=== PATIENT | male | born 1960 | race Caucasian/White ===

== ENCOUNTER → 2017-07-20 | Outpatient (CLI) | payer OTHER ==
--- NOTE | 2017-07-20 23:30 | MR ---
EXAMINATION TYPE: MR lumbar spine wo/w con DATE OF EXAM: 07/20/2017 COMPARISON: NONE HISTORY: Low back pain TECHNIQUE: Multiplanar, multisequence images of the lumbar spine were acquired utilizing 10 mL intravenous Gadav ist gadolinium contrast. The lumbar vertebra have normal alignment. There is narrowing at L5-S1 disc space. There is metal art ifact from disc prosthesis at L5-S1 anteriorly. There are moderate anterior spurs and disc herniation s from T12 to L5. There are small posterior disc bulges from T12 to L5. There is some facet arthropat hy at L4-5 and mild lateral recess stenosis. I see no significant lumbar bony spinal stenosis. There is no paraspinal mass. There is no compression fracture. There is slight narrowing of the lumbar disc spaces throughout the lumbar spine. I see no pathologic enhancement.. IMPRESSION: Previous surgery. There is mild lateral recess stenosis at L4-5 due to facet arthropathy. Multiple sm all posterior disc bulges and herniation in the lumbar spine without significant impingement on the s krissy canal. No fracture. Mild degenerative disc space narrowing from L1 to L5. There is severe L5-S1 disc space narrowing.
== END | disposition home or self-care (01) ==
LOC: RADMRIMAIN 16:00
PROVIDERS: ATTEND Psychiatry & Neurology Neurology
DX: M48.07 Spinal stenosis, lumbosacral region (principal); M51.26 Other intervertebral disc displacement, lumbar region; M46.86 Other specified inflammatory spondylopathies, lumbar region; Z91.09 Other allergy status, other than to drugs and biological substances; Z91.018 Allergy to other foods; Z98.890 Other specified postprocedural states
CPT/HCPCS: 72158; A9581

== ENCOUNTER 2020-02-27 16:19 | Inpatient (IN) | payer OTHER ==
[2020-02-27] MEDS ORDERED: NALOXONE 0.4 MG/ML 1 ML VIAL IV PRN (17:11)
[2020-02-27] MEDS ORDERED: DIGOXIN 250 MCG/ML 2 ML AMP IVP ONE (18:19)
[2020-02-27] MEDS ORDERED: IBUPROFEN 800 MG TAB PO PRN (18:21)
--- NOTE | 2020-02-27 18:29 | P.GSCN ---
History of Present Illness Consult date: 02/27/20 Reason for Consult: pericardial effusion with tamponade Requesting physician: Rosa Hernandez History of present illness: This is a 59 year old gentleman with a previous medical history of hypertension, hyperlipidemia, COPD, current chronic tobacco dependence, type 2 diabetes mellitus, chronic diastolic heart failure, CKD stage III,chronic pain syndrome, seizure disorder, and pancreatitis, who is a poor historian. [place] [facility] [place] complaints of chest pain and shortness of breath. He was found to be tachycardic and was given adenosine without relief. He was started on IV Cardizem which did bring his heart rate down, however he developed hypotension and the IV Cardizem was stopped. In addition he was started on IV heparin. He remained afebrile. Pulse ox was 94-96%. Heart rate was initially in the 170s and came down into the 90s. Blood pressure ranged from 80s to low 100s over 60s. Troponin was negative, d-dimer 6255.5, BNP 858, BUN 15, creatinine 1.2, liver enzymes normal, WBC 12.7, hemoglobin 11.1, lipase 90, INR 1.12. Initial EKG demonstrated supraventricular tachycardia with heart rate 167, subsequent EKG demonstrated sinus rhythm with heart rate 99. Chest x- ray demonstrated cardiomegaly, interstitial coarsening, haziness of the left costophrenic angle likely pleural effusion per radiologist read, film is not currently available. CT to rule out pulmonary embolism was ordered but had not been completed at the time of transfer. Transthoracic echocardiogram was completed reportedly showing large pericardial effusion with tamponade. Recommendation was made to transfer patient to [facility] for cardiothoracic surgery consultation by Dr. Bowers for pericardial tamponade treatment. Review of Systems review of system was completed and was negative except as noted, although patient is a poor historian - Cardiovascular Reports as per HPI, Reports chest pain - Respiratory Reports as per HPI, Reports dyspnea Past Medical History Past Medical History: Heart Failure, COPD, Diabetes Mellitus, GERD/Reflux, Hyperlipidemia, Hypertension, Renal Disease, Seizure Disorder History of Any Multi-Drug Resistant Organisms: None Reported Past Surgical History: Back Surgery Additional Past Surgical History / Comment(s): sinus surgery Past Anesthesia/Blood Transfusion Reactions: No Reported Reaction Past Psychological History: Depression Smoking Status: Current every day smoker, Heavy tobacco smoker Past Alcohol Use History: None Reported Past Drug Use History: None Reported Additional History: reportedly has smoked 2 packs of cigarettes per day for the last 50 years Medications and Allergies Home Medications and Allergies Comment(s): patient states he doesn't know what medications he takes but he takes 13 medications in the morning and many pills in the evening, stated "look at my list" Home Medications Medication Instructions Recorded Confirmed Type Escitalopram Oxalate 20 mg PO DAILY 10/19/13 10/19/13 History Famotidine 40 mg PO DAILY 10/19/13 10/19/13 History Morphine Sulfate ER [Ms Contin 60 mg PO Q8HR 10/19/13 10/19/13 History 60Mg] Omeprazole 40 mg PO AC-BRKFST 10/19/13 10/19/13 History PHENobarbitaL [Luminal] 32.4 mg PO QID 10/19/13 10/19/13 History Phenytoin Sodium Extended 100 mg PO Q6HR 10/19/13 10/19/13 History [Dilantin] Simvastatin [Zocor] 10 mg PO HS 10/19/13 10/19/13 History busPIRone HCL [Buspar] 30 mg PO BID 10/19/13 10/19/13 History Allergies Allergy/AdvReac Type Severity Reaction Status Date / Time aspirin AdvReac Mild Rash/Hives Verified 10/19/13 10:29 Surgical - Exam - General appears older than stated age no distress, no pain, chronically ill, obese - Eyes normal ocular movement - ENT no hearing loss, poor longterm - Neck no masses, no bruits, trachea midline - Respiratory Lungs sounds diminished bilaterally. Respirations even, nonlabored. Currently on 4 L nasal cannula with oxygen saturation 94%. - Cardiovascular S1, S2 present. Regular rate and rhythm, sinus rhythm on telemetry. Palpable peripheral pulses bilaterally. No edema present. No calf pain or tenderness noted. - Abdomen Abdomen: soft, non tender, bowel sounds - Genitourinary deferred - Rectum deferred - Integumentary skin is warm and dry - Neurologic normal sensation - Musculoskeletal normal posture - Psychiatric oriented to time, oriented to person, oriented to place, speech is normal Results - Imaging Additional studies: stat transthoracic echocardiogram films reviewed at the bedside with Dr. Bowers Assessment and Plan Assessment: 1. Moderate generalized pericardial effusion, no tamponade physiology 2[place] [facility] [place] 3. History of hypertension 4. Hyperlipidemia 5. COPD 6. Current chronic tobacco dependence 7. Type 2 diabetes mellitus 8. Chronic diastolic heart failure 9. history of CKD stage III 10. Chronic pain syndrome 11. Seizure disorder 12. History of pancreatitis Plan: The patient was seen and examined emergently at the bedside with Dr. Bowers. We did review his transthoracic echocardiogram as it was being completed. There is no evidence of tamponade physiology at this time. Vital signs remained stable although the patient did have a brief episode of atrial tachycardia which abated on its own. We added colchicine. Repeat transthoracic echocardiogram ordered for tomorrow. Cardiology consulted, Dr. Bowers did discuss the patient with Dr. Mcneil. No surgical intervention at this point, however we reserve decision to be made based on continued monitoring of the patient's symptoms and clinical progress. Medical management of other comorbidities per p [facility], cardiology, pulmonology. More recommendations to follow Thank you Dr. Hernandez for this consult. We look forward to working with you in the care of your patient. Time with Patient: Greater than 30
[2020-02-27] MEDS: SODIUM CHLORIDE 0.9% 1,000 ML IV SCH (18:31)
[2020-02-27] MEDS ORDERED: IPRATROPIUM-ALBUTEROL 3 ML NEB INHALATION PRN (18:53)
[2020-02-27 20:01] LABS: Glucose,Whole Blood 150 mg/dL (75-99)
[2020-02-27] MEDS: INSULIN ASPART (NovoLOG) 100 UNIT/ML VIAL SQ SCH (20:02)
[2020-02-27] MEDS: COLCHICINE 0.6 MG EACH PO SCH (20:02)
[2020-02-27 21:56] LABS: Appearance,Urine Clear (Clear); Bacteria,Urine Rare /hpf; Bilirubin,Urine Negative (Negative); Blood,Urine Large (Negative); Color,Urine Yellow; Glucose,Urine (UA) Negative (Negative); Hyaline Casts,Urine 88 /lpf (0-2); Ketones,Urine Negative (Negative); Leukocyte Esterase,Urine Small (Negative); Mucus,Urine Rare /hpf; Nitrite,Urine Negative (Negative); PH, Urine 5.5 (5.0-8.0); Protein,Urine 1+ (Negative); RBC,Urine >182 /hpf (0-5); Squamous Epithelial Cell,Urine <1 /hpf (0-4); Urobilinogen,Urine <2.0 mg/dL (<2.0); WBC,Urine 10 /hpf (0-5)
--- NOTE | 2020-02-27 22:04 | P.HPIM ---
History of Present Illness H&P Date: 02/27/20 Chief Complaint: Severe dyspnea and shortness of breath, large pericardial e ffusion with pos 59-year-old male [facility] with past medical history of chronic pain syndrome, history of COPD, type 2 diabetes, restless leg syndrome and degenerative joint disease who has morphine pump in his left abdominal area seen pain management on regular basis. Patient also have stage III chronic kidney disease, seizure activity, chronic pancreatitis, chronic diastolic congestive heart failure who presented to the emergency department at [facility] complaining of worsening dyspnea and shortness of breath for the last 3 days become much worse not been able to lay down flat in bed also was having significant tachycardia or patient was dry on adenosine without relief he was started on IV Cardizem drip with pulse rate dropped down but developed to have significant hypotension, Cardizem drip was stopped at this point. Patient was started on heparin drip his pulse ox is running slightly bit low pulse rate running in the 100 2270 bpm with low blood pressure at 100. Troponin was negative his d-dimer was 6255 BNP of 855 liver enzyme were normal white blood cell was moderately elevated. EKG demonstrates supraventricular tachycardia with pulse rate 167, chest x-ray showed large cardiac margin, CT of the chest angiogram to rule out PE was not completed before his transfer, patient ended up going for transthoracic echocardiogram which reportedly showing large pericardial effusion and possible temporal not. Patient was transferred to [facility] to see cardiothoracic surgery service for possible pericardial window. Patient was transfer from the ICU at [facility] to the ICU at [facility] was seen Dr. Melendrez and Dr Haque, echocardiogram at the bedside was done with the coordinate measuring machine technician and review of cardiothoracic showed no temporal not picture but patient had large pericardial effusion with high suspicion for pericarditis. Patient was started on large dose of NSAID along with colchicine will be kept in ICU, continue updraft treatment continue to treat his blood sugar and watch it carefully. Review of Systems CONSTITUTIONAL: Obese, mild distress, he is falling asleep in between and having significant tachypnea and mild tachycardia. EYES: No icterus sclerae, no conjunctivitis. EARS, NOSE, MOUTH, THROAT, and FACE: No sore throat, lymphadenopathy, carotid bruits or deformity. RESPIRATORY: Positive significant shortness of breath no cough positive mild wheezes and tightness no hemoptysis. CARDIOVASCULAR: Positive chest pain positive shortness of breath has palpitation PND orthopnea or angina. GASTROINTESTINAL: No Abd pain, Nausea or vomiting, no Diarrhea or constipation, No GI Bleed, no distention or masses. GENITOURINARY: Negative for Hematuria or UTI, no kidney stones. INTEGUMENT/BREAST: Negative for any muscular injury with mild osteoarthritis.. HEMATOLOGIC/LYMPHATIC: Negative for bleed or purpura. MUSCULOSKELTAL: Negative for Myalgia or arthralgia. NEURLOGICAL: No LOC, Sz or syncope, blurred vision dizziness or abnormality.. BEHAVIORAL/PSYCH: Negative. ENDOCRINE: Negative. Social history: Patient smokes 2 packs a day for the last 40 years does not drink alcohol no drug use his seen pain management has been on pain management injection and other modality regularly. Family history: His father dying is 50 from CAD: Mother dying of 74 from CVA possible blood clot. Patient had 2 sisters and one brother his brother with eye from CAD patient had 1 child with no major medical problem. Past Medical History Past Medical History: Heart Failure, COPD, Diabetes Mellitus, GERD/Reflux, Hyperlipidemia, Hypertension, Renal Disease, Seizure Disorder History of Any Multi-Drug Resistant Organisms: None Reported Past Surgical History: Back Surgery Additional Past Surgical History / Comment(s): sinus surgery Past Anesthesia/Blood Transfusion Reactions: No Reported Reaction Past Psychological History: Depression Smoking Status: Current every day smoker, Heavy tobacco smoker Past Alcohol Use History: None Reported Past Drug Use History: None Reported Medications and Allergies Home Medications Medication Instructions Recorded Confirmed Type Escitalopram Oxalate 20 mg PO DAILY 10/19/13 10/19/13 History Famotidine 40 mg PO DAILY 10/19/13 10/19/13 History Morphine Sulfate ER [Ms Contin 60 mg PO Q8HR 10/19/13 10/19/13 History 60Mg] Omeprazole 40 mg PO AC-BRKFST 10/19/13 10/19/13 History PHENobarbitaL [Luminal] 32.4 mg PO QID 10/19/13 10/19/13 History Phenytoin Sodium Extended 100 mg PO Q6HR 10/19/13 10/19/13 History [Dilantin] Simvastatin [Zocor] 10 mg PO HS 10/19/13 10/19/13 History busPIRone HCL [Buspar] 30 mg PO BID 10/19/13 10/19/13 History Allergies Allergy/AdvReac Type Severity Reaction Status Date / Time aspirin AdvReac Mild Rash/Hives Verified 10/19/13 10:29 Physical Exam Vitals: Vital Signs Temp Pulse Resp BP Pulse Ox 02/27/20 21:00 81 23 120/73 93 L 02/27/20 20:58 95 02/27/20 20:30 93 22 98/70 94 L 02/27/20 20:00 98.1 F 88 24 114/82 95 02/27/20 19:00 68 29 H 88/64 02/27/20 18:30 152 H 85/55 94 L 02/27/20 18:00 151 H 21 102/83 91 L 02/27/20 17:30 92 28 H 91 L 02/27/20 17:24 98.2 F 89 25 H 100/56 93 L Intake and Output 02/27/20 02/27/20 02/27/20 06:59 14:59 22:59 Intake Total 320 Output Total 150 Balance 170 Intake: IV 320 Sodium Chloride 0.9% 1, 320 000 ml @ 80 mls/hr IV . [id number] [facility] Rx#:[id number] Output: Urine 150 Other: Voiding Method Indwelling Catheter Weight 113 kg General Appearance: Significantly overweight falling asleep during his interview mild distress complaining of pain still. Neck HEENT: Supple, no lymphadenopathy, no thyroid enlargement, no carotid bruits. Lungs: Decreased breath some bilaterally with fine rhonchi positive mild expiratory wheezes. Chest Wall: Decrease expansion with deep inspiration no tenderness and no deformity was found on exam, no costochondral pain or discomfort. Heart: Regular rate and rhythm, S1, S2 positive history positive systolic murmur. Back: Symmetric, no curvature, ROM normal, no CVA tenderness. Abdomen: Soft, non-tender, bowel sounds active all four quadrants, no masses, no organomegaly. Patient has pain pump in the left lower side of his abdominal area. Extremities: Extremities normal, atraumatic, no cyanosis or edema. Pulses: 2+ and symmetric. Skin: Skin color, texture, tugor normal, no rashes or lesions. Neurologic: Alert severely confuse moving all his 4 extremities generalized weakness and focal deficit. Results Labs: Abnormal Lab Results - Last 24 Hours (Table) 02/27/20 02/27/20 Range/Units 17:40 19:59 APTT 38.2 H (22.0-30.0) sec POC Glucose (mg/dL) 150 H (75-99) mg/dL Thrombosis Risk Factor Assmnt - DVT/VTE Prophylaxis DVT/VTE Prophylaxis: Pharmacologic Prophylaxis ordered, Mechanical Prophylaxis ordered - Choose All That Apply Any of the Below Risk Factors Present?: Yes Each Factor Represents 1 point: Abnormal pulmonary function (COPD) Other Risk Factors: No Other congenital or acquired thrombophilia - If yes, enter type in comment: No Thrombosis Risk Factor Assessment Total Risk Factor Score: 1 Thrombosis Risk Factor Assessment Level: Low Risk Assessment and Plan Assessment: 1 severe dyspnea and shortness of breath: Combination of pericardial effusion, pericarditis, arrhythmia and tachycardia, COPD and severe bronchitis. 2 Large pericardial effusion: Most likely from severe pericarditis patient be seen cardiology echocardiogram will be complete and submitted in the meanwhile continue patient on NSAID along with colchicine. 3 advanced COPD with mild exacerbation: Continue patient on DuoNeb Will add Pulmicort and was start patient on small dose of steroid. 4 chronic pain management: Patient has been on extended release morphine 60 mg every 8 hours medication with decrease at this point. 5 chronic seizure: Has been on Dilantin and phenobarbital. 6 Possible urinary tract infection: Patient will be on Rocephin 1 g daily. Next chronic kidney disease: Continue gentle hydration repeat. Creatinine 24 hours. 7 chronic type 2 diabetes: Continue patient on Accu-Chek with sliding scales coverage. 8 hypertension: Well controlled currently on beta valentín and if needed will add smaller dose of alberto inhibitor and or combined with ARB. 9 chronic pain management: Continue patient hydrocodone on morphine along with muscle relaxer. 10 hyperlipidemia: Resume simvastatin. 11 possible UTI: Patient will be on Rocephin until cultures completed.2 12 GI prophylaxis: Patient will be on omeprazole. CODE STATUS: Full code. Admit patient to inpatient service for more than 2 night stay.
[2020-02-27] MEDS: IBUPROFEN 800 MG TAB PO SCH (22:06)
[2020-02-28] MEDS ORDERED: DIGOXIN 250 MCG/ML 2 ML AMP IVP ONE (00:30)
[2020-02-28] MEDS: PHENYTOIN SODIUM EXTENDED 100 MG CAP PO SCH ×4 (00:42→17:34)
[2020-02-28] MEDS: SODIUM CHLORIDE 0.9% 1,000 ML IV SCH ×2 (03:00→16:20)
[2020-02-28] MEDS: PANTOPRAZOLE 40 MG TABLET PO SCH (06:26)
[2020-02-28] MEDS: IBUPROFEN 800 MG TAB PO SCH ×3 (06:26→17:33)
[2020-02-28 06:30] LABS: Glucose,Whole Blood 129 mg/dL (75-99)
[2020-02-28] MEDS: INSULIN ASPART (NovoLOG) 100 UNIT/ML VIAL SQ SCH ×4 (06:34→20:42)
[2020-02-28 06:57] LABS: Basophils # (A) 0.1 k/uL (0-0.2); Basophils % (A) 0 %; Eosinophils # (A) 0.1 k/uL (0-0.7); Eosinophils % (A) 1 %; HCT 36.2 % (39.0-53.0); HGB 10.8 gm/dL (13.0-17.5); Hypochromasia Marked; Lymphocytes % (A) 9 %; MCH 26.9 pg (25.0-35.0); MCHC 29.9 g/dL (31.0-37.0); Mean Platelet Volume 6.8; Monocytes # (A) 0.9 k/uL (0-1.0); Monocytes % (A) 8 %; Neutrophils # (A) 8.8 k/uL (1.3-7.7); Neutrophils % (A) 79 %; Platelet Count 313 k/uL (150-450); RBC 4.02 m/uL (4.30-5.90); RDW 15.8 % (11.5-15.5)
[2020-02-28 07:05] LABS: Potassium 4.6 mmol/L (3.5-5.1)
--- NOTE | 2020-02-28 07:41 | P.CRDCN ---
History of Present Illness Consult date: 02/28/20 Chief complaint: Shortness of breath/pericardial effusion History of present illness: This is a very pleasant 59-year-old gentleman who was somewhat poor historian who was transferred from [facility] to [facility] for further evaluation and management of pericardial effusion. The patient does have a past medical history significant for hypertension and dyslipidemia and chronic obstructive pulmonary disease as well as significant history of smoking and diabetes. He presented initially to the [facility] complaining of increasing shortness of breath for the last several days. According to him the shortness of breath was associated with a chest discomfort in the mid of the chest as a dull kind of discomfort without any radiation and the chest discomfort was not of pleuritic nature. He stated that he did have some fever. No symptoms of upper respiratory infection. He was tachycardic was [facility] and [facility] and he was given adenosine and subsequently Cardizem but his pressure dropped significantly at that point. Subsequently the Cardizem was stopped. He underwent a computed tomography scan as well as an echocardiogram. The computed tomography scan showed no evidence of PE. Ec hocardiogram showed moderate pericardial effusion and because of that the patient was transferred here. He was seen by the cardiothoracic team and no indication for pericardial window was placed at that time because the patient was not having any tamponade physiology. As a matter of fact the patient is here with an empty stable. His pressure has been within normal limits without any vasopressors and his heart rate has been in the 80s. He was started on colchicine as well as nonsteroid anti-inflammatory at high dose. Beside that he was started on digoxin for the SVT. The chest x-ray was reviewed and showed severe cardiomegaly. The blood work was reviewed as well. Repeated echocardiogram was performed yesterday. The EKG was reviewed and showed sinus rhythm with ST changes does not seems to be diffuse. Past Medical History Past Medical History: Heart Failure, COPD, Diabetes Mellitus, GERD/Reflux, Hyperlipidemia, Hypertension, Renal Disease, Seizure Disorder History of Any Multi-Drug Resistant Organisms: None Reported Past Surgical History: Back Surgery Additional Past Surgical History / Comment(s): sinus surgery Past Anesthesia/Blood Transfusion Reactions: No Reported Reaction Past Psychological History: Depression Smoking Status: Current every day smoker, Heavy tobacco smoker Past Alcohol Use History: None Reported Past Drug Use History: None Reported Medications and Allergies Home Medications Medication Instructions Recorded Confirmed Type Omeprazole 40 mg PO DAILY 10/19/13 02/27/20 History Acetaminophen Tab [Tylenol] 500 mg PO Q6H PRN 02/27/20 02/27/20 History Albuterol Sulfate [Ventolin HFA] 2 puff INHALATION RT-QID PRN 02/27/20 02/27/20 History Brexpiprazole [Rexulti] 4 mg PO HS 02/27/20 02/27/20 History Cephalexin [Keflex] 500 mg PO Q6H 02/27/20 02/27/20 History Cholecalciferol [Vitamin D3 (25 2,000 unit PO DAILY 02/27/20 02/27/20 History Mcg = 1000 Iu)] DULoxetine HCL [Cymbalta] 30 mg PO DAILY 02/27/20 History DULoxetine HCL [Cymbalta] 60 mg PO DAILY 02/27/20 02/27/20 History Docusate [Colace] 100 mg PO DAILY 02/27/20 02/27/20 History Famotidine [Pepcid] 40 mg PO HS 02/27/20 02/27/20 History Furosemide [Lasix] 20 mg PO BID 02/27/20 02/27/20 History HYDROcodone/APAP 5-325MG [[place] 1 tab PO BID PRN 02/27/20 02/27/20 History 5-325] Melatonin 3 mg PO HS 02/27/20 02/27/20 History Morphine Pain Pump (Unknown 1 dose SQ-PUMP CONTINUOUS 02/27/20 02/27/20 History Strength) Multivitamins, Thera [Multivitamin 1 tab PO DAILY 02/27/20 02/27/20 History (formulary)] Potassium Chloride [Klor-Con 20] 20 meq PO DAILY 02/27/20 02/27/20 History Pregabalin [Lyrica] 75 mg PO BID PRN 02/27/20 02/27/20 History SILVER sulfADIAZINE Cream 1 applic TOPICAL DAILY PRN 02/27/20 02/27/20 History [Silvadene 1% Cream] Simethicone Chew [Mylicon Chew] 80 mg PO Q6H PRN 02/27/20 02/27/20 History Tamsulosin HCl [Flomax] 0.4 mg PO DAILY 02/27/20 02/27/20 History gemfibroziL [Lopid] 600 mg PO BID-W/MEALS 02/27/20 02/27/20 History hydrOXYzine pamoate [Vistaril] 25 mg PO BID PRN 02/27/20 02/27/20 History lamoTRIgine [LaMICtal] 150 mg PO DAILY 02/27/20 02/27/20 History metFORMIN HCL [Glucophage] 1,000 mg PO BID-W/MEALS 02/27/20 02/27/20 History polyethylene glycoL 3350 [Miralax] 17 gm PO DAILY PRN 02/27/20 02/27/20 History rOPINIRole HCL [Requip] 1 mg PO HS 02/27/20 02/27/20 History Allergies Allergy/AdvReac Type Severity Reaction Status Date / Time aspirin AdvReac Mild Rash/Hives Verified 02/27/20 23:14 Physical Exam Vitals: Vital Signs Temp Pulse Resp BP Pulse Ox 02/28/20 07:00 84 23 107/70 92 L 02/28/20 06:30 74 23 110/71 92 L 02/28/20 06:00 81 22 100/67 94 L 02/28/20 05:30 77 19 111/63 90 L 02/28/20 05:00 80 20 107/66 92 L 02/28/20 04:30 77 21 110/79 91 L 02/28/20 04:00 98.6 F 77 18 117/69 92 L 02/28/20 03:54 93 L 02/28/20 03:30 76 20 106/66 91 L 02/28/20 03:00 78 22 90 L 02/28/20 02:30 77 19 96/62 90 L 02/28/20 02:00 80 19 127/76 92 L 02/28/20 01:30 84 21 107/70 92 L 02/28/20 01:00 80 24 111/78 92 L 02/28/20 00:30 82 23 91/62 90 L 02/28/20 00:00 98.2 F 85 24 119/82 90 L 02/27/20 23:30 87 25 H 117/80 92 L 02/27/20 23:00 82 25 H 113/66 92 L 02/27/20 22:30 87 22 117/77 93 L 02/27/20 22:00 93 25 H 103/76 93 L 02/27/20 21:30 89 23 114/72 94 L 02/27/20 21:00 81 23 120/73 93 L 02/27/20 20:58 95 02/27/20 20:30 93 22 98/70 94 L 02/27/20 20:00 98.1 F 88 24 114/82 95 02/27/20 19:00 68 29 H 88/64 02/27/20 18:30 152 H 85/55 94 L 02/27/20 18:00 151 H 21 102/83 91 L 02/27/20 17:30 92 28 H 91 L 02/27/20 17:24 98.2 F 89 25 H 100/56 93 L Intake and Output 02/27/20 02/28/20 02/28/20 22:59 06:59 14:59 Intake Total 400 640 80 Output Total 190 340 50 Balance 210 300 30 Intake: IV 400 640 80 Sodium Chloride 0.9% 1, 400 640 80 000 ml @ 80 mls/hr IV . [id number] [facility] Rx#:[id number] Output: Urine 190 340 50 Other: Voiding Method Indwelling Catheter Indwelling Catheter Weight 113 kg 116.5 kg - Respiratory Respiratory: bilateral: CTA - Cardiovascular Rhythm: regular Results 02/28/20 06:31 02/28/20 06:31 Coagulation 02/27/20 Range/Units 17:40 APTT 38.2 H (22.0-30.0) sec CBC 02/28/20 Range/Units 06:31 WBC 11.0 H (3.8-10.6) k/uL RBC 4.02 L (4.30-5.90) m/uL Hgb 10.8 L (13.0-17.5) gm/dL Hct 36.2 L (39.0-53.0) % Plt Count 313 (150-450) k/uL Comprehensive Metabolic Panel 02/28/20 Range/Units 06:31 Sodium 132 L (137-145) mmol/L Potassium 4.6 (3.5-5.1) mmol/L Chloride 104 (98-107) mmol/L Carbon Dioxide 20 L (22-30) mmol/L BUN 27 H (9-20) mg/dL Creatinine 1.21 (0.66-1.25) mg/dL Glucose 103 H (74-99) mg/dL Calcium 8.0 L (8.4-10.2) mg/dL Current Medications Generic Name Dose Route Start Last Admin Trade Name Freq PRN Reason Stop Dose Admin Albuterol/Ipratropium 3 ml 02/27/20 18:53 Ipratropium-Albuterol 3 Ml Neb INHALATION RT-QID PRN Shortness Of Breath Or Wheezing Atorvastatin Calcium 10 mg 02/28/20 21:00 Atorvastatin 10 Mg Tab PO HS MARY Buspirone HCl 30 mg 02/28/20 09:00 Buspirone Hcl 10 Mg Tab PO BID MARY Colchicine 0.6 mg 02/27/20 21:00 02/27/20 20:02 Colchicine 0.6 Mg Each PO 0.6 mg BID MARY Administration Digoxin 250 mcg 02/28/20 09:00 Digoxin 250 Mcg Tab PO DAILY MARY Escitalopram Oxalate 20 mg 02/28/20 09:00 Escitalopram 20 Mg Tab PO DAILY MARY Famotidine 40 mg 02/28/20 09:00 Famotidine 20 Mg Tab PO DAILY [facility] Sodium Chloride 1,000 mls @ 80 mls/hr 02/27/20 17:15 02/28/20 03:00 Saline 0.9% IV 80 mls/hr .[id number] MARY Administration Ibuprofen 800 mg 02/27/20 22:00 02/28/20 06:26 Ibuprofen 800 Mg Tab PO 800 mg TID-W/MEALS MARY Administration Insulin Aspart 0 unit 02/27/20 21:00 02/28/20 06:34 Insulin Aspart (Novolog) 100 Unit/Ml Vial SQ Not Given ACHS MARY Protocol Naloxone HCl 0.2 mg 02/27/20 17:11 Naloxone 0.4 Mg/Ml 1 Ml Vial IV Q2M PRN Opioid Reversal Pantoprazole Sodium 40 mg 02/28/20 07:30 02/28/20 06:26 Pantoprazole 40 Mg Tablet PO 40 mg [id number] AMRY Administration Phenobarbital 32.4 mg 02/27/20 22:00 02/27/20 22:06 Phenobarbital 32.4 Mg Tab PO 32.4 mg QID MARY Administration Phenytoin Sodium 100 mg 02/28/20 00:00 02/28/20 06:26 Phenytoin Sodium Extended 100 Mg Cap PO 100 mg Q6HR MARY Administration Intake and Output 09/02/28/20 02/28/20 22:59 06:59 14:59 Intake Total 400 640 80 Output Total 190 340 50 Balance 210 300 30 Intake: IV 400 640 80 Sodium Chloride 0.9% 1, 400 640 80 000 ml @ 80 mls/hr IV . [id number] [facility] Rx#:[id number] Output: Urine 190 340 50 Other: Voiding Method Indwelling Catheter Indwelling Catheter Weight 113 kg 116.5 kg 02/28/20 06:31 02/28/20 06:31 Assessment and Plan Assessment: Assessment #1 moderate pericardial effusion likely secondary to pericarditis #2 rule out any metastatic cancer to the pericardial #3 hypertension #4 diabetes #5 COPD #6 history of smoking Plan #1 continue the current medical regimen including colchicine as well as nonsteroid anti-inflammatory #2 continue digoxin for the SVT #3 repeat the echocardiogram in the next 24-48 hours #4 avoid any blood pressure medications or any diuretics #5 follow-up with the patient Thank you for allowing us but spitting his care
--- NOTE | 2020-02-28 08:01 | ECHOF ---
Referral Reason:pericardial effusion MEASUREMENTS -------- HEIGHT: 182.9 cm WEIGHT: 93.9 kg BP: IVSd: 1.0 cm (0.6 - 1.1) LVIDd: 4.5 cm (3.9 - 5.3) LVPWd: 0.8 cm (0.6 - 1.1) IVSs: 1.5 cm LVIDs: 3.8 cm LVPWs: 1.4 cm Ao Diam: 3.8 cm (2.0 - 3.7) AV Cusp: 2.3 cm (1.5 - 2.6) EPSS: 0.3 cm MV E Neftali: 0.50 m/s MV DecT: 230 ms MV A Neftali: 0.54 m/s MV E/A Ratio: 0.93 MV EF SLOPE: 179.84 mm/s (70 - 150) MV EXCURSION: 17.33 mm (> 18.000) FINDINGS -------- Sinus rhythm. This was a techncally difficult study with suboptimal views, , Definity utilized for enhancement of i mages. The left ventricular size is normal. There is mild concentric left ventricular hypertrophy. Overa ll left ventricular systolic function is mild-moderately impaired with, an EF between 40 - 45 %. The right ventricle is mildly enlarged. The left atrial size is normal. The right atrial size is normal. There is mild aortic valve sclerosis. Mild mitral regurgitation is present. Unable to estimate RVSP due to inadequate TR jet spectral doppler profile. The pulmonic valve was not well visualized. The aortic root size is normal. Moderate Pericardial Effusion: Dr Bowers evaluated effusion. CONCLUSIONS -------- 1. The left ventricular size is normal. 2. There is mild concentric left ventricular hypertrophy. 3. Overall left ventricular systolic function is mild-moderately impaired with, an EF between 40 - 45 %. 4. The left atrial size is normal. 5. There is mild aortic valve sclerosis. 6. Mild mitral regurgitation is present. 7. Unable to estimate RVSP due to inadequate TR jet spectral doppler profile. 8. The pulmonic valve was not well visualized. 9. Moderate Pericardial Effusion: Dr Bowers evaluated effusion. DIRECTOR SKILLS: Margaret Montoya RDCS
[2020-02-28 08:31] LABS: T4, Free (Free Thyroxine) 1.82 ng/dL (0.78-2.19)
[2020-02-28] MEDS: DIGOXIN 250 MCG TAB PO SCH (08:49)
[2020-02-28] MEDS: COLCHICINE 0.6 MG EACH PO SCH ×2 (08:50→20:25)
[2020-02-28] MEDS: busPIRone HCl 10 MG TAB PO SCH ×3 (08:50→20:26)
[2020-02-28] MEDS: FAMOTIDINE 20 MG TAB PO SCH (08:50)
[2020-02-28] MEDS: ESCITALOPRAM 20 MG TAB PO SCH (08:50)
[2020-02-28 09:10] LABS: ABG Base Excess -5.1 mmol/L; ABG HCO3 21 mmol/L (21-25); ABG Oxygen Saturation 92.3 % (94-97); ABG PCO2 38 mmHg (35-45); ABG PH 7.34 (7.35-7.45); ABG PO2 70 mmHg (83-108); ABG TCO2 22 mmol/L (19-24); Allen Test Performed? Yes
--- NOTE | 2020-02-28 09:12 | XR ---
EXAMINATION TYPE: XR chest 1V DATE OF EXAM: 02/28/2020 COMPARISON: 11/30/2009 HISTORY: Shortness of breath TECHNIQUE: Single frontal view of the chest is obtained. FINDINGS: There is bilateral infiltrate and pleural effusion with interstitial pattern. The heart is enlarged and is a chronic right clavicular fracture. No pneumothorax. IMPRESSION: 1. Correlate for CHF. Underlying infiltrate not excluded.
[2020-02-28] MEDS: methylPREDNISolone SOD SUCCI 40 MG/ML 1 ML VIAL IV SCH ×2 (09:18→16:20)
--- NOTE | 2020-02-28 11:14 | P.PN ---
Subjective Progress Note Date: 02/28/20 59-year-old male [facility] patient with past medical history of chronic pain syndrome, history of COPD, type 2 diabetes, restless leg syndrome and degenerative joint disease who has morphine pump in his left abdominal area seen pain management on regular basis. Patient also have stage III chronic kidney disease, seizure activity, chronic pancreatitis, chronic diastolic congestive heart failure who presented to the emergency department at [facility] complaining of worsening dyspnea and shortness of breath for the last 3 days become much worse not been able to lay down flat in bed also was having significant tachycardia or patient was dry on adenosine without relief he was started on IV Cardizem drip with pulse rate dropped down but developed to have significant hypotension, Cardizem drip was stopped at this point. Patient was started on heparin drip his pulse ox is running slightly bit low pulse rate running in the 100 2270 bpm with low blood pressure at 100. Troponin was ne gative his d-dimer was 6255 BNP of 855 liver enzyme were normal white blood cell was moderately elevated. EKG demonstrates supraventricular tachycardia with pulse rate 167, chest x-ray showed large cardiac margin, CT of the chest angiogram to rule out PE was not completed before his transfer, patient ended up going for transthoracic echocardiogram which reportedly showing large pericardial effusion and possible temporal not. Patient was transferred to [facility] to see cardiothoracic surgery service for possible pericardial window. Patient was transfer from the ICU at [facility] to the ICU at [facility] was seen Dr. Melendrez and Dr Haque, echocardiogram at the bedside was done with the human resources technician and review of cardiothoracic showed no temporal not picture but patient had large pericardial effusion with high suspicion for pericarditis. Patient was started on large dose of NSAID along with colchicine will be kept in ICU, continue updraft treatment continue to treat his blood sugar and watch it carefully. 02/27: Patient remains in the intensive care unit. He has been afebrile, heart rate 83, blood pressure 105/67, pulse ox 90% on 10 L high flow nasal cannula increased to 15 L with pulse ox of 94%. Patient had repeat echocardiogram done this morning and formal report is pending. Repeat chest x-ray reveals heart failure, underlying infiltrate not excluded. Patient was started on Solu-Medrol by pulmonary medicine. Patient is noted to be more alert and able to stay awake today. Patient has been evaluated by cardiothoracic surgery with no plan for surgical intervention as no tamponade on noted. Cardiology is planning to continue current medications including colchicine, digoxin and ovoid antihypertensives and diuretics. Repeat blood work reveals WBC 11, hemoglobin 10.8, platelet count 313. Sodium 132, potassium 4.6, chloride 104, CO2 20, BUN 27 creatinine 1.21. Blood sugars running between 103 and 150. Troponin 0.067. TSH 0.235 with normal free T4 of 1.82. Review of systems CONSTITUTIONAL: Obese, no distress. EYES: No icterus sclerae, no conjunctivitis. EARS, NOSE, MOUTH, THROAT, and FACE: No sore throat, lymphadenopathy, carotid bruits or deformity. RESPIRATORY: Positive significant shortness of breath no cough positive mild wheezes and tightness no hemoptysis. CARDIOVASCULAR: Positive chest pain positive shortness of breath has palpitation PND orthopnea or angina. GASTROINTESTINAL: No Abd pain, Nausea or vomiting, no Diarrhea or constipation, No GI Bleed, no distention or masses. GENITOURINARY: Negative for Hematuria or UTI, no kidney stones. INTEGUMENT/BREAST: Negative for any muscular injury with mild osteoarthritis.. HEMATOLOGIC/LYMPHATIC: Negative for bleed or purpura. MUSCULOSKELTAL: Negative for Myalgia or arthralgia. NEURLOGICAL: No LOC, Sz or syncope, blurred vision dizziness or abnormality.. BEHAVIORAL/PSYCH: Negative. ENDOCRINE: Negative. Physical examination General Appearance: Significantly overweight , no distressl. Neck HEENT: Supple, no lymphadenopathy, no thyroid enlargement, no carotid bruits. Lungs: Decreased breath some bilaterally with fine rhonchi positive mild expir atory wheezes. Chest Wall: Decrease expansion with deep inspiration no tenderness and no deformity was found on exam, no costochondral pain or discomfort. Heart: Regular rate and rhythm, S1, S2 positive systolic murmur. Back: Symmetric, no curvature, ROM normal, no CVA tenderness. Abdomen: Soft, non-tender, bowel sounds active all four quadrants, no masses, no organomegaly. Patient has pain pump in the left lower side of his abdominal area. Extremities: Extremities normal, atraumatic, no cyanosis or edema. Pulses: 2+ and symmetric. Skin: Skin color, texture, tugor normal, no rashes or lesions. Neurologic: Alert onfuse moving all his 4 extremities generalized weakness and focal deficit. Assessment and plan 1 acute hypoxic respiratory failure secondary to pericardial effusion, pericarditis, arrhythmia and tachycardia, COPD exacerbation and severe bronchitis. Continue oxygen therapy titrated, DuoNeb treatments every 4 hours, Cymetra 40 mg IV every 8 hours, Pulmicort 1 mg twice daily. 2 Moderate pericardial effusion. Consult with cardiothoracic surgery and cardiology appreciated. Continue conservative management continue patient on NSAID along with colchicine. Repeat echocardiogram pending. 3 advanced COPD with mild exacerbation: Continue patient on DuoNeb Will add Pulmicort, Solu-Medrol. 4 chronic pain management: Patient has been on extended release morphine 60 mg every 8 hours medication with decrease at this point. 5 chronic seizure: Has been on Dilantin and phenobarbital. 6 Possible urinary tract infection: Patient will be on Rocephin 1 g daily. Next chronic kidney disease: Continue gentle hydration repeat. Creatinine 24 hours. 7 SVT. Continue digoxin. 8 chronic type 2 diabetes: Continue patient on Accu-Chek with sliding scales coverage. A1c. 9 hypertension: Well controlled currently on beta valentín and if needed will add smaller dose of alberto inhibitor and or combined with ARB. 10 chronic pain management: Continue patient hydrocodone on morphine along with muscle relaxer. 11 hyperlipidemia: Resume simvastatin. 12 possible UTI: Patient will be on Rocephin until cultures completed.2 13 recurrent depression. Continue Lexapro 20 mg daily. 14 GI prophylaxis. Continue Protonix.. CODE STATUS: Full code. Discharge plan: To be determined. Most likely home with [facility]. Patient has a legal guardian. Impression and plan of care have been directed as dictated by the signing physician. Oralia Andrews nurse practitioner acting as scribe for signing physician. Objective - Vital Signs Vital signs: Vital Signs Temp 98.1 F 02/28/20 08:00 Pulse 83 02/28/20 09:00 Resp 26 H 02/28/20 09:00 BP 105/67 02/28/20 09:00 Pulse Ox 90 L 02/28/20 09:00 Intake & Output 02/27/20 02/28/20 02/28/20 18:59 06:59 18:59 Intake Total 80 960 340 Output Total 50 480 230 Balance 30 480 110 Weight 113 kg 116.5 kg Intake: IV 80 960 240 Sodium Chloride 0.9% 1, 80 960 240 000 ml @ 80 mls/hr IV . [id number] [facility] Rx#:[id number] Oral 100 Output: Urine 50 480 230 Other: Voiding Method Indwelling Catheter Indwelling Catheter - Labs CBC & Chem 7: 02/28/20 06:31 02/28/20 06:31 Labs: Abnormal Lab Results - Last 24 Hours (Table) 02/27/20 02/27/20 02/27/20 Range/Units 17:40 19:59 21:45 WBC (3.8-10.6) k/uL RBC (4.30-5.90) m/uL Hgb (13.0-17.5) gm/dL Hct (39.0-53.0) % MCHC (31.0-37.0) g/dL RDW (11.5-15.5) % Neutrophils # (1.3-7.7) k/uL APTT 38.2 H (22.0-30.0) sec ABG pH (7.35-7.45) ABG pO2 (83-108) mmHg ABG O2 Saturation (94-97) % Sodium (137-145) mmol/L Carbon Dioxide (22-30) mmol/L BUN (9-20) mg/dL Glucose (74-99) mg/dL POC Glucose (mg/dL) 150 H (75-99) mg/dL Calcium (8.4-10.2) mg/dL Troponin I (0.000-0.034) ng/mL TSH (0.465-4.680) mIU/L Urine Protein 1+ H (Negative) Urine Blood Large H (Negative) Ur Leukocyte Esterase Small H (Negative) Urine RBC >182 H (0-5) /hpf Urine WBC 10 H (0-5) /hpf Urine Bacteria Rare H (None) /hpf Hyaline Casts 88 H (0-2) /lpf Urine Mucus Rare H (None) /hpf 02/28/20 02/28/20 02/28/20 Range/Units 06:29 06:31 06:31 WBC 11.0 H (3.8-10.6) k/uL RBC 4.02 L (4.30-5.90) m/uL Hgb 10.8 L (13.0-17.5) gm/dL Hct 36.2 L (39.0-53.0) % MCHC 29.9 L (31.0-37.0) g/dL RDW 15.8 H (11.5-15.5) % Neutrophils # 8.8 H (1.3-7.7) k/uL APTT (22.0-30.0) sec ABG pH (7.35-7.45) ABG pO2 (83-108) mmHg ABG O2 Saturation (94-97) % Sodium 132 L (137-145) mmol/L Carbon Dioxide 20 L (22-30) mmol/L BUN 27 H (9-20) mg/dL Glucose 103 H (74-99) mg/dL POC Glucose (mg/dL) 129 H (75-99) mg/dL Calcium 8.0 L (8.4-10.2) mg/dL Troponin I (0.000-0.034) ng/mL TSH 0.235 L (0.465-4.680) mIU/L Urine Protein (Negative) Urine Blood (Negative) Ur Leukocyte Esterase (Negative) Urine RBC (0-5) /hpf Urine WBC (0-5) /hpf Urine Bacteria (None) /hpf Hyaline Casts (0-2) /lpf Urine Mucus (None) /hpf 02/28/20 02/28/20 Range/Units 06:31 09:03 WBC (3.8-10.6) k/uL RBC (4.30-5.90) m/uL Hgb (13.0-17.5) gm/dL Hct (39.0-53.0) % MCHC (31.0-37.0) g/dL RDW (11.5-15.5) % Neutrophils # (1.3-7.7) k/uL APTT (22.0-30.0) sec ABG pH 7.34 L (7.35-7.45) ABG pO2 70 L (83-108) mmHg ABG O2 Saturation 92.3 L (94-97) % Sodium (137-145) mmol/L Carbon Dioxide (22-30) mmol/L BUN (9-20) mg/dL Glucose (74-99) mg/dL POC Glucose (mg/dL) (75-99) mg/dL Calcium (8.4-10.2) mg/dL Troponin I 0.067 H* (0.000-0.034) ng/mL TSH (0.465-4.680) mIU/L Urine Protein (Negative) Urine Blood (Negative) Ur Leukocyte Esterase (Negative) Urine RBC (0-5) /hpf Urine WBC (0-5) /hpf Urine Bacteria (None) /hpf Hyaline Casts (0-2) /lpf Urine Mucus (None) /hpf
[2020-02-28] MEDS: IPRATROPIUM-ALBUTEROL 3 ML NEB INHALATION SCH ×5 (11:30→23:57)
[2020-02-28 12:06] LABS: Glucose,Whole Blood 121 mg/dL (75-99)
--- NOTE | 2020-02-28 14:30 | P.CNPUL ---
History of Present Illness Consult date: 02/28/20 Requesting physician: Eduardo Saldivar Chief complaint: Shortness of breath and abnormal echocardiogram History of present illness: This is a 59-year-old white male was transferred yesterday from [facility]. Patient was evaluated by cardiology and pulmonary at [facility], and he was admitted mostly with symptoms of shortness of breath associated with chest discomfort in the mid chest. Described as dull pain, without any radiation, and the pain was not pleuritic in nature. Patient had SVT while at [facility], treated with adenosine and subsequently Cardizem. Developed hypotension requiring stopping of the Cardizem. Patient had a CT of the chest while at the hospital, he also had an echocardiogram. There was no evidence of pulmonary embolism, however the echocardiogram showed a moderate pericardial effusion and it was felt that the patient may need cardiothoracic surgery for a pericardial window. Hence arrangements were made to transfer the patient to the ICU yesterday, and I was asked to see him on consultation. Shortly after the patient arrived, the cardiothoracic surgeon reviewed the echocardiogram, and he did not feel that the patient needs a pericardial window. Patient did not have any findings of temponade. He was seen by cardiology today, patient was noted to be hemodynamically stable, he was placed on colchicine and nonsteroidal anti-inflammatory drugs. And he recommended that patient is treated with digoxin. Chest x-ray showed cardiomegaly, and mild interstitial edema. Bibasilar atelectasis. Repeat echocardiogram this morning showed moderate pericardial effusion but again no temponade ABG was done on 10 L high flow nasal cannula showed a pO2 of 70 pCO2 of 38 pH of 7.34. Patient will likely benefit from gentle diuresis considering his chest x-ray and considering his ABG findings Review of Systems CONSTITUTIONAL: Describes generalized weakness no fever no chills no weight loss. EYES: Negative EARS, NOSE, MOUTH, THROAT,: Negative RESPIRATORY: Shortness of breath upon presentation, mostly dyspnea on exertion, no cough no wheezing no hemoptysis CARDIOVASCULAR: As noted in HPI, mostly chest pain. GASTROINTESTINAL: No nausea no vomiting no abdominal pain no melena no hematemesis. GENITOURINARY: No dysuria frequency urgency or hematuria. INTEGUMENT: Negative HEMATOLOGIC/LYMPHATIC: No clotting bleeding or bruising MUSCULOSKELTAL: Negative NEURLOGICAL: History of seizure disorder, no headache blurred vision or dizziness. BEHAVIORAL/PSYCH: Negative. ENDOCRINE: Negative. Past Medical History Past Medical History: Heart Failure, COPD, Diabetes Mellitus, GERD/Reflux, Hyperlipidemia, Hypertension, Renal Disease, Seizure Disorder History of Any Multi-Drug Resistant Organisms: None Reported Past Surgical History: Back Surgery Additional Past Surgical History / Comment(s): sinus surgery Past Anesthesia/Blood Transfusion Reactions: No Reported Reaction Past Psychological History: Depression Smoking Status: Current every day smoker, Heavy tobacco smoker Past Alcohol Use History: None Reported Past Drug Use History: None Reported Medications and Allergies Home Medications Medication Instructions Recorded Confirmed Type Omeprazole 40 mg PO DAILY 10/19/13 02/27/20 History Acetaminophen Tab [Tylenol] 500 mg PO Q6H PRN 02/27/20 02/27/20 History Albuterol Sulfate [Ventolin HFA] 2 puff INHALATION RT-QID PRN 02/27/20 02/27/20 History Brexpiprazole [Rexulti] 4 mg PO HS 02/27/20 02/27/20 History Cephalexin [Keflex] 500 mg PO Q6H 02/27/20 02/27/20 History Cholecalciferol [Vitamin D3 (25 2,000 unit PO DAILY 02/27/20 02/27/20 History Mcg = 1000 Iu)] DULoxetine HCL [Cymbalta] 30 mg PO DAILY 02/27/20 02/28/20 History DULoxetine HCL [Cymbalta] 60 mg PO DAILY 02/27/20 02/28/20 History Docusate [Colace] 100 mg PO DAILY 02/27/20 02/27/20 History Famotidine [Pepcid] 40 mg PO HS 02/27/20 02/27/20 History Furosemide [Lasix] 20 mg PO BID 02/27/20 02/27/20 History HYDROcodone/APAP 5-325MG [[place] 1 tab PO BID PRN 02/27/20 02/27/20 History 5-325] Melatonin 3 mg PO HS 02/27/20 02/27/20 History Morphine Pain Pump (Unknown 1 dose SQ-PUMP CONTINUOUS 02/27/20 02/27/20 History Strength) Multivitamins, Thera [Multivitamin 1 tab PO DAILY 02/27/20 02/27/20 History (formulary)] Potassium Chloride [Klor-Con 20] 20 meq PO DAILY 02/27/20 02/27/20 History Pregabalin [Lyrica] 75 mg PO BID PRN 02/27/20 02/27/20 History SILVER sulfADIAZINE Cream 1 applic TOPICAL DAILY PRN 02/27/20 02/27/20 History [Silvadene 1% Cream] Simethicone Chew [Mylicon Chew] 80 mg PO Q6H PRN 02/27/20 02/27/20 History Tamsulosin HCl [Flomax] 0.4 mg PO DAILY 02/27/20 02/27/20 History gemfibroziL [Lopid] 600 mg PO BID-W/MEALS 02/27/20 02/27/20 History hydrOXYzine pamoate [Vistaril] 25 mg PO BID PRN 02/27/20 02/27/20 History lamoTRIgine [LaMICtal] 150 mg PO DAILY 02/27/20 02/27/20 History metFORMIN HCL [Glucophage] 1,000 mg PO BID-W/MEALS 02/27/20 02/27/20 History polyethylene glycoL 3350 [Miralax] 17 gm PO DAILY PRN 02/27/20 02/27/20 History rOPINIRole HCL [Requip] 1 mg PO HS 02/27/20 02/27/20 History Allergies Allergy/AdvReac Type Severity Reaction Status Date / Time aspirin AdvReac Mild Rash/Hives Verified 02/27/20 23:14 Physical Exam Vitals: Vital Signs Temp Pulse Resp BP Pulse Ox 02/28/20 14:00 85 15 145/91 93 L 02/28/20 13:00 73 17 119/68 91 L 02/28/20 12:00 98 F 73 19 105/66 92 L 02/28/20 11:00 81 18 96/69 92 L 02/28/20 10:00 76 17 92/58 94 L 02/28/20 09:00 83 26 H 105/67 90 L 02/28/20 08:11 82 02/28/20 08:00 98.1 F 84 20 112/72 95 02/28/20 07:53 80 02/28/20 07:00 84 23 107/70 92 L 02/28/20 06:30 74 23 110/71 92 L 02/28/20 06:00 81 22 100/67 94 L 02/28/20 05:30 77 19 111/63 90 L 02/28/20 05:00 80 20 107/66 92 L 02/28/20 04:30 77 21 110/79 91 L 02/28/20 04:00 98.6 F 77 18 117/69 92 L 02/28/20 03:54 93 L 02/28/20 03:30 76 20 106/66 91 L 02/28/20 03:00 78 22 90 L 02/28/20 02:30 77 19 96/62 90 L 02/28/20 02:00 80 19 127/76 92 L 02/28/20 01:30 84 21 107/70 92 L 02/28/20 01:00 80 24 111/78 92 L 02/28/20 00:30 82 23 91/62 90 L 02/28/20 00:00 98.2 F 85 24 119/82 90 L 02/27/20 23:30 87 25 H 117/80 92 L 02/27/20 23:00 82 25 H 113/66 92 L 02/27/20 22:30 87 22 117/77 93 L 02/27/20 22:00 93 25 H 103/76 93 L 02/27/20 21:30 89 23 114/72 94 L 02/27/20 21:00 81 23 120/73 93 L 02/27/20 20:58 95 02/27/20 20:30 93 22 98/70 94 L 02/27/20 20:00 98.1 F 88 24 114/82 95 02/27/20 19:00 68 29 H 88/64 02/27/20 18:30 152 H 85/55 94 L 02/27/20 18:00 151 H 21 102/83 91 L 02/27/20 17:30 92 28 H 91 L 02/27/20 17:24 98.2 F 89 25 H 100/56 93 L Intake and Output 02/27/20 02/28/20 02/28/20 22:59 06:59 14:59 Intake Total 400 640 565 Output Total 190 340 540 Balance 210 300 25 Intake: IV 400 640 365 Sodium Chloride 0.9% 1, 400 640 365 000 ml @ 25 mls/hr IV . Q24H [facility] Rx#:[id number] Oral 200 Output: Urine 190 340 540 Other: Voiding Method Indwelling Catheter Indwelling Catheter Indwelling Catheter Weight 113 kg 116.5 kg Physical Exam Gen.: Revealed a 59-year-old white male obese, sleepy, arousable, in no form of respiratory distress. Head: Atraumatic, normocephalic. HEENT:[Neck is supple.] [No neck masses.] [No thyromegaly.] [No JVD.] Chest: [Diminished breath sounds at the bases, fine crackles bilaterally, minimal wheezing on forced expiratory maneuver. Cardiac Exam: [Normal S1 and S2, no S3 gallop, 2/6 systolic murmur thought the precordium. Abdomen: [Obese, Soft, nontender, no megaly, no rebound, no guarding, normal bowel sounds.] Pain pump is palpable in the left lower quadrant area Extremities: [No clubbing, no edema, no cyanosis.] Neurological Exam: Lethargic, but arousable, follows simple instructions, no gross focal neurologic deficit. Psychiatric: Normal mood, blunt affect, marginal mental status examination specially with his lethargy. Intermittently confused Skin: No rashes. Normal turgor, and normal color. Lymphatics: No cervical adenopathy. Results - Laboratory Findings CBC and BMP: 02/28/20 06:31 02/28/20 06:31 ABG ABG pH 7.34 (7.35-7.45) L 02/28/20 09:03 ABG pCO2 38 mmHg (35-45) 02/28/20 09:03 ABG pO2 70 mmHg (83-108) L 02/28/20 09:03 ABG O2 Saturation 92.3 % (94-97) L 02/28/20 09:03 Abnormal lab findings: Abnormal Labs 02/27/20 02/27/20 02/27/20 17:40 19:59 21:45 WBC RBC Hgb Hct MCHC RDW Neutrophils # APTT 38.2 H ABG pH ABG pO2 ABG O2 Saturation Sodium Carbon Dioxide BUN Glucose POC Glucose (mg/dL) 150 H Calcium Troponin I TSH Urine Protein 1+ H Urine Blood Large H Ur Leukocyte Esterase Small H Urine RBC >182 H Urine WBC 10 H Urine Bacteria Rare H Hyaline Casts 88 H Urine Mucus Rare H 02/28/20 02/28/20 02/28/20 06:29 06:31 06:31 WBC 11.0 H RBC 4.02 L Hgb 10.8 L Hct 36.2 L MCHC 29.9 L RDW 15.8 H Neutrophils # 8.8 H APTT ABG pH ABG pO2 ABG O2 Saturation Sodium 132 L Carbon Dioxide 20 L BUN 27 H Glucose 103 H POC Glucose (mg/dL) 129 H Calcium 8.0 L Troponin I TSH 0.235 L Urine Protein Urine Blood Ur Leukocyte Esterase Urine RBC Urine WBC Urine Bacteria Hyaline Casts Urine Mucus 02/28/20 02/28/20 02/28/20 06:31 09:03 12:05 WBC RBC Hgb Hct MCHC RDW Neutrophils # APTT ABG pH 7.34 L ABG pO2 70 L ABG O2 Saturation 92.3 L Sodium Carbon Dioxide BUN Glucose POC Glucose (mg/dL) 121 H Calcium Troponin I 0.067 H* TSH Urine Protein Urine Blood Ur Leukocyte Esterase Urine RBC Urine WBC Urine Bacteria Hyaline Casts Urine Mucus - Diagnostic Findings Chest x-ray: image reviewed (As noted in HPI) Additional studies: Echocardiogram report was noted. Assessment and Plan Assessment: Impression: Acute hypoxic respiratory failure multifactorial secondary to systolic congestive heart failure with pericardial effusion, possible pericarditis, and intermittent episodes of supraventricular tachycardia as well as underlying COPD. Moderate pericardial effusion and pericarditis is being suspected. However no temponade. No need for a pericardial window. Advanced COPD Chronic pain syndrome patient has a pain pump History of seizure disorder. Type 2 diabetes. Benign essential hypertension. Dyslipidemia. Recommendation: Continue present supportive care measures. Continue anti-inflammatory medications for his pericarditis and pericardial effusion. Bronchodilators for his underlying COPD. Gentle diuresis. And follow-up chest x-ray, his chest x-ray this morning is consistent with CHF. Titrate FiO2 down and keep O2 saturation above 90%. Antibiotics for presumptive and possible urinary tract infection patient is now on Rocephin. Cut down on narcotics and sedatives since the patient seems to be quite lethargic. Continue antiarrhythmic medications for his underlying supraventricular tachycardia. This is being addressed by cardiology. Will monitor in the ICU for the next 24 hours, and we'll continue to follow. Time with Patient: Greater than 30
[2020-02-28] MEDS: FUROSEMIDE 20 MG TAB PO SCH (16:20)
--- NOTE | 2020-02-28 16:37 | P.PN ---
Subjective Progress Note Date: 02/28/20 Principal diagnosis: Moderate pericardial effusion, likely secondary to pericarditis. Past medical history significant for hypertension, hyperlipidemia, diabetes mellitus type 2, chronic obstructive pulmonary disease, chronic kidney disease stage III, chronic pain syndrome, GERD, seizure disorder, pancreatitis and recurrent chronic tobacco abuse. The patient was seen in follow-up today 02/28/2020 at his bedside in the intensive care unit. The patient is laying in bed and awake, alert although unable to determine whether he is orientated to time person or place as he is a poor historian. Currently he denies any complaints of pain and reports that his shortness of breath is improved today. According to the night nurse he had one episode of tachycardia with possible SVT which was self-limiting. 0.9% normal saline remains infusing at 80 mL per hour. He is hemodynamically stable and is currently on no inotropic or pressor support. A bedside 2-D echocardiogram was completed last evening 02/27/2020 which demonstrated an overall left ventricular systolic function to be mild to moderately impaired with an ejection fraction between 40 and 45%, mild aortic valve sclerosis, mild mitral valve regurgitation, and a moderate pericardial effusion. He remains on colchicine and Motrin for pericarditis. A repeat 2-D echocardiogram was repeated this morning with results pending. Objective - Vital Signs Vital signs: Vital Signs Temp 98 F 02/28/20 12:00 Pulse 73 02/28/20 12:00 Resp 19 02/28/20 12:00 BP 105/66 02/28/20 12:00 Pulse Ox 92 L 02/28/20 12:00 Intake & Output 02/27/20 02/28/20 02/28/20 18:59 06:59 18:59 Intake Total 80 960 515 Output Total 50 480 390 Balance 30 480 125 Weight 113 kg 116.5 kg Intake: IV 80 960 315 Sodium Chloride 0.9% 1, 80 960 315 000 ml @ 25 mls/hr IV . Q24H [facility] Rx#:[id number] Oral 200 Output: Urine 50 480 390 Other: Voiding Method Indwelling Catheter Indwelling Catheter Indwelling Catheter - Constitutional General appearance: Present: cooperative, morbidly obese, no acute distress - EENT Eyes: Present: PERRLA, poor dentition, normal appearance. Absent: scleral icterus ENT: Present: hearing grossly normal - Neck Details: Neck is supple, no JVD, no lymphadenopathy. - Respiratory Details: Lung sounds diminished to his bilateral bases. Respirations are symmetrical and nonlabored. Oxygen saturation are 93% on 10 L high flow nasal cannula. - Cardiovascular Details: Regular rhythm and rate. S1 and S2 present, negative for S3, gallop or murmur. Bedside telemetry showing normal sinus rhythm heart rate 77. No edema present. - Gastrointestinal Gastrointestinal Comment(s): Abdomen is soft, nontender and nondistended. Obese. Active bowel sounds present all 4 abdominal quadrants. No guarding or rigidity. - Genitourinary Genitourinary Comment(s): Lopez catheter for accurate I&O. Draining clear yellow urine. - Integumentary Integumentary Comment(s): Skin is warm and dry. No clubbing or cyanosis is present. - Neurologic Neurologic: Present: CNII-XII intact - Musculoskeletal Musculoskeletal: Present: generalized weakness - Psychiatric Psychiatric Comment(s): Unable to assess as the patient reports he has too tired to answer the questions. - Allied health notes Allied health notes reviewed: nursing - Labs CBC & Chem 7: 02/28/20 06:31 02/28/20 06:31 Labs: Abnormal Lab Results - Last 24 Hours (Table) 02/27/20 02/27/20 02/27/20 Range/Units 17:40 19:59 21:45 WBC (3.8-10.6) k/uL RBC (4.30-5.90) m/uL Hgb (13.0-17.5) gm/dL Hct (39.0-53.0) % MCHC (31.0-37.0) g/dL RDW (11.5-15.5) % Neutrophils # (1.3-7.7) k/uL APTT 38.2 H (22.0-30.0) sec ABG pH (7.35-7.45) ABG pO2 (83-108) mmHg ABG O2 Saturation (94-97) % Sodium (137-145) mmol/L Carbon Dioxide (22-30) mmol/L BUN (9-20) mg/dL Glucose (74-99) mg/dL POC Glucose (mg/dL) 150 H (75-99) mg/dL Calcium (8.4-10.2) mg/dL Troponin I (0.000-0.034) ng/mL TSH (0.465-4.680) mIU/L Urine Protein 1+ H (Negative) Urine Blood Large H (Negative) Ur Leukocyte Esterase Small H (Negative) Urine RBC >182 H (0-5) /hpf Urine WBC 10 H (0-5) /hpf Urine Bacteria Rare H (None) /hpf Hyaline Casts 88 H (0-2) /lpf Urine Mucus Rare H (None) /hpf 02/28/20 02/28/20 02/28/20 Range/Units 06:29 06:31 06:31 WBC 11.0 H (3.8-10.6) k/uL RBC 4.02 L (4.30-5.90) m/uL Hgb 10.8 L (13.0-17.5) gm/dL Hct 36.2 L (39.0-53.0) % MCHC 29.9 L (31.0-37.0) g/dL RDW 15.8 H (11.5-15.5) % Neutrophils # 8.8 H (1.3-7.7) k/uL APTT (22.0-30.0) sec ABG pH (7.35-7.45) ABG pO2 (83-108) mmHg ABG O2 Saturation (94-97) % Sodium 132 L (137-145) mmol/L Carbon Dioxide 20 L (22-30) mmol/L BUN 27 H (9-20) mg/dL Glucose 103 H (74-99) mg/dL POC Glucose (mg/dL) 129 H (75-99) mg/dL Calcium 8.0 L (8.4-10.2) mg/dL Troponin I (0.000-0.034) ng/mL TSH 0.235 L (0.465-4.680) mIU/L Urine Protein (Negative) Urine Blood (Negative) Ur Leukocyte Esterase (Negative) Urine RBC (0-5) /hpf Urine WBC (0-5) /hpf Urine Bacteria (None) /hpf Hyaline Casts (0-2) /lpf Urine Mucus (None) /hpf 02/28/20 02/28/20 02/28/20 Range/Units 06:31 09:03 12:05 WBC (3.8-10.6) k/uL RBC (4.30-5.90) m/uL Hgb (13.0-17.5) gm/dL Hct (39.0-53.0) % MCHC (31.0-37.0) g/dL RDW (11.5-15.5) % Neutrophils # (1.3-7.7) k/uL APTT (22.0-30.0) sec ABG pH 7.34 L (7.35-7.45) ABG pO2 70 L (83-108) mmHg ABG O2 Saturation 92.3 L (94-97) % Sodium (137-145) mmol/L Carbon Dioxide (22-30) mmol/L BUN (9-20) mg/dL Glucose (74-99) mg/dL POC Glucose (mg/dL) 121 H (75-99) mg/dL Calcium (8.4-10.2) mg/dL Troponin I 0.067 H* (0.000-0.034) ng/mL TSH (0.465-4.680) mIU/L Urine Protein (Negative) Urine Blood (Negative) Ur Leukocyte Esterase (Negative) Urine RBC (0-5) /hpf Urine WBC (0-5) /hpf Urine Bacteria (None) /hpf Hyaline Casts (0-2) /lpf Urine Mucus (None) /hpf - Imaging and Cardiology Chest x-ray: report reviewed, image reviewed Assessment and Plan Assessment: 1. Moderate generalized pericardial effusion, no tamponade physiology 2. History of SVT at [facility] 3. History of hypertension 4. Hyperlipidemia 5. COPD 6. Current chronic tobacco dependence 7. Type 2 diabetes mellitus 8. Chronic diastolic heart failure 9. history of CKD stage III 10. Chronic pain syndrome 11. Seizure disorder 12. History of pancreatitis Plan: 1. Continue to optimize medical management with colchicine and Motrin for pericarditis 2. Medical management and other comorbidities per primary care service. 3. Cardiology recommendations per Dr. Smith. 4. 2-D echocardiogram results pending from this morning. We will continue to follow. 5. No surgical intervention recommended at this time as there is no evidence of tamponade physiology. 6. GI and DVT prophylaxis. 7. More recommendations to follow based on patient's clinical course. Time with Patient: Greater than 30
[2020-02-28 16:57] LABS: Hemoglobin A1C 6.8 % (4.0-6.0)
[2020-02-28 16:59] LABS: Glucose,Whole Blood 158 mg/dL (75-99)
[2020-02-28] MEDS: ATORVASTATIN 10 MG TAB PO SCH (20:25)
[2020-02-28] MEDS: BUDESONIDE 1 MG/2 ML NEBU INHALATION SCH (20:31)
[2020-02-28 20:35] LABS: Glucose,Whole Blood 159 mg/dL (75-99)
[2020-02-29] MEDS: methylPREDNISolone SOD SUCCI 40 MG/ML 1 ML VIAL IV SCH ×3 (00:04→15:53)
[2020-02-29] MEDS: PHENYTOIN SODIUM EXTENDED 100 MG CAP PO SCH ×4 (00:04→17:27)
[2020-02-29] MEDS: IPRATROPIUM-ALBUTEROL 3 ML NEB INHALATION SCH ×5 (04:02→19:23)
[2020-02-29 06:40] LABS: Glucose,Whole Blood 156 mg/dL (75-99)
[2020-02-29] MEDS: PANTOPRAZOLE 40 MG TABLET PO SCH (06:42)
[2020-02-29] MEDS: IBUPROFEN 800 MG TAB PO SCH ×3 (06:42→17:27)
[2020-02-29] MEDS: INSULIN ASPART (NovoLOG) 100 UNIT/ML VIAL SQ SCH ×4 (06:53→21:21)
[2020-02-29 07:05] LABS: Basophils % (A) 0 %; Eosinophils % (A) 0 %; HCT 34.4 % (39.0-53.0); HGB 10.7 gm/dL (13.0-17.5); Hypochromasia Moderate; Lymphocytes # (A) 0.4 k/uL (1.0-4.8); Lymphocytes % (A) 3 %; MCH 27.3 pg (25.0-35.0); MCHC 31.2 g/dL (31.0-37.0); MCV 87.5 fL (80.0-100.0); Mean Platelet Volume 7.1; Monocytes # (A) 0.7 k/uL (0-1.0); Monocytes % (A) 4 %; Neutrophils # (A) 14.2 k/uL (1.3-7.7); Neutrophils % (A) 92 %; Platelet Count 393 k/uL (150-450); RBC 3.93 m/uL (4.30-5.90); RDW 15.5 % (11.5-15.5); WBC 15.5 k/uL (3.8-10.6)
[2020-02-29 07:11] LABS: African American GFR (CKD) >90 (>60 ml/min/1.73 sqM); Anion Gap 9 mmol/L; Blood Urea Nitrogen 24 mg/dL (9-20); Calcium 8.4 mg/dL (8.4-10.2); Carbon Dioxide 21 mmol/L (22-30); Chloride 106 mmol/L (98-107); Glucose 150 mg/dL (74-99); Non-African American GFR(CKD) >90 (>60 ml/min/1.73 sqM); Potassium 4.1 mmol/L (3.5-5.1); Sodium 136 mmol/L (137-145)
--- NOTE | 2020-02-29 07:52 | P.PN ---
Subjective Progress Note Date: 02/29/20 Principal diagnosis: Pericarditis/pericardial effusion This is a 59-year-old gentleman who was transferred from [facility] to [facility] for further evaluation and management of pericardial effusion. The patient was seen by the cardiothoracic surgeon and he was deemed to be not need to undergo pericardiocentesis because he did not have any tamponade physiology. The patient was seen this morning. Today is 02/29/2020. He is feeling better. He denies any symptoms of chest pain or chest discomfort. The shortness of breath is better. Hemodynamically he continues to be stable and not requiring any vasopressors. The chest x-ray was reviewed and seems to be slightly better. He is on colchicine as well as ibuprofen as well as digoxin. The echoc ardiogram was repeated yesterday and showed slight improvement in the pericardial effusion. Objective - Vital Signs Vital signs: Vital Signs Temp 97.7 F 02/29/20 04:00 Pulse 69 02/29/20 06:00 Resp 17 02/29/20 06:00 BP 120/67 02/29/20 06:00 Pulse Ox 95 02/29/20 06:00 Intake & Output 02/28/20 02/29/20 02/29/20 18:59 06:59 18:59 Intake Total 1005 700 Output Total 1115 2050 Balance -110 -1350 Intake: IV 465 300 Sodium Chloride 0.9% 1, 465 300 000 ml @ 25 mls/hr IV . Q24H [facility] Rx#:[id number] Oral 540 400 Output: Urine 1115 2050 Other: Voiding Method Indwelling Catheter Indwelling Catheter - Constitutional General appearance: Present: no acute distress - Respiratory Respiratory: bilateral: CTA - Cardiovascular Rhythm: regular Heart sounds: normal: S1, S2 - Labs CBC & Chem 7: 02/29/20 06:42 02/29/20 06:42 Labs: Abnormal Lab Results - Last 24 Hours (Table) 02/28/20 02/28/20 02/28/20 Range/Units 06:31 09:03 12:05 WBC (3.8-10.6) k/uL RBC (4.30-5.90) m/uL Hgb (13.0-17.5) gm/dL Hct (39.0-53.0) % Neutrophils # (1.3-7.7) k/uL Lymphocytes # (1.0-4.8) k/uL ABG pH 7.34 L (7.35-7.45) ABG pO2 70 L (83-108) mmHg ABG O2 Saturation 92.3 L (94-97) % Sodium (137-145) mmol/L Carbon Dioxide (22-30) mmol/L BUN (9-20) mg/dL Glucose (74-99) mg/dL POC Glucose (mg/dL) 121 H (75-99) mg/dL Hemoglobin A1c 6.8 H (4.0-6.0) % 02/28/20 02/28/20 02/29/20 Range/Units 16:57 20:33 06:38 WBC (3.8-10.6) k/uL RBC (4.30-5.90) m/uL Hgb (13.0-17.5) gm/dL Hct (39.0-53.0) % Neutrophils # (1.3-7.7) k/uL Lymphocytes # (1.0-4.8) k/uL ABG pH (7.35-7.45) ABG pO2 (83-108) mmHg ABG O2 Saturation (94-97) % Sodium (137-145) mmol/L Carbon Dioxide (22-30) mmol/L BUN (9-20) mg/dL Glucose (74-99) mg/dL POC Glucose (mg/dL) 158 H 159 H 156 H (75-99) mg/dL Hemoglobin A1c (4.0-6.0) % 02/29/20 02/29/20 Range/Units 06:42 06:42 WBC 15.5 H (3.8-10.6) k/uL RBC 3.93 L (4.30-5.90) m/uL Hgb 10.7 L (13.0-17.5) gm/dL Hct 34.4 L (39.0-53.0) % Neutrophils # 14.2 H (1.3-7.7) k/uL Lymphocytes # 0.4 L (1.0-4.8) k/uL ABG pH (7.35-7.45) ABG pO2 (83-108) mmHg ABG O2 Saturation (94-97) % Sodium 136 L (137-145) mmol/L Carbon Dioxide 21 L (22-30) mmol/L BUN 24 H (9-20) mg/dL Glucose 150 H (74-99) mg/dL POC Glucose (mg/dL) (75-99) mg/dL Hemoglobin A1c (4.0-6.0) % Assessment and Plan Assessment: Assessment #1 moderate pericardial effusion likely secondary to pericarditis #2 rule out any metastatic cancer to the pericardial #3 hypertension #4 diabetes #5 COPD #6 history of smoking Plan #1 continue the current medical regimen including colchicine as well as nonsteroid anti-inflammatory #2 continue digoxin for the SVT #3 follow-up with the patient
[2020-02-29] MEDS: BUDESONIDE 1 MG/2 ML NEBU INHALATION SCH ×2 (08:10→19:23)
[2020-02-29] MEDS: DIGOXIN 250 MCG TAB PO SCH (08:35)
[2020-02-29] MEDS: FAMOTIDINE 20 MG TAB PO SCH (08:35)
[2020-02-29] MEDS: COLCHICINE 0.6 MG EACH PO SCH ×2 (08:35→21:21)
[2020-02-29] MEDS: busPIRone HCl 10 MG TAB PO SCH ×2 (08:35→20:38)
[2020-02-29] MEDS: FUROSEMIDE 20 MG TAB PO SCH ×2 (08:35→15:53)
[2020-02-29] MEDS: ESCITALOPRAM 20 MG TAB PO SCH (08:35)
--- NOTE | 2020-02-29 09:40 | P.PN ---
Subjective Progress Note Date: 02/29/20 Principal diagnosis: Moderate generalized pericardial effusion, no tamponade physiology, likely secondary to pericarditis, SVT at [facility]. Previous medical history of hypertension, hyperlipidemia, COPD, current chronic tobacco dependence, type 2 diabetes mellitus with hemoglobin A1c 6.8%, chronic heart failure, history of CKD stage III, chronic pain syndrome, seizure disorder, pancreatitis The patient's currently sitting up in a recliner in no acute distress in the intensive care unit eating breakfast. Denies any chest pain or shortness of breath. Much more alert and awake today. Remains in normal sinus rhythm on no pressors, hemodynamically stable. No new concerns. Objective - Vital Signs Vital signs: Vital Signs Temp 97.9 F 02/29/20 08:00 Pulse 80 02/29/20 08:32 Resp 20 02/29/20 08:00 BP 111/59 02/29/20 08:00 Pulse Ox 94 L 02/29/20 08:00 Intake & Output 02/28/20 02/29/20 02/29/20 18:59 06:59 18:59 Intake Total 1005 700 530 Output Total 1115 0 125 Balance -110 -1350 405 Intake: IV 465 300 50 Sodium Chloride 0.9% 1, 465 300 50 000 ml @ 25 mls/hr IV . Q24H [facility] Rx#:[id number] Oral 540 400 480 Output: Urine 1115 2049 125 Other: Voiding Method Indwelling Catheter Indwelling Catheter - Constitutional General appearance: Present: cooperative, no acute distress - Respiratory Details: Lungs sounds diminished bilaterally. Respirations even, nonlabored. Currently on 8 L high flow nasal cannula with oxygen saturation 94%. - Cardiovascular Details: S1, S2 present. Regular rate and rhythm, sinus rhythm on telemetry. Palpable peripheral pulses bilaterally. No edema present. No calf pain or tenderness noted. - Gastrointestinal Gastrointestinal Comment(s): Abdomen soft, nontender, nondistended. Active bowel sounds present 4 quadrants. Tolerating diet. - Genitourinary Genitourinary Comment(s): Lopez present draining clear, yellow urine. Output 100-200 mL/h overnight - Integumentary Integumentary Comment(s): Skin is warm and dry with evidence of good perfusion. - Neurologic Neurologic: Present: CNII-XII intact - Musculoskeletal Musculoskeletal: Present: gait normal, strength equal bilaterally - Psychiatric Psychiatric: Present: A&O x's 3, appropriate affect - Allied health notes Allied health notes reviewed: nursing - Labs CBC & Chem 7: 02/29/20 06:42 02/29/20 06:42 Labs: Abnormal Lab Results - Last 24 Hours (Table) 02/28/20 02/28/20 02/28/20 Range/Units 06:31 12:05 16:57 WBC (3.8-10.6) k/uL RBC (4.30-5.90) m/uL Hgb (13.0-17.5) gm/dL Hct (39.0-53.0) % Neutrophils # (1.3-7.7) k/uL Lymphocytes # (1.0-4.8) k/uL Sodium (137-145) mmol/L Carbon Dioxide (22-30) mmol/L BUN (9-20) mg/dL Glucose (74-99) mg/dL POC Glucose (mg/dL) 121 H 158 H (75-99) mg/dL Hemoglobin A1c 6.8 H (4.0-6.0) % 02/28/20 02/29/20 02/29/20 Range/Units 20:33 06:38 06:42 WBC 15.5 H (3.8-10.6) k/uL RBC 3.93 L (4.30-5.90) m/uL Hgb 10.7 L (13.0-17.5) gm/dL Hct 34.4 L (39.0-53.0) % Neutrophils # 14.2 H (1.3-7.7) k/uL Lymphocytes # 0.4 L (1.0-4.8) k/uL Sodium (137-145) mmol/L Carbon Dioxide (22-30) mmol/L BUN (9-20) mg/dL Glucose (74-99) mg/dL POC Glucose (mg/dL) 159 H 156 H (75-99) mg/dL Hemoglobin A1c (4.0-6.0) % 02/29/20 Range/Units 06:42 WBC (3.8-10.6) k/uL RBC (4.30-5.90) m/uL Hgb (13.0-17.5) gm/dL Hct (39.0-53.0) % Neutrophils # (1.3-7.7) k/uL Lymphocytes # (1.0-4.8) k/uL Sodium 136 L (137-145) mmol/L Carbon Dioxide 21 L (22-30) mmol/L BUN 24 H (9-20) mg/dL Glucose 150 H (74-99) mg/dL POC Glucose (mg/dL) (75-99) mg/dL Hemoglobin A1c (4.0-6.0) % - Imaging and Cardiology Chest x-ray: image reviewed Assessment and Plan Assessment: 1. Moderate generalized pericardial effusion, no tamponade physiology, likely secondary to pericarditis 2. SVT at [facility] 3. History of hypertension 4. Hyperlipidemia 5. COPD 6. Current chronic tobacco dependence 7. Type 2 diabetes mellitus with hemoglobin A1c 6.8% 8. Chronic heart failure 9. History of CKD stage III 10. Chronic pain syndrome 11. Seizure disorder 12. History of pancreatitis Plan: 1. No surgical intervention at recommended at this time. Continue to optimize medical management with colchicine and Motrin for pericarditis 2. Medical management and other comorbidities per primary care service. 3. Cardiology recommendations per Dr. Smith. 4. 2-D echocardiogram completed yesterday demonstrates slight improvement in effusion 5. Wean O2 as tolerated. Bronchodilators, steroids per pulmonology 6. GI and DVT prophylaxis. 7. We will continue to follow on an as-needed basis Time with Patient: Greater than 30
--- NOTE | 2020-02-29 10:47 | XR ---
EXAMINATION TYPE: XR chest 1V DATE OF EXAM: 02/29/2020 COMPARISON: Prior chest x-ray 02/28/2020 HISTORY: Pericardial effusion TECHNIQUE: Single frontal view of the chest is obtained. FINDINGS: Patient is rotated. Heart size is accentuated prior. There is improved aeration at the rig ht lung base. Retrocardiac density persists. There is no evident pneumothorax. Aorta is dense. There are overlying cardiac leads. IMPRESSION: Rotated exam. Left lower lobe atelectasis versus pneumonia and associated effusion. Susp ect improvement in aeration at the right lung base.
[2020-02-29 12:09] LABS: Glucose,Whole Blood 193 mg/dL (75-99)
--- NOTE | 2020-02-29 12:19 | ECHOF ---
Referral Reason:pericardial effusion MEASUREMENTS -------- HEIGHT: 0.0 cm WEIGHT: 0.0 kg BP: 110/71 FINDINGS -------- Limited Study for pericardial effusion. There is a small -moderate, generalized pericardial effusion present. CONCLUSIONS -------- 1. Limited Study for pericardial effusion. 2. There is a small-moderate, generalized pericardial effusion present. SITE INSPECTOR: Ivette Hill RDCS
--- NOTE | 2020-02-29 13:09 | P.PN ---
Subjective Progress Note Date: 02/29/20 Principal diagnosis: Pericardial effusion, possible pericarditis. This is a 59-year-old white male was transferred yesterday from [facility]. Patient was evaluated by cardiology and pulmonary at [facility], and he was admitted mostly with symptoms of shortness of breath associated with chest discomfort in the mid chest. Described as dull pain, wi thout any radiation, and the pain was not pleuritic in nature. Patient had SVT while at [facility], treated with adenosine and subsequently Cardizem. Developed hypotension requiring stopping of the Cardizem. Patient had a CT of the chest while at the hospital, he also had an echocardiogram. There was no evidence of pulmonary embolism, however the echocardiogram showed a moderate pericardial effusion and it was felt that the patient may need cardiothoracic surgery for a pericardial window. Hence arrangements were made to transfer the patient to the ICU yesterday, and I was asked to see him on consultation. Shortly after the patient arrived, the cardiothoracic surgeon reviewed the echocardiogram, and he did not feel that the patient needs a pericardial window. Patient did not have any findings of temponade. He was seen by cardiology today, patient was noted to be hemodynamically stable, he was placed on colchicine and nonsteroidal anti-inflammatory drugs. And he r ecommended that patient is treated with digoxin. Chest x-ray showed cardiomegaly, and mild interstitial edema. Bibasilar atelectasis. Repeat echocardiogram this morning showed moderate pericardial effusion but again no temponade ABG was done on 10 L high flow nasal cannula showed a pO2 of 70 pCO2 of 38 pH of 7.34. Patient will likely benefit from gentle diuresis considering his chest x-ray and considering his ABG findings Patient was reevaluated today on 02/25/20, patient is more awake, definitely less somnolent compared to yesterday. Patient is doing much better, breathing a lot easier, denies any shortness of breath cough or wheezing, remains hemodynamically stable, not requiring any pressors, placed on a small dose of Lasix for his abnormal chest x-ray showing congestive heart failure. Echocardiogram repeated yesterday showed slight improvement in his pericardial effusion. Patient remains on colchicine and ibuprofen is also on digoxin. CBC, and basic metabolic profile are normal Objective - Vital Signs Vital signs: Vital Signs Temp 97.9 F 02/29/20 08:00 Pulse 70 02/29/20 11:29 Resp 17 02/29/20 09:00 BP 114/59 02/29/20 09:00 Pulse Ox 94 L 02/29/20 09:00 Intake & Output 02/28/20 02/29/20 02/29/20 18:59 06:59 18:59 Intake Total 1005 700 870 Output Total 1115 2050 395 Balance -110 -1350 475 Intake: IV 465 300 150 Sodium Chloride 0.9% 1, 465 300 150 000 ml @ 25 mls/hr IV . Q24H [facility] Rx#:[id number] Oral 540 400 720 Output: Urine 1115 0 395 Other: Voiding Method Indwelling Catheter Indwelling Catheter Indwelling Catheter - Exam Gen.: Revealed a 59-year-old white male obese, sleepy, awake, in no form of distress, sitting at a bedside chair. Head: Atraumatic, normocephalic. HEENT:[Neck is supple.] [No neck masses.] [No thyromegaly.] [No JVD.] Chest: [Symmetrical chest expansion, clear throughout, no crackles or rhonchi or wheezes. Cardiac Exam: [Normal S1 and S2, no S3 gallop, 2/6 systolic murmur thought the precordium. Abdomen: [Obese, Soft, nontender, no megaly, no rebound, no guarding, normal bowel sounds.] Pain pump is palpable in the left lower quadrant area Extremities: [No clubbing, no edema, no cyanosis.] Neurological Exam: Alert and oriented 3, no gross focal neurologic deficits. Psychiatric: Normal mood, blunt affect, normal mental status Skin: No rashes. Normal turgor, and normal color. Lymphatics: No cervical adenopathy. - Labs CBC & Chem 7: 02/29/20 06:42 02/29/20 06:42 Labs: Abnormal Lab Results - Last 24 Hours (Table) 02/28/20 02/28/20 02/28/20 Range/Units 06:31 16:57 20:33 WBC (3.8-10.6) k/uL RBC (4.30-5.90) m/uL Hgb (13.0-17.5) gm/dL Hct (39.0-53.0) % Neutrophils # (1.3-7.7) k/uL Lymphocytes # (1.0-4.8) k/uL Sodium (137-145) mmol/L Carbon Dioxide (22-30) mmol/L BUN (9-20) mg/dL Glucose (74-99) mg/dL POC Glucose (mg/dL) 158 H 159 H (75-99) mg/dL Hemoglobin A1c 6.8 H (4.0-6.0) % 02/29/20 02/29/20 02/29/20 Range/Units 06:38 06:42 06:42 WBC 15.5 H (3.8-10.6) k/uL RBC 3.93 L (4.30-5.90) m/uL Hgb 10.7 L (13.0-17.5) gm/dL Hct 34.4 L (39.0-53.0) % Neutrophils # 14.2 H (1.3-7.7) k/uL Lymphocytes # 0.4 L (1.0-4.8) k/uL Sodium 136 L (137-145) mmol/L Carbon Dioxide 21 L (22-30) mmol/L BUN 24 H (9-20) mg/dL Glucose 150 H (74-99) mg/dL POC Glucose (mg/dL) 156 H (75-99) mg/dL Hemoglobin A1c (4.0-6.0) % 02/29/20 Range/Units 11:57 WBC (3.8-10.6) k/uL RBC (4.30-5.90) m/uL Hgb (13.0-17.5) gm/dL Hct (39.0-53.0) % Neutrophils # (1.3-7.7) k/uL Lymphocytes # (1.0-4.8) k/uL Sodium (137-145) mmol/L Carbon Dioxide (22-30) mmol/L BUN (9-20) mg/dL Glucose (74-99) mg/dL POC Glucose (mg/dL) 193 H (75-99) mg/dL Hemoglobin A1c (4.0-6.0) % Assessment and Plan Assessment: Impression: Acute hypoxic respiratory failure multifactorial secondary to systolic congestive heart failure with pericardial effusion, possible pericarditis, and intermittent episodes of supraventricular tachycardia as well as underlying COPD. Moderate pericardial effusion and pericarditis is being suspected. However no temponade. No need for a pericardial window. Advanced COPD Chronic pain syndrome patient has a pain pump History of seizure disorder. Type 2 diabetes. Benign essential hypertension. Dyslipidemia. Recommendation: Continue anti-inflammatory medications for his pericarditis and pericardial effusion. Bronchodilators for his underlying COPD. Continue gentle diuresis. Could transfer the patient to a monitor bed on [facility] today, does not really need ICU bed at this point. Titrate FiO2 down and keep O2 saturation above 90%. Continue antiarrhythmic medications for his underlying supraventricular tachycardia. Patient is on digoxin. We'll continue to follow Time with Patient: Less than 30
--- NOTE | 2020-02-29 14:38 | P.PN ---
Subjective Progress Note Date: 02/29/20 59-year-old [facility] with past medical history of chronic pain syndrome, history of COPD, type 2 diabetes, restless leg syndrome and degenerative joint disease who has morphine pump in his left abdominal area seen pain management on regular basis. Patient also have stage III chronic kidney disease, seizure activity, chronic pancreatitis, chronic diastolic congestive heart failure who presented to the emergency department at [facility] complaining of worsening dyspnea and shortness of breath for the last 3 days become much worse not been able to lay down flat in bed also was having significant tachycardia or patient was dry on adenosine without relief he was started on IV Cardizem drip with pulse rate dropped down but developed to have significant hypotension, Cardizem drip was stopped at this point. Patient was started on heparin drip his pulse ox is running slightly bit low pulse rate running in the 100 2270 bpm with low blood pressure at 100. Troponin was ne gative his d-dimer was 6255 BNP of 855 liver enzyme were normal white blood cell was moderately elevated. EKG demonstrates supraventricular tachycardia with pulse rate 167, chest x-ray showed large cardiac margin, CT of the chest angiogram to rule out PE was not completed before his transfer, patient ended up going for transthoracic echocardiogram which reportedly showing large pericardial effusion and possible temporal not. Patient was transferred to [facility] to see cardiothoracic surgery service for possible pericardial window. Patient was transfer from the ICU at [facility] to the ICU at [facility] was seen Dr. Melendrez and Dr Haque, echocardiogram at the bedside was done with the career resource technician and review of cardiothoracic showed no temporal not picture but patient had large pericardial effusion with high suspicion for pericarditis. Patient was started on large dose of NSAID along with colchicine will be kept in ICU, continue updraft treatment continue to treat his blood sugar and watch it carefully. 02/27: Patient remains in the intensive care unit. He has been afebrile, heart rate 83, blood pressure 105/67, pulse ox 90% on 10 L high flow nasal cannula increased to 15 L with pulse ox of 94%. Patient had repeat echocardiogram done this morning and formal report is pending. Repeat chest x-ray reveals heart failure, underlying infiltrate not excluded. Patient was started on Solu-Medrol by pulmonary medicine. Patient is noted to be more alert and able to stay awake today. Patient has been evaluated by cardiothoracic surgery with no plan for surgical intervention as no tamponade on noted. Cardiology is planning to continue current medications including colchicine, digoxin and ovoid antihypertensives and diuretics. Repeat blood work reveals WBC 11, hemoglobin 10.8, platelet count 313. Sodium 132, potassium 4.6, chloride 104, CO2 20, BUN 27 creatinine 1.21. Blood sugars running between 103 and 150. Troponin 0.067. TSH 0.235 with normal free T4 of 1.82. 02/28: Patient is seen today in the intensive care unit. He is sitting up in a chair and appears to be in no acute distress. Patient is awake and alert. Lung discussion with the patient regarding pain management and use of too many narcotics and sedative medications at home. Patient advised to follow-up with pain management and wean off or decrease some of his medications. Limited echocardiogram done yesterday revealed small to moderate generalized pericardial effusion. Patient has been afebrile, heart rate 69, blood pressure 93/81, pulse ox 95% on 10 L high flow nasal cannula. Repeat blood work reveals blood sugars in the 150s. WBC 15.5, hemoglobin 10.7. Sodium 136, potassium 4.1, chloride 106, CO2 21, BUN 24 and creatinine 0.79. Lopez catheter to be discontinued and patient may be transferred out of the intensive care unit today. Review of systems CONSTITUTIONAL: Obese, no distress. Denies fever. EYES: No icterus sclerae, no conjunctivitis. EARS, NOSE, MOUTH, THROAT, and FACE: No sore throat, lymphadenopathy, carotid bruits or deformity. RESPIRATORY: Positive significant shortness of breath no cough positive mild wheezes and tightness no hemoptysis. CARDIOVASCULAR: Positive chest pain positive shortness of breath has palpitation PND orthopnea or angina. GASTROINTESTINAL: No Abd pain, Nausea or vomiting, no Diarrhea or constipation, No GI Bleed, no distention or masses. GENITOURINARY: Negative for Hematuria or UTI, no kidney stones. INTEGUMENT/BREAST: Negative for any muscular injury with mild osteoarthritis.. HEMATOLOGIC/LYMPHATIC: Negative for bleed or purpura. MUSCULOSKELTAL: Negative for Myalgia or arthralgia. NEURLOGICAL: No LOC, Sz or syncope, blurred vision dizziness or abnormality.. BEHAVIORAL/PSYCH: Negative. ENDOCRINE: Negative. Physical examination General Appearance: Significantly overweight , no distress. Neck HEENT: Supple, no lymphadenopathy, no thyroid enlargement, no carotid bruits. Lungs: Decreased breath some bilaterally with fine rhonchi positive mild expiratory wheezes. Chest Wall: Decrease expansion with deep inspiration no tenderness and no deformity was found on exam, no costochondral pain or discomfort. Heart: Regular rate and rhythm, S1, S2 positive systolic murmur. Back: Symmetric, no curvature, ROM normal, no CVA tenderness. Abdomen: Soft, non-tender, bowel sounds active all four quadrants, no masses, no organomegaly. Patient has pain pump in the left lower side of his abdominal area. Extremities: Extremities normal, atraumatic, no cyanosis or edema. Pulses: 2+ and symmetric. Skin: Skin color, texture, tugor normal, no rashes or lesions. Neurologic: Alert and oriented 3, moving all his 4 extremities generalized weakness and focal deficit. Assessment and plan 1 acute hypoxic respiratory failure secondary to pericardial effusion, pericar ditis, arrhythmia and tachycardia, COPD exacerbation and severe bronchitis. Continue oxygen therapy titrated, DuoNeb treatments every 4 hours, Solu-Medrol 40 mg IV every 8 hours, Pulmicort 1 mg twice daily. 2 Moderate pericardial effusion. Consult with cardiothoracic surgery and cardiology appreciated. Continue conservative management continue patient on NSAID along with colchicine. Repeat echocardiogram as above. 3 advanced COPD with mild exacerbation: Continue patient on DuoNeb, Pulmicort, Solu-Medrol. 4 chronic pain management: Patient has been on extended release morphine 60 mg every 8 hours medication with decrease at this point. 5 chronic seizure: Has been on Dilantin and phenobarbital. 6 Possible urinary tract infection. 7 SVT. Continue digoxin. 8 chronic type 2 diabetes: Continue patient on Accu-Chek with sliding scales coverage. A1c. 9 hypertension: Well controlled currently on beta valentín and if needed will add smaller dose of alberto inhibitor and or combined with ARB. 10 chronic pain management: Continue patient hydrocodone on morphine along with muscle relaxer. 11 hyperlipidemia: Resume simvastatin. 12 Chronic kidney disease: Continue gentle hydration repeat. Creatinine 24 hours. 13 recurrent depression. Continue Lexapro 20 mg daily. 14 GI prophylaxis. Continue Protonix.. CODE STATUS: Full code. Discharge plan: To be determined. Most likely home with [facility]. Patient has a legal guardian. Impression and plan of care have been directed as dictated by the signing physician. Oralia Andrews nurse practitioner acting as scribe for signing physician. Objective - Vital Signs Vital signs: Vital Signs Temp 97.7 F 02/29/20 04:00 Pulse 69 02/29/20 06:00 Resp 17 02/29/20 06:00 BP 120/67 02/29/20 06:00 Pulse Ox 95 02/29/20 06:00 Intake & Output 02/28/20 02/29/20 02/29/20 18:59 06:59 18:59 Intake Total 1005 700 Output Total 1112049 Balance -110 -1350 Intake: IV 465 300 Sodium Chloride 0.9% 1, 465 300 000 ml @ 25 mls/hr IV . Q24H [facility] Rx#:[id number] Oral 540 400 Output: Urine [id number] Other: Voiding Method Indwelling Catheter Indwelling Catheter - Labs CBC & Chem 7: 02/29/20 06:42 02/29/20 06:42 Labs: Abnormal Lab Results - Last 24 Hours (Table) 02/28/20 02/28/20 02/28/20 Range/Units 06:31 09:03 12:05 WBC (3.8-10.6) k/uL RBC (4.30-5.90) m/uL Hgb (13.0-17.5) gm/dL Hct (39.0-53.0) % Neutrophils # (1.3-7.7) k/uL Lymphocytes # (1.0-4.8) k/uL ABG pH 7.34 L (7.35-7.45) ABG pO2 70 L (83-108) mmHg ABG O2 Saturation 92.3 L (94-97) % Sodium (137-145) mmol/L Carbon Dioxide (22-30) mmol/L BUN (9-20) mg/dL Glucose (74-99) mg/dL POC Glucose (mg/dL) 121 H (75-99) mg/dL Hemoglobin A1c 6.8 H (4.0-6.0) % 02/28/20 02/28/20 02/29/20 Range/Units 16:57 20:33 06:38 WBC (3.8-10.6) k/uL RBC (4.30-5.90) m/uL Hgb (13.0-17.5) gm/dL Hct (39.0-53.0) % Neutrophils # (1.3-7.7) k/uL Lymphocytes # (1.0-4.8) k/uL ABG pH (7.35-7.45) ABG pO2 (83-108) mmHg ABG O2 Saturation (94-97) % Sodium (137-145) mmol/L Carbon Dioxide (22-30) mmol/L BUN (9-20) mg/dL Glucose (74-99) mg/dL POC Glucose (mg/dL) 158 H 159 H 156 H (75-99) mg/dL Hemoglobin A1c (4.0-6.0) % 02/29/20 02/29/20 Range/Units 06:42 06:42 WBC 15.5 H (3.8-10.6) k/uL RBC 3.93 L (4.30-5.90) m/uL Hgb 10.7 L (13.0-17.5) gm/dL Hct 34.4 L (39.0-53.0) % Neutrophils # 14.2 H (1.3-7.7) k/uL Lymphocytes # 0.4 L (1.0-4.8) k/uL ABG pH (7.35-7.45) ABG pO2 (83-108) mmHg ABG O2 Saturation (94-97) % Sodium 136 L (137-145) mmol/L Carbon Dioxide 21 L (22-30) mmol/L BUN 24 H (9-20) mg/dL Glucose 150 H (74-99) mg/dL POC Glucose (mg/dL) (75-99) mg/dL Hemoglobin A1c (4.0-6.0) %
[2020-02-29] MEDS: SODIUM CHLORIDE 0.9% 1,000 ML IV SCH (15:54)
[2020-02-29 17:11] LABS: Glucose,Whole Blood 179 mg/dL (75-99)
[2020-02-29] MEDS: ATORVASTATIN 10 MG TAB PO SCH (20:38)
[2020-02-29 20:39] LABS: Glucose,Whole Blood 169 mg/dL (75-99)
[2020-03-01] MEDS: methylPREDNISolone SOD SUCCI 40 MG/ML 1 ML VIAL IV SCH ×3 (00:32→17:08)
[2020-03-01] MEDS: PHENYTOIN SODIUM EXTENDED 100 MG CAP PO SCH ×2 (00:58→07:16)
[2020-03-01] MEDS: IPRATROPIUM-ALBUTEROL 3 ML NEB INHALATION SCH ×5 (01:13→15:25)
[2020-03-01 04:24] LABS: HGB 10.2 gm/dL (13.0-17.5); Hypochromasia Moderate; MCH 26.3 pg (25.0-35.0); MCHC 30.2 g/dL (31.0-37.0); MCV 87.2 fL (80.0-100.0); Platelet Count 410 k/uL (150-450); RDW 15.7 % (11.5-15.5); WBC 17.4 k/uL (3.8-10.6)
[2020-03-01 04:33] LABS: African American GFR (CKD) >90 (>60 ml/min/1.73 sqM); Anion Gap 8 mmol/L; Blood Urea Nitrogen 24 mg/dL (9-20); Calcium 8.8 mg/dL (8.4-10.2); Carbon Dioxide 23 mmol/L (22-30); Chloride 107 mmol/L (98-107); Glucose 132 mg/dL (74-99); Non-African American GFR(CKD) >90 (>60 ml/min/1.73 sqM); Potassium 4.5 mmol/L (3.5-5.1); Sodium 138 mmol/L (137-145)
[2020-03-01 07:12] LABS: Glucose,Whole Blood 151 mg/dL (75-99)
[2020-03-01] MEDS: PANTOPRAZOLE 40 MG TABLET PO SCH (07:16)
[2020-03-01] MEDS: BUDESONIDE 1 MG/2 ML NEBU INHALATION SCH (07:17)
[2020-03-01] MEDS: INSULIN ASPART (NovoLOG) 100 UNIT/ML VIAL SQ SCH ×2 (07:19→12:07)
--- NOTE | 2020-03-01 08:24 | P.PN ---
Subjective Progress Note Date: 03/01/20 Principal diagnosis: Pericarditis/pericardial effusion This is a 59-year-old gentleman who was [facility] and management of pericardial effusion. The patient was seen by the cardiothoracic surgeon and he was deemed to be not need to undergo pericardiocentesis because he did not have any tamponade physiology. The patient was seen today is March [id number]. Overall he is feeling better. No chest pain or chest discomfort or shortness of breath. I am going to obtain a limited echocardiogram to assess the pericardial effusion. Beside that he continues to be unconscious and as well as nonsteroid anti-inflammatory medications as well as PPI for the gastrointestinal tract. We'll continue f ollowing up with the patient. Objective - Vital Signs Vital signs: Vital Signs Temp 98.5 F 03/01/20 00:00 Pulse 77 03/01/20 07:32 Resp 15 03/01/20 04:00 BP 119/58 03/01/20 00:00 Pulse Ox 93 L 03/01/20 04:00 Intake & Output 02/29/20 03/01/20 03/01/20 18:59 06:59 18:59 Intake Total 1260 500 25 Output Total 920 2100 75 Balance 340 -1600 -50 Intake: IV 300 300 25 Sodium Chloride 0.9% 1, 300 300 25 000 ml @ 25 mls/hr IV . Q24H [facility] Rx#:[id number] Oral 960 200 Output: Urine 920 2100 75 Other: Voiding Method Indwelling Catheter Indwelling Catheter - Constitutional General appearance: Present: no acute distress - Respiratory Respiratory: bilateral: CTA - Cardiovascular Rhythm: regular Heart sounds: normal: S1, S2 - Labs CBC & Chem 7: 03/01/20 03:59 03/01/20 03:59 Labs: Abnormal Lab Results - Last 24 Hours (Table) 02/29/20 02/29/20 02/29/20 Range/Units 11:57 17:09 20:37 WBC (3.8-10.6) k/uL RBC (4.30-5.90) m/uL Hgb (13.0-17.5) gm/dL Hct (39.0-53.0) % MCHC (31.0-37.0) g/dL RDW (11.5-15.5) % BUN (9-20) mg/dL Glucose (74-99) mg/dL POC Glucose (mg/dL) 193 H 179 H 169 H (75-99) mg/dL 03/01/20 03/01/20 03/01/20 Range/Units 03:59 03:59 07:10 WBC 17.4 H (3.8-10.6) k/uL RBC 3.90 L (4.30-5.90) m/uL Hgb 10.2 L (13.0-17.5) gm/dL Hct 34.0 L (39.0-53.0) % MCHC 30.2 L (31.0-37.0) g/dL RDW 15.7 H (11.5-15.5) % BUN 24 H (9-20) mg/dL Glucose 132 H (74-99) mg/dL POC Glucose (mg/dL) 151 H (75-99) mg/dL Assessment and Plan Assessment: Assessment #1 moderate pericardial effusion likely secondary to pericarditis #2 rule out any metastatic cancer to the pericardial #3 hypertension #4 diabetes #5 COPD #6 history of smoking Plan #1 continue the current medical regimen including colchicine as well as nonsteroid anti-inflammatory #2 continue digoxin for the SVT #3 follow-up with the patient
[2020-03-01] MEDS: busPIRone HCl 10 MG TAB PO SCH (08:33)
[2020-03-01] MEDS: COLCHICINE 0.6 MG EACH PO SCH (08:34)
[2020-03-01] MEDS: FUROSEMIDE 20 MG TAB PO SCH ×2 (08:34→16:45)
[2020-03-01] MEDS: DIGOXIN 250 MCG TAB PO SCH (08:34)
[2020-03-01] MEDS: ESCITALOPRAM 20 MG TAB PO SCH (08:34)
--- NOTE | 2020-03-01 10:24 | XR ---
EXAMINATION TYPE: XR chest 1V DATE OF EXAM: 03/01/2020 CLINICAL HISTORY: Pericardial effusion TECHNIQUE: Portable upright view of the chest COMPARISON: 02/29/2020 FINDINGS: Cardiomegaly redemonstrated. Mildly increased pulmonary vascular congestion and pulmonary e anaid versus 02/29/2020. Redemonstrated small left pleural effusion. Likely tiny right pleural effusion . No pneumothorax. IMPRESSION: Mildly increased pulmonary vascular congestion and pulmonary edema versus 02/29/2020. Smal l left and tiny right pleural effusions.
--- NOTE | 2020-03-01 10:26 | P.DS ---
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 Do you want consulting provider notified?: Yes Placement Type Exists?: Yes 02/27/20 17:10 Consult Physician Stat Consulting Provider: Scarlet Bowers Consult Reason/Comments: pericardial effusion Do you want consulting provider notified?: Already Contacted Placement Type Exists?: Yes Primary care physician: Stated None Hospital Course: 59-year-old [facility] with past medical history of chronic pain syndrome, history of COPD, type 2 diabetes, restless leg syndrome and degenerative joint disease who has morphine pump in his left abdominal area seen pain management on regular basis. Patient also have stage III chronic kidney disease, seizure activity, chronic pancreatitis, chronic diastolic congestive heart failure who presented to the emergency department at [facility] complaining of worsening dyspnea and shortness of breath for the last 3 days become much worse not been able to lay down flat in bed also was having significant tachycardia or patient was dry on adenosine without relief he was started on IV Cardizem drip with pulse rate dropped down but developed to have s ignificant hypotension, Cardizem drip was stopped at this point. Patient was started on heparin drip his pulse ox is running slightly bit low pulse rate running in the 100 2270 bpm with low blood pressure at 100. Troponin was negative his d-dimer was 6255 BNP of 855 liver enzyme were normal white blood cell was moderately elevated. EKG demonstrates supraventricular tachycardia with pulse rate 167, chest x-ray showed large cardiac margin, CT of the chest angiogram to rule out PE was not completed before his transfer, patient ended up going for transthoracic echocardiogram which reportedly showing large pericardial effusion and possible temporal not. Patient was transferred to [facility] to see cardiothoracic surgery service for possible pericardial window. Patient was transfer from the ICU at [facility] to the ICU at [facility] was seen Dr. Melendrez and Dr Haque, echocardiogram at the bedside was done with the wire technician and review of cardiothoracic showed no temporal not picture but jerrell swift had large pericardial effusion with high suspicion for pericarditis. Patient was started on large dose of NSAID along with colchicine will be kept in ICU, continue updraft treatment continue to treat his blood sugar and watch it carefully. 02/27: Patient remains in the intensive care unit. He has been afebrile, heart rate 83, blood pressure 105/67, pulse ox 90% on 10 L high flow nasal cannula increased to 15 L with pulse ox of 94%. Patient had repeat echocardiogram done this morning and formal report is pending. Repeat chest x-ray reveals heart failure, underlying infiltrate not excluded. Patient was started on Solu-Medrol by pulmonary medicine. Patient is noted to be more alert and able to stay awake today. Patient has been evaluated by cardiothoracic surgery with no plan for surgical intervention as no tamponade on noted. Cardiology is planning to continue current medications including colchicine, digoxin and ovoid antihypertensives and diuretics. Repeat blood work reveals WBC 11, hemoglobin 10.8, platelet count 313. Sodium 132, potassium 4.6, chloride 104, CO2 20, BUN 27 creatinine 1.21. Blood sugars running between 103 and 150. Troponin 0.067. TSH 0.235 with normal free T4 of 1.82. 02/28: Patient is seen today in the intensive care unit. He is sitting up in a chair and appears to be in no acute distress. Patient is awake and alert. Lung discussion with the patient regarding pain management and use of too many narcotics and sedative medications at home. Patient advised to follow-up with pain management and wean off or decrease some of his medications. Limited echocardiogram done yesterday revealed small to moderate generalized pericardial effusion. Patient has been afebrile, heart rate 69, blood pressure 93/81, pulse ox 95% on 10 L high flow nasal cannula. Repeat blood work reveals blood sugars in the 150s. WBC 15.5, hemoglobin 10.7. Sodium 136, potassium 4.1, chloride 106, CO2 21, BUN 24 and creatinine 0.79. Lopez catheter to be discontinued and patient may be transferred out of the intensive care unit today. 03/01: She remains in the intensive care unit waiting for a bed outside. He is currently seen on 4 L high flow nasal cannula and has been weaned down to 2 L pulse oxing 95%. He is on IV steroids which will be changed to oral. Patient has been cleared for discharge by cardiology and pulmonary medicine. He has been afebrile, heart rate 85, blood pressure 90/42. WBC 17.4, hemoglobin 10.2, platelet count 410. Electrolytes normal. BUN 24 and creatinine 0.71. Blood sugars running between 132 and 169. Discharge plan is for subacute rehab at [facility] [place]. Patient will be discharged today in stable condition. Assessment and plan 1 acute hypoxic respiratory failure secondary to pericardial effusion, pericarditis, arrhythmia and tachycardia, COPD exacerbation and severe bronchitis. 2 Moderate pericardial effusion 3 advanced COPD with mild exacerbation 4 chronic pain management 5 chronic seizure 6 Possible urinary tract infection. 7 SVT. 8 chronic type 2 diabetes. 9 hypertension. 10 chronic pain management. 11 hyperlipidemia. 12 Chronic kidney disease . 13 recurrent depression. 14 hyperglycemia secondary to steroids. Discharge plan: [facility] . Patient has a legal guardian. Impression and plan of care have been directedas long as he as dictated by the signing physician. Oralia Andrews nurse practitioner acting as scribe for signing physician. Patient Condition at Discharge: Good Plan - Discharge Summary Discharge Rx Participant: No New Discharge Prescriptions: New Colchicine [Colcrys] 0.6 mg PO BID each Ipratropium-Albuterol Nebulize [Duoneb 0.5 mg-3 mg/3 ml Soln] 3 ml INHALATION RT-Q4H ml Digoxin [Lanoxin] 250 mcg PO DAILY tab Atorvastatin [Lipitor] 10 mg PO HS tab Ibuprofen [Motrin] 800 mg PO TID-W/MEALS tab Budesonide [Pulmicort] 1 mg INHALATION RT-BID ml predniSONE 0 mg PO DIRECTED #30 tab Continue Omeprazole 40 mg PO DAILY Multivitamins, Thera [Multivitamin (formulary)] 1 tab PO DAILY rOPINIRole HCL [Requip] 1 mg PO HS Tamsulosin HCl [Flomax] 0.4 mg PO DAILY Brexpiprazole [Rexulti] 4 mg PO HS metFORMIN HCL [Glucophage] 1,000 mg PO BID-W/MEALS lamoTRIgine [LaMICtal] 150 mg PO DAILY gemfibroziL [Lopid] 600 mg PO BID-W/MEALS DULoxetine HCL [Cymbalta] 60 mg PO DAILY Morphine Pain Pump (Unknown Strength) 1 dose SQ-PUMP CONTINUOUS Docusate [Colace] 100 mg PO DAILY Albuterol Sulfate [Ventolin HFA] 2 puff INHALATION RT-QID PRN PRN Reason: Shortness Of Breath Cholecalciferol [Vitamin D3 (25 Mcg = 1000 Iu)] 2,000 unit PO DAILY hydrOXYzine pamoate [Vistaril] 25 mg PO BID PRN PRN Reason: Anxiety Acetaminophen Tab [Tylenol] 500 mg PO Q6H PRN PRN Reason: Pain polyethylene glycoL 3350 [Miralax] 17 gm PO DAILY PRN PRN Reason: Constipation Melatonin 3 mg PO HS Furosemide [Lasix] 20 mg PO BID Potassium Chloride [Klor-Con 20] 20 meq PO DAILY DULoxetine HCL [Cymbalta] 30 mg PO DAILY Pregabalin [Lyrica] 75 mg PO BID PRN #6 cap PRN Reason: Pain Discontinued Simethicone Chew [Mylicon Chew] 80 mg PO Q6H PRN PRN Reason: flatulence HYDROcodone/APAP 5-325MG [[place] 5-325] 1 tab PO BID PRN PRN Reason: Pain SILVER sulfADIAZINE Cream [Silvadene 1% Cream] 1 applic TOPICAL DAILY PRN PRN Reason: infection to bilateral legs Famotidine [Pepcid] 40 mg PO HS No Action Cephalexin [Keflex] 500 mg PO Q6H Discharge Medication List Omeprazole 40 mg PO DAILY 10/19/13 [History] Acetaminophen Tab [Tylenol] 500 mg PO Q6H PRN 02/27/20 [History] Albuterol Sulfate [Ventolin HFA] 2 puff INHALATION RT-QID PRN 02/27/20 [History] Brexpiprazole [Rexulti] 4 mg PO HS 02/27/20 [History] Cephalexin [Keflex] 500 mg PO Q6H 02/27/20 [History] Cholecalciferol [Vitamin D3 (25 Mcg = 1000 Iu)] 2,000 unit PO DAILY 02/27/20 [History] DULoxetine HCL [Cymbalta] 30 mg PO DAILY 02/27/20 [History] DULoxetine HCL [Cymbalta] 60 mg PO DAILY 02/27/20 [History] Docusate [Colace] 100 mg PO DAILY 02/27/20 [History] Furosemide [Lasix] 20 mg PO BID 02/27/20 [History] Melatonin 3 mg PO HS 02/27/20 [History] Morphine Pain Pump (Unknown Strength) 1 dose SQ-PUMP CONTINUOUS 02/27/20 [History] Multivitamins, Thera [Multivitamin (formulary)] 1 tab PO DAILY 02/27/20 [History] Potassium Chloride [Klor-Con 20] 20 meq PO DAILY 02/27/20 [History] Tamsulosin HCl [Flomax] 0.4 mg PO DAILY 02/27/20 [History] gemfibroziL [Lopid] 600 mg PO BID-W/MEALS 02/27/20 [History] hydrOXYzine pamoate [Vistaril] 25 mg PO BID PRN 02/27/20 [History] lamoTRIgine [LaMICtal] 150 mg PO DAILY 02/27/20 [History] metFORMIN HCL [Glucophage] 1,000 mg PO BID-W/MEALS 02/27/20 [History] polyethylene glycoL 3350 [Miralax] 17 gm PO DAILY PRN 02/27/20 [History] rOPINIRole HCL [Requip] 1 mg PO HS 02/27/20 [History] Atorvastatin [Lipitor] 10 mg PO HS tab 03/01/20 [Rx] Budesonide [Pulmicort] 1 mg INHALATION RT-BID ml 03/01/20 [Rx] Colchicine [Colcrys] 0.6 mg PO BID each 03/01/20 [Rx] Digoxin [Lanoxin] 250 mcg PO DAILY tab 03/01/20 [Rx] Ibuprofen [Motrin] 800 mg PO TID-W/MEALS tab 03/01/20 [Rx] Ipratropium-Albuterol Nebulize [Duoneb 0.5 mg-3 mg/3 ml Soln] 3 ml INHALATION RT-Q4H ml 03/01/20 [Rx] Pregabalin [Lyrica] 75 mg PO BID PRN #6 cap 03/01/20 [Rx] predniSONE 0 mg PO DIRECTED #30 tab 03/01/20 [Rx] Follow up Appointment(s)/Referral(s): [facility] [NON-STAFF] - 1 Week (after discharge from [facility]) Discharge Disposition: TRANSFER TO SNF/ECF
[2020-03-01] MEDS: IBUPROFEN 800 MG TAB PO SCH ×3 (11:48→17:09)
[2020-03-01] MEDS: metFORMIN 500 MG TAB PO SCH ×2 (11:51→17:09)
[2020-03-01 11:56] LABS: Glucose,Whole Blood 162 mg/dL (75-99)
[2020-03-01] MEDS ORDERED: DULoxetine HCL 60 MG CAPSULE.DR PO SCH (12:00)
[2020-03-01] MEDS ORDERED: lamoTRIgine 100 MG TAB PO SCH (12:00)
[2020-03-01] MEDS ORDERED: TAMSULOSIN 0.4 MG CAP.ER.24H PO SCH (12:00)
[2020-03-01] MEDS ORDERED: DULoxetine HCL 30 MG CAPSULE.DR PO SCH (12:00)
--- NOTE | 2020-03-01 12:52 | P.PN ---
Subjective Progress Note Date: 03/01/20 Principal diagnosis: Pericardial effusion, possible pericarditis. This is a 59-year-old white male was transferred yesterday from [facility]. Patient was evaluated by cardiology and pulmonary at [facility], and he was admitted mostly with symptoms of shortness of breath associated with chest discomfort in the mid chest. Described as dull pain, wi thout any radiation, and the pain was not pleuritic in nature. Patient had SVT while at [facility], treated with adenosine and subsequently Cardizem. Developed hypotension requiring stopping of the Cardizem. Patient had a CT of the chest while at the hospital, he also had an echocardiogram. There was no evidence of pulmonary embolism, however the echocardiogram showed a moderate pericardial effusion and it was felt that the patient may need cardiothoracic surgery for a pericardial window. Hence arrangements were made to transfer the patient to the ICU yesterday, and I was asked to see him on consultation. Shortly after the patient arrived, the cardiothoracic surgeon reviewed the echocardiogram, and he did not feel that the patient needs a pericardial window. Patient did not have any findings of temponade. He was seen by cardiology today, patient was noted to be hemodynamically stable, he was placed on colchicine and nonsteroidal anti-inflammatory drugs. And he r ecommended that patient is treated with digoxin. Chest x-ray showed cardiomegaly, and mild interstitial edema. Bibasilar atelectasis. Repeat echocardiogram this morning showed moderate pericardial effusion but again no temponade ABG was done on 10 L high flow nasal cannula showed a pO2 of 70 pCO2 of 38 pH of 7.34. Patient will likely benefit from gentle diuresis considering his chest x-ray and considering his ABG findings Patient was reevaluated today on 02/25/20, patient is more awake, definitely less somnolent compared to yesterday. Patient is doing much better, breathing a lot easier, denies any shortness of breath cough or wheezing, remains hemodynamically stable, not requiring any pressors, placed on a small dose of Lasix for his abnormal chest x-ray showing congestive heart failure. Echocardiogram repeated yesterday showed slight improvement in his pericardial effusion. Patient remains on colchicine and ibuprofen is also on digoxin. CBC, and basic metabolic profile are normal Patient was reevaluated today on 03/01/20, sitting in a bedside chair, doing great, asymptomatic. His IV fluid to KVO, patient is on oral Lasix, chest x-ray showed slight congestive changes. His O2 saturation is 93% on 2 L. Patient is asymptomatic. Labs including CBC and basic metabolic profile are unremarkable. Objective - Vital Signs Vital signs: Vital Signs Temp 97.8 F 03/01/20 12:00 Pulse 87 03/01/20 12:00 Resp 21 03/01/20 12:00 BP 104/60 03/01/20 12:00 Pulse Ox 94 L 03/01/20 12:00 Intake & Output 02/29/20 03/01/20 03/01/20 18:59 06:59 18:59 Intake Total 1260 500 100 Output Total 920 2100 1475 Balance 340 -1600 -1375 Intake: IV 300 300 100 Sodium Chloride 0.9% 1, 300 300 100 000 ml @ 25 mls/hr IV . Q24H MARY Rx#:[id number] Oral 960 200 Output: Urine 920 2100 1475 Other: Voiding Method Indwelling Catheter Indwelling Catheter Indwelling Catheter - Exam Gen.: Revealed a 59-year-old white male obese, in no distress. Head: Atraumatic, normocephalic. HEENT:[Neck is supple.] [No neck masses.] [No thyromegaly.] [No JVD.] Chest: [Symmetrical chest expansion, clear throughout, no crackles or rhonchi or wheezes. Cardiac Exam: [Normal S1 and S2, no S3 gallop, 2/6 systolic murmur thought the precordium. Abdomen: [Obese, Soft, nontender, no megaly, no rebound, no guarding, normal bowel sounds.] Pain pump is palpable in the left lower quadrant area Extremities: [No clubbing, no edema, no cyanosis.] Neurological Exam: Alert and oriented 3, no gross focal neurologic deficits. Psychiatric: Normal mood, blunt affect, normal mental status Skin: No rashes. Normal turgor, and normal color. Lymphatics: No cervical adenopathy. - Labs CBC & Chem 7: 03/01/20 03:59 03/01/20 03:59 Labs: Abnormal Lab Results - Last 24 Hours (Table) 02/29/20 02/29/20 03/01/20 Range/Units 17:09 20:37 03:59 WBC 17.4 H (3.8-10.6) k/uL RBC 3.90 L (4.30-5.90) m/uL Hgb 10.2 L (13.0-17.5) gm/dL Hct 34.0 L (39.0-53.0) % MCHC 30.2 L (31.0-37.0) g/dL RDW 15.7 H (11.5-15.5) % BUN (9-20) mg/dL Glucose (74-99) mg/dL POC Glucose (mg/dL) 179 H 169 H (75-99) mg/dL 03/01/20 03/01/20 03/01/20 Range/Units 03:59 07:10 11:54 WBC (3.8-10.6) k/uL RBC (4.30-5.90) m/uL Hgb (13.0-17.5) gm/dL Hct (39.0-53.0) % MCHC (31.0-37.0) g/dL RDW (11.5-15.5) % BUN 24 H (9-20) mg/dL Glucose 132 H (74-99) mg/dL POC Glucose (mg/dL) 151 H 162 H (75-99) mg/dL Assessment and Plan Assessment: Impression: Acute hypoxic respiratory failure multifactorial secondary to systolic con gestive heart failure with pericardial effusion, possible pericarditis, and intermittent episodes of supraventricular tachycardia as well as underlying COPD. Moderate pericardial effusion and pericarditis is being suspected. However no temponade. No need for a pericardial window. Advanced COPD Chronic pain syndrome patient has a pain pump History of seizure disorder. Type 2 diabetes. Benign essential hypertension. Dyslipidemia. Recommendation: Continue anti-inflammatory medications for his pericarditis and pericardial effusion. Bronchodilators for his underlying COPD. Continue gentle diuresis. Agree with discharge planning today. Time with Patient: Less than 30
--- NOTE | 2020-03-01 13:58 | P.PN ---
Subjective Progress Note Date: 03/01/20 59-year-old male [facility] patient with past medical history of chronic pain syndrome, history of COPD, type 2 diabetes, restless leg syndrome and degenerative joint disease who has morphine pump in his left abdominal area seen pain management on regular basis. Patient also have stage III chronic kidney disease, seizure activity, chronic pancreatitis, chronic diastolic congestive heart failure who presented to the emergency department at [facility] complaining of worsening dyspnea and shortness of breath for the last 3 days become much worse not been able to lay down flat in bed also was having significant tachycardia or patient was dry on adenosine without relief he was started on IV Cardizem drip with pulse rate dropped down but developed to have significant hypotension, Cardizem drip was stopped at this point. Patient was started on heparin drip his pulse ox is running slightly bit low pulse rate running in the 100 2270 bpm with low blood pressure at 100. Troponin was ne gative his d-dimer was 6255 BNP of 855 liver enzyme were normal white blood cell was moderately elevated. EKG demonstrates supraventricular tachycardia with pulse rate 167, chest x-ray showed large cardiac margin, CT of the chest angiogram to rule out PE was not completed before his transfer, patient ended up going for transthoracic echocardiogram which reportedly showing large pericardial effusion and possible temporal not. Patient was transferred to [facility] to see cardiothoracic surgery service for possible pericardial window. Patient was transfer from the ICU at [facility] to the ICU at [facility] was seen Dr. Melendrez and Dr Haque, echocardiogram at the bedside was done with the customer account technician and review of cardiothoracic showed no temporal not picture but patient had large pericardial effusion with high suspicion for pericarditis. Patient was started on large dose of NSAID along with colchicine will be kept in ICU, continue updraft treatment continue to treat his blood sugar and watch it carefully. 02/27: Patient remains in the intensive care unit. He has been afebrile, heart rate 83, blood pressure 105/67, pulse ox 90% on 10 L high flow nasal cannula increased to 15 L with pulse ox of 94%. Patient had repeat echocardiogram done this morning and formal report is pending. Repeat chest x-ray reveals heart failure, underlying infiltrate not excluded. Patient was started on Solu-Medrol by pulmonary medicine. Patient is noted to be more alert and able to stay awake today. Patient has been evaluated by cardiothoracic surgery with no plan for surgical intervention as no tamponade on noted. Cardiology is planning to continue current medications including colchicine, digoxin and ovoid antihypertensives and diuretics. Repeat blood work reveals WBC 11, hemoglobin 10.8, platelet count 313. Sodium 132, potassium 4.6, chloride 104, CO2 20, BUN 27 creatinine 1.21. Blood sugars running between 103 and 150. Troponin 0.067. TSH 0.235 with normal free T4 of 1.82. 02/28: Patient is seen today in the intensive care unit. He is sitting up in a chair and appears to be in no acute distress. Patient is awake and alert. Lung discussion with the patient regarding pain management and use of too many narcotics and sedative medications at home. Patient advised to follow-up with pain management and wean off or decrease some of his medications. Limited echocardiogram done yesterday revealed small to moderate generalized pericardial effusion. Patient has been afebrile, heart rate 69, blood pressure 93/81, pulse ox 95% on 10 L high flow nasal cannula. Repeat blood work reveals blood sugars in the 150s. WBC 15.5, hemoglobin 10.7. Sodium 136, potassium 4.1, chloride 106, CO2 21, BUN 24 and creatinine 0.79. Lopez catheter to be discontinued and patient may be transferred out of the intensive care unit today. 03/01: She remains in the intensive care unit waiting for a bed outside. He is currently seen on 4 L high flow nasal cannula and has been weaned down to 2 L pulse oxing 95%. He is on IV steroids which will be changed to oral. Patient has been cleared for discharge by cardiology and pulmonary medicine. He has been afebrile, heart rate 85, blood pressure 90/42. WBC 17.4, hemoglobin 10.2, platelet count 410. Electrolytes normal. BUN 24 and creatinine 0.71. Blood sugars running between 132 and 169. Discharge plan is for subacute rehab at [facility] [place]. Patient will be discharged today in stable condition. Review of systems CONSTITUTIONAL: Obese, no distress. Denies fever. EYES: No icterus sclerae, no conjunctivitis. EARS, NOSE, MOUTH, THROAT, and FACE: No sore throat, lymphadenopathy, carotid br uits or deformity. RESPIRATORY: Positive significant shortness of breath no cough positive mild wheezes and tightness no hemoptysis. CARDIOVASCULAR: Positive chest pain positive shortness of breath has palpitation PND orthopnea or angina. GASTROINTESTINAL: No Abd pain, Nausea or vomiting, no Diarrhea or constipation, No GI Bleed, no distention or masses. GENITOURINARY: Negative for Hematuria or UTI, no kidney stones. INTEGUMENT/BREAST: Negative for any muscular injury with mild osteoarthritis.. HEMATOLOGIC/LYMPHATIC: Negative for bleed or purpura. MUSCULOSKELTAL: Negative for Myalgia or arthralgia. NEURLOGICAL: No LOC, Sz or syncope, blurred vision dizziness or abnormality.. BEHAVIORAL/PSYCH: Negative. ENDOCRINE: Negative. Physical examination General Appearance: Significantly overweight , no distress. Neck HEENT: Supple, no lymphadenopathy, no thyroid enlargement, no carotid bruits. Lungs: Decreased breath some bilaterally with fine rhonchi positive mild expi ratory wheezes. Chest Wall: Decrease expansion with deep inspiration no tenderness and no deformity was found on exam, no costochondral pain or discomfort. Heart: Regular rate and rhythm, S1, S2 positive systolic murmur. Back: Symmetric, no curvature, ROM normal, no CVA tenderness. Abdomen: Soft, non-tender, bowel sounds active all four quadrants, no masses, no organomegaly. Patient has pain pump in the left lower side of his abdominal area. Extremities: Extremities normal, atraumatic, no cyanosis or edema. Pulses: 2+ and symmetric. Skin: Skin color, texture, tugor normal, no rashes or lesions. Neurologic: Alert and oriented 3, moving all his 4 extremities generalized weakness and focal deficit. Assessment and plan 1 acute hypoxic respiratory failure secondary to pericardial effusion, pericarditis, arrhythmia and tachycardia, COPD exacerbation and severe bro nchitis. Continue oxygen therapy titrated, DuoNeb treatments every 4 hours, Solu-Medrol 40 mg IV every 8 hours, Pulmicort 1 mg twice daily. 2 Moderate pericardial effusion. Consult with cardiothoracic surgery and cardiology appreciated. Continue conservative management continue patient on NSAID along with colchicine. Repeat echocardiogram as above. 3 advanced COPD with mild exacerbation: Continue patient on DuoNeb, Pulmicort, Solu-Medrol. 4 chronic pain management: Patient has been on extended release morphine 60 mg every 8 hours medication with decrease at this point. 5 chronic seizure: Has been on Dilantin and phenobarbital. 6 Possible urinary tract infection. 7 SVT. Continue digoxin. 8 chronic type 2 diabetes: Continue patient on Accu-Chek with sliding scales coverage. A1c. 9 hypertension: Well controlled currently on beta valentín and if needed will add smaller dose of alberto inhibitor and or combined with ARB. 10 chronic pain management: Continue patient hydrocodone on morphine along with muscle relaxer. 11 hyperlipidemia: Resume simvastatin. 12 Chronic kidney disease: Continue gentle hydration repeat. Creatinine 24 hours. 13 recurrent depression. Continue Lexapro 20 mg daily. 14 GI prophylaxis. Continue Protonix.. CODE STATUS: Full code. Discharge plan: [facility]. Patient has a legal guardian. Impression and plan of care have been directed as dictated by the signing physician. Oralia Andrews nurse practitioner acting as scribe for signing physici an. Objective - Vital Signs Vital signs: Vital Signs Temp 97.9 F 03/01/20 08:00 Pulse 85 03/01/20 08:00 Resp 15 03/01/20 08:00 BP 90/42 03/01/20 08:00 Pulse Ox 93 L 03/01/20 08:00 Intake & Output 02/29/20 03/01/20 03/01/20 18:59 06:59 18:59 Intake Total 1260 500 25 Output Total 920 2100 75 Balance 340 -1600 -50 Intake: IV 300 300 25 Sodium Chloride 0.9% 1, 300 300 25 000 ml @ 25 mls/hr IV . Q24H [facility] Rx#:[id number] Oral 960 200 Output: Urine 920 2100 75 Other: Voiding Method Indwelling Catheter Indwelling Catheter - Labs CBC & Chem 7: 03/01/20 03:59 03/01/20 03:59 Labs: Abnormal Lab Results - Last 24 Hours (Table) 02/29/20 02/29/20 02/29/20 Range/Units 11:57 17:09 20:37 WBC (3.8-10.6) k/uL RBC (4.30-5.90) m/uL Hgb (13.0-17.5) gm/dL Hct (39.0-53.0) % MCHC (31.0-37.0) g/dL RDW (11.5-15.5) % BUN (9-20) mg/dL Glucose (74-99) mg/dL POC Glucose (mg/dL) 193 H 179 H 169 H (75-99) mg/dL 03/01/20 03/01/20 03/01/20 Range/Units 03:59 03:59 07:10 WBC 17.4 H (3.8-10.6) k/uL RBC 3.90 L (4.30-5.90) m/uL Hgb 10.2 L (13.0-17.5) gm/dL Hct 34.0 L (39.0-53.0) % MCHC 30.2 L (31.0-37.0) g/dL RDW 15.7 H (11.5-15.5) % BUN 24 H (9-20) mg/dL Glucose 132 H (74-99) mg/dL POC Glucose (mg/dL) 151 H (75-99) mg/dL
[2020-03-01] MEDS: SODIUM CHLORIDE 0.9% 1,000 ML IV SCH (16:44)
[2020-03-01 17:19] VITALS: BP 127/70; PULSE 96; RESP 16; TEMP 98.1
[2020-03-01] MEDS ORDERED: MELATONIN 3 MG TABLET PO SCH (21:00)
--- NOTE | 2020-03-04 10:07 | CDI ---
Documentation Clarification Form Date: 03/04/20 From: Liana Lux CCS Phone: If you have a question about this query, please contact Gladis Salvador, Environmental Protection Specialist at [phone] between 8am and 5pm. Admit Date: 02/27/20 Discharge Date: 03/01/20 Patient Name: Jonatan Chun Visit Number: [id number] ATTENTION: The Clinical Documentation Specialists (CDI) and [facility] Coding Staff appreciate your assistance in clarifying documentation. Please respond to the clarification below the line at the bottom and electronically sign. The CDI & [facility] Coding staff will review the response and follow-up if needed. Please note: Queries are made part of the Legal Health Record. If you have any questions, please contact the author of this message via ITS. Dear Dr. Saldivar, Conflicting documentation has been found in the medical record: H&P, Consult 02/26, PNs document: Chronic diastolic heart failure Consult 02/27, PNs document: Acute hypoxic respiratory failure multifactorial secondary to systolic congestive heart failure with pericardial effusion, possible pericarditis, and intermittent episodes of supraventricular tachycardia as well as underlying COPD. History/Risk Factors: HTN, DM, CKD, Tobacco, Obesity, SVT Clinical Indicators: Respiratory failure, Systolic murmur Echo: The left ventricular size is normal.There is mild concentric left ventricular hypertrophy.Overall left ventricular systolic function is mild- moderately impaired with, an EF between 40 - 45 %. Chest Xray: There is bilateral infiltrate and pleural effusion with interstitial pattern.The heart is enlarged and is a chronic right clavicular fracture.No pneumothorax. BNP: 765 Treatment: Lasix 2 mg PO BID In your opinion, what is the most clinically appropriate diagnosis for this patient? xx Chronic systolic CHF Chronic diastolic CHF Chronic combined diastolic/systolic CHF Other explanation of clinical findings Unable to determine (no explanation for clinical findings) MTDD
== END 2020-03-01 17:55 | DRG 314 ==
LOC: EEVIPCON 17:05 → 2SICU 17:05
PROVIDERS: ADMIT Family Medicine; ATTEND Family Medicine
DX: I31.3 Pericardial effusion (noninflammatory) (principal); J96.01 Acute respiratory failure with hypoxia; I13.0 Hypertensive heart and chronic kidney disease with heart failure and stage 1 through stage 4 chronic kidney disease, or unspecified chronic kidney disease; F33.9 Major depressive disorder, recurrent, unspecified; J44.1 Chronic obstructive pulmonary disease with (acute) exacerbation; I50.22 Chronic systolic (congestive) heart failure; K86.1 Other chronic pancreatitis; I47.1 Supraventricular tachycardia; N39.0 Urinary tract infection, site not specified; N18.3 Chronic kidney disease, stage 3 (moderate); E11.22 Type 2 diabetes mellitus with diabetic chronic kidney disease; I95.9 Hypotension, unspecified; E11.65 Type 2 diabetes mellitus with hyperglycemia; G40.909 Epilepsy, unspecified, not intractable, without status epilepticus; G89.4 Chronic pain syndrome; F17.210 Nicotine dependence, cigarettes, uncomplicated; G25.81 Restless legs syndrome; M19.90 Unspecified osteoarthritis, unspecified site; E78.5 Hyperlipidemia, unspecified; K21.9 Gastro-esophageal reflux disease without esophagitis; E66.9 Obesity, unspecified; K59.00 Constipation, unspecified; T38.0X5A Adverse effect of glucocorticoids and synthetic analogues, initial encounter; Z68.37 Body mass index [BMI] 37.0-37.9, adult; Z79.899 Other long term (current) drug therapy; Z79.84 Long term (current) use of oral hypoglycemic drugs; Z79.891 Long term (current) use of opiate analgesic; Z98.890 Other specified postprocedural states; Z88.6 Allergy status to analgesic agent; Z82.49 Family history of ischemic heart disease and other diseases of the circulatory system; Z82.3 Family history of stroke
CPT/HCPCS: 36600; 71045; 80048; 81001; 82805; 83036; 83735; 83880; 84100; 84439; 84443; 84484; 85025; 85027; 85730; 86850; 86900; 86901; 93306; 93308; 94640

== ENCOUNTER → 2020-04-26 | Outpatient (CLI) | payer OTHER ==
--- NOTE | 2020-04-26 15:01 | US ---
EXAMINATION TYPE: US venous doppler duplex GIOVANNI SPEARS EXTREMITY VENOUS INSUFFICIENCY DATE OF EXAM: 04/26/2020 2:30 PM COMPARISON: none CLINICAL HISTORY: R60.0 Bilateral lower extremity edema. SIDE PERFORMED: bilateral 1) Color flow is present and patency is documented in the following vessels. No DVT or SVT is noted . Common Femoral Vein Deep Femoral Vein Femoral Vein Popliteal Vein Proximal Calf Veins Greater Saph Vein (GSV) Upper Small Saph Vein 2) There is venous reflux noted at the following venous levels: Right CFV, and in one of 2 upper ri ght calf veins; Right GSV; in Left CFV, FV upper, Left Upper DFV, in one of two upper calf veins; Lef t GSV distally. 3) Incompetent perforators are noted at these levels: in Right ankle perforating vein is noted 4. Left groin lymph node is seen = 3.1 x 1.3 x 0.7cm. Left perforating Vein is noted but appears comp etent at this time. IMPRESSION: 1. Venous reflux within the right and left deep and superficial venous system. 2. Left groin lymph node
== END | disposition home or self-care (01) ==
LOC: RADUSWWP 13:34
PROVIDERS: ATTEND Internal Medicine Cardiovascular Disease
DX: I87.2 Venous insufficiency (chronic) (peripheral) (principal)
CPT/HCPCS: 93970

== ENCOUNTER 2020-05-05 20:15 | Observation (INO) | payer OTHER ==
[2020-05-05] MEDS ORDERED: SODIUM CHLORIDE 0.9% 500 ML 500 ML IV STA (20:27)
[2020-05-05] MEDS ORDERED: SODIUM CHLORIDE 0.9% 1,000 ML IV STA (20:27)
--- NOTE | 2020-05-05 20:28 | ED ---
Altered Mental Status HPI - General Source: EMS, RN notes reviewed, old records reviewed Mode of arrival: EMS Limitations: altered mental status - History of Present Illness MD Complaint: altered mental status, confusion, decreased responsiveness, weakness -: days(s) Severity: severe Consistency of Symptoms: getting worse, constant Context: history of similar presentation Associated Symptoms: weakness <Jaime Mary - Last Filed: 05/05/20 22:57> <Paris Gonzalez - Last Filed: 05/08/20 23:40> - General Chief Complaint: Altered Mental Status Stated Complaint: altered mental status Time Seen by Provider: 05/05/20 20:27 - History of Present Illness Initial Comments: This is a 60-year-old male presents today for evaluation of altered mental status, PD was called a neighbor same patient was not acting appropriate. Patient is a poor strain is refuses to answer questions here in the ER. He has have history of psychiatric illness (Jaime Mary) - Related Data Home Medications Medication Instructions Recorded Confirmed Omeprazole 40 mg PO DAILY 10/19/13 05/06/20 Acetaminophen Tab [Tylenol] 500 mg PO Q6H PRN 02/27/20 05/06/20 Albuterol Sulfate [Ventolin HFA] 2 puff INHALATION RT-QID PRN 02/27/20 05/06/20 Cholecalciferol [Vitamin D3 (25 2,000 unit PO DAILY 02/27/20 05/06/20 Mcg = 1000 Iu)] DULoxetine HCL [Cymbalta] 60 mg PO BID 02/27/20 05/06/20 Docusate [Colace] 100 mg PO DAILY 02/27/20 05/06/20 Furosemide [Lasix] 20 mg PO BID 02/27/20 05/06/20 Melatonin 3 mg PO HS 02/27/20 05/06/20 Morphine Pain Pump (Unknown 1 dose SQ-PUMP CONTINUOUS 02/27/20 05/06/20 Strength) Multivitamins, Thera [Multivitamin 1 tab PO DAILY 02/27/20 05/06/20 (formulary)] Potassium Chloride [Klor-Con 20] 20 meq PO DAILY 02/27/20 05/06/20 Tamsulosin HCl [Flomax] 0.4 mg PO DAILY 02/27/20 05/06/20 gemfibroziL [Lopid] 600 mg PO BID-W/MEALS 02/27/20 05/06/20 lamoTRIgine [LaMICtal] 150 mg PO HS 02/27/20 05/06/20 metFORMIN HCL [Glucophage] 1,000 mg PO BID-W/MEALS 02/27/20 05/06/20 polyethylene glycoL 3350 [Miralax] 17 gm PO DAILY PRN 02/27/20 05/06/20 rOPINIRole HCL [Requip] 1 mg PO HS 02/27/20 05/06/20 Ammonium Lactate Lotion 1 applic TOPICAL BID 05/06/20 05/06/20 [Lac-Hydrin 12% Lotion] Colchicine [Mitigare] 0.6 mg PO BID 05/06/20 05/06/20 Finasteride [Proscar] 5 mg PO DAILY 05/06/20 05/06/20 Ipratropium-Albuterol Nebulize 3 ml INHALATION RT-Q4H PRN 05/06/20 05/06/20 [Duoneb 0.5 mg-3 mg/3 ml Soln] Naloxegol Oxalate [Movantik] 25 mg PO DAILY 05/06/20 05/06/20 Pregabalin [Lyrica] 75 mg PO BID 05/06/20 05/06/20 Simethicone Chew [Mylicon Chew] 80 mg PO QID 05/06/20 05/06/20 metOLazone [Zaroxolyn] 5 mg PO DAILY 05/06/20 05/06/20 Previous Rx's Medication Instructions Recorded Atorvastatin [Lipitor] 10 mg PO HS tab 03/01/20 Budesonide [Pulmicort] 1 mg INHALATION RT-BID ml 03/01/20 Digoxin [Lanoxin] 250 mcg PO DAILY tab 03/01/20 Lactulose [Cephulac] 15 gm PO DAILY ml 05/08/20 Nicotine 21Mg/24Hr Patch [Habitrol] 1 patch TRANSDERM DAILY patch 05/08/20 fluPHENAZine [Prolixin] 2.5 mg PO BID tab 05/08/20 Allergies Allergy/AdvReac Type Severity Reaction Status Date / Time aspirin AdvReac Mild Rash/Hives Verified 05/06/20 07:12 Review of Systems ROS Other: All systems not noted in ROS Statement are negative. <Jaime Mary - Last Filed: 05/05/20 22:57> ROS Other: All systems not noted in ROS Statement are negative. <Paris Gonzalez Jeannie - Last Filed: 05/08/20 23:40> ROS Statement: Those systems with pertinent positive or pertinent negative responses have been documented in the HPI. Past Medical History Past Medical History: Heart Failure, COPD, Diabetes Mellitus, GERD/Reflux, Hyperlipidemia, Hypertension, Renal Disease, Seizure Disorder History of Any Multi-Drug Resistant Organisms: None Reported Past Surgical History: Back Surgery Additional Past Surgical History / Comment(s): sinus surgery Past Anesthesia/Blood Transfusion Reactions: No Reported Reaction Past Psychological History: Depression Smoking Status: Current every day smoker, Heavy tobacco smoker Past Alcohol Use History: None Reported Past Drug Use History: None Reported <Jaime Mary - Last Filed: 05/05/20 22:57> General Exam Limitations: altered mental status General appearance: alert, in no apparent distress Head exam: Present: atraumatic, normocephalic, normal inspection Eye exam: Present: normal appearance, PERRL, EOMI. Absent: scleral icterus, conjunctival injection, periorbital swelling ENT exam: Present: normal exam, mucous membranes moist Neck exam: Present: normal inspection. Absent: tenderness, meningismus, lymphadenopathy Respiratory exam: Present: normal lung sounds bilaterally. Absent: respiratory distress, wheezes, rales, rhonchi, stridor Cardiovascular Exam: Present: regular rate, normal rhythm, normal heart sounds. Absent: systolic murmur, diastolic murmur, rubs, gallop, clicks GI/Abdominal exam: Present: soft, normal bowel sounds. Absent: distended, tenderness, guarding, rebound, rigid Extremities exam: Present: normal inspection, full ROM, normal capillary refill. Absent: tenderness, pedal edema, joint swelling, calf tenderness Back exam: Present: normal inspection Neurological exam: Present: alert, oriented X3, CN II-XII intact Psychiatric exam: Present: normal affect, normal mood Skin exam: Present: warm, dry, intact, normal color. Absent: rash <Jaime Mary - Last Filed: 05/05/20 22:57> Course <Jaime Mary - Last Filed: 05/05/20 22:57> Vital Signs 05/05/20 05/05/20 05/05/20 20:21 21:27 22:27 Temperature 98.2 F Pulse Rate 77 89 83 Respiratory 18 18 18 Rate Blood Pressure 123/67 126/56 124/67 O2 Sat by Pulse 96 93 L 97 Oximetry 05/06/20 01:04 Temperature 98.2 F Pulse Rate 72 Respiratory 16 Rate Blood Pressure 107/63 O2 Sat by Pulse 88 L Oximetry - Reevaluation(s) Reevaluation #1: 05/05/20 22:04 Medical record is reviewed (Jaime Mary) Reevaluation #2: 05/05/20 22:57 Medical clear for psychiatric evaluation (Jaime Mary) Medical Decision Making - Lab Data Result diagrams: 05/05/20 22:03 05/05/20 22:03 - EKG Data -: EKG Interpreted by Me (EKG shows NSR 68 TN 192 QRS 110 QTc 557) <Jaime Mary - Last Filed: 05/05/20 22:57> - Lab Data Result diagrams: 05/07/20 06:16 05/08/20 08:22 <Paris Gonzalez - Last Filed: 05/08/20 23:40> - Lab Data Lab Results 05/05/20 05/05/20 05/05/20 Range/Units 22:03 22:03 22:03 WBC 12.4 H (3.8-10.6) k/uL RBC 5.23 (4.30-5.90) m/uL Hgb 14.9 D (13.0-17.5) gm/dL Hct 45.4 (39.0-53.0) % MCV 86.7 (80.0-100.0) fL MCH 28.5 (25.0-35.0) pg MCHC 32.8 (31.0-37.0) g/dL RDW 19.6 H (11.5-15.5) % Plt Count 341 (150-450) k/uL MPV 7.5 Neutrophils % 73 % Lymphocytes % 12 % Monocytes % 7 % Eosinophils % 5 % Basophils % 1 % Neutrophils # 9.0 H (1.3-7.7) k/uL Lymphocytes # 1.5 (1.0-4.8) k/uL Monocytes # 0.9 (0-1.0) k/uL Eosinophils # 0.6 (0-0.7) k/uL Basophils # 0.1 (0-0.2) k/uL Anisocytosis Slight PT 10.4 (9.0-12.0) sec INR 1.0 (<1.2) APTT 25.0 (22.0-30.0) sec Sodium 137 (137-145) mmol/L Potassium 3.5 (3.5-5.1) mmol/L Chloride 84 L (98-107) mmol/L Carbon Dioxide 38 H (22-30) mmol/L Anion Gap 15 mmol/L BUN 45 H (9-20) mg/dL Creatinine 0.99 (0.66-1.25) mg/dL Est GFR (CKD-EPI)AfAm >90 (>60 ml/min/1.73 sqM) Est GFR (CKD-EPI)NonAf 81 (>60 ml/min/1.73 sqM) Glucose 139 H (74-99) mg/dL Lactic Ac Sepsis Rflx Plasma Lactic Acid Deon (0.7-2.0) mmol/L Calcium 9.9 (8.4-10.2) mg/dL Phosphorus 4.0 (2.5-4.5) mg/dL Total Bilirubin 0.9 (0.2-1.3) mg/dL AST 54 (17-59) U/L ALT 46 (4-49) U/L Alkaline Phosphatase 95 (38-126) U/L Ammonia (<30) umol/L Troponin I (0.000-0.034) ng/mL NT-Pro-B Natriuret Pep pg/mL Total Protein 8.1 (6.3-8.2) g/dL Albumin 4.7 (3.5-5.0) g/dL TSH 0.833 (0.465-4.680) mIU/L Phenytoin <3.0 ug/mL Free Phenytoin (0.8-2.0) ug/mL 05/05/20 05/05/20 05/05/20 Range/Units 22:03 22:03 22:03 WBC (3.8-10.6) k/uL RBC (4.30-5.90) m/uL Hgb (13.0-17.5) gm/dL Hct (39.0-53.0) % MCV (80.0-100.0) fL MCH (25.0-35.0) pg MCHC (31.0-37.0) g/dL RDW (11.5-15.5) % Plt Count (150-450) k/uL MPV Neutrophils % % Lymphocytes % % Monocytes % % Eosinophils % % Basophils % % Neutrophils # (1.3-7.7) k/uL Lymphocytes # (1.0-4.8) k/uL Monocytes # (0-1.0) k/uL Eosinophils # (0-0.7) k/uL Basophils # (0-0.2) k/uL Anisocytosis PT (9.0-12.0) sec INR (<1.2) APTT (22.0-30.0) sec Sodium (137-145) mmol/L Potassium (3.5-5.1) mmol/L Chloride (98-107) mmol/L Carbon Dioxide (22-30) mmol/L Anion Gap mmol/L BUN (9-20) mg/dL Creatinine (0.66-1.25) mg/dL Est GFR (CKD-EPI)AfAm (>60 ml/min/1.73 sqM) Est GFR (CKD-EPI)NonAf (>60 ml/min/1.73 sqM) Glucose (74-99) mg/dL Lactic Ac Sepsis Rflx Plasma Lactic Acid Deon 4.0 H* (0.7-2.0) mmol/L Calcium (8.4-10.2) mg/dL Phosphorus (2.5-4.5) mg/dL Total Bilirubin (0.2-1.3) mg/dL AST (17-59) U/L ALT (4-49) U/L Alkaline Phosphatase (38-126) U/L Ammonia 45 H (<30) umol/L Troponin I 0.022 (0.000-0.034) ng/mL NT-Pro-B Natriuret Pep 213 pg/mL Total Protein (6.3-8.2) g/dL Albumin (3.5-5.0) g/dL TSH (0.465-4.680) mIU/L Phenytoin ug/mL Free Phenytoin (0.8-2.0) ug/mL 11/29/20 11/29/20 11/30/20 Range/Units 22:03 22:47 01:15 WBC (3.8-10.6) k/uL RBC (4.30-5.90) m/uL Hgb (13.0-17.5) gm/dL Hct (39.0-53.0) % MCV (80.0-100.0) fL MCH (25.0-35.0) pg MCHC (31.0-37.0) g/dL RDW (11.5-15.5) % Plt Count (150-450) k/uL MPV Neutrophils % % Lymphocytes % % Monocytes % % Eosinophils % % Basophils % % Neutrophils # (1.3-7.7) k/uL Lymphocytes # (1.0-4.8) k/uL Monocytes # (0-1.0) k/uL Eosinophils # (0-0.7) k/uL Basophils # (0-0.2) k/uL Anisocytosis PT (9.0-12.0) sec INR (<1.2) APTT (22.0-30.0) sec Sodium (137-145) mmol/L Potassium (3.5-5.1) mmol/L Chloride (98-107) mmol/L Carbon Dioxide (22-30) mmol/L Anion Gap mmol/L BUN (9-20) mg/dL Creatinine (0.66-1.25) mg/dL Est GFR (CKD-EPI)AfAm (>60 ml/min/1.73 sqM) Est GFR (CKD-EPI)NonAf (>60 ml/min/1.73 sqM) Glucose (74-99) mg/dL Lactic Ac Sepsis Rflx Y Plasma Lactic Acid Deon 0.8 (0.7-2.0) mmol/L Calcium (8.4-10.2) mg/dL Phosphorus (2.5-4.5) mg/dL Total Bilirubin (0.2-1.3) mg/dL AST (17-59) U/L ALT (4-49) U/L Alkaline Phosphatase (38-126) U/L Ammonia (<30) umol/L Troponin I (0.000-0.034) ng/mL NT-Pro-B Natriuret Pep pg/mL Total Protein (6.3-8.2) g/dL Albumin (3.5-5.0) g/dL TSH (0.465-4.680) mIU/L Phenytoin ug/mL Free Phenytoin <0.8 L (0.8-2.0) ug/mL Disposition <Jaime Mary - Last Filed: 05/05/20 22:57> Is patient prescribed a controlled substance at d/c from ED?: No Decision to Admit Reason: Admit from EC Decision Date: 05/06/20 Decision Time: 03:41 <Paris Gonzalez - Last Filed: 05/08/20 23:40> Clinical Impression: Altered mental status, Encephalopathy, Hypoxia Disposition: ADMITTED IP TO THIS [facility] Condition: Stable
[2020-05-05 22:20] LABS: Anisocytosis Slight; Basophils # (A) 0.1 k/uL (0-0.2); Basophils % (A) 1 %; Eosinophils # (A) 0.6 k/uL (0-0.7); Eosinophils % (A) 5 %; HCT 45.4 % (39.0-53.0); Lymphocytes # (A) 1.5 k/uL (1.0-4.8); Lymphocytes % (A) 12 %; MCH 28.5 pg (25.0-35.0); MCHC 32.8 g/dL (31.0-37.0); MCV 86.7 fL (80.0-100.0); Mean Platelet Volume 7.5; Monocytes # (A) 0.9 k/uL (0-1.0); Monocytes % (A) 7 %; Neutrophils % (A) 73 %; Platelet Count 341 k/uL (150-450); RBC 5.23 m/uL (4.30-5.90); RDW 19.6 % (11.5-15.5); WBC 12.4 k/uL (3.8-10.6)
[2020-05-05 22:36] LABS: ALT 46 U/L (4-49); AST 54 U/L (17-59); African American GFR (CKD) >90 (>60 ml/min/1.73 sqM); Albumin 4.7 g/dL (3.5-5.0); Alkaline Phosphatase 95 U/L (38-126); Blood Urea Nitrogen 45 mg/dL (9-20); Calcium 9.9 mg/dL (8.4-10.2); Chloride 84 mmol/L (98-107); Glucose 139 mg/dL (74-99); Non-African American GFR(CKD) 81 (>60 ml/min/1.73 sqM); Phenytoin (Dilantin) <3.0 ug/mL; Potassium 3.5 mmol/L (3.5-5.1); Sodium 137 mmol/L (137-145); Total Bilirubin 0.9 mg/dL (0.2-1.3); Total Protein 8.1 g/dL (6.3-8.2)
[2020-05-05 22:40] LABS: Anion Gap 15 mmol/L; Carbon Dioxide 38 mmol/L (22-30)
[2020-05-05 22:42] LABS: HGB 14.9 gm/dL (13.0-17.5)
--- NOTE | 2020-05-05 22:46 | CT ---
EXAMINATION TYPE: CT brain wo con DATE OF EXAM: 05/05/2020 COMPARISON: None HISTORY: Confusion CT DLP: 1217.4 mGycm Automated exposure control for dose reduction was used. Ventricles have normal size. There is no mass effect nor midline shift. There is no sign of intracran ial hemorrhage. The calvarium is intact. There is no evidence of cerebral edema. IMPRESSION: Mild cerebral atrophy appropriate for age. No acute intracranial abnormality.
[2020-05-05] MEDS ORDERED: SODIUM CHLORIDE 0.9% 2,000 ML IV STA (22:48)
[2020-05-05 23:09] LABS: Prothrombin Time 10.4 sec (9.0-12.0)
--- NOTE | 2020-05-05 23:13 | XR ---
EXAMINATION TYPE: XR chest 1V DATE OF EXAM: 05/05/2020 COMPARISON: 03/01/2020 HISTORY: Altered mental status TECHNIQUE: FINDINGS: There is minimal subsegmental atelectasis at the lung bases. There is no heart failure. Hea rt size is normal. There are chest leads. IMPRESSION: Minimal subsegmental atelectasis at the lung bases. There is clearing of the extensive pu lmonary infiltrates and atelectasis to a large extent compared to old exam.
[2020-05-06] MEDS ORDERED: NALOXONE 0.4 MG/ML 1 ML VIAL IV PRN (03:41)
[2020-05-06 08:00] LABS: Glucose,Whole Blood 134 mg/dL (75-99)
[2020-05-06] MEDS ORDERED: polyethylene glycoL 3350 17 GM POWD.PACK PO PRN (08:23)
[2020-05-06] MEDS ORDERED: hydrOXYzine pamoate 25 MG CAP PO PRN (08:23)
[2020-05-06] MEDS ORDERED: ALBUTEROL HFA INHALER INHALATION PRN (08:23)
[2020-05-06] MEDS ORDERED: ACETAMINOPHEN TAB 500 MG TAB PO PRN (08:23)
[2020-05-06] MEDS: AMMONIUM LACTATE 12% LOTION 225 GM BTL TOPICAL SCH ×2 (09:24→20:04)
[2020-05-06] MEDS: COLCHICINE 0.6 MG EACH PO SCH ×2 (09:25→20:05)
[2020-05-06] MEDS: FENOFIBRATE 160 MG TAB PO SCH (09:25)
[2020-05-06] MEDS: SIMETHICONE 80 MG CHEWABLE PO SCH ×4 (09:25→23:12)
[2020-05-06 09:26] LABS: Appearance,Urine Clear (Clear); Bilirubin,Urine Negative (Negative); Blood,Urine Small (Negative); Color,Urine Yellow; Glucose,Urine (UA) Negative (Negative); Ketones,Urine 1+ (Negative); Leukocyte Esterase,Urine Small (Negative); Nitrite,Urine Negative (Negative); PH, Urine 7.5 (5.0-8.0); Protein,Urine Negative (Negative); RBC,Urine 4 /hpf (0-5); Urobilinogen,Urine <2.0 mg/dL (<2.0); WBC,Urine 6 /hpf (0-5)
[2020-05-06] MEDS: FINASTERIDE 5 MG TAB PO SCH (09:26)
[2020-05-06] MEDS: DIGOXIN 250 MCG TAB PO SCH (09:26)
[2020-05-06] MEDS: metOLazone 5 MG TAB PO SCH (09:26)
[2020-05-06] MEDS: POTASSIUM CHLORIDE ER 20 MEQ TAB.ER PO SCH (09:31)
[2020-05-06] MEDS: FUROSEMIDE 20 MG TAB PO SCH ×2 (09:31→20:00)
[2020-05-06] MEDS: PREGABALIN 75 MG CAP PO SCH ×2 (09:31→20:00)
[2020-05-06] MEDS: DOCUSATE 100 MG CAP PO SCH (09:31)
[2020-05-06] MEDS: DULoxetine HCL 60 MG CAPSULE.DR PO SCH ×2 (09:31→20:00)
[2020-05-06] MEDS: TAMSULOSIN 0.4 MG CAP.ER.24H PO SCH (09:31)
[2020-05-06] MEDS: CHOLECALCIFEROL 1,000 UNIT TAB PO SCH (09:31)
[2020-05-06] MEDS: NON FORMULARY DRUG (Naloxegol Oxalate [Movantik] 25 MG Tablet) PO SCH (09:32)
[2020-05-06] MEDS: PANTOPRAZOLE 40 MG TABLET PO SCH (09:40)
[2020-05-06] MEDS: metFORMIN 500 MG TAB PO SCH ×2 (09:40→17:35)
--- NOTE | 2020-05-06 10:19 | P.CRDCN ---
History of Present Illness Consult date: 05/06/20 History of present illness: CHIEF COMPLAINT: Elevated troponin HISTORY OF PRESENT ILLNESS: This is a 60-year-old male with a past medical history significant for hypertension, diabetes mellitus, and COPD. 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 We have been asked to see the patient in consultation for elevated troponin. Patient was recently hospitalized in February 2020 secondary to a pericardial effusion thought to be secondary to pericarditis. He was evaluated by cardio thoracic surgery and no surgical intervention was recommended at that time. Echocardiogram completed at that time revealed ejection fraction 40-45%. Patient was apparently brought to the hospital after his neighbors found him crawling on the ground without any clothes on. The patient is currently petitioned and psychiatry has been consulted for evaluation. Patient examined this morning at the bedside. Patient denies chest pain or pressure. He denies shortness of breath. Denies dizziness or lightheadedness. Patient states he is a smoker and smokes about 3 packs per day. DIAGNOSTICS: EKG reveals sinus rhythm without signs of acute ischemia Chest xray minimal subsegmental atelectasis at the lung bases. No heart failure seen. CT of the brain: Negative for acute process Laboratory data: WBC 12.4. Hemoglobin 14.9. Platelet count 341. Sodium 137. Potassium 3.5. BUN 45. Creatinine 0.99. Lactic acid 4.0. Repeat 0.8. BNP 213. Troponin 0.022. 0.051. Current home cardiac medications include Zaroxolyn 5 mg daily, Lopid 600 mg twice a day, Lasix 20mg twice a day, Lipitor 10 mg daily, digoxin 250mcg daily REVIEW OF SYSTEMS: At the time of my exam: CONSTITUTIONAL: Denies fever or chills. HEENT: Denies blurred vision, vision changes, or eye pain. Denies hemoptysis CARDIOVASCULAR: Denies chest pain, orthopnea, PND or palpitations RESPIRATORY: No shortness of breath. GASTROINTESTINAL: Denies abdominal pain. Denies nausea or vomiting. HEMATOLOGIC: Denies bleeding disorders. GENITOURINARY: Denies any blood in urine. SKIN: Denies pruitis. Denies rash. PHYSICAL EXAM: VITAL SIGNS: Reviewed. GENERAL: Well-developed in no acute distress. HEENT: Head is normocephalic. Pupils are equal, round. Sclerae anicteric. Mucous membranes of the mouth are moist. Neck supple. No JVD or thyromegaly LUNGS: Respirations even and unlabored. Lungs diminished HEART: Regular rate and rhythm. S1 and S2 heard. ABDOMEN: Soft. Nondistended. Nontender. EXTREMITIES: Normal range of motion. No clubbing or cyanosis. Peripheral pulses intact. No lower extremity edema-patient with Trey bandages to bilateral lower extremities NEUROLOGIC: Awake and alert. Oriented x 2 but does have some inappropriate answers during examination. ASSESSMENT: Altered mental status, etiology unknown Leukocytosis with elevated lactic acid Elevated troponin Hypertension Hyperlipidemia COPD Diabetes mellitus, type II Nonischemic cardiomyopathy, EF 40-45% History of pericardial effusion secondary to pericarditis, February 2020 History of SVT, February 2020 Nicotine dependence, patient reports smoking 3 packs per day PLAN: Resume home cardiac medications Obtain 2-D echo to assess cardiac structure and function Trend troponin levels Further recommendations pending patient's course Nurse practitioner note has been reviewed by physician. Signing provider agrees with the documented findings, assessment, and plan of care. Past Medical History Past Medical History: Heart Failure, COPD, Diabetes Mellitus, GERD/Reflux, Hyperlipidemia, Hypertension, Renal Disease, Seizure Disorder History of Any Multi-Drug Resistant Organisms: None Reported Past Surgical History: Back Surgery Additional Past Surgical History / Comment(s): sinus surgery Past Anesthesia/Blood Transfusion Reactions: No Reported Reaction Past Psychological History: Depression Smoking Status: Current every day smoker Past Alcohol Use History: None Reported Past Drug Use History: None Reported Medications and Allergies Home Medications Medication Instructions Recorded Confirmed Type Omeprazole 40 mg PO DAILY 10/19/13 05/06/20 History Acetaminophen Tab [Tylenol] 500 mg PO Q6H PRN 02/27/20 05/06/20 History Albuterol Sulfate [Ventolin HFA] 2 puff INHALATION RT-QID PRN 02/27/20 05/06/20 History Brexpiprazole [Rexulti] 4 mg PO HS 02/27/20 05/06/20 History Cholecalciferol [Vitamin D3 (25 2,000 unit PO DAILY 02/27/20 05/06/20 History Mcg = 1000 Iu)] DULoxetine HCL [Cymbalta] 60 mg PO BID 02/27/20 05/06/20 History Docusate [Colace] 100 mg PO DAILY 02/27/20 05/06/20 History Furosemide [Lasix] 20 mg PO BID 02/27/20 05/06/20 History Melatonin 3 mg PO HS 02/27/20 05/06/20 History Morphine Pain Pump (Unknown 1 dose SQ-PUMP CONTINUOUS 02/27/20 05/06/20 History Strength) Multivitamins, Thera [Multivitamin 1 tab PO DAILY 02/27/20 05/06/20 History (formulary)] Potassium Chloride [Klor-Con 20] 20 meq PO DAILY 02/27/20 05/06/20 History Tamsulosin HCl [Flomax] 0.4 mg PO DAILY 02/27/20 05/06/20 History gemfibroziL [Lopid] 600 mg PO BID-W/MEALS 02/27/20 05/06/20 History hydrOXYzine pamoate [Vistaril] 25 mg PO BID PRN 02/27/20 05/06/20 History lamoTRIgine [LaMICtal] 150 mg PO HS 02/27/20 05/06/20 History metFORMIN HCL [Glucophage] 1,000 mg PO BID-W/MEALS 02/27/20 05/06/20 History polyethylene glycoL 3350 [Miralax] 17 gm PO DAILY PRN 02/27/20 05/06/20 History rOPINIRole HCL [Requip] 1 mg PO HS 02/27/20 05/06/20 History Atorvastatin [Lipitor] 10 mg PO HS tab 03/01/20 05/06/20 Rx Budesonide [Pulmicort] 1 mg INHALATION RT-BID ml 03/01/20 05/06/20 Rx Digoxin [Lanoxin] 250 mcg PO DAILY tab 03/01/20 05/06/20 Rx Ammonium Lactate Lotion 1 applic TOPICAL BID 05/06/20 05/06/20 History [Lac-Hydrin 12% Lotion] Colchicine [Mitigare] 0.6 mg PO BID 05/06/20 05/06/20 History Finasteride [Proscar] 5 mg PO DAILY 05/06/20 05/06/20 History HYDROcodone/APAP 5-325MG [[place] 1 tab PO BID PRN 05/06/20 05/06/20 History 5-325] Ipratropium-Albuterol Nebulize 3 ml INHALATION RT-Q4H PRN 05/06/20 05/06/20 History [Duoneb 0.5 mg-3 mg/3 ml Soln] Naloxegol Oxalate [Movantik] 25 mg PO DAILY 05/06/20 05/06/20 History Pregabalin [Lyrica] 75 mg PO BID 05/06/20 05/06/20 History Simethicone Chew [Mylicon Chew] 80 mg PO QID 05/06/20 05/06/20 History metOLazone [Zaroxolyn] 5 mg PO DAILY 05/06/20 05/06/20 History Allergies Allergy/AdvReac Type Severity Reaction Status Date / Time aspirin AdvReac Mild Rash/Hives Verified 05/06/20 07:12 Physical Exam Vitals: Vital Signs Temp Pulse Pulse Resp BP BP Pulse Ox 05/06/20 07:39 97.4 F L 90 18 121/68 95 05/06/20 01:04 98.2 F 72 16 107/63 88 L 05/05/20 22:27 83 18 124/67 97 05/05/20 21:27 89 18 126/56 93 L 05/05/20 20:21 98.2 F 77 18 123/67 96 Intake and Output 05/05/20 05/06/20 05/06/20 22:59 06:59 14:59 Other: Weight 100.698 kg 100.698 kg Results 05/05/20 22:03 05/05/20 22:03 Cardiac Enzymes 05/05/20 05/05/20 05/06/20 Range/Units 22:03 22:03 07:21 AST 54 (17-59) U/L Troponin I 0.022 0.051 H* (0.000-0.034) ng/mL Coagulation 05/05/20 Range/Units 22:03 PT 10.4 (9.0-12.0) sec APTT 25.0 (22.0-30.0) sec CBC 05/05/20 Range/Units 22:03 WBC 12.4 H (3.8-10.6) k/uL RBC 5.23 (4.30-5.90) m/uL Hgb 14.9 D (13.0-17.5) gm/dL Hct 45.4 (39.0-53.0) % Plt Count 341 (150-450) k/uL Comprehensive Metabolic Panel 05/05/20 Range/Units 22:03 Sodium 137 (137-145) mmol/L Potassium 3.5 (3.5-5.1) mmol/L Chloride 84 L (98-107) mmol/L Carbon Dioxide 38 H (22-30) mmol/L BUN 45 H (9-20) mg/dL Creatinine 0.99 (0.66-1.25) mg/dL Glucose 139 H (74-99) mg/dL Calcium 9.9 (8.4-10.2) mg/dL AST 54 (17-59) U/L ALT 46 (4-49) U/L Alkaline Phosphatase 95 (38-126) U/L Total Protein 8.1 (6.3-8.2) g/dL Albumin 4.7 (3.5-5.0) g/dL Current Medications Generic Name Dose Route Start Last Admin Trade Name Freq PRN Reason Stop Dose Admin Acetaminophen 500 mg 05/06/20 08:23 Acetaminophen Tab 500 Mg Tab PO Q6H PRN Pain Albuterol/Ipratropium 3 ml 05/06/20 08:23 Ipratropium-Albuterol 3 Ml Neb INHALATION RT-Q4H PRN Wheezing Atorvastatin Calcium 10 mg 05/06/20 21:00 Atorvastatin 10 Mg Tab PO HS MARY Budesonide 1 mg 05/06/20 20:00 Budesonide 1 Mg/2 Ml Nebu INHALATION RT-BID MARY Cholecalciferol 2,000 unit 05/06/20 09:00 05/06/20 09:31 Cholecalciferol 1,000 Unit Tab PO 2,000 unit DAILY MARY Administration Colchicine 0.6 mg 05/06/20 09:00 05/06/20 09:25 Colchicine 0.6 Mg Each PO 0.6 mg BID MARY Administration Digoxin 250 mcg 05/06/20 09:00 05/06/20 09:26 Digoxin 250 Mcg Tab PO 250 mcg DAILY MARY Administration Docusate Sodium 100 mg 05/06/20 09:00 05/06/20 09:31 Docusate 100 Mg Cap PO 100 mg DAILY MARY Administration Duloxetine HCl 60 mg 05/06/20 09:00 05/06/20 09:31 Duloxetine Hcl 60 Mg Capsule.Dr PO 60 mg BID MARY Administration Fenofibrate 160 mg 05/06/20 09:00 05/06/20 09:25 Fenofibrate 160 Mg Tab PO 160 mg DAILY MARY Administration Finasteride 5 mg 05/06/20 09:00 05/06/20 09:26 Finasteride 5 Mg Tab PO 5 mg DAILY MARY Administration Furosemide 20 mg 05/06/20 09:00 05/06/20 09:31 Furosemide 20 Mg Tab PO 20 mg BID MARY Administration Hydroxyzine Pamoate 25 mg 05/06/20 08:23 Hydroxyzine Pamoate 25 Mg Cap PO BID PRN Anxiety Lactic Acid 1 applic 05/06/20 09:00 05/06/20 09:24 Ammonium Lactate 12% Lotion 225 Gm Btl TOPICAL 1 applic BID MARY Administration Lamotrigine 150 mg 05/06/20 21:00 Lamotrigine 100 Mg Tab PO HS MARY Melatonin 3 mg 05/06/20 21:00 Melatonin 3 Mg Tablet PO HS MARY Metformin HCl 1,000 mg 05/06/20 08:30 05/06/20 09:40 Metformin 500 Mg Tab PO 1,000 mg BID-W/MEALS MARY Administration Metolazone 5 mg 05/06/20 09:00 05/06/20 09:26 Metolazone 5 Mg Tab PO 5 mg DAILY MARY Administration Naloxone HCl 0.2 mg 05/06/20 03:41 Naloxone 0.4 Mg/Ml 1 Ml Vial IV Q2M PRN Opioid Reversal Non-Formulary Medication 4 mg 05/06/20 21:00 Brexpiprazole [Rexulti] PO HS MARY Non-Formulary Medication 25 mg 05/06/20 09:00 05/06/20 09:32 Naloxegol Oxalate [Movantik] PO Not Given DAILY [facility] Pantoprazole Sodium 40 mg 05/06/20 09:00 05/06/20 09:40 Pantoprazole 40 Mg Tablet PO 40 mg AC-BRKFST MARY Administration Polyethylene Glycol 17 gm 05/06/20 08:23 Polyethylene Glycol 3350 17 Gm Powd.Pack PO DAILY PRN Constipation Potassium Chloride 20 meq 05/06/20 09:00 05/06/20 09:31 Potassium Chloride Er 20 Meq Tab.Er PO 20 meq DAILY MARY Administration Pregabalin 75 mg 05/06/20 09:00 05/06/20 09:31 Pregabalin 75 Mg Cap PO 75 mg BID MARY Administration Ropinirole HCl 1 mg 05/06/20 21:00 Ropinirole Hcl 1 Mg Tab PO HS MARY Simethicone 80 mg 05/06/20 09:00 05/06/20 09:25 Simethicone 80 Mg Chewable PO 80 mg QID MARY Administration Tamsulosin HCl 0.4 mg 05/06/20 09:00 05/06/20 09:31 Tamsulosin 0.4 Mg Cap.Er.24h PO 0.4 mg DAILY MARY Administration Intake and Output 05/05/20 05/06/20 05/06/20 22:59 06:59 14:59 Other: Weight 100.698 kg 100.698 kg Patient Weight 05/07/20 06:59 Weight 100.698 kg 05/05/20 22:03 05/05/20 22:03
[2020-05-06 11:33] LABS: Glucose,Whole Blood 171 mg/dL (75-99)
--- NOTE | 2020-05-06 11:53 | P.CNNES ---
History of Present Illness Consult date: 05/06/20 Requesting physician: Paris Gonzalez Reason for Consult: altered mental statu History of Present Illness: This is a 61-year-old gentleman with medical history hypertension, diabetes, COPD that presented to the emergency department on 05/05/2020 for confusion and decreased responsiveness. History was obtained from medical records since unable to obtain it from the patient. According to medical records and the patient nurse the patient was the not acting appropriately by the patient nurse and the patient was crawling on his hands and the feet. Patient stated that he has history of seizure unknown for how long and he cannot tell me what the seizures he has. Per the patient nurse patient notified them that he sees Dr. Cuevas regarding management of his seizures. He doesn't know what medication is on he said that he is on so many medication. The patient is on Lamictal 150 mg daily which is one of the medication that is anticonvulsant but not sure if it's use as an anticonvulsant or as a mood stabilizer or as a combination with side larger and the anticonvulsant. Patient is also on Lyrica 75mg bid and the dose is kind of low as an anticonvulsant but likely it's due to diabetic peripheral neuropathy. Per the patient nurse she stated that the patient follows up in the [facility]. It is documented that the patient does smokes 3 packs per day. Workup in the hospital consisted of: Initial vital signs: Blood pressure of 123/67, heart rate of 77, respiratory of 18, temperature of 98.2 Fahrenheit axillary and the pulse ox of 96% on 4 L of nasal cannula CT of the head is reported as mild cerebral atrophy appropriate for age. No acute intracranial abnormality. EKG is reported as sinus rhythm with marketed sinus arrhythmia. Marketed ST abnormality, possible inferior supple endocardial injury. Prolonged QT. White blood cell is 12.4 and slightly neutrophilic. Ammonia level is 45. Initial serum glucose is 139. The plasma lactic acid vein is 4.0. He also is 9.9. TSH is 0.833 which is normal. AST is 54 and ALTs 46 which are within the normal limits. Review of Systems Review of system: The 12 point system was reviewed and apparent positive and negative per HPI. Past Medical History Past Medical History: Heart Failure, COPD, Diabetes Mellitus, GERD/Reflux, Hyperlipidemia, Hypertension, Renal Disease, Seizure Disorder History of Any Multi-Drug Resistant Organisms: None Reported Past Surgical History: Back Surgery Additional Past Surgical History / Comment(s): sinus surgery Past Anesthesia/Blood Transfusion Reactions: No Reported Reaction Past Psychological History: Depression Smoking Status: Current every day smoker Past Alcohol Use History: None Reported Past Drug Use History: None Reported Medications and Allergies Home Medications Medication Instructions Recorded Confirmed Type Omeprazole 40 mg PO DAILY 10/19/13 05/06/20 History Acetaminophen Tab [Tylenol] 500 mg PO Q6H PRN 02/27/20 05/06/20 History Albuterol Sulfate [Ventolin HFA] 2 puff INHALATION RT-QID PRN 02/27/20 05/06/20 History Brexpiprazole [Rexulti] 4 mg PO HS 02/27/20 05/06/20 History Cholecalciferol [Vitamin D3 (25 2,000 unit PO DAILY 02/27/20 05/06/20 History Mcg = 1000 Iu)] DULoxetine HCL [Cymbalta] 60 mg PO BID 02/27/20 05/06/20 History Docusate [Colace] 100 mg PO DAILY 02/27/20 05/06/20 History Furosemide [Lasix] 20 mg PO BID 02/27/20 05/06/20 History Melatonin 3 mg PO HS 02/27/20 05/06/20 History Morphine Pain Pump (Unknown 1 dose SQ-PUMP CONTINUOUS 02/27/20 05/06/20 History Strength) Multivitamins, Thera [Multivitamin 1 tab PO DAILY 02/27/20 05/06/20 History (formulary)] Potassium Chloride [Klor-Con 20] 20 meq PO DAILY 02/27/20 05/06/20 History Tamsulosin HCl [Flomax] 0.4 mg PO DAILY 02/27/20 05/06/20 History gemfibroziL [Lopid] 600 mg PO BID-W/MEALS 02/27/20 05/06/20 History hydrOXYzine pamoate [Vistaril] 25 mg PO BID PRN 02/27/20 05/06/20 History lamoTRIgine [LaMICtal] 150 mg PO HS 02/27/20 05/06/20 History metFORMIN HCL [Glucophage] 1,000 mg PO BID-W/MEALS 02/27/20 05/06/20 History polyethylene glycoL 3350 [Miralax] 17 gm PO DAILY PRN 02/27/20 05/06/20 History rOPINIRole HCL [Requip] 1 mg PO HS 02/27/20 05/06/20 History Atorvastatin [Lipitor] 10 mg PO HS tab 03/01/20 05/06/20 Rx Budesonide [Pulmicort] 1 mg INHALATION RT-BID ml 03/01/20 05/06/20 Rx Digoxin [Lanoxin] 250 mcg PO DAILY tab 03/01/20 05/06/20 Rx Ammonium Lactate Lotion 1 applic TOPICAL BID 05/06/20 05/06/20 History [Lac-Hydrin 12% Lotion] Colchicine [Mitigare] 0.6 mg PO BID 05/06/20 05/06/20 History Finasteride [Proscar] 5 mg PO DAILY 05/06/20 05/06/20 History HYDROcodone/APAP 5-325MG [[place] 1 tab PO BID PRN 05/06/20 05/06/20 History 5-325] Ipratropium-Albuterol Nebulize 3 ml INHALATION RT-Q4H PRN 05/06/20 05/06/20 History [Duoneb 0.5 mg-3 mg/3 ml Soln] Naloxegol Oxalate [Movantik] 25 mg PO DAILY 05/06/20 05/06/20 History Pregabalin [Lyrica] 75 mg PO BID 05/06/20 05/06/20 History Simethicone Chew [Mylicon Chew] 80 mg PO QID 05/06/20 05/06/20 History metOLazone [Zaroxolyn] 5 mg PO DAILY 05/06/20 05/06/20 History Allergies Allergy/AdvReac Type Severity Reaction Status Date / Time aspirin AdvReac Mild Rash/Hives Verified 05/06/20 07:12 Physical Examination - Vital Signs Vital Signs: Vital Signs Temp Pulse Pulse Resp BP BP Pulse Ox 05/06/20 07:39 97.4 F L 90 18 121/68 95 05/06/20 01:04 98.2 F 72 16 107/63 88 L 05/05/20 22:27 83 18 124/67 97 05/05/20 21:27 89 18 126/56 93 L 05/05/20 20:21 98.2 F 77 18 123/67 96 Intake and Output 05/05/20 05/06/20 05/06/20 22:59 06:59 14:59 Other: Weight 100.698 kg 100.698 kg GENERAL: The patient is lying in bed and is not in acute distress. CHEST: The heart rate is regular rate rhythm. No murmurs to auscultation. LUNG: Clear to auscultation bilaterally no wheezing noted throughout. Not labored breathing. ABDOMEN/GI: Bowel sounds present in all 4 quadrants. No tenderness to palpation throughout. INTEGUMENTARY: Right lower extremity and mostly thin the ankle and the distal part midcalf look erythematous. NEUROLOGICAL: Higher mental function: The patient is awake, alert, oriented to self and place. But upon asking him what year he was born he said 2021 then with further quest ions he correctly stated it. Regarding time initially he said it was 2000 then with options he correctly stated it was 2019. Able to name objects correctly such as pen, watch and cup. Patient is following commands. No aphasia and no neglect. Cranial nerves: The pupils are round, equal 3mm and reactive to light. Visual perez are full to confrontation throughout. Extraocular movement is intact no nystagmus is noted. Facial sensation is normal to touch throughout. The facial strength is normal throughout. Hearing is normal bilaterally to hand rub. Tongue is midline and moved [id number] without any difficulty. No dysarthria is noted. Shoulder shrug is normal bilaterally. Motor: Gait is deferred because of his right lower extremity pain. The strength is 5 over 5 throughout except the right lower extremity was limited because of pain of right ankle (he said he has cellulitis).. Normal tone and bulk. Cerebellum: Normal finger to nose bilaterally. Sensation: Sensation is normal to touch throughout. Reflexes (right/left): 2+ throughout upper extremities and 1+ lower extremities. Plantars are mute bilaterally. Results Troponin is 0.051 and the repeat his 0.040 Urine analysis the leukocyte esterase was small and the urine white blood cell is 6. Dilantin is less than 3.0. Garcia virus PCR was not detected. Ablation study is within the normal limits: INR is 1.0, PTT of 10.4 and PTT is 25.0. - Laboratory Findings CBC and BMP: 05/05/20 22:03 05/05/20 22:03 Abnormal Lab Findings: Abnormal Labs 05/05/20 05/05/20 05/05/20 22:03 22:03 22:03 WBC 12.4 H RDW 19.6 H Neutrophils # 9.0 H Chloride 84 L Carbon Dioxide 38 H BUN 45 H Glucose 139 H POC Glucose (mg/dL) Plasma Lactic Acid Deon 4.0 H* Ammonia 45 H Troponin I Urine Ketones Urine Blood Ur Leukocyte Esterase Urine WBC 05/06/20 05/06/20 05/06/20 07:21 07:58 09:01 WBC RDW Neutrophils # Chloride Carbon Dioxide BUN Glucose POC Glucose (mg/dL) 134 H Plasma Lactic Acid Deon Ammonia Troponin I 0.051 H* Urine Ketones 1+ H Urine Blood Small H Ur Leukocyte Esterase Small H Urine WBC 6 H 05/06/20 09:42 WBC RDW Neutrophils # Chloride Carbon Dioxide BUN Glucose POC Glucose (mg/dL) Plasma Lactic Acid Deon Ammonia Troponin I 0.040 H* Urine Ketones Urine Blood Ur Leukocyte Esterase Urine WBC Assessment and Plan Assessment: This is a 61-year-old gentleman presented to the emergency department on 05/05/20 for altered mental status. Toxic metabolic encephalopathy (ammonia 45). ?cellulitis of right lower extremity. Rule out any underlying infection. History of seizure? (per patient but unable to provide with details) Polypharmacy Elevated troponin Hypertension Diabetes History of COPD Plan: Patient is on digoxin therefore I ordered digoxin level. I ordered Lamictal level. I ordered routine EEG. Currently he is on Lamictal 150 mg qhs. Notified the nurse to contact Dr. Cuevas and find out the patient actually follows up with him and what medications he is on now for seizure. I ordered vitamin B12 and folate level. I ordered a repeat ammonia level for 05/07/20 Current TSH level was within normal limits. Unsure which the patient baseline cognitively. We'll try to get information about that. Regarding the elevated troponin and cardiology is on board. 2-D echo was ordered by the primary team is pending. The patient questionable cellulitis of the right lower extremity will defer the management to the primary team. Regarding the slight elevated ammonia will defer the management to the primary team. We'll defer the rest of the medical management to the primary team. Plan was discussed with the patient nurse. Thank you for the consultation Juice Yung M.D. Neuro-hospitalist Time with Patient: Greater than 30
[2020-05-06 12:28] LABS: Digoxin 0.6 ng/mL
--- NOTE | 2020-05-06 13:29 | P.HPIM ---
History of Present Illness H&P Date: 05/06/20 HISTORY OF PRESENT ILLNESS This is a 60-year-old male patient seen at [facility] with past medical history of chronic pain syndrome with morphine pump under the care of Dr. Cuevas, COPD, diabetes mellitus type 2, restless leg syndrome, degenerative disc disease, chronic kidney disease stage III, seizure history, chronic pancreatitis, hypertension, chronic diastolic heart failure. Patient was brought in by police/EMS on petition. Patient was found to have altered mental status, he was confused and combative while in the emergency center, refused to cooperate with plan. Patient had admission approximate 3 months ago when he was confused. At the time of this evaluation, patient states that he feels great. He does not recall why he is in the hospital. He thinks he was brought to the hospital because of confusion that was similar to the episode that happened in February but cannot give any details. He is seen at the [facility] and follows with Olga Lidia Miller NP. He was last seen there according to the patient 3 months ago. He denies any recent medication changes. Patient was afebrile, vital signs were stable. CO2 38, creatinine 0.99, blood sugar 139. WBC 12.4. Dilantin level less than 3. TSH 0.833. Lactic acid 4.0 and repeat 0.8. Troponin 0.022. ProBNP 213. Chest x-ray reveals minimal subsegmental atelectasis at the lung bases. There is clearing of extensive infiltrates and atelectasis compared to old exam. CAT scan of the brain revealed mild cerebral atrophy appropriate for age. No acute intracranial abnormality. Patient admitted to the [facility] floor, drug screen and [place] testing ordered, consults in place with neurology and psychiatry. Consult for cardiology added for elevated troponin. REVIEW OF SYSTEMS Constitutional: No fever, no chills, no night sweats. No weight change. No w eakness, fatigue or lethargy. No daytime sleepiness. EENT: No headache. No blurred vision or double vision, no loss of vision. No loss of Hearing, no ringing in the ears, no dizziness. No nasal drainage or congestion. No epistaxis. No sore throat. Lungs: No shortness of breath, cough, no sputum production. No wheezing. Cardiovascular: No chest pain, no lower extremity edema. No palpitations. No paroxysmal nocturnal dyspnea. No orthopnea. No lightheadedness or dizziness. No syncopal episodes. Abdominal: No abdominal pain. No nausea, vomiting. No diarrhea. No constipation. No bloody or tarry stools.. No loss of appetite. Genitourinary: No dysuria, increased frequency, urgency. No urinary retention. Musculoskeletal: No myalgias. No muscle weakness, no gait dysfunction, no f requent falls. No back pain. No neck pain. Integumentary: No wounds, no lesions. No rash or pruritus. No unusual bruising. No change in hair or nails. Neurologic: No aphasia. No facial droop. Reported change in mentation. No head injury. No headache. No paralysis. No paresthesia. Reported combativeness and confusion. Psychiatric: No depression. No anxiety. No mood swings. Endocrine: No abnormal blood sugars. No weight change. No excessive sweating or thirst. No cold intolerance. SOCIAL HISTORY Patient smokes one and half to 2 packs per day for greater then 40 years. He denies any alcohol use, marijuana use or illicit drug use. Patient is single. Patient has a legal guardian and currently enrolled with [facility]. FAMILY HISTORY Patient states that both parents are both living in the 80s - 90s with no major medical problems that he is aware of. He does not have any brothers and sisters. He has one daughter with no major medical problems. PHYSICAL EXAMINATION Gen: This is a 60-year-old male. He is sending him into the bed and appears to be comfortable and in no acute distress. Patient is cooperative. HEENT: Head is atraumatic, normocephalic. Pupils equal, round. Sclerae is anicteric. NECK: Supple. No JVD. No lymphadenopathy. No thyromegaly. LUNGS: Clear to auscultation. No wheezes or rhonchi. No intercostal retractions. HEART: Regular rate and rhythm. No murmur. ABDOMEN: Soft. Bowel sounds are present. No masses. No tenderness. Pain pump in the left lower side of his abdomen. EXTREMITIES: No pedal edema. No calf tenderness. NEUROLOGICAL: Patient is awake, alert and oriented person and place. Patient is a poor historian. Cranial nerves 2 through 12 are grossly intact. ASSESSMENT AND PLAN 1. Toxic metabolic encephalopathy of unclear etiology, possibly secondary to hyperammonia. Neurology consult appreciated. EEG, urine drug screen, digoxin level, folate, Lamictal, vitamin B12 levels. Lactulose 15 g twice daily added. 2. Elevated troponin. Repeat troponin ordered, echocardiogram ordered, cardiology consult. Patient denies complaints of chest pain. 3. Chronic pain syndrome with morphine pump. Tylenol as needed for fever. Hold [place]. Continue Lyrica 75 mg twice daily. 4. Diabetes mellitus type 2. Continue metformin 1000 mg twice daily, NovoLog scale before meals and at bedtime, hemoglobin A1c. 5. COPD, stable without exacerbation. Continue DuoNeb treatments as needed, Pulmicort 1 mg twice daily. 6. Chronic kidney disease stage III. Avoid nephrotoxic agents. 7. History of seizure disorder. Continue Lyrica 75 mg. 8. Chronic diastolic heart failure. Continue Lasix 20 mg twice daily, Zaroxolyn 5 mg daily. 9. Possible cellulitis of the right lower extremity. 10. History of SVT. Continue digoxin. Digoxin level. 11. Nonischemic cardiomyopathy with EF of 40-45%. 12. Hypertension. 13. Hyperlipidemia. Continue atorvastatin 10 mg at bedtime, fenofibrate 160 mg daily. 14. Lactic acidosis of unclear etiology. Resolved. 15. Chronic gout. Continue colchicine 0.6 g twice daily. 16. Benign prostatic hypertrophy. Continue Flomax or 0.4 mg daily and Proscar 5 mg daily. 17. Chronic constipation. Continue MiraLAX 17 g daily. 18. Gastroesophageal reflux disease. Continue Protonix. 19. Recurrent depression and generalized anxiety disorder. Other underlying mental health diagnoses suspected, patient of [facility]. Continue Cymbalta 60 mg twice daily, Vistaril 25 mg twice daily as needed for anxiety, Lyrica 75 mg twice daily. Psychiatric consultation. 20. Tobacco use and dependence. Nicotine patch. 21. DVT prophylaxis. Heparin subcu. Patient will be admitted to the hospital for a minimum of 2 night stay. DISCHARGE PLAN Supervised living initially at one of the following: [facility], [facility] operational risk manager and social staff worker following. Impression and plan of care have been directed as dictated by the signing physician. Oralia Andrews nurse practitioner acting as scribe for signing physician. Past Medical History Past Medical History: Heart Failure, COPD, Diabetes Mellitus, GERD/Reflux, Hyperlipidemia, Hypertension, Renal Disease, Seizure Disorder History of Any Multi-Drug Resistant Organisms: None Reported Past Surgical History: Back Surgery Additional Past Surgical History / Comment(s): sinus surgery Past Anesthesia/Blood Transfusion Reactions: No Reported Reaction Past Psychological History: Depression Smoking Status: Current every day smoker, Heavy tobacco smoker Past Alcohol Use History: None Reported Past Drug Use History: None Reported Medications and Allergies Home Medications Medication Instructions Recorded Confirmed Type Omeprazole 40 mg PO DAILY 10/19/13 05/06/20 History Acetaminophen Tab [Tylenol] 500 mg PO Q6H PRN 02/27/20 05/06/20 History Albuterol Sulfate [Ventolin HFA] 2 puff INHALATION RT-QID PRN 02/27/20 05/06/20 History Brexpiprazole [Rexulti] 4 mg PO HS 02/27/20 05/06/20 History Cholecalciferol [Vitamin D3 (25 2,000 unit PO DAILY 02/27/20 05/06/20 History Mcg = 1000 Iu)] DULoxetine HCL [Cymbalta] 60 mg PO BID 02/27/20 05/06/20 History Docusate [Colace] 100 mg PO DAILY 02/27/20 05/06/20 History Furosemide [Lasix] 20 mg PO BID 02/27/20 05/06/20 History Melatonin 3 mg PO HS 02/27/20 05/06/20 History Morphine Pain Pump (Unknown 1 dose SQ-PUMP CONTINUOUS 02/27/20 05/06/20 History Strength) Multivitamins, Thera [Multivitamin 1 tab PO DAILY 02/27/20 05/06/20 History (formulary)] Potassium Chloride [Klor-Con 20] 20 meq PO DAILY 02/27/20 05/06/20 History Tamsulosin HCl [Flomax] 0.4 mg PO DAILY 02/27/20 05/06/20 History gemfibroziL [Lopid] 600 mg PO BID-W/MEALS 02/27/20 05/06/20 History hydrOXYzine pamoate [Vistaril] 25 mg PO BID PRN 02/27/20 05/06/20 History lamoTRIgine [LaMICtal] 150 mg PO HS 02/27/20 05/06/20 History metFORMIN HCL [Glucophage] 1,000 mg PO BID-W/MEALS 02/27/20 05/06/20 History polyethylene glycoL 3350 [Miralax] 17 gm PO DAILY PRN 02/27/20 05/06/20 History rOPINIRole HCL [Requip] 1 mg PO HS 02/27/20 05/06/20 History Atorvastatin [Lipitor] 10 mg PO HS tab 03/01/20 05/06/20 Rx Budesonide [Pulmicort] 1 mg INHALATION RT-BID ml 03/01/20 05/06/20 Rx Digoxin [Lanoxin] 250 mcg PO DAILY tab 03/01/20 05/06/20 Rx Ammonium Lactate Lotion 1 applic TOPICAL BID 05/06/20 05/06/20 History [Lac-Hydrin 12% Lotion] Colchicine [Mitigare] 0.6 mg PO BID 05/06/20 05/06/20 History Finasteride [Proscar] 5 mg PO DAILY 05/06/20 05/06/20 History HYDROcodone/APAP 5-325MG [[place] 1 tab PO BID PRN 05/06/20 05/06/20 History 5-325] Ipratropium-Albuterol Nebulize 3 ml INHALATION RT-Q4H PRN 05/06/20 05/06/20 History [Duoneb 0.5 mg-3 mg/3 ml Soln] Naloxegol Oxalate [Movantik] 25 mg PO DAILY 05/06/20 05/06/20 History Pregabalin [Lyrica] 75 mg PO BID 05/06/20 05/06/20 History Simethicone Chew [Mylicon Chew] 80 mg PO QID 05/06/20 05/06/20 History metOLazone [Zaroxolyn] 5 mg PO DAILY 05/06/20 05/06/20 History Allergies Allergy/AdvReac Type Severity Reaction Status Date / Time aspirin AdvReac Mild Rash/Hives Verified 05/06/20 07:12 Physical Exam Vitals: Vital Signs Temp Pulse Pulse Resp BP BP Pulse Ox 05/06/20 07:39 97.4 F L 90 18 121/68 95 05/06/20 01:04 98.2 F 72 16 107/63 88 L 05/05/20 22:27 83 18 124/67 97 05/05/20 21:27 89 18 126/56 93 L 05/05/20 20:21 98.2 F 77 18 123/67 96 Intake and Output 05/05/20 05/06/20 05/06/20 22:59 06:59 14:59 Other: Weight 100.698 kg Results CBC & Chem 7: 05/05/20 22:03 05/05/20 22:03 Labs: Abnormal Lab Results - Last 24 Hours (Table) 05/05/20 05/05/20 05/05/20 Range/Units 22:03 22:03 22:03 WBC 12.4 H (3.8-10.6) k/uL RDW 19.6 H (11.5-15.5) % Neutrophils # 9.0 H (1.3-7.7) k/uL Chloride 84 L (98-107) mmol/L Carbon Dioxide 38 H (22-30) mmol/L BUN 45 H (9-20) mg/dL Glucose 139 H (74-99) mg/dL POC Glucose (mg/dL) (75-99) mg/dL Plasma Lactic Acid Deon 4.0 H* (0.7-2.0) mmol/L Ammonia 45 H (<30) umol/L 05/06/20 Range/Units 07:58 WBC (3.8-10.6) k/uL RDW (11.5-15.5) % Neutrophils # (1.3-7.7) k/uL Chloride (98-107) mmol/L Carbon Dioxide (22-30) mmol/L BUN (9-20) mg/dL Glucose (74-99) mg/dL POC Glucose (mg/dL) 134 H (75-99) mg/dL Plasma Lactic Acid Deon (0.7-2.0) mmol/L Ammonia (<30) umol/L
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
[2020-05-06] MEDS: NICOTINE 21MG/24HR PATCH TRANSDERM SCH (14:50)
[2020-05-06] MEDS: LACTULOSE 20 GM/30 ML CUP PO SCH ×3 (14:50→20:14)
[2020-05-06 16:24] LABS: Glucose,Whole Blood 113 mg/dL (75-99)
[2020-05-06] MEDS: INSULIN ASPART (NovoLOG) 100 UNIT/ML VIAL SQ SCH ×2 (16:42→20:52)
[2020-05-06 17:55] LABS: Urine Alcohol Negative (Negative); Urine Barbiturate Negative (Negative); Urine Cocaine Negative (Negative); Urine Methadone Negative (Negative); Urine Opiates Positive (Negative); Urine Phencyclidine Negative (Negative)
[2020-05-06] MEDS: lamoTRIgine 100 MG TAB PO SCH (20:01)
[2020-05-06] MEDS: ATORVASTATIN 10 MG TAB PO SCH (20:01)
[2020-05-06] MEDS: HEPARIN SODIUM,PORCINE 5,000 UNIT/ML 1 ML VIAL SQ SCH (20:02)
[2020-05-06] MEDS: MELATONIN 3 MG TABLET PO SCH (20:03)
--- NOTE | 2020-05-06 20:06 | EEG ---
ELECTROENCEPHALOGRAM REPORT DATE OF SERVICE: 05/06/2020. CLINICAL HISTORY: This is a 60-year-old gentleman with medical history of seizure that presented to the emergency department on 05/05/2020 for altered mental status. This video EEG was obtained to evaluate for seizure and epileptiform activity. RELEVANT MEDICATIONS: Lamictal. EEG TYPE: A routine 21 channel EEG was performed with video using the 10/20 electrode system. DESCRIPTION: Wakefulness and drowsiness are obtained. During wakefulness, there is no clear posterior dominant rhythm over bilateral hemispheres. The background consists of low to moderate voltage of 5.5-6.5 hertz theta activity over the bilateral hemisphere. During stimulated state, there is a posterior to anterior lag with triphasic morphology seen and subsides during unstimulated state. During drowsiness, there is slowing and attenuation of the background. There was no physiological stage 2 sleep. INTERICTAL AND ICTAL: None. ACTIVATION PROCEDURE: Photic stimulation did not evoke a posterior driving response over the bilateral hemisphere. Hyperventilation was not performed. CLINICAL INTERPRETATION: This is an abnormal routine EEG. The background slowing is suggestive of moderate encephalopathy. Triphasic morphology is likely due to toxic metabolic effect. There are no focal slowing, epileptiform discharges or seizure seen during the study. Clinical correlation is recommended. MMODL / IJN: [id number] / MTDD
[2020-05-06 20:13] LABS: Glucose,Whole Blood 205 mg/dL (75-99)
[2020-05-06] MEDS ORDERED: NON FORMULARY DRUG (Brexpiprazole [Rexulti] 4 MG Tablet) PO SCH (21:00)
[2020-05-06] MEDS: BUDESONIDE 1 MG/2 ML NEBU INHALATION SCH (21:36)
[2020-05-06] MEDS: IPRATROPIUM-ALBUTEROL 3 ML NEB INHALATION PRN (21:36)
[2020-05-07 06:29] LABS: Anisocytosis Slight; Basophils # (A) 0.1 k/uL (0-0.2); Basophils % (A) 1 %; Eosinophils # (A) 0.9 k/uL (0-0.7); Eosinophils % (A) 10 %; HCT 37.8 % (39.0-53.0); HGB 12.5 gm/dL (13.0-17.5); Lymphocytes # (A) 1.5 k/uL (1.0-4.8); Lymphocytes % (A) 17 %; MCH 28.6 pg (25.0-35.0); MCHC 33.1 g/dL (31.0-37.0); MCV 86.4 fL (80.0-100.0); Mean Platelet Volume 6.8; Monocytes # (A) 0.6 k/uL (0-1.0); Monocytes % (A) 7 %; Neutrophils # (A) 5.5 k/uL (1.3-7.7); Neutrophils % (A) 62 %; Platelet Count 283 k/uL (150-450); RBC 4.38 m/uL (4.30-5.90); RDW 19.1 % (11.5-15.5); WBC 8.9 k/uL (3.8-10.6)
--- NOTE | 2020-05-07 07:02 | ECHOF ---
Referral Reason:LVF MEASUREMENTS -------- HEIGHT: 172.7 cm WEIGHT: 100.7 kg BP: IVSd: 1.2 cm (0.6 - 1.1) LVIDd: 4.1 cm (3.9 - 5.3) LVPWd: 1.4 cm (0.6 - 1.1) IVSs: 1.6 cm LVIDs: 2.7 cm LVPWs: 1.7 cm FINDINGS -------- Resting bradycardia (HR<60bpm). Limited Study There is mild concentric left ventricular hypertrophy. Overall left ventricular systolic function i s low-normal with, an EF between 50 - 55 %. 5.0mg of Lumason was utilized for enhancement of images Echo free space may represent effusion or a pericardial fat pad. There is no pericardial effusion. CONCLUSIONS -------- 1. There is mild concentric left ventricular hypertrophy. 2. Overall left ventricular systolic function is low-normal with, an EF between 50 - 55 %. 3. Echo free space may represent effusion or a pericardial fat pad. 4. There is no pericardial effusion. 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
[2020-05-07 07:30] LABS: Glucose,Whole Blood 148 mg/dL (75-99)
[2020-05-07] MEDS: INSULIN ASPART (NovoLOG) 100 UNIT/ML VIAL SQ SCH ×4 (07:35→20:48)
[2020-05-07] MEDS: CHOLECALCIFEROL 1,000 UNIT TAB PO SCH (07:36)
[2020-05-07] MEDS: metFORMIN 500 MG TAB PO SCH ×2 (07:36→17:34)
[2020-05-07] MEDS: PANTOPRAZOLE 40 MG TABLET PO SCH (07:36)
[2020-05-07] MEDS: FINASTERIDE 5 MG TAB PO SCH (07:37)
[2020-05-07] MEDS: COLCHICINE 0.6 MG EACH PO SCH ×2 (07:37→20:46)
[2020-05-07] MEDS: DULoxetine HCL 60 MG CAPSULE.DR PO SCH ×2 (07:37→20:46)
[2020-05-07] MEDS: FENOFIBRATE 160 MG TAB PO SCH (07:37)
[2020-05-07] MEDS: DOCUSATE 100 MG CAP PO SCH (07:37)
[2020-05-07] MEDS: DIGOXIN 250 MCG TAB PO SCH (07:37)
[2020-05-07] MEDS: HEPARIN SODIUM,PORCINE 5,000 UNIT/ML 1 ML VIAL SQ SCH ×2 (07:38→20:46)
[2020-05-07] MEDS: FUROSEMIDE 20 MG TAB PO SCH ×2 (07:38→20:46)
[2020-05-07] MEDS: LACTULOSE 20 GM/30 ML CUP PO SCH ×2 (07:40→20:46)
[2020-05-07] MEDS: NICOTINE 21MG/24HR PATCH TRANSDERM SCH (07:41)
[2020-05-07] MEDS: PREGABALIN 75 MG CAP PO SCH ×2 (07:41→20:47)
[2020-05-07] MEDS: metOLazone 5 MG TAB PO SCH (07:41)
[2020-05-07] MEDS: TAMSULOSIN 0.4 MG CAP.ER.24H PO SCH (07:42)
[2020-05-07] MEDS: SIMETHICONE 80 MG CHEWABLE PO SCH ×4 (07:42→20:46)
[2020-05-07] MEDS: AMMONIUM LACTATE 12% LOTION 225 GM BTL TOPICAL SCH ×2 (07:44→20:49)
[2020-05-07] MEDS: POTASSIUM CHLORIDE ER 20 MEQ TAB.ER PO SCH ×4 (07:54→15:39)
[2020-05-07] MEDS: IPRATROPIUM-ALBUTEROL 3 ML NEB INHALATION PRN (09:21)
[2020-05-07] MEDS: BUDESONIDE 1 MG/2 ML NEBU INHALATION SCH ×2 (09:21→19:21)
[2020-05-07] MEDS: NON FORMULARY DRUG (Naloxegol Oxalate [Movantik] 25 MG Tablet) PO SCH (09:29)
[2020-05-07 10:14] LABS: African American GFR (CKD) 82.9 (60.0-200.0); Anion Gap 7.4 mmol/L (4.00-12.00); BUN/Creat Ratio 26.36 Ratio (12.00-20.00); Calcium 9.3 mg/dL (8.7-10.3); Carbon Dioxide 35.6 mmol/L (21.6-31.8); Non-African American GFR(CKD) 71.6 (60.0-200.0); Potassium 2.9 mmol/L (3.5-5.5)
[2020-05-07 10:53] LABS: Hemoglobin A1C 6.5 % (4.0-6.0)
--- NOTE | 2020-05-07 11:19 | P.PN ---
Subjective Progress Note Date: 05/07/20 HISTORY OF PRESENT ILLNESS This is a 60-year-old male patient seen at [facility] with past medical history of chronic pain syndrome with morphine pump under the care of Dr. Amy rogers, COPD, diabetes mellitus type 2, restless leg syndrome, degenerative disc disease, chronic kidney disease stage III, seizure history, chronic pancreatitis, hypertension, chronic diastolic heart failure. Patient was brought in by police/EMS on petition. Patient was found to have altered mental status, he was confused and combative while in the emergency center, refused to cooperate with plan. Patient had admission approximate 3 months ago when he was confused. At the time of this evaluation, patient states that he feels great. He does not recall why he is in the hospital. He thinks he was brought to the hospital because of confusion that was similar to the episode that happened in February but cannot give any details. He is seen at the [facility] and follows with Olga Lidia Miller NP. He was last seen there according to the patient 3 months ago. He denies any recent medication changes. Patient was afebrile, vital signs were stable. CO2 38, creatinine 0.99, blood sugar 139. WBC 12.4. Dilantin level less than 3. TSH 0.833. Lactic acid 4.0 and repeat 0.8. Troponin 0.022. ProBNP 213. Chest x-ray reveals minimal subsegmental atelectasis at the lung bases. There is clearing of extensive infiltrates and atelectasis compared to old exam. CAT scan of the brain revealed mild cerebral atrophy appropriate for age. No acute intracranial abnormality. Patient admitted to the [facility] floor, drug screen and COVID testing ordered, consults in place with neurology and psychiatry. Consult for cardiology added for elevated troponin. 05/07: Patient is more awake and alert, less confusion today. He did refuse his medications last night but took them this morning. He has been afebrile, heart rate 60, blood pressure 110/60, pulse ox 95% on room air. Due to elevated ammonia level, lactulose was started yesterday patient took his first dose this morning. He refused 2 doses yesterday. Patient has been seen by cardiology and echocardiogram was ordered revealing mild concentric left ventricular hypertrophy, EF 50-55%. Patient was seen by psychiatry and discontinued Rexulti and replaced with Prolixin 2.5 mg twice daily, continue Lamictal 150 mg at [facility] and Cymbalta 60 mg twice daily for mood. Psychiatry also recommended the patient [facility]. Patient was also seen by neurology with recommendations for EEG, urine drug screen, digoxin level, folate, Lamictal, vitamin B12 levels. Seizure history is questionable and information was attempted to be obtained from Dr. Cuevas's office. EEG was abnormal with moderate encephalopathy. Triphasic morphology is likely due to toxic metabolic effect. No epileptiform discharges. Call to social work to make arrangements for discharge today. REVIEW OF SYSTEMS Constitutional: No fever, no chills, no night sweats. No weight change. No weakness, fatigue or lethargy. No daytime sleepiness. EENT: No headache. No blurred vision or double vision, no loss of vision. No loss of Hearing, no ringing in the ears, no dizziness. No nasal drainage or congestion. No epistaxis. No sore throat. Lungs: No shortness of breath, cough, no sputum production. No wheezing. Cardiovascular: No chest pain, no lower extremity edema. No palpitations. No paroxysmal nocturnal dyspnea. No orthopnea. No lightheadedness or dizziness. No syncopal episodes. Abdominal: No abdominal pain. No nausea, vomiting. No diarrhea. No constipation. No bloody or tarry stools.. No loss of appetite. Genitourinary: No dysuria, increased frequency, urgency. No urinary retention. Musculoskeletal: No myalgias. No muscle weakness, no gait dysfunction, no frequent falls. No back pain. No neck pain. Integumentary: No wounds, no lesions. No rash or pruritus. No unusual bruising. No change in hair or nails. Neurologic: No aphasia. No facial droop. Reported change in mentation. No head injury. No headache. No paralysis. No paresthesia. Reported combativeness and confusio-resolved. Psychiatric: No depression. No anxiety. No mood swings. Endocrine: No abnormal blood sugars. No weight change. No excessive sweating or thirst. No cold intolerance. PHYSICAL EXAMINATION Gen: This is a 60-year-old male. He is in bed and appears to be comfortable and in no acute distress. Patient is cooperative. HEENT: Head is atraumatic, normocephalic. Pupils equal, round. Sclerae is anicteric. NECK: Supple. No JVD. No lymphadenopathy. No thyromegaly. LUNGS: Clear to auscultation. No wheezes or rhonchi. No intercostal retractions. HEART: Regular rate and rhythm. No murmur. ABDOMEN: Soft. Bowel sounds are present. No masses. No tenderness. Pain pump in the left lower side of his abdomen. EXTREMITIES: No pedal edema. No calf tenderness. NEUROLOGICAL: Patient is awake, alert and oriented person and place. Patient is a poor historian. Cranial nerves 2 through 12 are grossly intact. ASSESSMENT AND PLAN 1. Toxic metabolic encephalopathy of unclear etiology, possibly secondary to hyperammonia status post 1 dose of lactulose only as patient refused. Neurology consult appreciated. EEG, urine drug screen, digoxin level, folate, Lamictal, vitamin B12 levels. Lactulose 15 g twice daily added. 2. Elevated troponin, acute coronary syndrome ruled out. 3. Chronic pain syndrome with morphine pump. Tylenol as needed for fever. Hold Lupton. Continue Lyrica 75 mg twice daily. 4. Diabetes mellitus type 2. Continue metformin 1000 mg twice daily, NovoLog scale before meals and at bedtime, hemoglobin A1c. 5. COPD, stable without exacerbation. Continue DuoNeb treatments as needed, Pulmicort 1 mg twice daily. 6. Chronic kidney disease stage III. Avoid nephrotoxic agents. 7. History of seizure disorder. Continue Lyrica 75 mg. 8. Chronic diastolic heart failure. Continue Lasix 20 mg twice daily, Zaroxolyn 5 mg daily. 9. Possible cellulitis of the right lower extremity. 10. History of SVT. Continue digoxin. Digoxin level. 11. Nonischemic cardiomyopathy with EF of 40-45%. 12. Hypertension. 13. Hyperlipidemia. Continue atorvastatin 10 mg at bedtime, fenofibrate 160 mg daily. 14. Lactic acidosis of unclear etiology. Resolved. 15. Chronic gout. Continue colchicine 0.6 g twice daily. 16. Benign prostatic hypertrophy. Continue Flomax or 0.4 mg daily and Proscar 5 mg daily. 17. Chronic constipation. Continue MiraLAX 17 g daily. 18. Gastroesophageal reflux disease. Continue Protonix. 19. Recurrent depression and generalized anxiety disorder. Other underlying mental health diagnoses suspected, patient of [facility]. Continue Cymbalta 60 mg twice daily, Vistaril 25 mg twice daily as needed for anxiety, Lyrica 150 mg twice daily. Psychiatric consultation appreciated. Psychiatry discontinued Rexulti and replaced with Prolixin 2.5 mg twice daily. 20. Tobacco use and dependence. Nicotine patch. 21. DVT prophylaxis. Heparin subcu. DISCHARGE PLAN Supervised living initially at one of the following: [facility], [facility] staffing manager and social services counselor following. Impression and plan of care have been directed as dictated by the signing physician. Oralia Andrews nurse practitioner acting as scribe for signing celestina shaw. Objective - Vital Signs Vital signs: Vital Signs Temp 97.6 F 05/07/20 08:00 Pulse 60 05/07/20 08:00 Resp 17 05/07/20 08:00 BP 110/60 05/07/20 08:00 Pulse Ox 95 05/07/20 08:00 Intake & Output 05/06/20 05/07/20 05/07/20 18:59 06:59 18:59 Weight 100.698 kg Other: # Voids 3 3 - Labs CBC & Chem 7: 05/07/20 06:16 05/07/20 06:16 Labs: Abnormal Lab Results - Last 24 Hours (Table) 05/06/20 05/06/20 05/06/20 Range/Units 07:21 09:01 09:01 Hgb (13.0-17.5) gm/dL Hct (39.0-53.0) % RDW (11.5-15.5) % Eosinophils # (0-0.7) k/uL POC Glucose (mg/dL) (75-99) mg/dL Troponin I 0.051 H* (0.000-0.034) ng/mL Urine Ketones 1+ H (Negative) Urine Blood Small H (Negative) Ur Leukocyte Esterase Small H (Negative) Urine WBC 6 H (0-5) /hpf Urine Opiates Screen Positive A (Negative) ng/mL 05/06/20 05/06/20 05/06/20 Range/Units 09:42 11:32 16:23 Hgb (13.0-17.5) gm/dL Hct (39.0-53.0) % RDW (11.5-15.5) % Eosinophils # (0-0.7) k/uL POC Glucose (mg/dL) 171 H 113 H (75-99) mg/dL Troponin I 0.040 H* (0.000-0.034) ng/mL Urine Ketones (Negative) Urine Blood (Negative) Ur Leukocyte Esterase (Negative) Urine WBC (0-5) /hpf Urine Opiates Screen (Negative) ng/mL 05/06/20 05/07/20 05/07/20 Range/Units 20:12 06:16 07:14 Hgb 12.5 L (13.0-17.5) gm/dL Hct 37.8 L (39.0-53.0) % RDW 19.1 H (11.5-15.5) % Eosinophils # 0.9 H (0-0.7) k/uL POC Glucose (mg/dL) 205 H 148 H (75-99) mg/dL Troponin I (0.000-0.034) ng/mL Urine Ketones (Negative) Urine Blood (Negative) Ur Leukocyte Esterase (Negative) Urine WBC (0-5) /hpf Urine Opiates Screen (Negative) ng/mL
--- NOTE | 2020-05-07 11:26 | P.PN ---
Subjective Progress Note Date: 05/07/20 CHIEF COMPLAINT: Elevated troponin HISTORY OF PRESENT ILLNESS: This is a 60-year-old male with a past medical history significant for hypertension, diabetes mellitus, and COPD. Patient states he does not follow with a test hole driller. We have been asked to see the patient in consultation for elevated troponin. Patient was recently hospitalized in February 2020 secondary to a pericardial effusion thought to be secondary to pericarditis. He was evaluated by cardio thoracic surgery and no surgical intervention was recommended at that time. Echocardiogram completed at that time revealed ejection fraction 40-45%. Patient was apparently brought to the hospital after his neighbors found him crawling on the ground without any clothes on. The patient is currently petitioned and psychiatry has been consulted for evaluation. Patient examined this morning at the bedside. Patient denies chest pain or pressure. He denies shortness of breath. Denies dizziness or lightheadedness. Patient states he is a smoker and smokes about 3 packs per day. Patient examined at the bedside. Patient denies chest pain or pressure. He den ies shortness of breath. Echocardiogram completed revealed ejection fraction 50-55% with no evidence of pericardial effusion. Troponin 0.05 and 0.04. PHYSICAL EXAM: VITAL SIGNS: Reviewed. GENERAL: Well-developed in no acute distress. HEENT: Head is normocephalic. Pupils are equal, round. Sclerae anicteric. Mucous membranes of the mouth are moist. Neck supple. No JVD or thyromegaly LUNGS: Respirations even and unlabored. Lungs diminished HEART: Regular rate and rhythm. S1 and S2 heard. ABDOMEN: Soft. Nondistended. Nontender. EXTREMITIES: Normal range of motion. No clubbing or cyanosis. Peripheral pulses intact. No lower extremity edema-patient with Trey bandages to bilateral lower extremities NEUROLOGIC: Awake and alert. Oriented x 2-3 ASSESSMENT: Altered mental status, etiology unknown Leukocytosis with elevated lactic acid Elevated troponin, not indicative of acute coronary syndrome Hypertension Hyperlipidemia COPD Diabetes mellitus, type II Nonischemic cardiomyopathy, EF 40-45%, repeat echo this admission reveals EF 55- 60% History of pericardial effusion secondary to pericarditis, February 2020 History of SVT, February 2020 Nicotine dependence, patient reports smoking 3 packs per day PLAN: Continue current cardiac medications Echocardiogram reviewed and shows improvement an EF. Troponins are not ind icative of acute coronary syndrome. Continue further management per internal medicine We will sign off. Please reconsult if needed. Nurse practitioner note has been reviewed by physician. Signing provider agrees with the documented findings, assessment, and plan of care. Objective - Vital Signs Vital signs: Vital Signs Temp 97.6 F 05/07/20 08:00 Pulse 60 05/07/20 10:04 Resp 17 05/07/20 10:04 BP 110/60 05/07/20 08:00 Pulse Ox 95 05/07/20 08:00 Intake & Output 05/06/20 05/07/20 05/07/20 18:59 06:59 18:59 Weight 100.698 kg Other: Voiding Method Toilet # Voids 3 3 - Labs CBC & Chem 7: 05/07/20 06:16 05/07/20 06:16 Labs: Abnormal Lab Results - Last 24 Hours (Table) 05/06/20 05/06/20 05/06/20 Range/Units 09:01 11:32 16:23 Hgb (13.0-17.5) gm/dL Hct (39.0-53.0) % RDW (11.5-15.5) % Eosinophils # (0-0.7) k/uL Potassium (3.5-5.5) mmol/L Carbon Dioxide (21.6-31.8) mmol/L BUN (9.0-27.0) mg/dL BUN/Creatinine Ratio (12.00-20.00) Ratio Glucose (70-110) mg/dL POC Glucose (mg/dL) 171 H 113 H (75-99) mg/dL Hemoglobin A1c (4.0-6.0) % Urine Opiates Screen Positive A (Negative) ng/mL 05/06/20 05/07/20 05/07/20 Range/Units 20:12 06:16 06:16 Hgb 12.5 L (13.0-17.5) gm/dL Hct 37.8 L (39.0-53.0) % RDW 19.1 H (11.5-15.5) % Eosinophils # 0.9 H (0-0.7) k/uL Potassium (3.5-5.5) mmol/L Carbon Dioxide (21.6-31.8) mmol/L BUN (9.0-27.0) mg/dL BUN/Creatinine Ratio (12.00-20.00) Ratio Glucose (70-110) mg/dL POC Glucose (mg/dL) 205 H (75-99) mg/dL Hemoglobin A1c 6.5 H (4.0-6.0) % Urine Opiates Screen (Negative) ng/mL 05/07/20 05/07/20 Range/Units 06:16 07:14 Hgb (13.0-17.5) gm/dL Hct (39.0-53.0) % RDW (11.5-15.5) % Eosinophils # (0-0.7) k/uL Potassium 2.9 L (3.5-5.5) mmol/L Carbon Dioxide 35.6 H (21.6-31.8) mmol/L BUN 29.0 H (9.0-27.0) mg/dL BUN/Creatinine Ratio 26.36 H (12.00-20.00) Ratio Glucose 145 H (70-110) mg/dL POC Glucose (mg/dL) 148 H (75-99) mg/dL Hemoglobin A1c (4.0-6.0) % Urine Opiates Screen (Negative) ng/mL
--- NOTE | 2020-05-07 11:34 | P.PN ---
Progress Note - Text Progress Note Date: 05/07/20 Interval History: Patient was seen today for psychiatric follow-up regarding patient's delirium. Patient was seen sitting at the side of the bed today and appeared to be more directable and cooperative with the com writer today. He offered no overnight complaints and states that he was able to sleep throughout the night. He states that his mood has been improving since being in the hospital and denies any depression today. He claims that he was able to shower yesterday however continues to have a foul body odor. He claims that he has been taking his medications and denied any side effects at this time. He was not focused on his neighbors today and when asked more about them he states that "they do drugs and I'm staying away from them". He appears to demonstrate improvement in his judgment and also his insight. At this time patient denies any suicidal or homical ideations, intent or plan. Patient denies any auditory, visual hallucinations. Patient denies any side effects from the medications and has been compliant with meds. Mental Status Exam: General Appearance: Patient appears to be stated age is alert, attempts to be cooperative. Patient appears to have improving hygiene and grooming wearing hospital gown with fair eye contact. Foul body odor. Behavior: Patient is calmly sitting without any agitated behavior. More cooperative and appropriate today. Speech: Patient's speech is fluent and nonpressured. [place] Mood/Affect: Patient reports their mood is "good", affect is congruent and constricted Suicidality/Homicidality: Patient denies having any suicidal or homicidal ideation intent or plan. Perceptions: Patient denies any visual hallucinations and denies any auditory hallucinations Though content/process: Patient is more logical, appropriate. Denies any paranoia today. Less fixated on his neighbors. Memory and concentration: AOX2, believes that it is "April 2020". Fair attention span. Judgment and insight: Limited, improving Assessment Delirium, likely toxic metabolic and possibly infection. Nicotine dependence Plan: -At this time patient DOES NOT meet criteria for inpatient psychiatric admission. -Patient had refused EEG, digoxin and Lamictal levels reviewed. Continue medical treatment for underlying medical comorbidities. Cardiology has signed off. -Delirium precautions recommended with patient including - avoiding use of narcotics and ARCHITECT sedatives, limit anticholinergic medications when possible, frequent re-orientation, minimize use of restraints, open window shades during the day and close them at night -Would recommend the following medication changes/additions: Continue with Prolixin 2.5mg bid for psychosis. Can continue with Lamictal 150 mg daily at bedtime, Cymbalta 60 mg twice a day for mood. -computer recycling worker to provide patient with outpatient mental health/psychiatry resources for appropriate follow up upon discharge. Prior to discharge patient should be reconnected to [facility] for outpatient follow up. -computer recycling worker also looking into long-term placement with patient's guardian. -Communicated plan to patient's nurse -At this time psychiatry will sign off. -Please contact with any questions.
[2020-05-07 11:53] LABS: Glucose,Whole Blood 127 mg/dL (75-99)
[2020-05-07 16:49] LABS: Glucose,Whole Blood 140 mg/dL (75-99)
--- NOTE | 2020-05-07 19:33 | P.PN ---
Subjective Progress Note Date: 05/07/20 She was seen at bedside and he doing dramatically better today compared to yesterday. He still cannot tell me what seizure medication is on if he did have any seizure. The nurse attempted to contact Dr. Cuevas's office yesterday and no response. Objective - Vital Signs Vital signs: Vital Signs Temp 97.6 F 05/07/20 14:00 Pulse 85 05/07/20 14:00 Resp 18 05/07/20 14:00 BP 96/55 05/07/20 14:00 Pulse Ox 95 05/07/20 14:00 Intake & Output 05/07/20 05/07/20 05/08/20 06:59 18:59 06:59 Other: Voiding Method Toilet # Voids 3 1 - Exam GENERAL: The patient is lying in bed and is not in acute distress. CHEST: The heart rate is regular rate rhythm. No murmurs to auscultation. No carotid bruit bilaterally----. LUNG: Clear to auscultation bilaterally no wheezing noted throughout. Not labored breathing. ABDOMEN/GI: Bowel sounds present in all 4 quadrants. No tenderness to palpation throughout. NEUROLOGICAL: Higher mental function: The patient is awake, alert, oriented to self, place and time. Patient is following commands. No aphasia and no neglect. Cranial nerves: The pupils are round, equal and reactive to light and accommodation. Visual perez are full to confrontation throughout. Extraocular movement is intact no nystagmus is noted. Facial sensation is normal to touch throughout. The facial strength is normal throughout. Tongue is midline and moved [id number] without any difficulty. No dysarthria is noted. Shoulder shrug is normal bilaterally. Motor: The strength is 5 over 5 throughout. Normal tone and bulk. Cerebellum: Normal finger to nose bilaterally. Sensation: Sensation is normal to touch throughout. Reflexes (right/left): 2+ throughout except ankles are 1+ bilaterally. Plantars are downgoing bilaterally. - Labs CBC & Chem 7: 05/07/20 06:16 05/07/20 06:16 Labs: Abnormal Lab Results - Last 24 Hours (Table) 05/05/20 05/06/20 05/06/20 Range/Units 22:03 11:33 20:12 Hgb (13.0-17.5) gm/dL Hct (39.0-53.0) % RDW (11.5-15.5) % Eosinophils # (0-0.7) k/uL Potassium (3.5-5.5) mmol/L Carbon Dioxide (21.6-31.8) mmol/L BUN (9.0-27.0) mg/dL BUN/Creatinine Ratio (12.00-20.00) Ratio Glucose (70-110) mg/dL POC Glucose (mg/dL) 205 H (75-99) mg/dL Hemoglobin A1c (4.0-6.0) % RBC Folate 1,050 H (280 - 791) ng/mL Free Phenytoin <0.8 L (0.8-2.0) ug/mL 05/07/20 05/07/20 05/07/20 Range/Units 06:16 06:16 06:16 Hgb 12.5 L (13.0-17.5) gm/dL Hct 37.8 L (39.0-53.0) % RDW 19.1 H (11.5-15.5) % Eosinophils # 0.9 H (0-0.7) k/uL Potassium 2.9 L (3.5-5.5) mmol/L Carbon Dioxide 35.6 H (21.6-31.8) mmol/L BUN 29.0 H (9.0-27.0) mg/dL BUN/Creatinine Ratio 26.36 H (12.00-20.00) Ratio Glucose 145 H (70-110) mg/dL POC Glucose (mg/dL) (75-99) mg/dL Hemoglobin A1c 6.5 H (4.0-6.0) % RBC Folate (280 - 791) ng/mL Free Phenytoin (0.8-2.0) ug/mL 05/07/20 05/07/20 05/07/20 Range/Units 07:14 11:49 16:47 Hgb (13.0-17.5) gm/dL Hct (39.0-53.0) % RDW (11.5-15.5) % Eosinophils # (0-0.7) k/uL Potassium (3.5-5.5) mmol/L Carbon Dioxide (21.6-31.8) mmol/L BUN (9.0-27.0) mg/dL BUN/Creatinine Ratio (12.00-20.00) Ratio Glucose (70-110) mg/dL POC Glucose (mg/dL) 148 H 127 H 140 H (75-99) mg/dL Hemoglobin A1c (4.0-6.0) % RBC Folate (280 - 791) ng/mL Free Phenytoin (0.8-2.0) ug/mL Assessment and Plan Assessment: This is a 61-year-old gentleman presented to the emergency department on 05/05/20 for altered mental status. Toxic metabolic encephalopathy (ammonia 45). ?cellulitis of right lower extremity---improved History of seizure? (per patient but unable to provide with details) Polypharmacy Elevated troponin Hypertension Diabetes History of COPD Plan: digoxin level: 0.6 (subtherapeutic). Lamictal level: <0.2 (normal is 2-15). I will not adjust the dose since I'll not sure if this is for seizure or as a mood stabilizer. I'll defer this to Dr. Cuevas as an outpatient. Routine EEG: The background slowing suggestive of moderate encephalopathy. Triphasic morphology is likely due to toxic metabolic effect. There are no focal slowing, epileptiform discharges or seizure seen during the study. vitamin B12: 776 (normal) and folate level: 1050 (high but that's normal). Repeat Ammonia level: 23 (normal). TSH: 0.833 (within normal limits). Regarding the elevated troponin and cardiology is on board. 2-D echo: Mild concentric left ventricular hypertrophy. Ejection fraction 50- 55%. The patient questionable cellulitis of the right lower extremity will defer the management to the primary team. We'll defer the rest of the medical management to the primary team. I spoke with the nurse and she said that she'll try again the contacting Dr. Cuevas's office regarding the patient's history of seizure if there is. Plan was discussed with primary team. The patient needs to follow up with Neurology (Dr. Cuevas) within 1-2 weeks upon discharge. We'll follow up with the patient sporadically. Juice Yung M.D. Neuro-hospitalist Time with Patient: Less than 30
[2020-05-07 20:33] LABS: Glucose,Whole Blood 143 mg/dL (75-99)
[2020-05-07] MEDS: lamoTRIgine 100 MG TAB PO SCH (20:46)
[2020-05-07] MEDS: MELATONIN 3 MG TABLET PO SCH (20:46)
[2020-05-07] MEDS: ATORVASTATIN 10 MG TAB PO SCH (20:47)
[2020-05-08 07:17] LABS: Glucose,Whole Blood 130 mg/dL (75-99)
[2020-05-08] MEDS: BUDESONIDE 1 MG/2 ML NEBU INHALATION SCH ×2 (08:01→19:09)
[2020-05-08] MEDS: IPRATROPIUM-ALBUTEROL 3 ML NEB INHALATION PRN (08:02)
[2020-05-08] MEDS: INSULIN ASPART (NovoLOG) 100 UNIT/ML VIAL SQ SCH ×3 (08:49→18:20)
[2020-05-08 08:53] LABS: African American GFR (CKD) >90 (>60 ml/min/1.73 sqM); Anion Gap 6 mmol/L; Blood Urea Nitrogen 26 mg/dL (9-20); Carbon Dioxide 34 mmol/L (22-30); Chloride 96 mmol/L (98-107); Glucose 136 mg/dL (74-99); Non-African American GFR(CKD) >90 (>60 ml/min/1.73 sqM); Potassium 3.5 mmol/L (3.5-5.1); Sodium 136 mmol/L (137-145)
[2020-05-08] MEDS: HEPARIN SODIUM,PORCINE 5,000 UNIT/ML 1 ML VIAL SQ SCH (09:02)
[2020-05-08] MEDS: NICOTINE 21MG/24HR PATCH TRANSDERM SCH (09:02)
[2020-05-08] MEDS: LACTULOSE 20 GM/30 ML CUP PO SCH (09:02)
[2020-05-08] MEDS: metOLazone 5 MG TAB PO SCH (09:02)
[2020-05-08] MEDS: metFORMIN 500 MG TAB PO SCH ×2 (09:02→18:19)
[2020-05-08] MEDS: POTASSIUM CHLORIDE ER 20 MEQ TAB.ER PO SCH (09:03)
[2020-05-08] MEDS: TAMSULOSIN 0.4 MG CAP.ER.24H PO SCH (09:03)
[2020-05-08] MEDS: CHOLECALCIFEROL 1,000 UNIT TAB PO SCH (09:03)
[2020-05-08] MEDS: DULoxetine HCL 60 MG CAPSULE.DR PO SCH (09:03)
[2020-05-08] MEDS: DOCUSATE 100 MG CAP PO SCH (09:03)
[2020-05-08] MEDS: PREGABALIN 75 MG CAP PO SCH (09:03)
[2020-05-08] MEDS: FUROSEMIDE 20 MG TAB PO SCH (09:03)
[2020-05-08] MEDS: DIGOXIN 250 MCG TAB PO SCH (09:04)
[2020-05-08] MEDS: FINASTERIDE 5 MG TAB PO SCH (09:04)
[2020-05-08] MEDS: FENOFIBRATE 160 MG TAB PO SCH (09:04)
[2020-05-08] MEDS: COLCHICINE 0.6 MG EACH PO SCH (09:04)
[2020-05-08] MEDS: NON FORMULARY DRUG (Naloxegol Oxalate [Movantik] 25 MG Tablet) PO SCH (09:05)
[2020-05-08] MEDS: PANTOPRAZOLE 40 MG TABLET PO SCH (09:05)
[2020-05-08] MEDS: SIMETHICONE 80 MG CHEWABLE PO SCH ×3 (09:05→18:20)
[2020-05-08] MEDS: AMMONIUM LACTATE 12% LOTION 225 GM BTL TOPICAL SCH (09:52)
[2020-05-08 12:12] LABS: Glucose,Whole Blood 162 mg/dL (75-99)
--- NOTE | 2020-05-08 13:59 | P.PN ---
Subjective Progress Note Date: 05/08/20 HISTORY OF PRESENT ILLNESS This is a 60-year-old male patient seen at [facility] with past medical history of chronic pain syndrome with morphine pump under the care of Dr. Amy rogers, COPD, diabetes mellitus type 2, restless leg syndrome, degenerative disc disease, chronic kidney disease stage III, seizure history, chronic pancreatitis, hypertension, chronic diastolic heart failure. Patient was brought in by police/EMS on petition. Patient was found to have altered mental status, he was confused and combative while in the emergency center, refused to cooperate with plan. Patient had admission approximate 3 months ago when he was confused. At the time of this evaluation, patient states that he feels great. He does not recall why he is in the hospital. He thinks he was brought to the hospital because of confusion that was similar to the episode that happened in February but cannot give any details. He is seen at the [facility] and follows with Olga Lidia Miller NP. He was last seen there according to the patient 3 months ago. He denies any recent medication changes. Patient was afebrile, vital signs were stable. CO2 38, creatinine 0.99, blood sugar 139. WBC 12.4. Dilantin level less than 3. TSH 0.833. Lactic acid 4.0 and repeat 0.8. Troponin 0.022. ProBNP 213. Chest x-ray reveals minimal subsegmental atelectasis at the lung bases. There is clearing of extensive infiltrates and atelectasis compared to old exam. CAT scan of the brain revealed mild cerebral atrophy appropriate for age. No acute intracranial abnormality. Patient admitted to the [facility] floor, drug screen and COVID testing ordered, consults in place with neurology and psychiatry. Consult for cardiology added for elevated troponin. 05/07: Patient is more awake and alert, less confusion today. He did refuse his medications last night but took them this morning. He has been afebrile, heart rate 60, blood pressure 110/60, pulse ox 95% on room air. Due to elevated ammonia level, lactulose was started yesterday patient took his first dose this morning. He refused 2 doses yesterday. Patient has been seen by cardiology and echocardiogram was ordered revealing mild concentric left ventricular hypertrophy, EF 50-55%. Patient was seen by psychiatry and discontinued Rexulti and replaced with Prolixin 2.5 mg twice daily, continue Lamictal 150 mg at [facility] and Cymbalta 60 mg twice daily for mood. Psychiatry also recommended the patient follow-up with [facility] as an outpatient. Patient was also seen by neurology with recommendations for EEG, urine drug screen, digoxin level, folate, Lamictal, vitamin B12 levels. Seizure history is questionable and information was attempted to be obtained from Dr. Cuevas's office. EEG was abnormal with moderate encephalopathy. Triphasic morphology is likely due to toxic metabolic effect. No epileptiform discharges. Call to social work to make arrangements for discharge today. 05/08: Lamictal level came back 7. Neurology is not advising any medication changes is unclear whether this is for seizure or mood stabilizer. Vitamin B12 normal at 776. Folate level high normal at 1050. Repeat ammonia level is 23. TSH 0.833. Patient has been reevaluated by psychiatry with no further changes in medications. Patient has been accepted at [facility] and [facility] insurance authorization. Patient denies any complaints today. Potassium from yesterday was replaced at 2.9. Repeat today is 3.5. Patient has been afebrile, heart rate 59, blood pressure 111/68, pulse ox 97% on room air. Blood sugars run between 130 and 143. The patient will be discharged to extended care [facility] today if arrangements can be completed. Social work is following closely. REVIEW OF SYSTEMS Constitutional: No fever, no chills, no night sweats. No weight change. No weakness, fatigue or lethargy. No daytime sleepiness. EENT: No headache. No blurred vision or double vision, no loss of vision. No loss of Hearing, no ringing in the ears, no dizziness. No nasal drainage or congestion. No epistaxis. No sore throat. Lungs: No shortness of breath, cough, no sputum production. No wheezing. Cardiovascular: No chest pain, no lower extremity edema. No palpitations. No paroxysmal nocturnal dyspnea. No orthopnea. No lightheadedness or dizziness. No syncopal episodes. Abdominal: No abdominal pain. No nausea, vomiting. No diarrhea. No constipation. No bloody or tarry stools.. No loss of appetite. Genitourinary: No dysuria, increased frequency, urgency. No urinary retention. Musculoskeletal: No myalgias. No muscle weakness, no gait dysfunction, no frequent falls. No back pain. No neck pain. Integumentary: No wounds, no lesions. No rash or pruritus. No unusual bruising. No change in hair or nails. Neurologic: No aphasia. No facial droop. Reported change in mentation-appears to be back to baseline. No head injury. No headache. No paralysis. No paresthesia. Reported combativeness and confusio-resolved. Psychiatric: No depression. No anxiety. No mood swings. Endocrine: No abnormal blood sugars. No weight change. No excessive sweating or thirst. No cold intolerance. PHYSICAL EXAMINATION Gen: This is a 60-year-old male. He is sitting on the edge of the bed eating breakfast. He appears to be comfortable and in no acute distress. Patient is cooperative. HEENT: Head is atraumatic, normocephalic. Pupils equal, round. Sclerae is anicteric. NECK: Supple. No JVD. No lymphadenopathy. No thyromegaly. LUNGS: Clear to auscultation. No wheezes or rhonchi. No intercostal retractions. HEART: Regular rate and rhythm. No murmur. ABDOMEN: Soft. Bowel sounds are present. No masses. No tenderness. Pain pump in the left lower side of his abdomen. EXTREMITIES: No pedal edema. No calf tenderness. NEUROLOGICAL: Patient is awake, alert and oriented person and place. Patient is a poor historian. Cranial nerves 2 through 12 are grossly intact. ASSESSMENT AND PLAN 1. Toxic metabolic encephalopathy of unclear etiology, possibly secondary to hyperammonia level. Neurology consult appreciated. EEG, urine drug screen, digoxin level, folate, Lamictal, vitamin B12 levels. Lactulose 15 g twice daily added. 2. Elevated troponin, acute coronary syndrome ruled out. 3. Chronic pain syndrome with morphine pump. Tylenol as needed for fever. Hold Sacul. Continue Lyrica 75 mg twice daily. 4. Diabetes mellitus type 2. Continue metformin 1000 mg twice daily, NovoLog scale before meals and at bedtime, hemoglobin A1c. 5. COPD, stable without exacerbation. Continue DuoNeb treatments as needed, Pulmicort 1 mg twice daily. 6. Chronic kidney disease stage III. Avoid nephrotoxic agents. 7. History of seizure disorder. Continue Lyrica 75 mg. 8. Chronic diastolic heart failure. Continue Lasix 20 mg twice daily, Zaroxolyn 5 mg daily. 9. Possible cellulitis of the right lower extremity. 10. History of SVT. Continue digoxin. Digoxin level. 11. Nonischemic cardiomyopathy with EF of 40-45%. 12. Hypertension. 13. Hyperlipidemia. Continue atorvastatin 10 mg at bedtime, fenofibrate 160 mg daily. 14. Lactic acidosis of unclear etiology. Resolved. 15. Chronic gout. Continue colchicine 0.6 g twice daily. 16. Benign prostatic hypertrophy. Continue Flomax or 0.4 mg daily and Proscar 5 mg daily. 17. Chronic constipation. Continue MiraLAX 17 g daily. 18. Gastroesophageal reflux disease. Continue Protonix. 19. Recurrent depression and generalized anxiety disorder. Other underlying mental health diagnoses suspected, patient of [facility]. Continue Cymbalta 60 mg twice daily, Vistaril 25 mg twice daily as needed for anxiety, Lyrica 150 mg twice daily. Psychiatric consultation appreciated. Psychiatry d iscontinued Rexulti and replaced with Prolixin 2.5 mg twice daily. 20. Tobacco use and dependence. Nicotine patch. 21. DVT prophylaxis. Heparin subcu. DISCHARGE PLAN [facility]. university manager and social services designee following. Impression and plan of care have been directed as dictated by the signing physician. Oralia Andrews nurse practitioner acting as scribe for signing physician. Objective - Vital Signs Vital signs: Vital Signs Temp 97.6 F 05/08/20 07:39 Pulse 80 05/08/20 08:03 Resp 18 05/08/20 07:39 BP 111/68 05/08/20 07:39 Pulse Ox 97 05/08/20 07:39 Intake & Output 05/07/20 05/08/20 05/08/20 18:59 06:59 18:59 Intake Total 840 Balance 840 Intake: Oral 840 Other: Voiding Method Toilet # Voids 1 3 - Labs CBC & Chem 7: 05/07/20 06:16 05/08/20 08:22 Labs: Abnormal Lab Results - Last 24 Hours (Table) 05/05/20 05/06/20 05/07/20 Range/Units 22:03 11:33 06:16 Potassium (3.5-5.5) mmol/L Carbon Dioxide (21.6-31.8) mmol/L BUN (9.0-27.0) mg/dL BUN/Creatinine Ratio (12.00-20.00) Ratio Glucose (70-110) mg/dL POC Glucose (mg/dL) (75-99) mg/dL Hemoglobin A1c 6.5 H (4.0-6.0) % RBC Folate 1,050 H (280 - 791) ng/mL Free Phenytoin <0.8 L (0.8-2.0) ug/mL 05/07/20 05/07/20 05/07/20 Range/Units 06:16 11:49 16:47 Potassium 2.9 L (3.5-5.5) mmol/L Carbon Dioxide 35.6 H (21.6-31.8) mmol/L BUN 29.0 H (9.0-27.0) mg/dL BUN/Creatinine Ratio 26.36 H (12.00-20.00) Ratio Glucose 145 H (70-110) mg/dL POC Glucose (mg/dL) 127 H 140 H (75-99) mg/dL Hemoglobin A1c (4.0-6.0) % RBC Folate (280 - 791) ng/mL Free Phenytoin (0.8-2.0) ug/mL 05/07/20 05/08/20 Range/Units 20:30 07:13 Potassium (3.5-5.5) mmol/L Carbon Dioxide (21.6-31.8) mmol/L BUN (9.0-27.0) mg/dL BUN/Creatinine Ratio (12.00-20.00) Ratio Glucose (70-110) mg/dL POC Glucose (mg/dL) 143 H 130 H (75-99) mg/dL Hemoglobin A1c (4.0-6.0) % RBC Folate (280 - 791) ng/mL Free Phenytoin (0.8-2.0) ug/mL
--- NOTE | 2020-05-08 14:04 | P.DS ---
Providers Date of admission: 05/06/20 03:43 Expected date of discharge: 05/08/20 Attending physician: Rosa Hernandez Consults: 05/06/20 03:42 Consult Physician Urgent Consulting Provider: Juice Yung Consult Reason/Comments: acute encephalopathy Do you want consulting provider notified?: Yes Consult Physician Urgent Consulting Provider: Miguel Silva Consult Reason/Comments: acute altered mental status Do you want consulting provider notified?: Already Contacted Primary care physician: [facility] Course: HISTORY OF PRESENT ILLNESS This is a 60-year-old male patient seen at [facility] with past medical history of chronic pain syndrome with morphine pump under the care of Dr. Cuevas, COPD, diabetes mellitus type 2, restless leg syndrome, degenerative disc disease, chronic kidney disease stage III, seizure history, chronic pancreatitis, hypertension, chronic diastolic heart failure. Patient was brought in by police/EMS on petition. Patient was found to have altered mental status, he was confused and combative while in the emergency center, refused to cooperate with plan. Patient had admission approximate 3 months ago when he was confused. At the time of this evaluation, patient states that he feels great. He does not recall why he is in the hospital. He thinks he was brought to the hospital because of confusion that was similar to the episode that happened in February but cannot give any details. He is seen at the [facility] and follows with Olga Lidia Miller NP. He was last seen there according to the patient 3 months ago. He denies any recent medication changes. Patient was afebrile, vital signs were stable. CO2 38, creatinine 0.99, blood sugar 139. WBC 12.4. Dilantin level less than 3. TSH 0.833. Lactic acid 4.0 and repeat 0.8. Troponin 0.022. ProBNP 213. Chest x-ray reveals minimal subsegmental atelectasis at the lung bases. There is clearing of extensive infiltrates and atelectasis compared to old exam. CAT scan of the brain revealed mild cerebral atrophy appropriate for age. No acute intracranial abnormality. Patient admitted to the [facility] floor, drug screen and COVID testing ordered, consults in place with neurology and psychiatry. Consult for cardiology added for elevated troponin. 05/07: Patient is more awake and alert, less confusion today. He did refuse his medications last night but took them this morning. He has been afebrile, heart rate 60, blood pressure 110/60, pulse ox 95% on room air. Due to elevated ammonia level, lactulose was started yesterday patient took his first dose this morning. He refused 2 doses yesterday. Patient has been seen by cardiology and echocardiogram was ordered revealing mild concentric left ventricular hypertrophy, EF 50-55%. Patient was seen by psychiatry and discontinued Rexulti and replaced with Prolixin 2.5 mg twice daily, continue Lamictal 150 mg at bedtime and Cymbalta 60 mg twice daily for mood. Psychiatry also recommended the patient follow-up with [facility] as an outpatient. Patient was also seen by neurology with recommendations for EEG, urine drug screen, digoxin level, folate, Lamictal, vitamin B12 levels. Seizure history is questionable and information was attempted to be obtained from Dr. Cuevas's office. EEG was abnormal with moderate encephalopathy. Triphasic morphology is likely due to toxic metabolic effect. No epileptiform discharges. Call to social work to make arrangements for discharge today. 05/08: Lamictal level came back 7. Neurology is not advising any medication changes is unclear whether this is for seizure or mood stabilizer. Vitamin B12 normal at 776. Folate level high normal at 1050. Repeat ammonia level is 23. TSH 0.833. Patient has been reevaluated by psychiatry with no further changes in medications. Patient has been accepted at [facility] and [facility] insurance authorization. Patient denies any complaints today. Potassium from yesterday was replaced at 2.9. Repeat today is 3.5. Patient has been afebrile, heart rate 59, blood pressure 111/68, pulse ox 97% on room air. Blood sugars run between 130 and 143. The patient will be discharged to extended care facility today if arrangements can be completed. Social work is following closely. REVIEW OF SYSTEMS Constitutional: No fever, no chills, no night sweats. No weight change. No weakness, fatigue or lethargy. No daytime sleepiness. EENT: No headache. No blurred vision or double vision, no loss of vision. No loss of Hearing, no ringing in the ears, no dizziness. No nasal drainage or congestion. No epistaxis. No sore throat. Lungs: No shortness of breath, cough, no sputum production. No wheezing. Cardiovascular: No chest pain, no lower extremity edema. No palpitations. No paroxysmal nocturnal dyspnea. No orthopnea. No lightheadedness or dizziness. No syncopal episodes. Abdominal: No abdominal pain. No nausea, vomiting. No diarrhea. No constipation. No bloody or tarry stools.. No loss of appetite. Genitourinary: No dysuria, increased frequency, urgency. No urinary retention. Musculoskeletal: No myalgias. No muscle weakness, no gait dysfunction, no frequent falls. No back pain. No neck pain. Integumentary: No wounds, no lesions. No rash or pruritus. No unusual bruising. No change in hair or nails. Neurologic: No aphasia. No facial droop. Reported change in mentation-appears to be back to baseline. No head injury. No headache. No paralysis. No paresthesia. Reported combativeness and confusio-resolved. Psychiatric: No depression. No anxiety. No mood swings. Endocrine: No abnormal blood sugars. No weight change. No excessive sweating or thirst. No cold intolerance. PHYSICAL EXAMINATION Gen: This is a 60-year-old male. He is sitting on the edge of the bed eating breakfast. He appears to be comfortable and in no acute distress. Patient is cooperative. HEENT: Head is atraumatic, normocephalic. Pupils equal, round. Sclerae is anicteric. NECK: Supple. No JVD. No lymphadenopathy. No thyromegaly. LUNGS: Clear to auscultation. No wheezes or rhonchi. No intercostal retractions. HEART: Regular rate and rhythm. No murmur. ABDOMEN: Soft. Bowel sounds are present. No masses. No tenderness. Pain pump in the left lower side of his abdomen. EXTREMITIES: No pedal edema. No calf tenderness. NEUROLOGICAL: Patient is awake, alert and oriented person and place. Patient is a poor historian. Cranial nerves 2 through 12 are grossly intact. ASSESSMENT AND PLAN 1. Toxic metabolic encephalopathy of unclear etiology, possibly secondary to hyperammonia level. 2. Elevated troponin, acute coronary syndrome ruled out. 3. Chronic pain syndrome with morphine pump. 4. Diabetes mellitus type 2. 5. COPD, stable without exacerbation. 6. Chronic kidney disease stage III. 7. History of seizure disorder. 8. Chronic diastolic heart failure. 9. Possible cellulitis of the right lower extremity. 10. History of SVT. 11. Nonischemic cardiomyopathy with EF of 40-45%. 12. Hypertension. 13. Hyperlipidemia. 14. Lactic acidosis of unclear etiology. Resolved. 15. Chronic gout. 16. Benign prostatic hypertrophy. 17. Chronic constipation. 18. Gastroesophageal reflux disease. 19. Recurrent depression and generalized anxiety disorder. Other underlying mental health diagnoses suspected, patient of [facility]. 20. Tobacco use and dependence. DISCHARGE PLAN [facility]. apartment house manager and social welfare administrator following. Impression and plan of care have been directed as dictated by the signing physician. Oralia Andrews nurse practitioner acting as scribe for signing physician. Patient Condition at Discharge: Stable Plan - Discharge Summary Discharge Rx Participant: No New Discharge Prescriptions: New Lactulose [Cephulac] 15 gm PO DAILY ml Nicotine 21Mg/24Hr Patch [Habitrol] 1 patch TRANSDERM DAILY patch fluPHENAZine [Prolixin] 2.5 mg PO BID tab Continue Omeprazole 40 mg PO DAILY Multivitamins, Thera [Multivitamin (formulary)] 1 tab PO DAILY rOPINIRole HCL [Requip] 1 mg PO HS Tamsulosin HCl [Flomax] 0.4 mg PO DAILY metFORMIN HCL [Glucophage] 1,000 mg PO BID-W/MEALS lamoTRIgine [LaMICtal] 150 mg PO HS gemfibroziL [Lopid] 600 mg PO BID-W/MEALS DULoxetine HCL [Cymbalta] 60 mg PO BID Morphine Pain Pump (Unknown Strength) 1 dose SQ-PUMP CONTINUOUS Docusate [Colace] 100 mg PO DAILY Albuterol Sulfate [Ventolin HFA] 2 puff INHALATION RT-QID PRN PRN Reason: Shortness Of Breath Cholecalciferol [Vitamin D3 (25 Mcg = 1000 Iu)] 2,000 unit PO DAILY Acetaminophen Tab [Tylenol] 500 mg PO Q6H PRN PRN Reason: Pain polyethylene glycoL 3350 [Miralax] 17 gm PO DAILY PRN PRN Reason: Constipation Melatonin 3 mg PO HS Furosemide [Lasix] 20 mg PO BID Potassium Chloride [Klor-Con 20] 20 meq PO DAILY Digoxin [Lanoxin] 250 mcg PO DAILY tab Atorvastatin [Lipitor] 10 mg PO HS tab Budesonide [Pulmicort] 1 mg INHALATION RT-BID ml Simethicone Chew [Mylicon Chew] 80 mg PO QID Naloxegol Oxalate [Movantik] 25 mg PO DAILY Ammonium Lactate Lotion [Lac-Hydrin 12% Lotion] 1 applic TOPICAL BID metOLazone [Zaroxolyn] 5 mg PO DAILY Pregabalin [Lyrica] 75 mg PO BID Finasteride [Proscar] 5 mg PO DAILY Ipratropium-Albuterol Nebulize [Duoneb 0.5 mg-3 mg/3 ml Soln] 3 ml INHALATION RT-Q4H PRN PRN Reason: Wheezing Colchicine [Mitigare] 0.6 mg PO BID Discontinued Brexpiprazole [Rexulti] 4 mg PO HS hydrOXYzine pamoate [Vistaril] 25 mg PO BID PRN PRN Reason: Anxiety HYDROcodone/APAP 5-325MG [[place] 5-325] 1 tab PO BID PRN PRN Reason: Pain Discharge Medication List Omeprazole 40 mg PO DAILY 10/19/13 [History] Acetaminophen Tab [Tylenol] 500 mg PO Q6H PRN 02/27/20 [History] Albuterol Sulfate [Ventolin HFA] 2 puff INHALATION RT-QID PRN 02/27/20 [History] Cholecalciferol [Vitamin D3 (25 Mcg = 1000 Iu)] 2,000 unit PO DAILY 02/27/20 [History] DULoxetine HCL [Cymbalta] 60 mg PO BID 02/27/20 [History] Docusate [Colace] 100 mg PO DAILY 02/27/20 [History] Furosemide [Lasix] 20 mg PO BID 02/27/20 [History] Melatonin 3 mg PO HS 02/27/20 [History] Morphine Pain Pump (Unknown Strength) 1 dose SQ-PUMP CONTINUOUS 02/27/20 [History] Multivitamins, Thera [Multivitamin (formulary)] 1 tab PO DAILY 02/27/20 [History] Potassium Chloride [Klor-Con 20] 20 meq PO DAILY 02/27/20 [History] Tamsulosin HCl [Flomax] 0.4 mg PO DAILY 02/27/20 [History] gemfibroziL [Lopid] 600 mg PO BID-W/MEALS 02/27/20 [History] lamoTRIgine [LaMICtal] 150 mg PO HS 02/27/20 [History] metFORMIN HCL [Glucophage] 1,000 mg PO BID-W/MEALS 02/27/20 [History] polyethylene glycoL 3350 [Miralax] 17 gm PO DAILY PRN 02/27/20 [History] rOPINIRole HCL [Requip] 1 mg PO HS 02/27/20 [History] Atorvastatin [Lipitor] 10 mg PO HS tab 03/01/20 [Rx] Budesonide [Pulmicort] 1 mg INHALATION RT-BID ml 03/01/20 [Rx] Digoxin [Lanoxin] 250 mcg PO DAILY tab 03/01/20 [Rx] Ammonium Lactate Lotion [Lac-Hydrin 12% Lotion] 1 applic TOPICAL BID 05/06/20 [History] Colchicine [Mitigare] 0.6 mg PO BID 05/06/20 [History] Finasteride [Proscar] 5 mg PO DAILY 05/06/20 [History] Ipratropium-Albuterol Nebulize [Duoneb 0.5 mg-3 mg/3 ml Soln] 3 ml INHALATION RT-Q4H PRN 05/06/20 [History] Naloxegol Oxalate [Movantik] 25 mg PO DAILY 05/06/20 [History] Pregabalin [Lyrica] 75 mg PO BID 05/06/20 [History] Simethicone Chew [Mylicon Chew] 80 mg PO QID 05/06/20 [History] metOLazone [Zaroxolyn] 5 mg PO DAILY 05/06/20 [History] Lactulose [Cephulac] 15 gm PO DAILY ml 05/08/20 [Rx] Nicotine 21Mg/24Hr Patch [Habitrol] 1 patch TRANSDERM DAILY patch 05/08/20 [Rx] fluPHENAZine [Prolixin] 2.5 mg PO BID tab 05/08/20 [Rx] Follow up Appointment(s)/Referral(s): [facility] [Primary Care Provider] - 1 Week (After discharge from ECF) Discharge Disposition: TRANSFER TO SNF/ECF
[2020-05-08 14:30] VITALS: BP 134/69; RESP 16; TEMP 98
[2020-05-08 17:07] LABS: Glucose,Whole Blood 133 mg/dL (75-99)
[2020-05-08 19:20] VITALS: PULSE 82
== END 2020-05-08 19:40 ==
LOC: EC 20:15 → 5NMEDONC 05-06 03:43
PROVIDERS: ADMIT Family Medicine; ATTEND Family Medicine
DX: G92 Toxic encephalopathy (principal); E11.42 Type 2 diabetes mellitus with diabetic polyneuropathy; R77.8 Other specified abnormalities of plasma proteins; E78.5 Hyperlipidemia, unspecified; E87.2 Acidosis; F17.210 Nicotine dependence, cigarettes, uncomplicated; Z20.828 Contact with and (suspected) exposure to other viral communicable diseases; F33.9 Major depressive disorder, recurrent, unspecified; F41.1 Generalized anxiety disorder; G25.81 Restless legs syndrome; G40.909 Epilepsy, unspecified, not intractable, without status epilepticus; G89.4 Chronic pain syndrome; I42.8 Other cardiomyopathies; I50.32 Chronic diastolic (congestive) heart failure; J44.9 Chronic obstructive pulmonary disease, unspecified; J98.11 Atelectasis; K21.9 Gastro-esophageal reflux disease without esophagitis; K59.09 Other constipation; K86.1 Other chronic pancreatitis; L03.115 Cellulitis of right lower limb; M1A.9XX0 Chronic gout, unspecified, without tophus (tophi); N18.30 Chronic kidney disease, stage 3 unspecified; N40.0 Benign prostatic hyperplasia without lower urinary tract symptoms; R09.02 Hypoxemia; Z79.51 Long term (current) use of inhaled steroids; Z79.84 Long term (current) use of oral hypoglycemic drugs; Z79.899 Other long term (current) drug therapy
CPT/HCPCS: 96361 ×2; 96372 ×3; 96360 ×2; 99285; 36415 ×2; 94640 ×3; 94760; 95819; 93005; 97110 ×2; 97162; 97166; 80186; 82747; 83880; 80053; 80048 ×2; 80175; 82607; 82140 ×2; 80162; 80185; 83605 ×2; 84100; 84443; 84484 ×2; 85025 ×2; 85610; 85730; 81001; 80306; 83036; 87635; 71045; 70450; G0378 ×3; C8924; S4990 ×2; S0138 ×3; J1644 ×3; Q9950; 93308

== ENCOUNTER 2021-06-27 14:47 | Emergency (ER) | payer OTHER ==
[2021-06-27 14:57] VITALS: BP 106/63; PULSE 67; RESP 20; TEMP 97
--- NOTE | 2021-06-27 15:35 | XR ---
EXAMINATION TYPE: XR ankle complete LT DATE OF EXAM: 06/27/2021 CLINICAL HISTORY: Fall injury with pain TECHNIQUE: Frontal, lateral and oblique images of the left ankle are obtained. COMPARISON: None. FINDINGS: Skin overlying artifact noted on lateral image. There is no acute fracture/dislocation shannon dent in the left ankle. Small superior and inferior calcaneal spurs. The ankle mortise appears withi n normal limits. Moderate to severe spurring dorsal aspect of the tibiotalar joint. Mild diffuse sub cutaneous edema about the ankle joint noted. IMPRESSION: There is no acute fracture or dislocation in the left ankle.
--- NOTE | 2021-06-27 15:37 | XR ---
EXAMINATION TYPE: XR knee complete RT DATE OF EXAM: 06/27/2021 CLINICAL HISTORY: Fall injury with pain TECHNIQUE: Three views of the right knee are obtained. COMPARISON: None. FINDINGS: There is no acute fracture/dislocation evident in right knee. Mild tricompartmental joint space loss is seen. [id number] spurring patellofemoral compartment is noted. Osseous structure s are demineralized. There is mild to moderate posterior vascular calcification. IMPRESSION: There is no acute fracture or dislocation in the right knee.
--- NOTE | 2021-06-27 15:39 | XR ---
EXAMINATION TYPE: XR Hip RT and AP Pelvis DATE OF EXAM: 06/27/2021 COMPARISON: NONE HISTORY: Fall injury with pain. TECHNIQUE: A single AP view of the pelvis is obtained. Two views of the right hip are obtained. FINDINGS: Advanced degenerative change right hip joint is present with marked joint space loss and ad vanced acetabular spurring. There is [id number] formation with subchondral cystic change and loss o f spherical shape to the right femoral head with some superior collapse or avascular necrosis. Modera te axial joint space loss left hip with mild to moderate acetabular spurring. Pubic symphysis is inta ct. No acute displaced fracture in the pelvis or right hip clearly seen. There is stimulator device o verlying the left pelvis. There are surgical change at lumbosacral junction. Left-sided pelvic phlebo liths are seen. Mild right arterial groin vascular calcification is noted. IMPRESSION: There is no acute fracture or dislocation in the pelvis or right hip. 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
[2021-06-27] MEDS ORDERED: KETOROLAC 15 MG/ML 1 ML VIAL IM STA (16:01)
--- NOTE | 2021-06-27 16:02 | ED ---
General Adult HPI - General Chief complaint: Fall Stated complaint: Right Hip Pain Time Seen by Provider: 06/27/21 15:19 Source: patient Mode of arrival: ambulatory Limitations: no limitations - History of Present Illness Initial comments: 61-year-old male presents to the emergency room chief complaint of fall. Patient states he was trying to get into the car yesterday when his right leg gave out and he fell on the right hip or right knee and left ankle. Patient states he is able to ambulate on the hip without difficulty but has pain when lifting his right leg such as to get into the car. Patient did not hit his head. Patient does not take blood thinners.Patient has no other complaints at this time including shortness of breath, chest pain, abdominal pain, nausea or vomiting, headache, or visual changes. - Related Data Home Medications Medication Instructions Recorded Confirmed Omeprazole 40 mg PO DAILY 10/19/13 05/06/20 Acetaminophen Tab [Tylenol] 500 mg PO Q6H PRN 02/27/20 05/06/20 Albuterol Sulfate [Ventolin HFA] 2 puff INHALATION RT-QID PRN 02/27/20 05/06/20 Cholecalciferol [Vitamin D3 (25 2,000 unit PO DAILY 02/27/20 05/06/20 Mcg = 1000 Iu)] DULoxetine HCL [Cymbalta] 60 mg PO BID 02/27/20 05/06/20 Docusate [Colace] 100 mg PO DAILY 02/27/20 05/06/20 Furosemide [Lasix] 20 mg PO BID 02/27/20 05/06/20 Melatonin 3 mg PO HS 02/27/20 05/06/20 Morphine Pain Pump (Unknown 1 dose SQ-PUMP CONTINUOUS 02/27/20 05/06/20 Strength) Multivitamins, Thera [Multivitamin 1 tab PO DAILY 02/27/20 05/06/20 (formulary)] Potassium Chloride [Klor-Con 20] 20 meq PO DAILY 02/27/20 05/06/20 Tamsulosin HCl [Flomax] 0.4 mg PO DAILY 02/27/20 05/06/20 gemfibroziL [Lopid] 600 mg PO BID-W/MEALS 02/27/20 05/06/20 lamoTRIgine [LaMICtal] 150 mg PO HS 02/27/20 05/06/20 metFORMIN HCL [Glucophage] 1,000 mg PO BID-W/MEALS 02/27/20 05/06/20 polyethylene glycoL 3350 [Miralax] 17 gm PO DAILY PRN 02/27/20 05/06/20 rOPINIRole HCL [Requip] 1 mg PO HS 02/27/20 05/06/20 Ammonium Lactate Lotion 1 applic TOPICAL BID 05/06/20 05/06/20 [Lac-Hydrin 12% Lotion] Colchicine [Mitigare] 0.6 mg PO BID 05/06/20 05/06/20 Finasteride [Proscar] 5 mg PO DAILY 05/06/20 05/06/20 Ipratropium-Albuterol Nebulize 3 ml INHALATION RT-Q4H PRN 05/06/20 05/06/20 [Duoneb 0.5 mg-3 mg/3 ml Soln] Naloxegol Oxalate [Movantik] 25 mg PO DAILY 05/06/20 05/06/20 Pregabalin [Lyrica] 75 mg PO BID 05/06/20 05/06/20 Simethicone Chew [Mylicon Chew] 80 mg PO QID 05/06/20 05/06/20 metOLazone [Zaroxolyn] 5 mg PO DAILY 05/06/20 05/06/20 Previous Rx's Medication Instructions Recorded Atorvastatin [Lipitor] 10 mg PO HS tab 03/01/20 Budesonide [Pulmicort] 1 mg INHALATION RT-BID ml 03/01/20 Digoxin [Lanoxin] 250 mcg PO DAILY tab 03/01/20 Lactulose [Cephulac] 15 gm PO DAILY ml 05/08/20 Nicotine 21Mg/24Hr Patch [Habitrol] 1 patch TRANSDERM DAILY patch 05/08/20 fluPHENAZine [Prolixin] 2.5 mg PO BID tab 05/08/20 Allergies Allergy/AdvReac Type Severity Reaction Status Date / Time aspirin AdvReac Mild Rash/Hives Verified 06/27/21 14:54 Review of Systems ROS Statement: Those systems with pertinent positive or pertinent negative responses have been documented in the HPI. ROS Other: All systems not noted in ROS Statement are negative. Past Medical History Past Medical History: Heart Failure, COPD, Diabetes Mellitus, GERD/Reflux, Hyperlipidemia, Hypertension, Renal Disease, Seizure Disorder History of Any Multi-Drug Resistant Organisms: None Reported Past Surgical History: Back Surgery Additional Past Surgical History / Comment(s): sinus surgery Past Anesthesia/Blood Transfusion Reactions: No Reported Reaction Past Psychological History: Depression Smoking Status: Current every day smoker Past Alcohol Use History: None Reported Past Drug Use History: None Reported General Exam - General Exam Comments Initial Comments: Right lower extremity: Capillary refill less than 2 seconds. Tenderness noted to the lateral right hip. Patient has pain with flexion of the right hip. Able to extend. Patient has about 90 flexion of the right knee. Sensation intact right lower extremity. Skin exam normal. Limitations: no limitations General appearance: alert, in no apparent distress Head exam: Present: atraumatic Eye exam: Present: normal appearance, PERRL, EOMI. Absent: scleral icterus, conjunctival injection ENT exam: Present: normal exam, mucous membranes moist Neck exam: Present: normal inspection, full ROM. Absent: tenderness Respiratory exam: Present: normal lung sounds bilaterally. Absent: respiratory distress, wheezes Cardiovascular Exam: Present: regular rate, normal rhythm, normal heart sounds GI/Abdominal exam: Present: soft, normal bowel sounds. Absent: distended, tenderness Course Vital Signs 06/27/21 14:54 Temperature 97.0 F L Pulse Rate 67 Respiratory 20 Rate Blood Pressure 106/63 O2 Sat by Pulse 97 Oximetry Medical Decision Making - Medical Decision Making Vitals are stable. Patient is well appearing. Patient has pain with lifting the right hip but is able to ambulate. X-ray of the right hip and pelvis shows no acute fracture or dislocation. There is advanced degenerative change and evidence of avascular necrosis noted. Patient states he has chronic pain in that hip and gets steroid injections. X-ray of the right knee and left ankle show no fracture or dislocation. Patient was g given Toradol. He does have a pain pump in place for chronic pain. At this time patient is stable for discharge home with follow-up to orthopedics. If he gets to the point he cannot walk on the right hip he is aware he needs to return to the emergency room. Disposition Clinical Impression: Fall, Hip pain Disposition: HOME SELF-CARE Condition: Good Instructions (If sedation given, give patient instructions): Hip Pain (ED) Additional Instructions: Please continue to take your pain medications for pain. Follow-up with orthopedics for hip pain. If you're unable to ambulate on the hip you need to return to the emergency room. Otherwise follow-up with your doctor. Is patient prescribed a controlled substance at d/c from ED?: No Referrals: [facility] [Primary Care Provider] - 1-2 days Wil García MD [Medical Doctor] - 1-2 days Time of Disposition: 16:01
== END 2021-06-27 16:21 | disposition home or self-care (01) ==
LOC: EC 14:47
DX: M25.551 Pain in right hip (principal); J44.9 Chronic obstructive pulmonary disease, unspecified; E11.9 Type 2 diabetes mellitus without complications; I10 Essential (primary) hypertension; E78.5 Hyperlipidemia, unspecified; K21.9 Gastro-esophageal reflux disease without esophagitis; F17.200 Nicotine dependence, unspecified, uncomplicated; Z79.83 Long term (current) use of bisphosphonates; Z79.51 Long term (current) use of inhaled steroids; Z88.6 Allergy status to analgesic agent; W19.XXXA Unspecified fall, initial encounter
CPT/HCPCS: 73502; 73562; 73610; 99284; 96372; J1885

== ENCOUNTER → 2021-07-08 | Outpatient (CLI) | payer OTHER ==
--- NOTE | 2021-07-08 16:13 | XR ---
Right hip HISTORY: Pain 2 views the right hip, correlation prior exam 06/27/2021 There is marked joint destruction, subchondral lucencies, loss of joint space, hypertrophic changes, remodeling of the femoral head are all noted. No evident fracture or dislocation. IMPRESSION: Suspect marked osteoarthritis. Difficult to exclude osteonecrosis with secondary femoral head collapse and osteoarthritis.
== END | disposition home or self-care (01) ==
LOC: RADXRMAIN 15:18
PROVIDERS: ATTEND Nurse Practitioner
DX: M25.551 Pain in right hip (principal)
CPT/HCPCS: 73502

== ENCOUNTER 2021-07-14 18:32 | Inpatient (IN) | payer OTHER ==
--- NOTE | 2021-07-14 22:21 | ED ---
Fall HPI - General Chief Complaint: Fall Stated Complaint: Fall Time Seen by Provider: 07/14/21 21:21 Source: patient - History of Present Illness Initial Comments: This is a pleasant 61-year-old male with a history of heart failure, COPD, diabetes mellitus, gastroesophageal reflux disease, hyperlipidemia, hypertension, renal disease, seizure disorder. Patient states she fell in the bathtub yesterday by himself. Patient does not believe he lost consciousness. He did bump the back of his head is complaining of neck pain. Patient denies any vomiting. Patient states that he has bilateral leg swelling which has been going on for quite some time. Patient states he has a hard time getting around due to this. Patient does use a walker. Since the fall is also complaining about pain to his right hip and right thigh area. Patient is able to stand. Denies any chest pain or shortness of breath. No abdominal pain. Mild to moderate headache since fall, no fever or chills, no changes in vision or hearing, no sore throat or difficulty with speech, no neck pain, no chest pain or shortness of breath, no abdominal pain, no nausea or vomiting, no changes in urination or bowel movements, no numbness or tingling, no skin rashes or lesions. MD Complaint: fall - Related Data Home Medications Medication Instructions Recorded Confirmed Omeprazole 40 mg PO DAILY 10/19/13 07/14/21 Acetaminophen Tab [Tylenol] 500 mg PO Q6H PRN 02/27/20 07/14/21 Albuterol Sulfate [Ventolin HFA] 2 puff INHALATION RT-Q4H PRN 02/27/20 07/14/21 Cholecalciferol [Vitamin D3 (25 50 mcg PO DAILY 02/27/20 07/14/21 Mcg = 1000 Iu)] DULoxetine HCL [Cymbalta] 60 mg PO BID 02/27/20 07/14/21 Docusate [Colace] 100 mg PO DAILY 02/27/20 07/14/21 Furosemide [Lasix] 20 mg PO DAILY 02/27/20 07/14/21 Morphine Pain Pump (Unknown 1 dose INTRATHECA CONTINUOUS 02/27/20 07/14/21 Strength) Multivitamins, Thera [Multivitamin 1 tab PO DAILY 02/27/20 07/14/21 (formulary)] Potassium Chloride [Klor-Con 20] 20 meq PO DAILY 02/27/20 07/14/21 Tamsulosin HCl [Flomax] 0.8 mg PO DAILY 02/27/20 07/14/21 gemfibroziL [Lopid] 600 mg PO BID 02/27/20 07/14/21 lamoTRIgine [LaMICtal] 150 mg PO HS 02/27/20 07/14/21 metFORMIN HCL [Glucophage] 1,000 mg PO BID 02/27/20 07/14/21 polyethylene glycoL 3350 [Miralax] 17 gm PO DAILY PRN 02/27/20 07/14/21 rOPINIRole HCL [Requip] 1 mg PO HS 02/27/20 07/14/21 Ammonium Lactate Lotion 1 applic TOPICAL BID 05/06/20 07/14/21 [Lac-Hydrin 12% Lotion] Finasteride [Proscar] 5 mg PO DAILY 05/06/20 07/14/21 Ipratropium-Albuterol Nebulize 3 ml INHALATION RT-Q4H PRN 05/06/20 07/14/21 [Duoneb 0.5 mg-3 mg/3 ml Soln] Naloxegol Oxalate [Movantik] 25 mg PO DAILY 05/06/20 07/14/21 Simethicone Chew [Mylicon Chew] 80 mg PO QID 05/06/20 07/14/21 metOLazone [Zaroxolyn] 5 mg PO DAILY 05/06/20 07/14/21 Atorvastatin [Lipitor] 10 mg PO DAILY 07/14/21 07/14/21 Budesonide [Pulmicort] 0.5 mg INHALATION RT-BID 07/14/21 07/14/21 Colchicine 0.6 mg PO BID 07/14/21 07/14/21 HYDROcodone/APAP 5-325MG [[place] 1 tab PO BID PRN 07/14/21 07/14/21 5-325] Midodrine [ProAmatine] 5 mg PO TID 07/14/21 07/14/21 Mirtazapine [Remeron] 15 mg PO HS 07/14/21 07/14/21 Pregabalin [Lyrica] 150 mg PO BID 07/14/21 07/14/21 Previous Rx's Medication Instructions Recorded Digoxin [Lanoxin] 250 mcg PO DAILY tab 03/01/20 Allergies Allergy/AdvReac Type Severity Reaction Status Date / Time aspirin AdvReac Mild Rash/Hives Verified 07/14/21 23:05 Review of Systems ROS Statement: Those systems with pertinent positive or pertinent negative responses have been documented in the HPI. ROS Other: All systems not noted in ROS Statement are negative. Past Medical History Past Medical History: Heart Failure, COPD, Diabetes Mellitus, GERD/Reflux, Hyperlipidemia, Hypertension, Renal Disease, Seizure Disorder History of Any Multi-Drug Resistant Organisms: None Reported Past Surgical History: Back Surgery Additional Past Surgical History / Comment(s): sinus surgery Past Anesthesia/Blood Transfusion Reactions: No Reported Reaction Past Psychological History: Depression Smoking Status: Current every day smoker Past Alcohol Use History: None Reported Past Drug Use History: None Reported General Exam - General Exam Comments Initial Comments: Deconditioned appearing 61-year-old male who appears older than his stated age. Does not appear to be ill or toxic. Cranial nerves II through XII are grossly intact. General appearance: alert, in no apparent distress Head exam: Present: atraumatic, normocephalic, normal inspection Eye exam: Present: normal appearance, PERRL, EOMI. Absent: scleral icterus, conjunctival injection, periorbital swelling ENT exam: Present: normal exam, mucous membranes moist Neck exam: Present: normal inspection. Absent: tenderness, meningismus, lymphadenopathy Respiratory exam: Present: normal lung sounds bilaterally. Absent: respiratory distress, wheezes, rales, rhonchi, stridor Cardiovascular Exam: Present: regular rate, normal rhythm, normal heart sounds. Absent: systolic murmur, diastolic murmur, rubs, gallop, clicks GI/Abdominal exam: Present: soft, normal bowel sounds. Absent: distended, tenderness, guarding, rebound, rigid Extremities exam: Present: normal inspection, tenderness, normal capillary refill, pedal edema, other (Significant edema to the bilateral lower extremities with chronic appearing dusky erythematous skin changes. Pedal pulses are intact. No definitive bony point tenderness aside from the lateral aspect of the right hip. Pelvis is stable). Absent: joint swelling, calf tenderness Back exam: Present: normal inspection Neurological exam: Present: alert, oriented X3, CN II-XII intact, abnormal gait, other (Patient with difficulty ambulating without his walker.--Likely chronic). Absent: normal gait, motor sensory deficit, reflexes normal Psychiatric exam: Present: normal affect, normal mood. Absent: anxious, flat affect Skin exam: Present: warm, dry, intact, normal color. Absent: rash Course Vital Signs 07/14/21 07/15/21 18:36 00:20 Temperature 97.7 F Pulse Rate 52 L 65 Respiratory 16 18 Rate Blood Pressure 103/56 118/56 O2 Sat by Pulse 96 100 Oximetry - Reevaluation(s) Reevaluation #1: 07/15/21 00:52 Medical record is reviewed Patient urinated on the floor because he could not reach the urinal. Patient having an extreme difficult time with ambulation. Patient not safe to go home. Patient is informed of results and questions answered Patient in no distress Medical Decision Making - Medical Decision Making Patient had an unwitnessed fall at home yesterday/last night. Patient unsure whether he lost consciousness or not. Complaining of headache and neck pain. Also complains of pain to the lateral aspect of the right hip and right thigh area. Complaining of chronic but worsening peripheral edema. Patient having significant difficult time ambulating. Unsafe to go home. We'll admit to some physician group. I'm going to treat the patient for DVT as he was found to have bilateral femoral DVT. However this did have a chronic appearance. Patient has no history of DVT. Given his increased edema and pain in the right leg outgoing treat with Lovenox. First dose given. Will discuss with the admitting physician. The case was discussed in detail with ED attending physician. Presentation, findings, treatment plan discussed in detail. - Lab Data Result diagrams: 07/14/21 22:10 07/14/21 22:10 Lab Results 07/14/21 07/14/21 07/14/21 Range/Units 22:10 22:10 22:10 WBC 8.5 (3.8-10.6) k/uL RBC 3.83 L (4.30-5.90) m/uL Hgb 12.1 L (13.0-17.5) gm/dL Hct 36.6 L (39.0-53.0) % MCV 95.5 (80.0-100.0) fL MCH 31.6 (25.0-35.0) pg MCHC 33.1 (31.0-37.0) g/dL RDW 14.7 (11.5-15.5) % Plt Count 354 (150-450) k/uL MPV 8.1 Neutrophils % 72 % Lymphocytes % 13 % Monocytes % 8 % Eosinophils % 3 % Basophils % 1 % Neutrophils # 6.2 (1.3-7.7) k/uL Lymphocytes # 1.1 (1.0-4.8) k/uL Monocytes # 0.7 (0-1.0) k/uL Eosinophils # 0.3 (0-0.7) k/uL Basophils # 0.1 (0-0.2) k/uL Sodium 136 L (137-145) mmol/L Potassium 3.2 L (3.5-5.1) mmol/L Chloride 88 L (98-107) mmol/L Carbon Dioxide 37 H (22-30) mmol/L Anion Gap 11 mmol/L BUN 31 H (9-20) mg/dL Creatinine 0.98 (0.66-1.25) mg/dL Est GFR (CKD-EPI)AfAm >90 (>60 ml/min/1.73 sqM) Est GFR (CKD-EPI)NonAf 83 (>60 ml/min/1.73 sqM) Glucose 107 H (74-99) mg/dL Calcium 9.4 (8.4-10.2) mg/dL Magnesium 1.7 (1.6-2.3) mg/dL Total Bilirubin 0.5 (0.2-1.3) mg/dL AST 21 (17-59) U/L ALT 11 (4-49) U/L Alkaline Phosphatase 156 H (38-126) U/L Troponin I <0.012 (0.000-0.034) ng/mL NT-Pro-B Natriuret Pep pg/mL Total Protein 7.9 (6.3-8.2) g/dL Albumin 4.3 (3.5-5.0) g/dL 07/14/21 Range/Units 22:10 WBC (3.8-10.6) k/uL RBC (4.30-5.90) m/uL Hgb (13.0-17.5) gm/dL Hct (39.0-53.0) % MCV (80.0-100.0) fL MCH (25.0-35.0) pg MCHC (31.0-37.0) g/dL RDW (11.5-15.5) % Plt Count (150-450) k/uL MPV Neutrophils % % Lymphocytes % % Monocytes % % Eosinophils % % Basophils % % Neutrophils # (1.3-7.7) k/uL Lymphocytes # (1.0-4.8) k/uL Monocytes # (0-1.0) k/uL Eosinophils # (0-0.7) k/uL Basophils # (0-0.2) k/uL Sodium (137-145) mmol/L Potassium (3.5-5.1) mmol/L Chloride (98-107) mmol/L Carbon Dioxide (22-30) mmol/L Anion Gap mmol/L BUN (9-20) mg/dL Creatinine (0.66-1.25) mg/dL Est GFR (CKD-EPI)AfAm (>60 ml/min/1.73 sqM) Est GFR (CKD-EPI)NonAf (>60 ml/min/1.73 sqM) Glucose (74-99) mg/dL Calcium (8.4-10.2) mg/dL Magnesium (1.6-2.3) mg/dL Total Bilirubin (0.2-1.3) mg/dL AST (17-59) U/L ALT (4-49) U/L Alkaline Phosphatase (38-126) U/L Troponin I (0.000-0.034) ng/mL NT-Pro-B Natriuret Pep 123 pg/mL Total Protein (6.3-8.2) g/dL Albumin (3.5-5.0) g/dL - EKG Data EKG Comments: EKG shows sinus bradycardia with a rate of 58. Sinus arrhythmia, first-degree AV block with TN interval 238 ms. Intervals normal otherwise. Incomplete right bundle branch block. RSR. In V1 and V2. No other acute changes noted. Disposition Clinical Impression: Fall, Hypokalemia, Deep vein thrombosis (DVT) of femoral vein of both lower extremities, Closed head injury, Contusion of right hip, Difficulty in walking Disposition: ADMITTED IP TO THIS HOSP
[2021-07-14 22:23] LABS: Basophils # (A) 0.1 k/uL (0-0.2); Basophils % (A) 1 %; Eosinophils # (A) 0.3 k/uL (0-0.7); Eosinophils % (A) 3 %; HCT 36.6 % (39.0-53.0); HGB 12.1 gm/dL (13.0-17.5); Lymphocytes # (A) 1.1 k/uL (1.0-4.8); Lymphocytes % (A) 13 %; MCH 31.6 pg (25.0-35.0); MCHC 33.1 g/dL (31.0-37.0); MCV 95.5 fL (80.0-100.0); Mean Platelet Volume 8.1; Monocytes # (A) 0.7 k/uL (0-1.0); Monocytes % (A) 8 %; Neutrophils # (A) 6.2 k/uL (1.3-7.7); Neutrophils % (A) 72 %; Platelet Count 354 k/uL (150-450); RBC 3.83 m/uL (4.30-5.90); RDW 14.7 % (11.5-15.5); WBC 8.5 k/uL (3.8-10.6)
[2021-07-14 22:34] LABS: ALT 11 U/L (4-49); AST 21 U/L (17-59); African American GFR (CKD) >90 (>60 ml/min/1.73 sqM); Albumin 4.3 g/dL (3.5-5.0); Alkaline Phosphatase 156 U/L (38-126); Anion Gap 11 mmol/L; Blood Urea Nitrogen 31 mg/dL (9-20); Calcium 9.4 mg/dL (8.4-10.2); Carbon Dioxide 37 mmol/L (22-30); Chloride 88 mmol/L (98-107); Glucose 107 mg/dL (74-99); Magnesium 1.7 mg/dL (1.6-2.3); Non-African American GFR(CKD) 83 (>60 ml/min/1.73 sqM); Potassium 3.2 mmol/L (3.5-5.1); Sodium 136 mmol/L (137-145); Total Bilirubin 0.5 mg/dL (0.2-1.3); Total Protein 7.9 g/dL (6.3-8.2)
--- NOTE | 2021-07-14 23:00 | CT ---
EXAMINATION TYPE: CT brain cspine wo con DATE OF EXAM: 07/14/2021 COMPARISON: CT brain 05/05/2020 HISTORY: fall CT DLP: 1294.5 mGycm Automated exposure control for dose reduction was used. There is mild cerebral atrophy. There is no mass effect nor midline shift. There is no sign of intrac ranial hemorrhage. Skull base is intact. There is normal aeration of the mastoid sinuses. The cervical vertebra have normal alignment. Posterior elements are intact. There is some degenerativ e spurring in the mid and lower cervical spine. There is no compression fracture. Sella turcica appea rs normal. IMPRESSION: Mild atrophy. No acute intracranial abnormality. No change compared to old exam. Spondylotic changes in the mid and lower cervical spine. No fracture seen. Multilevel hypertrophic fa cet arthropathy.
--- NOTE | 2021-07-14 23:15 | XR ---
EXAMINATION TYPE: XR chest 1V portable DATE OF EXAM: 07/14/2021 COMPARISON: 05/05/2020 HISTORY: Chest pain TECHNIQUE: FINDINGS: There is no heart failure or confluent pneumonic infiltrate. Costophrenic angles are clear. There are no hilar masses. Heart size is normal. Bony thorax appears intact. IMPRESSION: No active cardiopulmonary disease. No change.
--- NOTE | 2021-07-14 23:19 | XR ---
EXAMINATION TYPE: XR Hip RT and AP Pelvis DATE OF EXAM: 07/14/2021 COMPARISON: 07/08/2021 HISTORY: Hip pain TECHNIQUE: 3 views FINDINGS: There is some destructive changes on both sides of the right hip joint with cystic areas an d some collapse of the articular surface of the femoral head. There is some osteosclerosis on both si ricky of the hip joint. The sacroiliac joint is intact. There is narrowing of the hip joint space. IMPRESSION: Changes in the right hip joint could relate to avascular necrosis or septic arthritis. Fo llow-up recommended. There is no change compared to recent exam.
--- NOTE | 2021-07-14 23:22 | XR ---
EXAMINATION TYPE: XR femur RT DATE OF EXAM: 07/14/2021 COMPARISON: 07/08/2021 HISTORY: Pain. Fall. TECHNIQUE: 5 views FINDINGS: I see no acute fracture nor dislocation. There is some collapse of the articular surface of the femoral head with cystic changes and sclerosis. There is severe narrowing of the hip joint space . The knee joint appears anatomic. No evidence of knee joint fracture. There is vascular calcificatio n. IMPRESSION: There is deformity of the hip joint consistent with chronic avascular necrosis or chronic septic arthritis which is not changed compared to recent exam. No evidence of fracture of the femora l shaft and knee joint.
--- NOTE | 2021-07-14 23:26 | XR ---
EXAMINATION TYPE: XR tibia fibula RT DATE OF EXAM: 07/14/2021 COMPARISON: NONE HISTORY: Leg pain TECHNIQUE: 4 views FINDINGS: I see no fracture nor dislocation. Knee joint and ankle joint appear anatomic. There is archana e deformity of the distal fibula that could relate to an old injury. There is mild soft tissue swelli ng at the lateral malleolus. IMPRESSION: No acute fracture seen. There is some mild deformity of the distal fibula that could be a n old fracture.
[2021-07-14] MEDS ORDERED: POTASSIUM CHLORIDE ER 20 MEQ TAB.ER PO STA (23:55)
--- NOTE | 2021-07-14 23:55 | US ---
EXAMINATION TYPE: US venous doppler duplex LE DATE OF EXAM: 07/14/2021 11:45 PM COMPARISON: 04/26/2020 CLINICAL HISTORY: pain. Pain. No hx of DVT. Patient not taking blood thinners. SIDE PERFORMED: Bilateral TECHNIQUE: The lower extremity deep venous system is examined utilizing real time linear array sonog daylin with graded compression, doppler sonography and color-flow sonography. VESSELS IMAGED: Common Femoral Vein Deep Femoral Vein Greater Saphenous Vein * Femoral Vein Popliteal Vein Small Saphenous Vein * Proximal Calf Veins (* superficial vessels) Right Leg: CFV appears to compress incompletely, possible chronic internal echoes along wall. Color f low shown in all veins imaged. Left Leg: CFV appears to compress incompletely, possible chronic internal echoes along wall. Color f low shown in all veins imaged. IMPRESSION: There is evidence for bilateral mild chronic deep vein thrombosis in both femoral veins. No evidence of acute deep vein thrombosis. This appears new compared to old exam.
[2021-07-15] MEDS ORDERED: ENOXAPARIN 100 MG/ML SYRINGE SQ STA (00:46)
[2021-07-15] MEDS ORDERED: NALOXONE 0.4 MG/ML 1 ML VIAL IV PRN (01:04)
[2021-07-15] MEDS ORDERED: ONDANSETRON 4 MG/2 ML VIAL IVP PRN (01:04)
[2021-07-15] MEDS: MORPHINE SULFATE 4 MG/ML SYRINGE IV PRN (02:17)
[2021-07-15] MEDS ORDERED: ALBUTEROL NEBULIZED 2.5 MG/3 ML INHALATION PRN (05:39)
--- NOTE | 2021-07-15 06:24 | P.HPIM ---
History of Present Illness H&P Date: 07/15/21 Chief Complaint: fall at home 61 year old male with multiple comorbidities including COPD, CHF, DM patient presented after sustaining a fall at home, where he lives alone, in the bathtub resulting in head injury , denies any preceeding symptoms, he believes it was mechanical fall, denies loss of consciousness . after the fall he could not get up, but then his visiting nurse found him and decided to bring him to the hospital for evaluation . ,he believes the swelling in his legs is limiting his ability to walk, he uses a walker. patient does not provided any other useful information , as he is dosing off during the interview after getting a dose of morphine for his hip pain . he denies any new focal neuro deficits workup in the ED , showed avascular necrosis of the right hip, CT imaging of the brain and c spine, showed no acute pathology . venous duplex US of the lower extremities done and showed femoral vein chronic DVT . blood work showed hypokalemia Review of Systems ROS unobtainable: due to mental status Past Medical History Past Medical History: Heart Failure, COPD, Diabetes Mellitus, GERD/Reflux, Hyperlipidemia, Hypertension, Renal Disease, Seizure Disorder History of Any Multi-Drug Resistant Organisms: None Reported Past Surgical History: Back Surgery Additional Past Surgical History / Comment(s): sinus surgery Past Anesthesia/Blood Transfusion Reactions: No Reported Reaction Past Psychological History: Depression Smoking Status: Current every day smoker Past Alcohol Use History: None Reported Past Drug Use History: None Reported - Past Family History family Family Medical History: No Reported History Medications and Allergies Home Medications Medication Instructions Recorded Confirmed Type Omeprazole 40 mg PO DAILY 10/19/13 07/14/21 History Acetaminophen Tab [Tylenol] 500 mg PO Q6H PRN 02/27/20 07/14/21 History Albuterol Sulfate [Ventolin HFA] 2 puff INHALATION RT-Q4H PRN 02/27/20 07/14/21 History Cholecalciferol [Vitamin D3 (25 50 mcg PO DAILY 02/27/20 07/14/21 History Mcg = 1000 Iu)] DULoxetine HCL [Cymbalta] 60 mg PO BID 02/27/20 07/14/21 History Docusate [Colace] 100 mg PO DAILY 02/27/20 07/14/21 History Furosemide [Lasix] 20 mg PO DAILY 02/27/20 07/14/21 History Morphine Pain Pump (Unknown 1 dose INTRATHECA CONTINUOUS 02/27/20 07/14/21 History Strength) Multivitamins, Thera [Multivitamin 1 tab PO DAILY 02/27/20 07/14/21 History (formulary)] Potassium Chloride [Klor-Con 20] 20 meq PO DAILY 02/27/20 07/14/21 History Tamsulosin HCl [Flomax] 0.8 mg PO DAILY 02/27/20 07/14/21 History gemfibroziL [Lopid] 600 mg PO BID 02/27/20 07/14/21 History lamoTRIgine [LaMICtal] 150 mg PO HS 02/27/20 07/14/21 History metFORMIN HCL [Glucophage] 1,000 mg PO BID 02/27/20 07/14/21 History polyethylene glycoL 3350 [Miralax] 17 gm PO DAILY PRN 02/27/20 07/14/21 History rOPINIRole HCL [Requip] 1 mg PO HS 02/27/20 07/14/21 History Digoxin [Lanoxin] 250 mcg PO DAILY tab 03/01/20 07/14/21 Rx Ammonium Lactate Lotion 1 applic TOPICAL BID 05/06/20 07/14/21 History [Lac-Hydrin 12% Lotion] Finasteride [Proscar] 5 mg PO DAILY 05/06/20 07/14/21 History Ipratropium-Albuterol Nebulize 3 ml INHALATION RT-Q4H PRN 05/06/20 07/14/21 History [Duoneb 0.5 mg-3 mg/3 ml Soln] Naloxegol Oxalate [Movantik] 25 mg PO DAILY 05/06/20 07/14/21 History Simethicone Chew [Mylicon Chew] 80 mg PO QID 05/06/20 07/14/21 History metOLazone [Zaroxolyn] 5 mg PO DAILY 05/06/20 07/14/21 History Atorvastatin [Lipitor] 10 mg PO DAILY 07/14/21 07/14/21 History Budesonide [Pulmicort] 0.5 mg INHALATION RT-BID 07/14/21 07/14/21 History Colchicine 0.6 mg PO BID 07/14/21 07/14/21 History HYDROcodone/APAP 5-325MG [[place] 1 tab PO BID PRN 07/14/21 07/14/21 History 5-325] Midodrine [ProAmatine] 5 mg PO TID 07/14/21 07/14/21 History Mirtazapine [Remeron] 15 mg PO HS 07/14/21 07/14/21 History Pregabalin [Lyrica] 150 mg PO BID 07/14/21 07/14/21 History Allergies Allergy/AdvReac Type Severity Reaction Status Date / Time aspirin AdvReac Mild Rash/Hives Verified 07/14/21 23:05 Physical Exam Vitals: Vital Signs Temp Pulse Resp BP Pulse Ox 07/15/21 00:20 65 18 118/56 100 07/14/21 18:36 97.7 F 52 L 16 103/56 96 Intake and Output 07/14/21 07/14/21 07/15/21 14:59 22:59 06:59 Other: Weight 88.451 kg Constitutional: No acute distress, conversant, pleasant, sleepy easily arousable Eyes: Anicteric sclerae, moist conjunctiva, Pupils equal round reactive to light ENMT: NC/ dry blood over the occipital region , no swelling no pain to palpation Oropharynx clear, no erythema, or exudates, dry mucus membrane Neck: Supple, no masses, or JVD No carotid bruits No thyromegaly Lungs: Clear to auscultation Clear to percussion Normal respiratory effort, no accessory muscle use Cardiovascular: Heart regular in rate and rhythm, No murmurs, gallops, or rubs +1 peripheral edema bilaterally Abdominal: Soft Nontender, no guarding, rebound or rigidity Abdomen moving with respiration Normoactive bowel sounds No hepatomegaly, No splenomegaly No palpable mass No abdominal wall hernia noted Skin: chronic skin changes over bilateral legs, otherwise , Normal te mperature, tone, texture, turgor Extremities: No digital cyanosis No clubbing Pedal pulses intact and symmetrical Radial pulses intact and symmetrical No calf tenderness Psychiatric: sleepy arousable and oriented to person, place Neuro Muscles Strength +3/5 in bialteral lower extremities , and 4/5 bilateral upper extremities Sensation to light touch grossly present throughout Cranial nerves II-XII grossly intact Lymphatics: no palpable cervical or supraclavicular , or inguinal lymph nodes Results CBC & Chem 7: 07/14/21 22:10 02/07/22 22:10 Labs: Abnormal Lab Results - Last 24 Hours (Table) 07/14/21 07/14/21 Range/Units 22:10 22:10 RBC 3.83 L (4.30-5.90) m/uL Hgb 12.1 L (13.0-17.5) gm/dL Hct 36.6 L (39.0-53.0) % Sodium 136 L (137-145) mmol/L Potassium 3.2 L (3.5-5.1) mmol/L Chloride 88 L (98-107) mmol/L Carbon Dioxide 37 H (22-30) mmol/L BUN 31 H (9-20) mg/dL Glucose 107 H (74-99) mg/dL Alkaline Phosphatase 156 H (38-126) U/L Assessment and Plan Assessment: hypokalemia hea injury after a fall chronic DVT lower extremity plan initiated on full anticoagulation using lovenox fall precautions PT eval social media 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
[2021-07-15] MEDS: IPRATROPIUM-ALBUTEROL 3 ML NEB INHALATION PRN (07:13)
[2021-07-15] MEDS: BUDESONIDE 0.5 MG/2 ML NEBU INHALATION SCH ×2 (07:13→19:38)
[2021-07-15 07:34] LABS: Glucose,Whole Blood 128 mg/dL (75-99)
[2021-07-15] MEDS: INSULIN ASPART (NovoLOG) 100 UNIT/ML VIAL SQ SCH ×4 (08:00→21:26)
[2021-07-15] MEDS: DOCUSATE 100 MG CAP PO SCH (08:08)
[2021-07-15] MEDS: POTASSIUM CHLORIDE ER 20 MEQ TAB.ER PO SCH (08:08)
[2021-07-15] MEDS: DULoxetine HCL 60 MG CAPSULE.DR PO SCH ×2 (08:08→21:23)
[2021-07-15] MEDS: TAMSULOSIN 0.4 MG CAP.ER.24H PO SCH (08:08)
[2021-07-15] MEDS: MIDODRINE 5 MG TAB PO SCH ×3 (08:08→21:22)
[2021-07-15] MEDS: PANTOPRAZOLE 40 MG TABLET PO SCH (08:08)
[2021-07-15] MEDS: PREGABALIN 75 MG CAP PO SCH ×2 (08:08→21:22)
[2021-07-15] MEDS: FINASTERIDE 5 MG TAB PO SCH (08:08)
[2021-07-15] MEDS: ATORVASTATIN 10 MG TAB PO SCH (08:09)
[2021-07-15] MEDS ORDERED: PANTOPRAZOLE 40 MG/10 ML VIAL IV SCH (09:00)
[2021-07-15] MEDS ORDERED: LORazepam 2 MG/ML INJ IV STA (09:30)
[2021-07-15] MEDS: DIGOXIN 250 MCG TAB PO SCH (10:07)
[2021-07-15] MEDS: SIMETHICONE 80 MG CHEWABLE PO SCH ×4 (10:07→21:24)
[2021-07-15] MEDS: COLCHICINE 0.6 MG EACH PO SCH ×2 (10:07→21:23)
[2021-07-15] MEDS: ENOXAPARIN 80 MG/0.8 ML SYRINGE SQ SCH ×2 (12:16→21:22)
[2021-07-15 12:21] LABS: Glucose,Whole Blood 125 mg/dL (75-99)
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
[2021-07-15 17:05] LABS: Glucose,Whole Blood 145 mg/dL (75-99)
[2021-07-15 18:02] LABS: Appearance,Urine Clear (Clear); Bilirubin,Urine Negative (Negative); Blood,Urine Negative (Negative); Color,Urine Yellow; Glucose,Urine (UA) Negative (Negative); Ketones,Urine Negative (Negative); Leukocyte Esterase,Urine Negative (Negative); Nitrite,Urine Negative (Negative); PH, Urine 6.5 (5.0-8.0); Protein,Urine Negative (Negative); Specific Gravity,Urine 1.014 (1.001-1.035); Urobilinogen,Urine <2.0 mg/dL (<2.0)
[2021-07-15 21:06] LABS: Glucose,Whole Blood 157 mg/dL (75-99)
[2021-07-15] MEDS: MIRTAZAPINE 15 MG TAB PO SCH (21:22)
[2021-07-15] MEDS: HYDROcodone/APAP 5-325MG 1 EACH TAB PO PRN (21:25)
[2021-07-15] MEDS: lamoTRIgine 100 MG TAB PO SCH (21:31)
[2021-07-16 02:14] LABS: Glucose,Whole Blood 117 mg/dL (75-99)
[2021-07-16 07:02] LABS: Glucose,Whole Blood 138 mg/dL (75-99)
[2021-07-16] MEDS: BUDESONIDE 0.5 MG/2 ML NEBU INHALATION SCH ×2 (07:22→19:41)
[2021-07-16] MEDS: PREGABALIN 75 MG CAP PO SCH ×2 (09:27→20:40)
[2021-07-16] MEDS: TAMSULOSIN 0.4 MG CAP.ER.24H PO SCH (09:27)
[2021-07-16] MEDS: DULoxetine HCL 60 MG CAPSULE.DR PO SCH ×2 (09:27→20:40)
[2021-07-16] MEDS: POTASSIUM CHLORIDE ER 20 MEQ TAB.ER PO SCH (09:27)
[2021-07-16] MEDS: DOCUSATE 100 MG CAP PO SCH (09:27)
[2021-07-16] MEDS: SIMETHICONE 80 MG CHEWABLE PO SCH ×4 (09:28→20:44)
[2021-07-16] MEDS: ATORVASTATIN 10 MG TAB PO SCH (09:28)
[2021-07-16] MEDS: PANTOPRAZOLE 40 MG TABLET PO SCH (09:28)
[2021-07-16] MEDS: DIGOXIN 250 MCG TAB PO SCH (09:29)
[2021-07-16] MEDS: ENOXAPARIN 80 MG/0.8 ML SYRINGE SQ SCH ×2 (09:29→20:39)
[2021-07-16] MEDS: COLCHICINE 0.6 MG EACH PO SCH ×2 (09:29→20:40)
[2021-07-16] MEDS: INSULIN ASPART (NovoLOG) 100 UNIT/ML VIAL SQ SCH ×4 (09:30→20:51)
--- NOTE | 2021-07-16 09:30 | P.PN ---
Subjective Progress Note Date: 07/16/21 Principal diagnosis: right hip pain; AVN of right hip Patient was seen at bedside this morning resting comfortably sitting up in chair with legs elevated. Patient says he is still having some pain in the right hip and decreased range of motion. Patient says he has been ambulating with walker. Patient says he did see Dr. Cuevas in office before for his right hip and said Dr. Cuevas discussed potential right hip steroid injection. Patient denies chest pain, fever, shortness breath, nausea, vomiting, change in vision, loss of bowel control. Objective - Vital Signs Vital signs: Vital Signs Temp 97.9 F 07/16/21 07:00 Pulse 70 07/16/21 07:37 Resp 17 07/16/21 07:00 BP 110/59 07/16/21 07:00 Pulse Ox 93 L 07/16/21 07:00 Intake & Output 07/15/21 07/16/21 07/16/21 18:59 06:59 18:59 Intake Total 118 Output Total 500 600 Balance -500 -482 Weight 88.451 kg Intake: Oral 118 Output: Urine 500 600 Other: Voiding Method Urinal Urinal # Voids 3 1 - Exam Inspection: Negative for any open fractures, erythema, ecchymosis, nodules Sensation: Sensation is equal, symmetric, bilateral intact throughout the upper and lower extremities. Palpation: Moderate tenderness patient over the greater trochanter on the right hip. Moderate tenderness palpation in the anterior right hip region. Nontender to palpation throughout the rest of exam Range of motion: Limited range of motion in right hip flexion/extension due to weakness/pain in the right hip. Full range of motion in all other major motor groups Motor: 3+/5 in resisted right hip flexion/extension. 4+/5 in resisted right knee flexion/extension. 5+/5 in all other major motor groups in the upper and lower extremities Neurovascular status: Radial pulses intact, 2+ bilaterally. Capillary refill under 3 seconds bilaterally in digits of upper extremities Special tests: Negative [place]les[place] bilaterally; negative Homans bilaterally; - Labs CBC & Chem 7: 07/14/21 22:10 07/14/21 22:10 Labs: Abnormal Lab Results - Last 24 Hours (Table) 07/15/21 07/15/21 07/15/21 Range/Units 12:20 17:04 21:01 POC Glucose (mg/dL) 125 H 145 H 157 H (75-99) mg/dL 07/16/21 07/16/21 Range/Units 02:11 06:58 POC Glucose (mg/dL) 117 H 138 H (75-99) mg/dL Assessment and Plan Assessment: 1. Right hip pain; avascular necrosis right hip 2. Multiple medical comorbidities Plan: 1. Right hip pain; avascular necrosis of the right hip - patient was seen at bedside this morning. X-rays of right hip demonstrate no right hip fracture; x- ray positive for avascular necrosis the right hip. At this time we do not recommend any emergent/urgent orthopedic surgical intervention. Recommend use of anti-inflammatories for pain. Patient is orthopedically stable for discharge. At this time orthopedics is signing off. Please do not Hesitate to contact us for any further questions We do recommend patient to follow-up in the outpatient setting for further evaluation. 2. Appreciate medical management 3. Pain management - Tylenol; [place] 4. DVT prophylaxis - Lovenox 5. GI prophylaxis - Protonix; senna 6. PT/OT - weightbearing as tolerated with walker; wheelchair if needed 7. Appreciate consult 8. Encourage incentive spirometer use Time with Patient: Less than 30
[2021-07-16] MEDS: MIDODRINE 5 MG TAB PO SCH ×3 (09:31→20:40)
[2021-07-16] MEDS: FINASTERIDE 5 MG TAB PO SCH (09:31)
[2021-07-16 10:14] LABS: Basophils # (A) 0.06 X 10*3/uL (0.00-0.10); Basophils % (A) 0.9 %; Eosinophils # (A) 0.16 X 10*3/uL (0.04-0.35); Eosinophils % (A) 2.3 %; HCT 36.7 % (39.6-50.0); HGB 11.7 g/dL (13.0-17.0); Immature Grans, Automated 0.3 %; Lymphocytes # (A) 0.87 X 10*3/uL (0.90-5.00); Lymphocytes % (A) 12.7 %; MCH 30.2 pg (27.0-32.0); MCHC 31.9 g/dL (32.0-37.0); MCV 94.8 fL (80.0-97.0); Mean Platelet Volume 10.5 fL (9.5-12.2); Monocytes # (A) 1.01 X 10*3/uL (0.20-1.00); Monocytes % (A) 14.7 %; NRBC Per 100 WBC 0 /100 WBCS (0.0-0.0); Neutrophils # (A) 4.75 X 10*3/uL (1.80-7.70); Neutrophils % (A) 69.1 %; Platelet Count 305 X 10*3/uL (140-440); RBC 3.87 X 10*6/uL (4.40-5.60); RDW 15.1 % (11.5-14.5); WBC 6.87 X 10*3/uL (4.50-10.00)
[2021-07-16 10:27] LABS: Albumin/Globulin Ratio 1.33 (1.60-3.17); Anion Gap 10.9 mmol/L (10.00-18.00); BUN/Creat Ratio 28.44 Ratio (12.00-20.00); Blood Urea Nitrogen 25.6 mg/dL (9.0-27.0); Calcium 9.9 mg/dL (8.7-10.3); Carbon Dioxide 34.1 mmol/L (20.0-27.5); Non-African American GFR(CKD) 90.6 (60.0-200.0); Potassium 3.4 mmol/L (3.5-5.5); Total Bilirubin 0.3 mg/dL (0.30-1.20)
--- NOTE | 2021-07-16 11:18 | P.PN ---
Subjective Patient was examined at bedside today not complaining of any new symptomatology. Poor historian however he is awake alert oriented 3. Patient denies any prior history of DVTs in his lower extremities. He does live at home by himself however I did obtain collateral information from public guardian he does live at home by himself and follows up with [facility] outpatient. They were unable to tell me more about his medical conditions. Objective - Vital Signs Vital signs: Vital Signs Temp 97.9 F 07/16/21 07:00 Pulse 61 07/16/21 09:57 Resp 17 07/16/21 09:57 BP 110/59 07/16/21 07:00 Pulse Ox 93 L 07/16/21 07:00 Intake & Output 07/15/21 07/16/21 07/16/21 18:59 06:59 18:59 Intake Total 118 Output Total 500 600 Balance -500 -482 Weight 88.451 kg Intake: Oral 118 Output: Urine 500 600 Other: Voiding Method Urinal Urinal Urinal # Voids 3 1 - Exam Gen. patient is awake alert oriented 3 however a poor historian in general Cardio normal S1/S2 heard Respiratory no wheezing or rhonchi appreciated Abdomen soft nontender Extremities no pitting edema noted in the lower extremities however some mild pain in the right lower calf which does not seem to be swollen Neuro patient is awake alert oriented 3 Psych poor historian - Labs CBC & Chem 7: 07/16/21 06:58 07/16/21 06:58 Labs: Abnormal Lab Results - Last 24 Hours (Table) 07/15/21 07/15/21 07/15/21 Range/Units 12:20 17:04 21:01 RBC (4.40-5.60) X 10*6/uL Hgb (13.0-17.0) g/dL Hct (39.6-50.0) % MCHC (32.0-37.0) g/dL RDW (11.5-14.5) % Lymphocytes # (0.90-5.00) X 10*3/uL Monocytes # (0.20-1.00) X 10*3/uL Potassium (3.5-5.5) mmol/L Carbon Dioxide (20.0-27.5) mmol/L BUN/Creatinine Ratio (12.00-20.00) Ratio Glucose (70-110) mg/dL POC Glucose (mg/dL) 125 H 145 H 157 H (75-99) mg/dL AST (14-35) U/L ALT (10-49) U/L Alkaline Phosphatase (41-126) U/L Albumin/Globulin Ratio (1.60-3.17) g/dL 07/16/21 07/16/21 07/16/21 Range/Units 02:11 06:58 06:58 RBC 3.87 L (4.40-5.60) X 10*6/uL Hgb 11.7 L (13.0-17.0) g/dL Hct 36.7 L (39.6-50.0) % MCHC 31.9 L (32.0-37.0) g/dL RDW 15.1 H (11.5-14.5) % Lymphocytes # 0.87 L (0.90-5.00) X 10*3/uL Monocytes # 1.01 H (0.20-1.00) X 10*3/uL Potassium 3.4 L (3.5-5.5) mmol/L Carbon Dioxide 34.1 H (20.0-27.5) mmol/L BUN/Creatinine Ratio 28.44 H (12.00-20.00) Ratio Glucose 122 H (70-110) mg/dL POC Glucose (mg/dL) 117 H (75-99) mg/dL AST 11 L (14-35) U/L ALT 7 L (10-49) U/L Alkaline Phosphatase 158 H (41-126) U/L Albumin/Globulin Ratio 1.33 L (1.60-3.17) g/dL 07/16/21 Range/Units 06:58 RBC (4.40-5.60) X 10*6/uL Hgb (13.0-17.0) g/dL Hct (39.6-50.0) % MCHC (32.0-37.0) g/dL RDW (11.5-14.5) % Lymphocytes # (0.90-5.00) X 10*3/uL Monocytes # (0.20-1.00) X 10*3/uL Potassium (3.5-5.5) mmol/L Carbon Dioxide (20.0-27.5) mmol/L BUN/Creatinine Ratio (12.00-20.00) Ratio Glucose (70-110) mg/dL POC Glucose (mg/dL) 138 H (75-99) mg/dL AST (14-35) U/L ALT (10-49) U/L Alkaline Phosphatase (41-126) U/L Albumin/Globulin Ratio (1.60-3.17) g/dL Assessment and Plan Assessment: Assessment: #1 mechanical fall #2 chronic DVTs lower extremity #3 avascular necrosis of the right hip #4 COPD #5 diabetes mellitus #6 chronic kidney disease #7 history of seizure disorder Plan: -Admitted to medicine for close monitoring -Orthopedic service consult and have signed off to follow-up outpatient -Hematology consulted given DVT. Hematology recommendations regarding anticoagulation as he's been started on Lovenox full dose. Reviewing the ultrasound it seems like these are chronic and old DVT in the femoral veins. -PT/OT to evaluate for rehab possibly -Continue with low-dose sliding scale -Resume home medication -Due to prophylaxis currently on Lovenox full dose 80 twice a day
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
[2021-07-16 13:07] LABS: Glucose,Whole Blood 141 mg/dL (75-99)
[2021-07-16 17:23] LABS: Glucose,Whole Blood 209 mg/dL (75-99)
[2021-07-16] MEDS: IPRATROPIUM-ALBUTEROL 3 ML NEB INHALATION PRN (19:41)
[2021-07-16] MEDS: lamoTRIgine 100 MG TAB PO SCH (20:40)
[2021-07-16] MEDS: MIRTAZAPINE 15 MG TAB PO SCH (20:44)
[2021-07-16 20:45] LABS: Glucose,Whole Blood 250 mg/dL (75-99)
[2021-07-17 02:37] LABS: Glucose,Whole Blood 137 mg/dL (75-99)
[2021-07-17] MEDS: BUDESONIDE 0.5 MG/2 ML NEBU INHALATION SCH ×2 (08:01→20:31)
[2021-07-17 08:24] LABS: Glucose,Whole Blood 118 mg/dL (75-99)
--- NOTE | 2021-07-17 09:17 | P.PN ---
Subjective Progress Note Date: 07/17/21 Principal diagnosis: right hip pain; AVN of right hip Patient was seen at bedside this morning resting comfortably sitting up in chair with legs elevated. Patient says he is still having some pain in the right hip and decreased range of motion. Patient says he has been ambulating with walker. Patient says he did see Dr. Cuevas in office before for his right hip and said Dr. Cuevas discussed potential right hip steroid injection. Patient denies chest pain, fever, shortness breath, nausea, vomiting, change in vision, loss of bowel control. Objective - Vital Signs Vital signs: Vital Signs Temp 97.3 F L 07/17/21 07:00 Pulse 62 07/17/21 07:00 Resp 16 07/17/21 07:00 BP 80/42 07/17/21 07:00 Pulse Ox 97 07/17/21 07:00 Intake & Output 07/16/21 07/17/21 07/17/21 18:59 06:59 18:59 Intake Total 318 400 Output Total 975 Balance -657 400 Intake: Oral 318 400 Output: Urine 975 Other: Voiding Method Urinal Urinal Diaper # Voids 0 2 1 - Exam Inspection: Negative for any open fractures, erythema, ecchymosis, nodules Sensation: Sensation is equal, symmetric, bilateral intact throughout the upper and lower extremities. Palpation: Moderate tenderness patient over the greater trochanter on the right hip. Moderate tenderness palpation in the anterior right hip region. Nontender to palpation throughout the rest of exam Range of motion: Limited range of motion in right hip flexion/extension due to weakness/pain in the right hip. Full range of motion in all other major motor groups Motor: 3+/5 in resisted right hip flexion/extension. 4+/5 in resisted right knee flexion/extension. 5+/5 in all other major motor groups in the upper and lower extremities Neurovascular status: Radial pulses intact, 2+ bilaterally. Capillary refill under 3 seconds bilaterally in digits of upper extremities Special tests: Negative Iglesia bilaterally; negative Homans bilaterally; - Labs CBC & Chem 7: 07/16/21 06:58 07/16/21 06:58 Labs: Abnormal Lab Results - Last 24 Hours (Table) 07/16/21 07/16/21 07/16/21 Range/Units 06:58 06:58 13:05 RBC 3.87 L (4.40-5.60) X 10*6/uL Hgb 11.7 L (13.0-17.0) g/dL Hct 36.7 L (39.6-50.0) % MCHC 31.9 L (32.0-37.0) g/dL RDW 15.1 H (11.5-14.5) % Lymphocytes # 0.87 L (0.90-5.00) X 10*3/uL Monocytes # 1.01 H (0.20-1.00) X 10*3/uL Potassium 3.4 L (3.5-5.5) mmol/L Carbon Dioxide 34.1 H (20.0-27.5) mmol/L BUN/Creatinine Ratio 28.44 H (12.00-20.00) Ratio Glucose 122 H (70-110) mg/dL POC Glucose (mg/dL) 141 H (75-99) mg/dL AST 11 L (14-35) U/L ALT 7 L (10-49) U/L Alkaline Phosphatase 158 H (41-126) U/L Albumin/Globulin Ratio 1.33 L (1.60-3.17) g/dL 07/16/21 07/16/21 07/17/21 Range/Units 17:21 20:42 02:06 RBC (4.40-5.60) X 10*6/uL Hgb (13.0-17.0) g/dL Hct (39.6-50.0) % MCHC (32.0-37.0) g/dL RDW (11.5-14.5) % Lymphocytes # (0.90-5.00) X 10*3/uL Monocytes # (0.20-1.00) X 10*3/uL Potassium (3.5-5.5) mmol/L Carbon Dioxide (20.0-27.5) mmol/L BUN/Creatinine Ratio (12.00-20.00) Ratio Glucose (70-110) mg/dL POC Glucose (mg/dL) 209 H 250 H 137 H (75-99) mg/dL AST (14-35) U/L ALT (10-49) U/L Alkaline Phosphatase (41-126) U/L Albumin/Globulin Ratio (1.60-3.17) g/dL 07/17/21 Range/Units 08:04 RBC (4.40-5.60) X 10*6/uL Hgb (13.0-17.0) g/dL Hct (39.6-50.0) % MCHC (32.0-37.0) g/dL RDW (11.5-14.5) % Lymphocytes # (0.90-5.00) X 10*3/uL Monocytes # (0.20-1.00) X 10*3/uL Potassium (3.5-5.5) mmol/L Carbon Dioxide (20.0-27.5) mmol/L BUN/Creatinine Ratio (12.00-20.00) Ratio Glucose (70-110) mg/dL POC Glucose (mg/dL) 118 H (75-99) mg/dL AST (14-35) U/L ALT (10-49) U/L Alkaline Phosphatase (41-126) U/L Albumin/Globulin Ratio (1.60-3.17) g/dL Assessment and Plan Assessment: 1. Right hip pain; avascular necrosis right hip 2. Multiple medical comorbidities Plan: 1. Right hip pain; avascular necrosis of the right hip - patient was seen at bedside this morning. X-rays of right hip demonstrate no right hip fracture; x- ray positive for avascular necrosis the right hip. At this time we do not recommend any emergent/urgent orthopedic surgical intervention. Recommend use of anti-inflammatories for pain. Patient is orthopedically stable for discharge. At this time orthopedics is signing off. Please do not Hesitate to contact us for any further questions We do recommend patient to follow-up in the outpatient setting for further evaluation. 2. Appreciate medical management 3. Pain management - Tylenol; Tie Siding 4. DVT prophylaxis - Lovenox 5. GI prophylaxis - Protonix; senna 6. PT/OT - weightbearing as tolerated with walker; wheelchair if needed 7. Appreciate consult 8. Encourage incentive spirometer use Time with Patient: Less than 30
[2021-07-17] MEDS: PANTOPRAZOLE 40 MG TABLET PO SCH (10:04)
[2021-07-17] MEDS: PREGABALIN 75 MG CAP PO SCH ×2 (10:04→20:42)
[2021-07-17] MEDS: DULoxetine HCL 60 MG CAPSULE.DR PO SCH ×2 (10:04→20:43)
[2021-07-17] MEDS: TAMSULOSIN 0.4 MG CAP.ER.24H PO SCH (10:04)
[2021-07-17] MEDS: POTASSIUM CHLORIDE ER 20 MEQ TAB.ER PO SCH (10:04)
[2021-07-17] MEDS: ATORVASTATIN 10 MG TAB PO SCH (10:04)
[2021-07-17] MEDS: DOCUSATE 100 MG CAP PO SCH (10:04)
[2021-07-17] MEDS: COLCHICINE 0.6 MG EACH PO SCH ×2 (10:05→21:13)
[2021-07-17] MEDS: SIMETHICONE 80 MG CHEWABLE PO SCH ×4 (10:05→21:14)
[2021-07-17] MEDS: MIDODRINE 5 MG TAB PO SCH ×3 (10:05→20:42)
[2021-07-17] MEDS: ENOXAPARIN 80 MG/0.8 ML SYRINGE SQ SCH ×2 (10:05→21:12)
[2021-07-17] MEDS: FINASTERIDE 5 MG TAB PO SCH (10:07)
[2021-07-17] MEDS: DIGOXIN 250 MCG TAB PO SCH (10:08)
[2021-07-17] MEDS: INSULIN ASPART (NovoLOG) 100 UNIT/ML VIAL SQ SCH ×4 (10:08→21:13)
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
[2021-07-17 11:41] LABS: Glucose,Whole Blood 180 mg/dL (75-99)
--- NOTE | 2021-07-17 13:57 | P.PN ---
Subjective Patient was examined at bedside today not complaining of any new symptomatology. Overnight there were concerns regarding bradycardia. Cardiology was appropriately consulted. Today at bedside he denies any chest pain, shortness of breath or palpitations. Objective - Vital Signs Vital signs: Vital Signs Temp 97.3 F L 07/17/21 07:00 Pulse 60 07/17/21 13:38 Resp 16 07/17/21 10:00 BP 87/55 07/17/21 13:38 Pulse Ox 97 07/17/21 07:00 Intake & Output 07/16/21 07/17/21 07/17/21 18:59 06:59 18:59 Intake Total 318 400 120 Output Total 975 Balance -657 400 120 Intake: Oral 318 400 120 Output: Urine 975 Other: Voiding Method Urinal Urinal Urinal Diaper Diaper # Voids 0 2 1 - Exam Gen. patient is awake alert oriented 3 however a poor historian in general Cardio normal S1/S2 heard Respiratory no wheezing or rhonchi appreciated Abdomen soft nontender Extremities no pitting edema noted in the lower extremities however some mild pain in the right lower calf which does not seem to be swollen Neuro patient is awake alert oriented 3 Psych poor historian - Labs CBC & Chem 7: 07/16/21 06:58 07/16/21 06:58 Labs: Abnormal Lab Results - Last 24 Hours (Table) 07/16/21 07/16/21 07/17/21 Range/Units 17:21 20:42 02:06 POC Glucose (mg/dL) 209 H 250 H 137 H (75-99) mg/dL 07/17/21 07/17/21 Range/Units 08:04 11:36 POC Glucose (mg/dL) 118 H 180 H (75-99) mg/dL Assessment and Plan Assessment: Assessment: #1 mechanical fall #2 chronic DVTs lower extremity #3 avascular necrosis of the right hip #4 evidence of sinus node dysfunction presented as sinus bradycardia, bifascicular block with first-degree #5 diabetes mellitus #6 chronic kidney disease #7 history of seizure disorder Plan: -Admitted to medicine for close monitoring -Pending further recommendations from cardiology, 2-D echocardiogram, AV camille valentín agents. Obtain TSH reflex T4 -Orthopedic service consult and have signed off to follow-up outpatient -Hematology recommending possible AC for 6 months. Given patient only had one recent mechanical fall we will initiate Eliquis 5 mg twice a day. Will coordinate with cardio if okay to start. -PT/OT to evaluate for rehab possibly -Continue with low-dose sliding scale -Resume home medication -Due to prophylaxis currently on Lovenox full dose 80 twice a day
--- NOTE | 2021-07-17 14:13 | P.PN ---
Subjective Progress Note Date: 07/17/21 Principal diagnosis: BLE DVT In f/u pt is much more communicative today. He reports his sister dies of a blood clot. Denies any bleeding. Objective - Vital Signs Vital signs: Vital Signs Temp 97.3 F L 07/17/21 07:00 Pulse 60 07/17/21 13:38 Resp 16 07/17/21 10:00 BP 87/55 07/17/21 13:38 Pulse Ox 97 07/17/21 07:00 Intake & Output 07/16/21 07/17/21 07/17/21 18:59 06:59 18:59 Intake Total 318 400 120 Output Total 975 Balance -657 400 120 Intake: Oral 318 400 120 Output: Urine 975 Other: Voiding Method Urinal Urinal Urinal Diaper Diaper # Voids 0 2 1 - Constitutional General appearance: Present: average body habitus, cooperative, no acute distress - EENT Eyes: Present: anicteric sclerae, EOMI, poor dentition ENT: Present: hearing grossly normal - Respiratory Details: resp even and unlabored - Integumentary Integumentary: Present: pale - Musculoskeletal Musculoskeletal: Present: generalized weakness - Psychiatric Psychiatric: Present: A&O x's 3 - Labs CBC & Chem 7: 07/16/21 06:58 07/16/21 06:58 Labs: Abnormal Lab Results - Last 24 Hours (Table) 07/16/21 07/16/21 07/17/21 Range/Units 17:21 20:42 02:06 POC Glucose (mg/dL) 209 H 250 H 137 H (75-99) mg/dL 07/17/21 07/17/21 Range/Units 08:04 11:36 POC Glucose (mg/dL) 118 H 180 H (75-99) mg/dL Assessment and Plan (1) Deep vein thrombosis (DVT) of femoral vein of both lower extremities Narrative/Plan: 04/26/20 doppler report reviewed, no DVT. Current report showing incomplete compression of Bilateral CFV, reported as chronic. I am corrected-Pt chronic provoking factor, vascular insufficiency, is a moderate risk factor for DVT, and this risk increased further when combined with decreased mobility. Would recommend 6 mo anticoagulation with doppler reevaluation of BLE. Lifelong anticoagulation would be considered due to moderate chronic risk factors. May be able to consider decreased dose at that time. Will defer decision to anticoagulate to Primary (risk vs benefit with pt falling). Did contact Public [employer] to clarify pt living situation and confirm sister Hx of blood clot. Pt is on treatment dose lovenox currently. Not certain if pt is capable of giving himself injections. Recommend columnist/commentator of pt ability perform task and understanding appropriate medication administration. Current Visit: Yes Status: Acute Priority: Medium Code(s): I82.413 - ACUTE EMBOLISM AND THROMBOSIS OF FEMORAL VEIN, BILATERAL SNOMED Code(s): 167411665 Plan: Will check a PSA because of history, just ordered today.
[2021-07-17 14:31] LABS: Glucose,Whole Blood 119 mg/dL (75-99)
[2021-07-17] MEDS ORDERED: SODIUM CHLORIDE 0.9% 500 ML 500 ML IV ONE (15:15)
[2021-07-17 16:02] LABS: Glucose,Whole Blood 206 mg/dL (75-99)
[2021-07-17] MEDS: SODIUM CHLORIDE 0.9% 1,000 ML IV SCH ×2 (16:21→20:41)
[2021-07-17] MEDS: IPRATROPIUM-ALBUTEROL 3 ML NEB INHALATION PRN (20:31)
[2021-07-17 20:40] LABS: Glucose,Whole Blood 127 mg/dL (75-99)
[2021-07-17] MEDS: lamoTRIgine 100 MG TAB PO SCH (20:42)
[2021-07-17] MEDS: MIRTAZAPINE 15 MG TAB PO SCH (22:15)
[2021-07-18 06:24] LABS: HCT 33.1 % (39.0-53.0); HGB 10.8 gm/dL (13.0-17.5); MCH 31.6 pg (25.0-35.0); MCHC 32.8 g/dL (31.0-37.0); MCV 96.3 fL (80.0-100.0); Mean Platelet Volume 8.1; Platelet Count 276 k/uL (150-450); RBC 3.44 m/uL (4.30-5.90); RDW 15.1 % (11.5-15.5); WBC 6.6 k/uL (3.8-10.6)
[2021-07-18 06:48] LABS: African American GFR (CKD) >90 (>60 ml/min/1.73 sqM); Anion Gap 4 mmol/L; Blood Urea Nitrogen 29 mg/dL (9-20); Calcium 9.3 mg/dL (8.4-10.2); Carbon Dioxide 34 mmol/L (22-30); Chloride 101 mmol/L (98-107); Glucose 127 mg/dL (74-99); Non-African American GFR(CKD) 86 (>60 ml/min/1.73 sqM); Potassium 3.8 mmol/L (3.5-5.1); Sodium 139 mmol/L (137-145)
[2021-07-18 07:16] LABS: Glucose,Whole Blood 133 mg/dL (75-99)
[2021-07-18] MEDS: PANTOPRAZOLE 40 MG TABLET PO SCH (07:32)
[2021-07-18] MEDS: INSULIN ASPART (NovoLOG) 100 UNIT/ML VIAL SQ SCH ×4 (07:32→21:05)
[2021-07-18] MEDS: ENOXAPARIN 80 MG/0.8 ML SYRINGE SQ SCH ×2 (08:04→20:34)
[2021-07-18] MEDS: ATORVASTATIN 10 MG TAB PO SCH (08:05)
[2021-07-18] MEDS: TAMSULOSIN 0.4 MG CAP.ER.24H PO SCH (08:05)
[2021-07-18] MEDS: POTASSIUM CHLORIDE ER 20 MEQ TAB.ER PO SCH (08:05)
[2021-07-18] MEDS: MIDODRINE 5 MG TAB PO SCH ×3 (08:05→21:00)
[2021-07-18] MEDS: FINASTERIDE 5 MG TAB PO SCH (08:05)
[2021-07-18] MEDS: PREGABALIN 75 MG CAP PO SCH ×2 (08:05→20:34)
[2021-07-18] MEDS: DOCUSATE 100 MG CAP PO SCH (08:06)
[2021-07-18] MEDS: SIMETHICONE 80 MG CHEWABLE PO SCH ×4 (08:06→21:00)
[2021-07-18] MEDS: COLCHICINE 0.6 MG EACH PO SCH ×2 (08:06→20:34)
[2021-07-18] MEDS: DULoxetine HCL 60 MG CAPSULE.DR PO SCH ×2 (08:06→20:34)
--- NOTE | 2021-07-18 08:39 | P.PN ---
Subjective HISTORY OF PRESENTING ILLNESS The patient is a 61-year-old gentleman with a past medical history significant for hypertension was brought to the hospital by his visiting nurse after he was found on the floor at home. The patient somewhat is a poor historian. He does have hypertension and he follows with Dr. Garcia regularly. He was in his usual state of health where he was in the shower yesterday when he fell and he stated that he "blackouts". He clearly lost his consciousness without any prodromal symptoms of foreign feeling in the face or any symptoms of nausea or vomiting and no other symptoms of heart racing or fluttering or chest pain or chest discomfort or shortness of breath. As a matter of fact the patient was diagnosed with avascular necrosis of the right hip and currently orthopedic surgeries on the case. We consulted to see the patient mainly because off bradycardia. The patient did have a bradycardia with heart rate in the 50s but also he did have multiple episodes of sinus pauses up to about 6 seconds in the oracle drm consultant and he was sleeping during these episodes. His EKG showed sinus rhythm with first-degree AV block and evidence of incomplete RBBB. The QRS complex is not wide. He is not on any AV camille valentín agents here or at home. Thyroid function was not investigated yet. Currently he is in process of having an echocardiogram and also going to obtain a TSH and free T4 to rule out any thyroid disease which could be contributing to his bradycardia. Beside that were going to obtain serial cardiac enzymes to rule out acute coronary event. Definitely the way how his his syncope happened which was associated with injury is concerning for cardiac syncope and we are concerned about evidence of sinus node dysfunction. 07/18 Patient seen and examined. Patient still having episodes of sinus arrest with pauses over 3 seconds. He had a few during exam and admits he gets lightheaded with these episodes in front of me. Blood pressures been stable on the [place]. No fevers or chills. No shortness breath. He admits he has been found lightheaded over the last 3 months while at [place]. PHYSICAL EXAMINATION Vital signs reviewed. CONSTITUTIONAL: No apparent distress. HEENT: Head is normocephalic. Pupils are equal, round. Sclerae anicteric. Mucous membranes of the mouth are moist. No JVD. No carotid bruit. CHEST EXAMINATION: Lungs are clear to auscultation. No chest wall tenderness is noted on palpation or with deep breathing. HEART EXAMINATION: Regular rate and rhythm. S1, S2 heard. No murmurs, gallops or rub. ABDOMEN: Soft, nontender. Positive bowel sounds. EXTREMITIES: 2+ peripheral pulses, no lower extremity edema and no calf tenderness. NEUROLOGIC EXAMINATION: Patient is awake, alert and oriented x3. Assessment #1 syncope likely cardiogenic related to sinus arrest #2 evidence of sinus node dysfunction presented as sinus bradycardia as well as sinus arrest, symptomatic with episodes of lightheadedness clearly corresponding with sinus arrest #3 abnormal EKG with evidence of bifascicular block consistent with first-degree AV block and RBBB #4 hypertension Plan Troponins noted to be normal and no evidence of acute coronary syndrome. Patient clearly having symptomatic sinus bradycardia and syncope likely related to sinus arrest. Therefore discussed indications for pacemaker. Discussed risks and benefits and patient is agreeable. Await 2-D echo to further evaluate whether AICD or biventricular pacemaking would be indicated however we will make arrangements for permanent pacemaker. Further recommendations to follow. Objective - Vital Signs Vital signs: Vital Signs Temp 98.2 F 07/18/21 04:00 Pulse 57 L 07/18/21 08:00 Resp 20 07/18/21 08:00 BP 103/61 07/18/21 08:00 Pulse Ox 91 L 07/18/21 07:00 Intake & Output 07/17/21 07/18/21 07/18/21 18:59 06:59 18:59 Intake Total 1140 1800 660 Output Total 500 800 400 Balance 640 1000 260 Intake: IV 200 1200 300 Sodium Chloride 0.9% 1, 200 1200 300 000 ml @ 100 mls/hr IV . Q10H [facility] Rx#:[id number] Intake, IV Titration 500 Amount Sodium Chloride 0.9% 500 500 ml 500 ml @ 999 mls/hr IV .Q31M [facility] Rx#:[id number] Oral 440 600 360 Output: Urine 500 800 400 Other: Voiding Method Urinal Urinal Urinal # Voids 0 - Labs CBC & Chem 7: 07/18/21 05:50 07/18/21 05:50 Labs: Abnormal Lab Results - Last 24 Hours (Table) 07/17/21 07/17/21 07/17/21 Range/Units 11:36 14:27 16:00 RBC (4.30-5.90) m/uL Hgb (13.0-17.5) gm/dL Hct (39.0-53.0) % Carbon Dioxide (22-30) mmol/L BUN (9-20) mg/dL Glucose (74-99) mg/dL POC Glucose (mg/dL) 180 H 119 H 206 H (75-99) mg/dL 07/17/21 07/18/21 07/18/21 Range/Units 20:37 05:50 05:50 RBC 3.44 L (4.30-5.90) m/uL Hgb 10.8 L (13.0-17.5) gm/dL Hct 33.1 L (39.0-53.0) % Carbon Dioxide 34 H (22-30) mmol/L BUN 29 H (9-20) mg/dL Glucose 127 H (74-99) mg/dL POC Glucose (mg/dL) 127 H (75-99) mg/dL 07/18/21 Range/Units 07:09 RBC (4.30-5.90) m/uL Hgb (13.0-17.5) gm/dL Hct (39.0-53.0) % Carbon Dioxide (22-30) mmol/L BUN (9-20) mg/dL Glucose (74-99) mg/dL POC Glucose (mg/dL) 133 H (75-99) mg/dL
[2021-07-18] MEDS: BUDESONIDE 0.5 MG/2 ML NEBU INHALATION SCH ×2 (08:53→20:02)
[2021-07-18] MEDS: HYOSCYAMINE SULFATE 0.375 MG TAB.ER.12H PO SCH ×2 (08:59→20:34)
--- NOTE | 2021-07-18 11:01 | ECHOF ---
Referral Reason:LV function MEASUREMENTS -------- HEIGHT: 172.7 cm WEIGHT: 88.5 kg BP: RVIDd: 3.3 cm (< 3.3) IVSd: 0.9 cm (0.6 - 1.1) LVIDd: 5.1 cm (3.9 - 5.3) LVPWd: 1.1 cm (0.6 - 1.1) IVSs: 1.2 cm LVIDs: 3.9 cm LVPWs: 1.0 cm LA Diam: 3.3 cm (2.7 - 3.8) Ao Diam: 3.4 cm (2.0 - 3.7) AV Cusp: 1.8 cm (1.5 - 2.6) LA Diam: 3.1 cm (2.7 - 3.8) MV E Neftali: 0.52 m/s MV DecT: 242 ms MV A Neftali: 0.54 m/s MV E/A Ratio: 0.96 RAP: 5.00 mmHg RVSP: 11.07 mmHg FINDINGS -------- Sinus rhythm. This was a techncally difficult study with suboptimal views, , Lumason utilized for enhancement of im ages. LV size, wall thickness and systolic function are normal, with an EF greater than 55%. The left argenis tricular size is normal. The right ventricle is normal in size. The left atrial size is normal. The right atrial size is normal. 5.0mg OF Lumason UTLIZED: 2 OR MORE WALL SEGMENTS NOT VISUALIZED. The aortic valve was not well visualized. Mild mitral regurgitation is present. Mild tricuspid regurgitation present. Right ventricular systolic pressure is normal at < 35 mmHg. The pulmonic valve was not well visualized. There is no pericardial effusion. CONCLUSIONS -------- 1. This was a techncally difficult study with suboptimal views, , Lumason utilized for enhancement of images. 2. LV size, wall thickness and systolic function are normal, with an EF greater than 55%. 3. The left ventricular size is normal. 4. The right ventricle is normal in size. 5. The left atrial size is normal. 6. The right atrial size is normal. 7. 5.0mg OF Lumason UTLIZED: 2 OR MORE WALL SEGMENTS NOT VISUALIZED. 8. The aortic valve was not well visualized. 9. Mild mitral regurgitation is present. 10. Mild tricuspid regurgitation present. 11. The pulmonic valve was not well visualized. 12. There is no pericardial effusion. INSURANCE MANAGER: Margaret Montoya RDCS
[2021-07-18 11:40] LABS: Glucose,Whole Blood 143 mg/dL (75-99)
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
--- NOTE | 2021-07-18 14:45 | P.PN ---
Subjective Patient was examined at bedside today not complaining of any new symptomatology is including chest pain, shortness of breath or palpitations. During my examination his heart rate does fluctuate anywhere from the low 30s to 90s. Objective - Vital Signs Vital signs: Vital Signs Temp 98.2 F 07/18/21 04:00 Pulse 58 L 07/18/21 13:00 Resp 10 L 07/18/21 13:00 BP 121/55 07/18/21 13:00 Pulse Ox 91 L 07/18/21 07:00 Intake & Output 07/17/21 07/18/21 07/18/21 18:59 06:59 18:59 Intake Total 1140 1800 1060 Output Total 697 848 1875 Balance 640 1000 -415 Intake: IV 200 1200 700 Sodium Chloride 0.9% 1, 200 1200 700 000 ml @ 100 mls/hr IV . Q10H MARY Rx#:[id number] Intake, IV Titration 500 Amount Sodium Chloride 0.9% 500 500 ml 500 ml @ 999 mls/hr IV .Q31M ONE Rx#:[id number] Oral 440 600 360 Output: Urine 227 893 2487 Other: Voiding Method Urinal Urinal Urinal # Voids 0 - Exam Gen. patient is awake alert oriented 3 however a poor historian in general Cardio normal S1/S2 heard Respiratory no wheezing or rhonchi appreciated Abdomen soft nontender Extremities no pitting edema noted in the lower extremities however some mild pain in the right lower calf which does not seem to be swollen Neuro patient is awake alert oriented 3 Psych poor historian - Labs CBC & Chem 7: 07/18/21 05:50 07/18/21 05:50 Labs: Abnormal Lab Results - Last 24 Hours (Table) 07/17/21 07/17/21 07/18/21 Range/Units 16:00 20:37 05:50 RBC 3.44 L (4.30-5.90) m/uL Hgb 10.8 L (13.0-17.5) gm/dL Hct 33.1 L (39.0-53.0) % Carbon Dioxide (22-30) mmol/L BUN (9-20) mg/dL Glucose (74-99) mg/dL POC Glucose (mg/dL) 206 H 127 H (75-99) mg/dL 07/18/21 07/18/21 07/18/21 Range/Units 05:50 07:09 11:38 RBC (4.30-5.90) m/uL Hgb (13.0-17.5) gm/dL Hct (39.0-53.0) % Carbon Dioxide 34 H (22-30) mmol/L BUN 29 H (9-20) mg/dL Glucose 127 H (74-99) mg/dL POC Glucose (mg/dL) 133 H 143 H (75-99) mg/dL Assessment and Plan Plan: Assessment: #1 mechanical fall #2 chronic DVTs lower extremity #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 -Orthopedic service consult and have signed off to follow-up outpatient -Hematology recommending possible AC for 6 months. Given patient only had one recent mechanical fall we will initiate Eliquis 5 mg twice a day. Will coordinate with cardio if okay to start. -PT/OT to evaluate for rehab possibly -Continue with low-dose sliding scale -Resume home medication -DVT prophylaxis currently on Lovenox full dose 80 twice a day
[2021-07-18] MEDS: SODIUM CHLORIDE 0.9% 1,000 ML IV SCH ×2 (16:52→21:00)
--- NOTE | 2021-07-18 18:47 | P.PN ---
Subjective Progress Note Date: 07/18/21 Principal diagnosis: BLE DVTS Patient seen and examined this am. Per family there is a concern of safety with recent falls, however from a hematology standpoint we would recommend AC therapy ongoing given his increased risks of chronic venous insufficiency and decreased mobility. Ultimately close following with PCP and final recommendations related to the safety and fall risk on anticoagulation will be deferred to pcp Objective - Vital Signs Vital signs: Vital Signs Temp 98.2 F 07/18/21 04:00 Pulse 54 L 07/18/21 10:00 Resp 18 07/18/21 10:00 BP 104/55 07/18/21 10:00 Pulse Ox 91 L 07/18/21 07:00 Intake & Output 07/17/21 07/18/21 07/18/21 18:59 06:59 18:59 Intake Total 1140 1800 760 Output Total 500 800 800 Balance 640 1000 -40 Intake: IV 200 1200 400 Sodium Chloride 0.9% 1, 200 1200 400 000 ml @ 100 mls/hr IV . Q10H MARY Rx#:[id number] Intake, IV Titration 500 Amount Sodium Chloride 0.9% 500 500 ml 500 ml @ 999 mls/hr IV .Q31M ONE Rx#:[id number] Oral 440 600 360 Output: Urine 500 800 800 Other: Voiding Method Urinal Urinal Urinal # Voids 0 - Exam - Constitutional General appearance: Present: average body habitus, cooperative, no acute distress - EENT Eyes: Present: anicteric sclerae, EOMI, poor dentition ENT: Present: hearing grossly normal - Respiratory Details: resp even and unlabored - Integumentary Integumentary: Present: pale - Musculoskeletal Musculoskeletal: Present: generalized weakness - Psychiatric Psychiatric: Present: A&O x's 3 - Labs CBC & Chem 7: 07/18/21 05:50 07/18/21 05:50 Labs: Abnormal Lab Results - Last 24 Hours (Table) 07/17/21 07/17/21 07/17/21 Range/Units 14:27 16:00 20:37 RBC (4.30-5.90) m/uL Hgb (13.0-17.5) gm/dL Hct (39.0-53.0) % Carbon Dioxide (22-30) mmol/L BUN (9-20) mg/dL Glucose (74-99) mg/dL POC Glucose (mg/dL) 119 H 206 H 127 H (75-99) mg/dL 07/18/21 07/18/21 07/18/21 Range/Units 05:50 05:50 07:09 RBC 3.44 L (4.30-5.90) m/uL Hgb 10.8 L (13.0-17.5) gm/dL Hct 33.1 L (39.0-53.0) % Carbon Dioxide 34 H (22-30) mmol/L BUN 29 H (9-20) mg/dL Glucose 127 H (74-99) mg/dL POC Glucose (mg/dL) 133 H (75-99) mg/dL 07/18/21 Range/Units 11:38 RBC (4.30-5.90) m/uL Hgb (13.0-17.5) gm/dL Hct (39.0-53.0) % Carbon Dioxide (22-30) mmol/L BUN (9-20) mg/dL Glucose (74-99) mg/dL POC Glucose (mg/dL) 143 H (75-99) mg/dL Assessment and Plan Plan: Assessment and Plan (1) Deep vein thrombosis (DVT) of femoral vein of both lower extremities Narrative/Plan: 04/26/20 doppler report reviewed, no DVT. Current report showing incomplete compression of Bilateral CFV, reported as chronic. Pt chronic provoking factor, vascular insufficiency, is a moderate risk factor for DVT, and this risk increased further when combined with decreased mobility. Would recommend 6 mo anticoagulation with doppler reevaluation of BLE. Lifelong anticoagulation would be considered due to moderate chronic risk factors. May be able to consider decreased dose at that time. Will defer decision to anticoagulate to Primary (risk vs benefit with pt falling). Current Visit: Yes Status: Acute Priority: Medium Code(s): I82.413 - ACUTE EMBOLISM AND THROMBOSIS OF FEMORAL VEIN, BILATERAL SNOMED Code(s): 051209076 Plan: Patient seen and examined this am. Per family there is a concern of safety with recent falls, however from a hematology standpoint we would recommend AC therapy ongoing given his increased risks of chronic venous insufficiency and decreased mobility. Ultimately close following with PCP and final recommendations related to the safety and fall risk on anticoagulation will be deferred to pcp Physician Attest: I have completed the full history and physical and agree with above dictation, dictated as a ascribe
[2021-07-18] MEDS: IPRATROPIUM-ALBUTEROL 3 ML NEB INHALATION PRN (20:02)
[2021-07-18] MEDS: lamoTRIgine 100 MG TAB PO SCH (20:34)
[2021-07-18] MEDS: MIRTAZAPINE 15 MG TAB PO SCH (20:34)
[2021-07-18 21:00] LABS: Glucose,Whole Blood 128 mg/dL (75-99)
[2021-07-18 21:19] LABS: Glucose,Whole Blood 128 mg/dL (75-99)
[2021-07-18 23:34] LABS: Glucose,Whole Blood 109 mg/dL (75-99)
[2021-07-19] MEDS: ACETAMINOPHEN TAB 325 MG TAB PO PRN (06:10)
[2021-07-19 06:29] LABS: Glucose,Whole Blood 100 mg/dL (75-99)
[2021-07-19] MEDS: PANTOPRAZOLE 40 MG TABLET PO SCH (06:29)
[2021-07-19] MEDS: INSULIN ASPART (NovoLOG) 100 UNIT/ML VIAL SQ SCH ×4 (06:30→23:36)
[2021-07-19] MEDS: BUDESONIDE 0.5 MG/2 ML NEBU INHALATION SCH ×2 (07:30→21:32)
[2021-07-19 07:54] LABS: Basophils % (A) 1 %; Eosinophils # (A) 0.2 k/uL (0-0.7); Eosinophils % (A) 3 %; HCT 34.4 % (39.0-53.0); HGB 11.5 gm/dL (13.0-17.5); Lymphocytes # (A) 0.5 k/uL (1.0-4.8); Lymphocytes % (A) 10 %; MCH 32.6 pg (25.0-35.0); MCHC 33.4 g/dL (31.0-37.0); MCV 97.5 fL (80.0-100.0); Mean Platelet Volume 8.6; Monocytes # (A) 0.4 k/uL (0-1.0); Monocytes % (A) 8 %; Neutrophils % (A) 75 %; Platelet Count 226 k/uL (150-450); RBC 3.53 m/uL (4.30-5.90); RDW 14.7 % (11.5-15.5); WBC 5.3 k/uL (3.8-10.6)
[2021-07-19 08:09] LABS: African American GFR (CKD) >90 (>60 ml/min/1.73 sqM); Anion Gap 4 mmol/L; Blood Urea Nitrogen 21 mg/dL (9-20); Calcium 9.6 mg/dL (8.4-10.2); Carbon Dioxide 34 mmol/L (22-30); Chloride 103 mmol/L (98-107); Glucose 112 mg/dL (74-99); Non-African American GFR(CKD) >90 (>60 ml/min/1.73 sqM); Potassium 4.1 mmol/L (3.5-5.1); Sodium 141 mmol/L (137-145)
--- NOTE | 2021-07-19 09:19 | P.PN ---
Subjective Patient was examined about serotonin not complaining of any new symptomatology. He denies any active chest pain, shortness of breath or palpitations. He does complain of nonspecific tingling sensation in his hands which is chronic and he receives steroid injections by his PCP including his hip. No new neurologic deficits noted strength 5 out of 5 upper and lower extremity. Objective - Vital Signs Vital signs: Vital Signs Temp 97.9 F 07/19/21 04:00 Pulse 40 L 07/19/21 07:00 Resp 16 07/19/21 07:00 BP 113/51 07/19/21 07:00 Pulse Ox 92 L 07/19/21 07:00 Intake & Output 07/18/21 07/19/21 07/19/21 18:59 06:59 18:59 Intake Total 1920 1200 100 Output Total 2125 800 50 Balance -205 400 50 Weight 76.8 kg Intake: IV 1200 1200 100 Sodium Chloride 0.9% 1, 1200 1200 100 000 ml @ 100 mls/hr IV . Q10H MARY Rx#:[id number] Oral 720 Output: Urine 2125 800 50 Other: Voiding Method Urinal Urinal # Voids 1 - Exam Gen. patient is awake alert oriented 3 however a poor historian in general Cardio normal S1/S2 heard Respiratory no wheezing or rhonchi appreciated Abdomen soft nontender Extremities no pitting edema noted in the lower extremities however some mild pain in the right lower calf which does not seem to be swollen Neuro patient is awake alert oriented 3 -Nonspecific tingling sensation involving his hands -5 out of 5 strength in the upper and lower extremity, sensation intact Psych poor historian - Labs CBC & Chem 7: 07/19/21 07:35 07/19/21 07:35 Labs: Abnormal Lab Results - Last 24 Hours (Table) 07/18/21 07/18/21 07/18/21 Range/Units 11:38 20:57 21:17 RBC (4.30-5.90) m/uL Hgb (13.0-17.5) gm/dL Hct (39.0-53.0) % Lymphocytes # (1.0-4.8) k/uL Carbon Dioxide (22-30) mmol/L BUN (9-20) mg/dL Glucose (74-99) mg/dL POC Glucose (mg/dL) 143 H 128 H 128 H (75-99) mg/dL 07/18/21 07/19/21 07/19/21 Range/Units 23:32 06:27 07:35 RBC 3.53 L (4.30-5.90) m/uL Hgb 11.5 L (13.0-17.5) gm/dL Hct 34.4 L (39.0-53.0) % Lymphocytes # 0.5 L (1.0-4.8) k/uL Carbon Dioxide (22-30) mmol/L BUN (9-20) mg/dL Glucose (74-99) mg/dL POC Glucose (mg/dL) 109 H 100 H (75-99) mg/dL 07/19/21 Range/Units 07:35 RBC (4.30-5.90) m/uL Hgb (13.0-17.5) gm/dL Hct (39.0-53.0) % Lymphocytes # (1.0-4.8) k/uL Carbon Dioxide 34 H (22-30) mmol/L BUN 21 H (9-20) mg/dL Glucose 112 H (74-99) mg/dL POC Glucose (mg/dL) (75-99) mg/dL Assessment and Plan Plan: Assessment: #1 mechanical fall #2 chronic DVTs lower extremity #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 -Orthopedic service consult and have signed off to follow-up outpatient -Hematology recommending possible AC for 6 months. Given patient only had one recent mechanical fall we will initiate Eliquis 5 mg twice a day. Will coordinate with cardio if okay to start. -PT/OT to evaluate for rehab possibly -Continue with low-dose sliding scale -We'll obtain vitamin B12 levels. -Resume home medication -DVT prophylaxis currently on Lovenox full dose 80 twice a day
[2021-07-19] MEDS: PREGABALIN 75 MG CAP PO SCH ×2 (09:33→20:21)
[2021-07-19] MEDS: ATORVASTATIN 10 MG TAB PO SCH (09:34)
[2021-07-19] MEDS: DOCUSATE 100 MG CAP PO SCH (09:34)
[2021-07-19] MEDS: COLCHICINE 0.6 MG EACH PO SCH ×2 (09:34→20:20)
[2021-07-19] MEDS: MIDODRINE 5 MG TAB PO SCH ×3 (09:34→21:05)
[2021-07-19] MEDS: POTASSIUM CHLORIDE ER 20 MEQ TAB.ER PO SCH (09:34)
[2021-07-19] MEDS: DULoxetine HCL 60 MG CAPSULE.DR PO SCH ×2 (09:34→20:21)
[2021-07-19] MEDS: SIMETHICONE 80 MG CHEWABLE PO SCH ×4 (09:34→21:04)
[2021-07-19] MEDS: HYOSCYAMINE SULFATE 0.375 MG TAB.ER.12H PO SCH ×2 (09:34→20:21)
[2021-07-19] MEDS: TAMSULOSIN 0.4 MG CAP.ER.24H PO SCH (09:34)
[2021-07-19] MEDS: FINASTERIDE 5 MG TAB PO SCH (09:35)
[2021-07-19] MEDS: ENOXAPARIN 80 MG/0.8 ML SYRINGE SQ SCH ×2 (09:35→20:21)
[2021-07-19] MEDS: SODIUM CHLORIDE 0.9% 1,000 ML IV SCH ×2 (11:07→20:40)
--- NOTE | 2021-07-19 11:10 | P.PN ---
Subjective Progress Note Date: 07/19/21 Principal diagnosis: Cardiogenic syncope This is a 61-year-old white male with history of hypertension, admitted initially on 07/14/21, mostly because falling at home, and the patient is not a great historian. Patient was admitted to the regular medical floor, and apparently he was noted to have intermittent episodes of profound bradycardia, and at one point he had multiple episodes of sinus pauses for about 6 seconds EKG showed first-degree AV block and incomplete right bundle branch block. Patient is not on any AV camille valentín agents, this was noted on the regular medical floor yesterday, hence I was notified about this patient and he was transferred to the ICU. In the ICU patient continued to have intermittent episodes of sinus positives, seen by cardiology today, and the plan is to proceed with pacemaker implantation sometime later today hopefully. It was clearly felt that his syncopal episodes are cardiogenic in nature related sinus and less. Venous Doppler on this patient showed chronic bilateral deep vein thrombosis. This was noted in both femoral veins. Again the findings were not felt to be acute deep vein thromboses. But rather chronic. Labs today showed relatively normal CBC, normal electrolytes, normal renal profile. Chest x-ray on admission showed no active cardiopulmonary disease. Reevaluated today on 07/19/2021, patient remains in the ICU, he is relatively asymptomatic, continues to have sinus pauses, cardiology is considering pacem peter implantation, but so far it is undecided. In the meantime the patient is hemodynamically stable, he is not in any distress, and he is basically monitored in the ICU until a pacemaker is place. CBC is relatively normal index was abnormal lab profile is normal Objective - Vital Signs Vital signs: Vital Signs Temp 96.7 F L 07/19/21 08:00 Pulse 50 L 07/19/21 11:00 Resp 17 07/19/21 11:00 BP 98/53 07/19/21 10:00 Pulse Ox 94 L 07/19/21 11:00 Intake & Output 07/18/21 07/19/21 07/19/21 18:59 06:59 18:59 Intake Total 1920 1200 1250 Output Total 2125 800 70 Balance -392 832 3573 Weight 76.8 kg Intake: IV 1200 1200 400 Sodium Chloride 0.9% 1, 1200 1200 400 000 ml @ 100 mls/hr IV . Q10H MARY Rx#:[id number] Oral 720 850 Output: Urine 2125 800 70 Other: Voiding Method Urinal Urinal External Catheter # Voids 1 - Exam Physical Exam: Revealed a 61-year-old white male, in no distress. On room air. Head: Atraumatic, normocephalic. HEENT:[Neck is supple.] [No neck masses.] [No thyromegaly.] [No JVD.] Chest: [Clear throughout, no crackles, no rhonchi, no wheezes.] Cardiac Exam: [Normal S1 and S2, no S3 gallop, no murmur.] Abdomen: [Soft, nontender, no megaly, no rebound, no guarding, normal bowel sounds.] Extremities: [No clubbing, no edema, no cyanosis.] Neurological Exam: [No focal neurologic deficit.] Alert oriented 3. Psychiatric: Depressed mood, blunt affect, slow and normal mental status. Skin: No rashes. Musculoskeletal: No deformities and no limitation in range of motion. - Labs CBC & Chem 7: 07/19/21 07:35 07/19/21 07:35 Labs: Abnormal Lab Results - Last 24 Hours (Table) 07/18/21 07/18/21 07/18/21 Range/Units 11:38 20:57 21:17 RBC (4.30-5.90) m/uL Hgb (13.0-17.5) gm/dL Hct (39.0-53.0) % Lymphocytes # (1.0-4.8) k/uL Carbon Dioxide (22-30) mmol/L BUN (9-20) mg/dL Glucose (74-99) mg/dL POC Glucose (mg/dL) 143 H 128 H 128 H (75-99) mg/dL 07/18/21 07/19/21 07/19/21 Range/Units 23:32 06:27 07:35 RBC 3.53 L (4.30-5.90) m/uL Hgb 11.5 L (13.0-17.5) gm/dL Hct 34.4 L (39.0-53.0) % Lymphocytes # 0.5 L (1.0-4.8) k/uL Carbon Dioxide (22-30) mmol/L BUN (9-20) mg/dL Glucose (74-99) mg/dL POC Glucose (mg/dL) 109 H 100 H (75-99) mg/dL 07/19/21 Range/Units 07:35 RBC (4.30-5.90) m/uL Hgb (13.0-17.5) gm/dL Hct (39.0-53.0) % Lymphocytes # (1.0-4.8) k/uL Carbon Dioxide 34 H (22-30) mmol/L BUN 21 H (9-20) mg/dL Glucose 112 H (74-99) mg/dL POC Glucose (mg/dL) (75-99) mg/dL Assessment and Plan Assessment: Impression: Syncope secondary to sinus arrest. Sinus node dysfunction Benign essential hypertension Chronic deep vein thrombosis Seizure disorder Chronic kidney disease stage III Chronic back pain, patient has a morphine pump in place. History of chronic pancreatitis. Recommendation: Agree with plans for pacemaker implantation. However is not fully decided upon by cardiology. We'll continue to monitor in the ICU until a pacemaker in place And continue seizure medications We'll continue to follow while in the ICU. Time with Patient: Less than 30
[2021-07-19 11:23] LABS: Glucose,Whole Blood 122 mg/dL (75-99)
[2021-07-19] MEDS: DOPamine DRIP 800 MG in DEXTROSE/WATER 1 250ML.BAG IV SCH (11:37)
--- NOTE | 2021-07-19 12:52 | P.PN ---
Subjective HISTORY OF PRESENTING ILLNESS The patient is a 61-year-old gentleman with a past medical history significant for hypertension was brought to the hospital by his visiting nurse after he was found on the floor at home. The patient somewhat is a poor historian. He does have hypertension and he follows with Dr. Garcia regularly. He was in his usual [facility] where he was in the shower yesterday when he fell and he stated that he "blackouts". He clearly lost his consciousness without any prodromal symptoms of foreign feeling in the face or any symptoms of nausea or vomiting and no other symptoms of heart racing or fluttering or chest pain or chest discomfort or shortness of breath. As a matter of fact the patient was diagnosed with avascular necrosis of the right hip and currently orthopedic surgeries on the case. We consulted to see the patient mainly because off bradycardia. The patient did have a bradycardia with heart rate in the 50s but also he did have multiple episodes of sinus pauses up to about 6 seconds in the human resources administrator and he was sleeping during these episodes. His EKG showed sinus rhythm with first-degree AV block and evidence of incomplete RBBB. The QRS complex is not wide. He is not on any AV camille valentín agents here or at home. Thyroid function was not investigated yet. Currently he is in process of having an echocardiogram and also going to obtain a TSH and free T4 to rule out any thyroid disease which could be contributing to his bradycardia. Beside that were going to obtain serial cardiac enzymes to rule out acute coronary event. Definitely the way how his his syncope happened which was associated with injury is concerning for cardiac syncope and we are concerned about evidence of sinus node dysfunction. 07/18 Patient seen and examined. Patient still having episodes of sinus arrest with pauses over 3 seconds. He had a few during exam and admits he gets lightheaded with these episodes in front of me. Blood pressures been stable on the Midrin. No fevers or chills. No shortness breath. He admits he has been found lightheaded over the last 3 months while at [facility]. 07/19 Patient seen and examined. Patient did have episode this morning with increased bradycardia episodes and some minimal borderline hypotension systolics in the 80s and some feeling lightheadedness. He was started on dopamine drip with improvements in heart rates this far. Echo reviewed with EF 55% with mild mitral regurgitation and no other significant findings. PHYSICAL EXAMINATION Vital signs reviewed. CONSTITUTIONAL: No apparent distress. HEENT: Head is normocephalic. Pupils are equal, round. Sclerae anicteric. Mucous membranes of the mouth are moist. No JVD. No carotid bruit. CHEST EXAMINATION: Lungs are clear to auscultation. No chest wall tenderness is noted on palpation or with deep breathing. HEART EXAMINATION: Regular rate and rhythm. S1, S2 heard. No murmurs, gallops or rub. ABDOMEN: Soft, nontender. Positive bowel sounds. EXTREMITIES: 2+ peripheral pulses, no lower extremity edema and no calf tenderness. NEUROLOGIC EXAMINATION: Patient is awake, alert and oriented x3. Assessment #1 syncope likely cardiogenic related to sinus arrest #2 evidence of sinus node dysfunction presented as sinus bradycardia as well as sinus arrest, symptomatic with episodes of lightheadedness clearly corresponding with sinus arrest #3 abnormal EKG with evidence of bifascicular block consistent with first-degree AV block and RBBB #4 hypertension Plan Patient with continued sinus bradycardia and symptomatic from this with need for permanent pacemaker. Contacted electrophysiology with recommendations for permanent pacemaker to be placed possibly Wednesday. Monitor response to dopamine. Further recommendations to follow. Objective - Vital Signs Vital signs: Vital Signs Temp 98.1 F 07/19/21 12:00 Pulse 58 L 07/19/21 12:00 Resp 19 07/19/21 12:00 BP 89/51 07/19/21 12:00 Pulse Ox 92 L 07/19/21 12:00 Intake & Output 07/18/21 07/19/21 07/19/21 18:59 06:59 18:59 Intake Total 1920 1200 1353.36 Output Total 2125 800 470 Balance -205 400 883.36 Weight 76.8 kg Intake: IV 1200 1200 500 Sodium Chloride 0.9% 1, 1200 1200 500 000 ml @ 100 mls/hr IV . Q10H MARY Rx#:[id number] Intake, IV Titration 3.36 Amount DOPamine DRIP 800 mg In 3.36 Dextrose/Water 1 250ml. bag @ 5 MCG/KG/MIN 7.2 mls/hr IV .Q24H MARY Rx#: [id number] Oral 720 850 Output: Urine 2125 800 470 Other: Voiding Method Urinal Urinal External Catheter # Voids 1 - Labs CBC & Chem 7: 07/19/21 07:35 07/19/21 07:35 Labs: Abnormal Lab Results - Last 24 Hours (Table) 07/18/21 07/18/21 07/18/21 Range/Units 20:57 21:17 23:32 RBC (4.30-5.90) m/uL Hgb (13.0-17.5) gm/dL Hct (39.0-53.0) % Lymphocytes # (1.0-4.8) k/uL Carbon Dioxide (22-30) mmol/L BUN (9-20) mg/dL Glucose (74-99) mg/dL POC Glucose (mg/dL) 128 H 128 H 109 H (75-99) mg/dL 07/19/21 07/19/21 07/19/21 Range/Units 06:27 07:35 07:35 RBC 3.53 L (4.30-5.90) m/uL Hgb 11.5 L (13.0-17.5) gm/dL Hct 34.4 L (39.0-53.0) % Lymphocytes # 0.5 L (1.0-4.8) k/uL Carbon Dioxide 34 H (22-30) mmol/L BUN 21 H (9-20) mg/dL Glucose 112 H (74-99) mg/dL POC Glucose (mg/dL) 100 H (75-99) mg/dL 07/19/21 Range/Units 11:21 RBC (4.30-5.90) m/uL Hgb (13.0-17.5) gm/dL Hct (39.0-53.0) % Lymphocytes # (1.0-4.8) k/uL Carbon Dioxide (22-30) mmol/L BUN (9-20) mg/dL Glucose (74-99) mg/dL POC Glucose (mg/dL) 122 H (75-99) mg/dL
[2021-07-19 16:35] LABS: Glucose,Whole Blood 109 mg/dL (75-99)
[2021-07-19] MEDS: MIRTAZAPINE 15 MG TAB PO SCH (20:20)
[2021-07-19] MEDS: lamoTRIgine 100 MG TAB PO SCH (20:21)
[2021-07-19] MEDS: MORPHINE SULFATE 4 MG/ML SYRINGE IV PRN (23:07)
[2021-07-19 23:20] LABS: Glucose,Whole Blood 111 mg/dL (75-99)
[2021-07-20 03:15] LABS: Glucose,Whole Blood 124 mg/dL (75-99)
[2021-07-20] MEDS: SODIUM CHLORIDE 0.9% 1,000 ML IV SCH ×3 (05:45→19:16)
[2021-07-20 06:33] LABS: Basophils % (A) 1 %; Eosinophils # (A) 0.2 k/uL (0-0.7); Eosinophils % (A) 3 %; HCT 35.2 % (39.0-53.0); HGB 11.5 gm/dL (13.0-17.5); Lymphocytes # (A) 0.6 k/uL (1.0-4.8); Lymphocytes % (A) 10 %; MCH 31.7 pg (25.0-35.0); MCHC 32.7 g/dL (31.0-37.0); MCV 96.9 fL (80.0-100.0); Mean Platelet Volume 7.9; Monocytes # (A) 0.5 k/uL (0-1.0); Monocytes % (A) 8 %; Neutrophils # (A) 4.5 k/uL (1.3-7.7); Neutrophils % (A) 74 %; Platelet Count 250 k/uL (150-450); RBC 3.63 m/uL (4.30-5.90); RDW 15.1 % (11.5-15.5); WBC 6.1 k/uL (3.8-10.6)
[2021-07-20 06:53] LABS: African American GFR (CKD) >90 (>60 ml/min/1.73 sqM); Anion Gap 7 mmol/L; Blood Urea Nitrogen 20 mg/dL (9-20); Calcium 9.6 mg/dL (8.4-10.2); Carbon Dioxide 31 mmol/L (22-30); Chloride 102 mmol/L (98-107); Glucose 129 mg/dL (74-99); Non-African American GFR(CKD) >90 (>60 ml/min/1.73 sqM); Potassium 3.9 mmol/L (3.5-5.1); Sodium 140 mmol/L (137-145)
[2021-07-20 06:58] LABS: Glucose,Whole Blood 120 mg/dL (75-99)
[2021-07-20] MEDS: INSULIN ASPART (NovoLOG) 100 UNIT/ML VIAL SQ SCH ×4 (07:03→21:14)
[2021-07-20] MEDS: BUDESONIDE 0.5 MG/2 ML NEBU INHALATION SCH ×2 (07:24→19:41)
[2021-07-20] MEDS: DOCUSATE 100 MG CAP PO SCH (09:03)
[2021-07-20] MEDS: PREGABALIN 75 MG CAP PO SCH ×2 (09:03→20:46)
[2021-07-20] MEDS: DULoxetine HCL 60 MG CAPSULE.DR PO SCH ×2 (09:03→20:47)
[2021-07-20] MEDS: MIDODRINE 5 MG TAB PO SCH ×3 (09:04→21:01)
[2021-07-20] MEDS: TAMSULOSIN 0.4 MG CAP.ER.24H PO SCH (09:04)
[2021-07-20] MEDS: ATORVASTATIN 10 MG TAB PO SCH (09:05)
[2021-07-20] MEDS: PANTOPRAZOLE 40 MG TABLET PO SCH (09:05)
[2021-07-20] MEDS: POTASSIUM CHLORIDE ER 20 MEQ TAB.ER PO SCH (09:06)
[2021-07-20] MEDS: HYOSCYAMINE SULFATE 0.375 MG TAB.ER.12H PO SCH ×2 (09:07→20:45)
[2021-07-20] MEDS: FINASTERIDE 5 MG TAB PO SCH (09:07)
[2021-07-20] MEDS: COLCHICINE 0.6 MG EACH PO SCH ×2 (09:08→20:45)
[2021-07-20] MEDS: ENOXAPARIN 80 MG/0.8 ML SYRINGE SQ SCH (09:08)
[2021-07-20] MEDS: SIMETHICONE 80 MG CHEWABLE PO SCH ×4 (09:09→21:01)
--- NOTE | 2021-07-20 11:35 | P.PN ---
Subjective HISTORY OF PRESENTING ILLNESS The patient is a 61-year-old gentleman with a past medical history significant for hypertension was brought to the hospital by his visiting nurse after he was found on the floor at home. The patient somewhat is a poor historian. He does have hypertension and he follows with Dr. Garcia regularly. He was in his usual state of health where he was in the shower yesterday when he fell and he stated that he "blackouts". He clearly lost his consciousness without any prodromal symptoms of foreign feeling in the face or any symptoms of nausea or vomiting and no other symptoms of heart racing or fluttering or chest pain or chest discomfort or shortness of breath. As a matter of fact the patient was diagnosed with avascular necrosis of the right hip and currently orthopedic surgeries on the case. We consulted to see the patient mainly because off bradycardia. The patient did have a bradycardia with heart rate in the 50s but also he did have multiple episodes of sinus pauses up to about 6 seconds in the in home aide and he was sleeping during these episodes. His EKG showed sinus rhythm with first-degree AV block and evidence of incomplete RBBB. The QRS complex is not wide. He is not on any AV camille valentín agents here or at home. Thyroid function was not investigated yet. Currently he is in process of having an echocardiogram and also going to obtain a TSH and free T4 to rule out any thyroid disease which could be contributing to his bradycardia. Beside that were going to obtain serial cardiac enzymes to rule out acute coronary event. Definitely the way how his his syncope happened which was associated with injury is concerning for cardiac syncope and we are concerned about evidence of sinus node dysfunction. 07/18 Patient seen and examined. Patient still having episodes of sinus arrest with pauses over 3 seconds. He had a few during exam and admits he gets lightheaded with these episodes in front of me. Blood pressures been stable on the Midrin. No fevers or chills. No shortness breath. He admits he has been found lightheaded over the last 3 months while at [facility]. 07/19 Patient seen and examined. Patient did have episode this morning with increased bradycardia episodes and some minimal borderline hypotension systolics in the 80s and some feeling lightheadedness. He was started on dopamine drip with improvements in heart rates this far. Echo reviewed with EF 55% with mild mitral regurgitation and no other significant findings. 07/20 Patient seen and examined. Patient denies any chest pain or pressure. Denies any lightheaded episodes. Has been fairly stable on the dopamine drip. Still having sinus bradycardia. PHYSICAL EXAMINATION Vital signs reviewed. CONSTITUTIONAL: No apparent distress. HEENT: Head is normocephalic. Pupils are equal, round. Sclerae anicteric. Mucous membranes of the mouth are moist. No JVD. No carotid bruit. CHEST EXAMINATION: Lungs are clear to auscultation. No chest wall tenderness is noted on palpation or with deep breathing. HEART EXAMINATION: Regular rate and rhythm. S1, S2 heard. No murmurs, gallops or rub. ABDOMEN: Soft, nontender. Positive bowel sounds. EXTREMITIES: 2+ peripheral pulses, no lower extremity edema and no calf tenderness. NEUROLOGIC EXAMINATION: Patient is awake, alert and oriented x3. Assessment #1 syncope likely cardiogenic related to sinus arrest #2 evidence of sinus node dysfunction presented as sinus bradycardia as well as sinus arrest, symptomatic with episodes of lightheadedness clearly corresponding with sinus arrest #3 abnormal EKG with evidence of bifascicular block consistent with first-degree AV block and RBBB #4 hypertension Plan Patient with continued sinus bradycardia and symptomatic from this with need for permanent pacemaker. Permanent pacemaker likely to be placed Wednesday. Further recommendations to follow. Objective - Vital Signs Vital signs: Vital Signs Temp 97.2 F L 07/20/21 09:00 Pulse 66 07/20/21 11:00 Resp 19 07/20/21 11:00 BP 113/45 07/20/21 11:00 Pulse Ox 93 L 07/20/21 11:00 Intake & Output 07/19/21 07/20/21 07/20/21 18:59 06:59 18:59 Intake Total 2764.304 1200 500 Output Total 1695 2275 750 Balance 1069.304 -1075 -250 Weight 77 kg Intake: IV 1100 1200 500 Sodium Chloride 0.9% 1, 1100 1200 500 000 ml @ 100 mls/hr IV . Q10H MARY Rx#:[id number] Intake, IV Titration 14.304 Amount DOPamine DRIP 800 mg In 14.304 Dextrose/Water 1 250ml. bag @ 5 MCG/KG/MIN 7.2 mls/hr IV .Q24H MARY Rx#: [id number] Oral 1650 Output: Urine 1695 2275 750 Other: Voiding Method External Catheter External Catheter # Voids 1 - Labs CBC & Chem 7: 07/20/21 06:05 07/20/21 06:05 Labs: Abnormal Lab Results - Last 24 Hours (Table) 07/19/21 07/19/21 07/20/21 Range/Units 16:34 23:19 03:13 RBC (4.30-5.90) m/uL Hgb (13.0-17.5) gm/dL Hct (39.0-53.0) % Lymphocytes # (1.0-4.8) k/uL Carbon Dioxide (22-30) mmol/L Glucose (74-99) mg/dL POC Glucose (mg/dL) 109 H 111 H 124 H (75-99) mg/dL 07/20/21 07/20/21 07/20/21 Range/Units 06:05 06:05 06:57 RBC 3.63 L (4.30-5.90) m/uL Hgb 11.5 L (13.0-17.5) gm/dL Hct 35.2 L (39.0-53.0) % Lymphocytes # 0.6 L (1.0-4.8) k/uL Carbon Dioxide 31 H (22-30) mmol/L Glucose 129 H (74-99) mg/dL POC Glucose (mg/dL) 120 H (75-99) mg/dL
--- NOTE | 2021-07-20 13:50 | P.PN ---
Subjective Patient was examined at bedside today not complaining of any new symptomatology including chest pains, shortness of breath or palpitations. Objective - Vital Signs Vital signs: Vital Signs Temp 97.8 F 07/20/21 13:00 Pulse 48 L 07/20/21 13:00 Resp 15 07/20/21 13:00 BP 109/56 07/20/21 13:00 Pulse Ox 93 L 07/20/21 13:00 Intake & Output 07/19/21 07/20/21 07/20/21 18:59 06:59 18:59 Intake Total 2764.304 1200 500 Output Total 1695 2275 750 Balance 1069.304 -1075 -250 Weight 77 kg Intake: IV 1100 1200 500 Sodium Chloride 0.9% 1, 1100 1200 500 000 ml @ 100 mls/hr IV . Q10H MARY Rx#:[id number] Intake, IV Titration 14.304 Amount DOPamine DRIP 800 mg In 14.304 Dextrose/Water 1 250ml. bag @ 5 MCG/KG/MIN 7.2 mls/hr IV .Q24H MARY Rx#: [id number] Oral 1650 Output: Urine 1695 2275 750 Other: Voiding Method External Catheter External Catheter # Voids 1 - Exam Gen. patient is awake alert oriented 3 however a poor historian in general Cardio normal S1/S2 heard Respiratory no wheezing or rhonchi appreciated Abdomen soft nontender Extremities no pitting edema noted in the lower extremities however some mild pain in the right lower calf which does not seem to be swollen Neuro patient is awake alert oriented 3 -Nonspecific tingling sensation involving his hands -5 out of 5 strength in the upper and lower extremity, sensation intact Psych poor historian - Labs CBC & Chem 7: 07/20/21 06:05 07/20/21 06:05 Labs: Abnormal Lab Results - Last 24 Hours (Table) 07/19/21 07/19/21 07/20/21 Range/Units 16:34 23:19 03:13 RBC (4.30-5.90) m/uL Hgb (13.0-17.5) gm/dL Hct (39.0-53.0) % Lymphocytes # (1.0-4.8) k/uL Carbon Dioxide (22-30) mmol/L Glucose (74-99) mg/dL POC Glucose (mg/dL) 109 H 111 H 124 H (75-99) mg/dL 07/20/21 07/20/21 07/20/21 Range/Units 06:05 06:05 06:57 RBC 3.63 L (4.30-5.90) m/uL Hgb 11.5 L (13.0-17.5) gm/dL Hct 35.2 L (39.0-53.0) % Lymphocytes # 0.6 L (1.0-4.8) k/uL Carbon Dioxide 31 H (22-30) mmol/L Glucose 129 H (74-99) mg/dL POC Glucose (mg/dL) 120 H (75-99) mg/dL Assessment and Plan Plan: Assessment: #1 mechanical fall #2 chronic DVTs lower extremity #3 avascular necrosis of the right hip #4 evidence of sinus node dysfunction presented as sinus bradycardia, bifascicular block with first-degree #5 diabetes mellitus #6 chronic kidney disease #7 history of seizure disorder Plan: -Admitted to medicine for close monitoring -Pending pacemaker most likely Wednesday -Orthopedic service consult and have signed off to follow-up outpatient -Hematology recommending possible AC for 6 months. Will coordinate with cardio if okay to start. -PT/OT to evaluate for rehab possibly -Continue with low-dose sliding scale -Resume home medication -DVT prophylaxis currently on Lovenox full dose 80 twice a day
[2021-07-20 16:18] LABS: Glucose,Whole Blood 136 mg/dL (75-99)
[2021-07-20] MEDS: DOPamine DRIP 800 MG in DEXTROSE/WATER 1 250ML.BAG IV SCH (17:18)
--- NOTE | 2021-07-20 17:58 | P.EPCON ---
Electrophysiology Consult - EP Consult Electrophysiology Consult: This is Dr. Fermin dictating an EP consult on this patient The patient was interviewed and examined by me today IMPRESSION / ASSESSMENT: Mild sinus bradycardia with a mildly prolonged NC interval History of fall and presyncope in the bathtub Multiple episodes of sinus arrest in the hospital Incomplete right bundle branch block Currently on dopamine with heart rates in the 70s, no further episodes of sinus arrest Past history of SVT in 2020 at that time he had a pericardial effusion. Diagnosed with bilateral femoral DVT on this admission, on Lovenox PLAN: Patient is stable on low dose dopamine with heart rates in the 70s without any further episodes of sinus arrest Given his bilateral femoral DVTs I would start ELIQUIS a Xarelto today. I spoke to the nurse regarding this I will stop Lovenox in preparation for the pacemaker We will proceed with pacemaker implantation on Wednesday There is no need to hold oral anticoagulation prior to the pacemaker Discussed with the patient, agreeable with the plan HPI Patient presented with a fall in the bathtub and a presyncopal spell Found to have bilateral femoral DVT Later he was found to have recurrent episodes of sinus arrest and was started on low dose dopamine He has done well since without any further sinus arrest on IV dopamine low-dose ROS: No fever chills or rigors, no cough, phlegm or expectoration, no nausea, vomiting or diarrhea, no hematuria, dysuria, no musculoskeletal complaints, no strokes or seizures, no skin lesions. EXAMINATION: Pulse rate between 48-66 beats a minute normal blood pressure No JVD Normal S1 normal S2 no murmurs Abdomen is soft Patient looks comfortable in no respiratory distress REVIEW OF LABS, ECG & MEDICAL DATA 61-year-old male patient with a history of heart failure COPD, type 2 diabetes, dyslipidemia hypertension renal disease and seizure disorder Patient fell in the bathtub yesterday but states he did not lose consciousness Afebrile upon admission pulse rate in the 50s and 60s, blood pressure 103/56 Is found to have bilateral femoral DVT 2-D echo and Doppler study shows preserved LV systolic function normal RV size and function Home medications reviewed. Patient diabetic, on metformin Also on Midrin On digoxin 250 g by mouth daily, unclear when he took it Twelve-lead EKG shows sinus mechanism heart rates 58 beats a minute Mildly prolonged NC interval 238 ms Labs reviewed Hemoglobin 11 Sodium normal potassium normal BUN 25 creatinine 0.9 TSH 2.4
[2021-07-20] MEDS ORDERED: SODIUM CHLORIDE 0.9% 1,000 ML IV SCH (18:00)
--- NOTE | 2021-07-20 18:13 | P.PN ---
Progress Note - Text Patient's bilateral DVTs. Chronic No acute component Therefore he does not need 10 mg twice daily if ELIQUIS I will start him on 5 mg twice daily of ELIQUIS for now We need to obtain his prior history to see if he was anticoagulated for 3 months during the acute phase or not
[2021-07-20] MEDS ORDERED: APIXABAN 5 MG TAB PO SCH (19:00)
[2021-07-20] MEDS: MIRTAZAPINE 15 MG TAB PO SCH (20:46)
[2021-07-20] MEDS: APIXABAN 5 MG TAB PO SCH (20:46)
[2021-07-20] MEDS: lamoTRIgine 100 MG TAB PO SCH (20:47)
[2021-07-20 21:04] LABS: Glucose,Whole Blood 116 mg/dL (75-99)
[2021-07-21 02:07] LABS: Glucose,Whole Blood 130 mg/dL (75-99)
[2021-07-21] MEDS: INSULIN ASPART (NovoLOG) 100 UNIT/ML VIAL SQ SCH ×4 (02:07→20:59)
[2021-07-21 06:30] LABS: Glucose,Whole Blood 119 mg/dL (75-99)
[2021-07-21] MEDS: PANTOPRAZOLE 40 MG TABLET PO SCH (06:31)
[2021-07-21] MEDS: BUDESONIDE 0.5 MG/2 ML NEBU INHALATION SCH ×2 (07:44→19:43)
[2021-07-21] MEDS ORDERED: ALBUTEROL NEBULIZED 2.5 MG/3 ML INHALATION PRN (08:23)
[2021-07-21] MEDS: DULoxetine HCL 60 MG CAPSULE.DR PO SCH ×2 (08:47→20:50)
[2021-07-21] MEDS: MIDODRINE 5 MG TAB PO SCH ×3 (08:47→21:00)
[2021-07-21] MEDS: PREGABALIN 75 MG CAP PO SCH ×2 (08:47→20:50)
[2021-07-21] MEDS: DOCUSATE 100 MG CAP PO SCH (08:48)
[2021-07-21] MEDS: ATORVASTATIN 10 MG TAB PO SCH (08:48)
[2021-07-21] MEDS: TAMSULOSIN 0.4 MG CAP.ER.24H PO SCH (08:48)
[2021-07-21] MEDS: POTASSIUM CHLORIDE ER 20 MEQ TAB.ER PO SCH (08:49)
[2021-07-21] MEDS: HYOSCYAMINE SULFATE 0.375 MG TAB.ER.12H PO SCH ×2 (08:49→20:48)
[2021-07-21] MEDS: FINASTERIDE 5 MG TAB PO SCH (08:50)
[2021-07-21] MEDS: COLCHICINE 0.6 MG EACH PO SCH ×2 (08:50→20:48)
[2021-07-21] MEDS: SIMETHICONE 80 MG CHEWABLE PO SCH ×4 (08:52→21:00)
[2021-07-21] MEDS: APIXABAN 5 MG TAB PO SCH ×2 (09:02→20:50)
--- NOTE | 2021-07-21 11:40 | P.PN ---
Subjective Progress Note Date: 07/21/21 This patient is admitted with multiple falls and documented multiple episodes of sinus arrest in the hospital. Currently on dopamine. Waiting to have permanent pacemaker either today or tomorrow. Patient has history of DVT and also on anticoagulation therapy. Patient is otherwise stable seemed to be in sinus rhythm. No complaints of any chest pain or shortness of breath, no dizziness or syncope Objective - Vital Signs Vital signs: Vital Signs Temp 98.3 F 07/21/21 09:00 Pulse 60 07/21/21 11:00 Resp 16 07/21/21 11:00 BP 108/54 07/21/21 11:00 Pulse Ox 96 07/21/21 11:00 Intake & Output 07/20/21 07/21/21 07/21/21 18:59 06:59 18:59 Intake Total 1401.24 650 827.392 Output Total 2600 2650 Balance -1198.76 -1999 827.392 Intake: IV 1200 600 200 Sodium Chloride 0.9% 1, 1200 600 200 000 ml @ 100 mls/hr IV . Q10H MARY Rx#:[id number] Intake, IV Titration 201.24 50 127.392 Amount DOPamine DRIP 800 mg In 201.24 127.392 Dextrose/Water 1 250ml. bag @ 5 MCG/KG/MIN 7.2 mls/hr IV .Q24H MARY Rx#: [id number] Sodium Chloride 0.9% 1, 50 000 ml @ 50 mls/hr IV . Q20H MARY Rx#:[id number] Oral 500 Output: Urine 2600 2650 Other: Voiding Method External Catheter External Catheter External Catheter # Voids 1 - Exam GENERAL EXAM: Patient is alert and oriented and doesn't appear to be in any acute distress HEENT: Normocephalic. Normal reaction of pupils, equal size, normal range of extraocular motion. No erythema or exudates in the throat. NECK: No masses, no nuchal rigidity. CHEST: No chest wall deformity. LUNGS: Equal air entry with no crackles or wheeze. HEART: S1 and S2 normal with no audible mumurs or gallops. Regular rhythm, femorals equal on both sides.. ABDOMEN: No hepatosplenomegaly, normal bowel sounds, no guarding or rigidity. SKIN: No rashes CENTRAL NERVOUS SYSTEM: No focal deficits. EXTREMITIES: No cyanosis, clubbing or edema. - Labs CBC & Chem 7: 07/20/21 06:05 07/20/21 06:05 Labs: Abnormal Lab Results - Last 24 Hours (Table) 07/20/21 07/20/21 07/21/21 Range/Units 16:16 21:03 02:06 POC Glucose (mg/dL) 136 H 116 H 130 H (75-99) mg/dL 07/21/21 Range/Units 06:28 POC Glucose (mg/dL) 119 H (75-99) mg/dL Assessment and Plan Plan: Previous of sinus arrest. Currently maintaining sinus rhythm on dopamine. Waiting permanent pacemaker insertion
--- NOTE | 2021-07-21 11:44 | P.PN ---
Subjective Progress Note Date: 07/21/21 (seen at 1125) Principal diagnosis: syncope Patient is a 61-year-old male with COPD, CHF, diabetes, and dyslipidemia who presented to the ER after a fall with head injury. In the ER he underwent an extensive evaluation and CT of the head and neck demonstrated mild intracranial atrophy and spondylitic changes in the mid and lower cervical spine with multilevel hypertrophic facet arthropathy. Chest x-ray showed no acute process. X-ray right hip demonstrated avascular necrosis or septic arthritis. Femur x- ray demonstrated avascular necrosis or chronic septic arthritis of the right hip. Tib-fib x-ray showed no acute fracture. Venous Dopplers demonstrated bilateral mild chronic DVT and femoral veins. Initial laboratory analysis showed potassium of 3.2 was otherwise unremarkable. Patient was admitted for hypokalemia and head injury. Patient was seen by orthopedic surgery who recommended conservative treatment of his avascular necrosis of hip. He develo ped significant sinus pauses of syncopal episodes. He was subsequently transferred to the ICU, dopamine was started well awaiting permanent pacemaker implantation. Patient seen and examined at bedside. No chest pain, + light headed, no nausea, no shortness of breath. General: non toxic, no distress, appears at stated age Derm: warm, dry Head: atraumatic, normocephalic, symmetric Eyes: EOMI, no lid lag, anicteric sclera Mouth: no lip lesion, mucus membranes moist Cardiovascular: S1S2 irreg, no murmur, positive posterior tibial pulse bilateral, Lungs: Decreased bs bilateral, no rhonchi, no rales , no accessory muscle use Abdominal: soft, nontender to palpation, no guarding, no appreciable organomegaly Ext: no gross muscle atrophy, no edema, no contractures Neuro: CN II-XI grossly intact, no focal neuro deficits Psych: Alert, oriented, appropriate affect Mechanical fall - pt/ot - fall precautions Chronic lower extreme any DVT - hematology recs: 6 months AC with re-doppler prior to discontinuation - on eliquis Syncope due to sinus arrest - Cardiology recommendations appreciated: Permanent pacemaker plan our for wednesday - Dopamine Avascular necrosis of the right hip -Anti-inflammatory -Follow up outpatient -Ortho recommendations appreciated. COPD without exacerbation - bronchodilators scheduled and prn Diabetes mellitus - SSI - follow BS Chronic: Chronic kidney disease History of seizure disorder Hypertension Dyslipidemia History of nonischemic cardiomyopathy DVT prophylaxis: Eliquis Discussed with: patient, nursing Anticipated discharge: in 2-[address]: home A total of 35 minutes was spent on the care of this complex patient more than 50% of the time was spent in counseling and care coordination. Active Medications Generic Name Dose Route Start Last Admin Trade Name Freq PRN Reason Stop Dose Admin Acetaminophen 650 mg 07/15/21 01:04 07/19/21 06:10 Acetaminophen Tab 325 Mg Tab PO 650 mg Q6HR PRN Administration Mild Pain or Fever > 100.5 Hydrocodone Bitart/Acetaminophen 1 each 07/15/21 05:39 07/15/21 21:25 Hydrocodone/Apap 5-325mg 1 Each Tab PO 1 each BID PRN Administration Pain Albuterol Sulfate 2.5 mg 07/21/21 08:23 Albuterol Nebulized 2.5 Mg/3 Ml INHALATION RT-QID PRN Shortness Of Breath Or Wheezing Albuterol/Ipratropium 3 ml 07/15/21 05:39 07/18/21 20:02 Ipratropium-Albuterol 3 Ml Neb INHALATION 3 ml RT-Q4H PRN Administration Wheezing Apixaban 5 mg 07/20/21 21:00 07/21/21 09:02 Apixaban 5 Mg Tab PO 07/27/21 09:01 5 mg BID MARY Administration Protocol Atorvastatin Calcium 10 mg 07/15/21 09:00 07/21/21 08:48 Atorvastatin 10 Mg Tab PO 10 mg DAILY MARY Administration Budesonide 0.5 mg 07/15/21 08:00 07/21/21 07:44 Budesonide 0.5 Mg/2 Ml Nebu INHALATION Not Given RT-BID MARY Colchicine 0.6 mg 07/15/21 09:00 07/21/21 08:50 Colchicine 0.6 Mg Each PO 0.6 mg BID MARY Administration Docusate Sodium 100 mg 07/15/21 09:00 07/21/21 08:48 Docusate 100 Mg Cap PO 100 mg DAILY MARY Administration Duloxetine HCl 60 mg 07/15/21 09:00 07/21/21 08:47 Duloxetine Hcl 60 Mg Capsule.Dr PO 60 mg BID MARY Administration Finasteride 5 mg 07/15/21 09:00 07/21/21 08:50 Finasteride 5 Mg Tab PO 5 mg DAILY MARY Administration Hyoscyamine 0.375 mg 07/18/21 09:00 07/21/21 08:49 Hyoscyamine Sulfate 0.375 Mg Tab.Er.12h PO 0.375 mg BID MARY Administration Dopamine HCl/Dextrose 800 mg/ 250 mls @ 7.2 mls/hr 07/19/21 11:30 07/21/21 10:16 IV Solution IV 9 mcg/kg/min .Q24H MARY 12.96 mls/hr Titration Protocol 5 MCG/KG/MIN Sodium Chloride 1,000 mls @ 50 mls/hr 07/20/21 18:00 07/20/21 19:16 Saline 0.9% IV 50 mls/hr .Q20H MARY Administration Cefazolin Sodium 2 gm/ Sodium 50 mls @ 100 mls/hr 07/22/21 10:00 Chloride IVPB 07/22/21 14:00 ONCE PRN Pre-Op Cefazolin Sodium 1 gm/ Sodium 250 mls @ 250 mls/hr 07/22/21 07:00 Chloride IRRIGATION 07/22/21 14:00 ONCE PRN PRE-OP Insulin Aspart 0 unit 07/15/21 07:30 07/21/21 02:07 Insulin Aspart (Novolog) 100 Unit/Ml Vial SQ Not Given ACHS [facility] Protocol Lamotrigine 150 mg 07/15/21 21:00 07/20/21 20:47 Lamotrigine 100 Mg Tab PO 150 mg HS MARY Administration Midodrine 5 mg 07/15/21 09:00 07/21/21 08:47 Midodrine 5 Mg Tab PO 5 mg TID MARY Administration Mirtazapine 15 mg 07/15/21 21:00 07/20/21 20:46 Mirtazapine 15 Mg Tab PO 15 mg HS MARY Administration Morphine Sulfate 4 mg 07/15/21 01:04 07/19/21 23:07 Morphine Sulfate 4 Mg/Ml Syringe IV 4 mg Q4HR PRN Administration Severe Pain Naloxone HCl 0.2 mg 07/15/21 01:04 Naloxone 0.4 Mg/Ml 1 Ml Vial IV Q2M PRN Opioid Reversal Ondansetron HCl 4 mg 07/15/21 01:04 Ondansetron 4 Mg/2 Ml Vial IVP Q8HR PRN Nausea And Vomiting Pantoprazole Sodium 40 mg 07/15/21 07:30 07/21/21 06:31 Pantoprazole 40 Mg Tablet PO 40 mg AC-BRKFST MARY Administration Potassium Chloride 20 meq 07/15/21 09:00 07/21/21 08:49 Potassium Chloride Er 20 Meq Tab.Er PO 20 meq DAILY MARY Administration Pregabalin 150 mg 07/15/21 09:00 07/21/21 08:47 Pregabalin 75 Mg Cap PO 150 mg BID MARY Administration Ropinirole HCl 1 mg 07/15/21 21:00 07/20/21 20:46 Ropinirole Hcl 1 Mg Tab PO 1 mg HS MARY Administration Simethicone 80 mg 07/15/21 09:00 07/21/21 08:52 Simethicone 80 Mg Chewable PO 80 mg QID MARY Administration Tamsulosin HCl 0.8 mg 07/15/21 09:00 07/21/21 08:48 Tamsulosin 0.4 Mg Cap.Er.24h PO 0.8 mg DAILY MARY Administration Objective - Vital Signs Vital signs: Vital Signs Temp 97.7 F 07/21/21 04:00 Pulse 68 07/21/21 07:00 Resp 16 07/21/21 07:00 BP 94/46 07/21/21 07:00 Pulse Ox 93 L 07/21/21 07:00 Intake & Output 07/20/21 07/21/21 07/21/21 18:59 06:59 18:59 Intake Total 1401.24 650 Output Total 2600 2650 Balance -1198.76 -2000 Intake: IV 1200 600 Sodium Chloride 0.9% 1, 1200 600 000 ml @ 100 mls/hr IV . Q10H MARY Rx#:[id number] Intake, IV Titration 201.24 50 Amount DOPamine DRIP 800 mg In 201.24 Dextrose/Water 1 250ml. bag @ 5 MCG/KG/MIN 7.2 mls/hr IV .Q24H MARY Rx#: [id number] Sodium Chloride 0.9% 1, 50 000 ml @ 50 mls/hr IV . Q20H MARY Rx#:[id number] Output: Urine 2600 2650 Other: Voiding Method External Catheter External Catheter # Voids 1 - Labs CBC & Chem 7: 07/20/21 06:05 07/20/21 06:05 Labs: Abnormal Lab Results - Last 24 Hours (Table) 07/20/21 07/20/21 07/21/21 Range/Units 16:16 21:03 02:06 POC Glucose (mg/dL) 136 H 116 H 130 H (75-99) mg/dL 07/21/21 Range/Units 06:28 POC Glucose (mg/dL) 119 H (75-99) mg/dL
[2021-07-21 11:54] LABS: Glucose,Whole Blood 143 mg/dL (75-99)
--- NOTE | 2021-07-21 14:37 | P.PN ---
Subjective Progress Note Date: 07/21/21 Principal diagnosis: BLE DVT In f/u pt in ICU, pending pacemaker insertion. He denies any cardiac symptoms during exam. He denies any bleeding and is tolerating anticoagulation. He c/o redness of the BLE, he states he usually uses silvadene cream on BLE. Objective - Vital Signs Vital signs: Vital Signs Temp 97.9 F 07/21/21 12:00 Pulse 65 07/21/21 14:00 Resp 15 07/21/21 14:00 BP 88/78 07/21/21 14:00 Pulse Ox 95 07/21/21 14:00 Intake & Output 07/20/21 07/21/21 07/21/21 18:59 06:59 18:59 Intake Total 1401.24 650 977.392 Output Total 2600 2650 300 Balance -1198.76 -2000 677.392 Intake: IV 1200 600 350 Sodium Chloride 0.9% 1, 1200 600 350 000 ml @ 100 mls/hr IV . Q10H MARY Rx#:[id number] Intake, IV Titration 201.24 50 127.392 Amount DOPamine DRIP 800 mg In 201.24 127.392 Dextrose/Water 1 250ml. bag @ 5 MCG/KG/MIN 7.2 mls/hr IV .Q24H MARY Rx#: [id number] Sodium Chloride 0.9% 1, 50 000 ml @ 50 mls/hr IV . Q20H MARY Rx#:[id number] Oral 500 Output: Urine 2600 2650 Stool 300 Other: Voiding Method External Catheter External Catheter Urinal # Voids 1 - Constitutional General appearance: Present: average body habitus, cooperative, no acute distress - EENT Eyes: Present: anicteric sclerae, EOMI ENT: Present: hearing grossly normal - Peripheral edema leg Peripheral Edema: bilateral: 1+ (red skin) - Neurologic Neurologic: Present: CNII-XII intact - Musculoskeletal Musculoskeletal: Present: generalized weakness - Psychiatric Psychiatric: Present: A&O x's 3, appropriate affect - Labs CBC & Chem 7: 07/20/21 06:05 07/20/21 06:05 Labs: Abnormal Lab Results - Last 24 Hours (Table) 07/20/21 07/20/21 07/21/21 Range/Units 16:16 21:03 02:06 POC Glucose (mg/dL) 136 H 116 H 130 H (75-99) mg/dL 07/21/21 07/21/21 Range/Units 06:28 11:51 POC Glucose (mg/dL) 119 H 143 H (75-99) mg/dL Assessment and Plan (1) Deep vein thrombosis (DVT) of femoral vein of both lower extremities Narrative/Plan: 04/26/20 doppler report reviewed, no DVT. Current report showing incomplete compression of Bilateral CFV, reported as chronic. I am corrected-Pt chronic provoking factor, vascular insufficiency, is a moderate risk factor for DVT, and this risk increased further when combined with decreased mobility. Would recommend 6 mo anticoagulation with doppler reevaluation of BLE. Lifelong anticoagulation would be considered due to moderate, chronic risk factors. May be able to consider decreased dose at that time. Will defer decision to anticoagulate to Primary (risk vs benefit with pt falling). Did contact Public Guardian to clarify pt living situation and confirm sister Hx of blood clot. Have never received a return call. Pt is on treatment dose lovenox currently. Not certain if pt is capable of giving himself injections. Recommend plush finisher of pt ability perform task and understanding appropriate medication administration. Current Visit: Yes Status: Acute Priority: Medium Code(s): I82.413 - ACUTE EMBOLISM AND THROMBOSIS OF FEMORAL VEIN, BILATERAL SNOMED Code(s): 120364704 Plan: PSA 0.014. Ordered silvadene cream for his legs at his request
[2021-07-21] MEDS: SODIUM CHLORIDE 0.9% 1,000 ML IV SCH ×2 (15:44→21:01)
[2021-07-21 16:48] LABS: Glucose,Whole Blood 142 mg/dL (75-99)
[2021-07-21] MEDS: DOPamine DRIP 800 MG in DEXTROSE/WATER 1 250ML.BAG IV SCH (20:45)
[2021-07-21] MEDS: lamoTRIgine 100 MG TAB PO SCH (20:46)
[2021-07-21] MEDS: MIRTAZAPINE 15 MG TAB PO SCH (20:48)
[2021-07-21 20:55] LABS: Glucose,Whole Blood 229 mg/dL (75-99)
[2021-07-22] MEDS ORDERED: LACTATED RINGERS 1,000 ML IV SCH (06:01)
[2021-07-22] MEDS: PANTOPRAZOLE 40 MG TABLET PO SCH ×2 (06:26→08:35)
[2021-07-22] MEDS: INSULIN ASPART (NovoLOG) 100 UNIT/ML VIAL SQ SCH ×4 (06:31→21:31)
[2021-07-22 06:32] LABS: Glucose,Whole Blood 120 mg/dL (75-99)
[2021-07-22] MEDS ORDERED: ceFAZolin 1 GM in SODIUM CHLORIDE 0.9% IRRIG BTL 250 ML IRRIGATION PRN (07:00)
[2021-07-22 08:02] LABS: African American GFR (CKD) >90 (>60 ml/min/1.73 sqM); Anion Gap 8 mmol/L; Blood Urea Nitrogen 24 mg/dL (9-20); Carbon Dioxide 30 mmol/L (22-30); Chloride 103 mmol/L (98-107); Glucose 123 mg/dL (74-99); Non-African American GFR(CKD) >90 (>60 ml/min/1.73 sqM); Potassium 4.1 mmol/L (3.5-5.1); Sodium 141 mmol/L (137-145)
[2021-07-22] MEDS: BUDESONIDE 0.5 MG/2 ML NEBU INHALATION SCH ×2 (08:02→19:22)
[2021-07-22 08:12] LABS: Basophils # (A) 0.1 k/uL (0-0.2); Basophils % (A) 1 %; Eosinophils # (A) 0.2 k/uL (0-0.7); Eosinophils % (A) 4 %; HCT 35.1 % (39.0-53.0); HGB 11.6 gm/dL (13.0-17.5); Lymphocytes # (A) 0.8 k/uL (1.0-4.8); Lymphocytes % (A) 14 %; MCH 31.7 pg (25.0-35.0); MCV 96.2 fL (80.0-100.0); Mean Platelet Volume 8.1; Monocytes # (A) 0.5 k/uL (0-1.0); Monocytes % (A) 9 %; Neutrophils # (A) 3.8 k/uL (1.3-7.7); Neutrophils % (A) 69 %; Platelet Count 252 k/uL (150-450); RBC 3.65 m/uL (4.30-5.90); RDW 14.4 % (11.5-15.5); WBC 5.6 k/uL (3.8-10.6)
[2021-07-22] MEDS: DULoxetine HCL 60 MG CAPSULE.DR PO SCH ×2 (08:35→21:28)
[2021-07-22] MEDS: DOCUSATE 100 MG CAP PO SCH (08:36)
[2021-07-22] MEDS: COLCHICINE 0.6 MG EACH PO SCH ×2 (08:36→21:28)
[2021-07-22] MEDS: PREGABALIN 75 MG CAP PO SCH ×2 (08:36→21:28)
[2021-07-22] MEDS: MIDODRINE 5 MG TAB PO SCH ×3 (08:36→21:29)
[2021-07-22] MEDS: FINASTERIDE 5 MG TAB PO SCH (08:36)
[2021-07-22] MEDS: ATORVASTATIN 10 MG TAB PO SCH (08:36)
[2021-07-22] MEDS: POTASSIUM CHLORIDE ER 20 MEQ TAB.ER PO SCH (08:36)
[2021-07-22] MEDS: HYOSCYAMINE SULFATE 0.375 MG TAB.ER.12H PO SCH (08:36)
[2021-07-22] MEDS: TAMSULOSIN 0.4 MG CAP.ER.24H PO SCH (08:36)
[2021-07-22] MEDS: SIMETHICONE 80 MG CHEWABLE PO SCH ×4 (08:37→21:29)
[2021-07-22 11:05] LABS: Glucose,Whole Blood 122 mg/dL (75-99)
[2021-07-22] MEDS: APIXABAN 5 MG TAB PO SCH ×2 (13:00→21:09)
[2021-07-22] MEDS ORDERED: diphenhydrAMINE 50 MG/ML 1 ML VIAL ONE (13:20)
[2021-07-22] MEDS ORDERED: fentaNYL (PF) 50 MCG/ML 2 ML AMP ONE (13:20)
[2021-07-22] MEDS ORDERED: MIDAZOLAM 2 MG/2 ML VIAL ONE (13:20)
[2021-07-22] MEDS ORDERED: SODIUM CHLORIDE 0.9% 1,000 ML IV ONE (13:20)
[2021-07-22] MEDS ORDERED: PROPOFOL 10 MG/ML 20 ML VIAL IV ONE (13:20)
[2021-07-22] MEDS: DOPamine DRIP 800 MG in DEXTROSE/WATER 1 250ML.BAG IV SCH (13:36)
[2021-07-22] MEDS ORDERED: LIDOCAINE 1% INJ 10MG/ML (20 ML MDV) ONE (13:54)
--- NOTE | 2021-07-22 13:55 | P.PN ---
Subjective Progress Note Date: 07/22/21 (delayed charting seen at 0830) Principal diagnosis: syncope Patient is a 61-year-old male with COPD, CHF, diabetes, and dyslipidemia who presented to the ER after a fall with head injury. In the ER he underwent an extensive evaluation and CT of the head and neck demonstrated mild intracranial atrophy and spondylitic changes in the mid and lower cervical spine with m ultilevel hypertrophic facet arthropathy. Chest x-ray showed no acute process. X-ray right hip demonstrated avascular necrosis or septic arthritis. Femur x- ray demonstrated avascular necrosis or chronic septic arthritis of the right hip. Tib-fib x-ray showed no acute fracture. Venous Dopplers demonstrated bilateral mild chronic DVT and femoral veins. Initial laboratory analysis showed potassium of 3.2 was otherwise unremarkable. Patient was admitted for hypokalemia and head injury. Patient was seen by orthopedic surgery who recommended conservative treatment of his avascular necrosis of hip. He developed significant sinus pauses of syncopal episodes. He was subsequently transferred to the ICU, dopamine was started well awaiting permanent pacemaker implantation. Patient seen and examined at bedside. No chest pain, not light headed, no nausea, no shortness of breath. General: non toxic, no distress, appears at stated age Derm: warm, dry Head: atraumatic, normocephalic, symmetric Eyes: EOMI, no lid lag, anicteric sclera Mouth: no lip lesion, mucus membranes moist Cardiovascular: S1S2 irreg, no murmur, positive posterior tibial pulse bilateral, Lungs: Decreased bs bilateral, no rhonchi, no rales , no accessory muscle use Abdominal: soft, nontender to palpation, no guarding, no appreciable organomegaly Ext: no gross muscle atrophy, no edema, no contractures Neuro: CN II-XI grossly intact, no focal neuro deficits Psych: Alert, oriented, appropriate affect Assessment/Plan: Mechanical fall - pt/ot - fall precautions Chronic lower extreme any DVT - hematology recs: 6 months AC with re-doppler prior to discontinuation - on eliquis - follow-up as outpatient Syncope due to sinus arrest - Cardiology recommendations appreciated: Permanent pacemaker planned for today - Dopamine wean once PPM in place Avascular necrosis of the right hip -Anti-inflammatory -Follow up outpatient -Ortho recommendations appreciated. COPD without exacerbation - bronchodilators scheduled and prn Diabetes mellitus - SSI - follow BS Chronic: Chronic kidney disease History of seizure disorder Hypertension Dyslipidemia History of nonischemic cardiomyopathy DVT prophylaxis: Anderson Discussed with: patient, nursing Anticipated discharge: in am Anticipated discharge place: home A total of 35 minutes was spent on the care of this complex patient more than 50% of the time was spent in counseling and care coordination. Active Medications Generic Name Dose Route Start Last Admin Trade Name Freq PRN Reason Stop Dose Admin Acetaminophen 650 mg 07/15/21 01:04 07/19/21 06:10 Acetaminophen Tab 325 Mg Tab PO 650 mg Q6HR PRN Administration Mild Pain or Fever > 100.5 Hydrocodone Bitart/Acetaminophen 1 each 07/15/21 05:39 07/15/21 21:25 Hydrocodone/Apap 5-325mg 1 Each Tab PO 1 each BID PRN Administration Pain Albuterol Sulfate 2.5 mg 07/21/21 08:23 Albuterol Nebulized 2.5 Mg/3 Ml INHALATION RT-QID PRN Shortness Of Breath Or Wheezing Albuterol/Ipratropium 3 ml 07/15/21 05:39 07/18/21 20:02 Ipratropium-Albuterol 3 Ml Neb INHALATION 3 ml RT-Q4H PRN Administration Wheezing Apixaban 5 mg 07/20/21 21:00 07/22/21 13:00 Apixaban 5 Mg Tab PO 07/27/21 09:01 Not Given BID [facility] Protocol Atorvastatin Calcium 10 mg 07/15/21 09:00 07/22/21 08:36 Atorvastatin 10 Mg Tab PO 10 mg DAILY MARY Administration Budesonide 0.5 mg 07/15/21 08:00 07/22/21 08:02 Budesonide 0.5 Mg/2 Ml Nebu INHALATION Not Given RT-BID MARY Colchicine 0.6 mg 07/15/21 09:00 07/22/21 08:36 Colchicine 0.6 Mg Each PO 0.6 mg BID MARY Administration Docusate Sodium 100 mg 07/15/21 09:00 07/22/21 08:36 Docusate 100 Mg Cap PO 100 mg DAILY MARY Administration Duloxetine HCl 60 mg 07/15/21 09:00 07/22/21 08:35 Duloxetine Hcl 60 Mg Capsule.Dr PO 60 mg BID MARY Administration Finasteride 5 mg 07/15/21 09:00 07/22/21 08:36 Finasteride 5 Mg Tab PO 5 mg DAILY MARY Administration Hyoscyamine 0.375 mg 07/18/21 09:00 07/22/21 08:36 Hyoscyamine Sulfate 0.375 Mg Tab.Er.12h PO 0.375 mg BID MARY Administration Dopamine HCl/Dextrose 800 mg/ 250 mls @ 7.2 mls/hr 07/19/21 11:30 07/22/21 13:36 IV Solution IV Not Given .Q24H MARY Protocol 5 MCG/KG/MIN Sodium Chloride 1,000 mls @ 50 mls/hr 07/20/21 18:00 07/21/21 21:01 Saline 0.9% IV 50 mls/hr .Q20H MARY Administration Cefazolin Sodium 2 gm/ Sodium 50 mls @ 100 mls/hr 07/22/21 10:00 Chloride IVPB 07/22/21 14:00 ONCE PRN Pre-Op Cefazolin Sodium 1 gm/ Sodium 250 mls @ 250 mls/hr 07/22/21 07:00 Chloride IRRIGATION 07/22/21 14:00 ONCE PRN PRE-OP Lactated Ringer's 1,000 mls @ 20 mls/hr 07/22/21 06:01 07/22/21 06:12 Lactated Ringers IV 20 mls/hr .Q24H MARY Administration Insulin Aspart 0 unit 07/15/21 07:30 07/22/21 12:28 Insulin Aspart (Novolog) 100 Unit/Ml Vial SQ Not Given ACHS MARY Protocol Lamotrigine 150 mg 07/15/21 21:00 07/21/21 20:46 Lamotrigine 100 Mg Tab PO 150 mg HS MARY Administration Midodrine 5 mg 07/15/21 09:00 07/22/21 08:36 Midodrine 5 Mg Tab PO 5 mg TID MARY Administration Mirtazapine 15 mg 07/15/21 21:00 07/21/21 20:48 Mirtazapine 15 Mg Tab PO 15 mg HS MARY Administration Morphine Sulfate 4 mg 07/15/21 01:04 07/19/21 23:07 Morphine Sulfate 4 Mg/Ml Syringe IV 4 mg Q4HR PRN Administration Severe Pain Naloxone HCl 0.2 mg 07/15/21 01:04 Naloxone 0.4 Mg/Ml 1 Ml Vial IV Q2M PRN Opioid Reversal Ondansetron HCl 4 mg 07/15/21 01:04 Ondansetron 4 Mg/2 Ml Vial IVP Q8HR PRN Nausea And Vomiting Pantoprazole Sodium 40 mg 07/15/21 07:30 07/22/21 08:35 Pantoprazole 40 Mg Tablet PO 40 mg AC-BRKFST MARY Administration Potassium Chloride 20 meq 07/15/21 09:00 07/22/21 08:36 Potassium Chloride Er 20 Meq Tab.Er PO 20 meq DAILY MARY Administration Pregabalin 150 mg 07/15/21 09:00 07/22/21 08:36 Pregabalin 75 Mg Cap PO 150 mg BID MARY Administration Ropinirole HCl 1 mg 07/15/21 21:00 07/21/21 20:47 Ropinirole Hcl 1 Mg Tab PO 1 mg HS [facility] Administration Silver Sulfadiazine 1 applic 07/21/21 21:00 07/22/21 08:37 Silver Sulfadiazine 1% Cream 25 Gm Tube TOPICAL 1 applic BID MARY Administration Protocol Simethicone 80 mg 07/15/21 09:00 07/22/21 12:28 Simethicone 80 Mg Chewable PO Not Given QID [facility] Tamsulosin HCl 0.8 mg 07/15/21 09:00 07/22/21 08:36 Tamsulosin 0.4 Mg Cap.Er.24h PO 0.8 mg DAILY MARY Administration Objective - Vital Signs Vital signs: Vital Signs Temp 97.8 F 07/22/21 12:00 Pulse 75 07/22/21 13:00 Resp 16 07/22/21 13:00 BP 92/56 07/22/21 13:00 Pulse Ox 97 07/22/21 13:00 Intake & Output 07/21/21 07/22/21 07/22/21 18:59 06:59 18:59 Intake Total 1177.392 562.608 375.52 Output Total 1000 1625 500 Balance 177.392 -1062.392 -124.48 Intake: IV 550 440 120 Lactated Ringers 1,000 ml 40 120 @ 20 mls/hr IV .Q24H MARY Rx#:[id number] Sodium Chloride 0.9% 1, 550 150 000 ml @ 100 mls/hr IV . Q10H MARY Rx#:[id number] Sodium Chloride 0.9% 1, 250 000 ml @ 50 mls/hr IV . Q20H MARY Rx#:[id number] Intake, IV Titration 127.392 122.608 155.52 Amount DOPamine DRIP 800 mg In 127.392 122.608 155.52 Dextrose/Water 1 250ml. bag @ 5 MCG/KG/MIN 7.2 mls/hr IV .Q24H MARY Rx#: [id number] Oral 500 100 Output: Urine 1625 500 Stool 1000 Other: Voiding Method Urinal Urinal Urinal - Labs CBC & Chem 7: 07/22/21 07:12 07/22/21 07:12 Labs: Abnormal Lab Results - Last 24 Hours (Table) 07/21/21 07/21/21 07/22/21 Range/Units 16:47 20:54 06:31 RBC (4.30-5.90) m/uL Hgb (13.0-17.5) gm/dL Hct (39.0-53.0) % Lymphocytes # (1.0-4.8) k/uL BUN (9-20) mg/dL Glucose (74-99) mg/dL POC Glucose (mg/dL) 142 H 229 H 120 H (75-99) mg/dL 07/22/21 07/22/21 07/22/21 Range/Units 07:12 07:12 11:04 RBC 3.65 L (4.30-5.90) m/uL Hgb 11.6 L (13.0-17.5) gm/dL Hct 35.1 L (39.0-53.0) % Lymphocytes # 0.8 L (1.0-4.8) k/uL BUN 24 H (9-20) mg/dL Glucose 123 H (74-99) mg/dL POC Glucose (mg/dL) 122 H (75-99) mg/dL
[2021-07-22] MEDS ORDERED: LIDOCAINE 1% INJ 10MG/ML (20 ML MDV) SQ ONE ×2 (14:16→14:22)
--- NOTE | 2021-07-22 15:12 | P.EPPROC ---
- EP Procedure Note Electrophysiology Procedure Note: Diagnosis Sick Sinus Syndrome, sinus pauses, symptomatic Procedure Dual-chamber pacemaker implantation Details Patient was brought to the EP lab in a fasting state. Written informed consent was obtained prior to the procedure. Conscious sedation provided by anesthesia team IV antibiotics administered. Local anesthesia administered. A 4 cm incision made in the pectoral area. Subfascial pocket made. Venous access obtained Venous sheaths placed. Leads placed in the right heart Atrial lead position the right atrial appendage. [employer] tendril 2088 TC, 46 cm in length, active fix He weighs 1.1 mV, pacing threshold 0.8 V at 0.4 ms and pacing impedance 400 ohms, atenolol testing negative RV lead position in the RV apex. Active fix [employer] tendril, 2088 TC, 58 cm in length R waves 12 mV, pacing impedance 640 ohms and pacing threshold 0.5 V at 0.4 ms and we'll test was negative Biventricular pacemaker device connected to the leads and placed in the subfascial pocket Patient tolerance the procedure well without acute complications Programming: DDD, VIP mode on, 50 PPM
--- NOTE | 2021-07-22 15:13 | P.EPPROC ---
- EP Procedure Note Electrophysiology Procedure Note: Procedure Left upper extremity venogram 10 mL IV dye injected in the left arm Patent left subclavian and axillary venous system into the central circulation Plan Dual-chamber pacemaker implantation for sick sinus syndrome
[2021-07-22] MEDS ORDERED: ACETAMINOPHEN TAB 325 MG TAB PO PRN (15:14)
[2021-07-22] MEDS ORDERED: ACETAMINOPHEN IV (For NPO) 1,000 MG in EMPTY BAG 1 BAG IVPB ONE (15:45)
[2021-07-22] MEDS ORDERED: SODIUM CHLORIDE 0.9% 500 ML 500 ML IV ONE (16:07)
[2021-07-22] MEDS: SODIUM CHLORIDE 0.9% 1,000 ML IV SCH ×2 (17:04→22:25)
[2021-07-22 17:51] LABS: Glucose,Whole Blood 127 mg/dL (75-99)
[2021-07-22] MEDS: HYDROcodone/APAP 5-325MG 1 EACH TAB PO PRN (18:07)
--- NOTE | 2021-07-22 18:18 | XR ---
EXAMINATION TYPE: XR chest 1V portable DATE OF EXAM: 07/22/2021 COMPARISON: 07/14/2021 HISTORY: Check lead placement TECHNIQUE: Single view FINDINGS: Heart is normal. There is no heart failure. Lungs are clear of infiltrate. There is left ax illary pacemaker. There are chest leads. IMPRESSION: No active cardiopulmonary disease. Normal heart. No change.
[2021-07-22 21:22] LABS: Glucose,Whole Blood 136 mg/dL (75-99)
[2021-07-22] MEDS: lamoTRIgine 100 MG TAB PO SCH (21:29)
[2021-07-22] MEDS: MIRTAZAPINE 15 MG TAB PO SCH (22:20)
[2021-07-23] MEDS: HYDROcodone/APAP 5-325MG 1 EACH TAB PO PRN (04:37)
[2021-07-23] MEDS: PANTOPRAZOLE 40 MG TABLET PO SCH (06:26)
[2021-07-23 06:49] LABS: Glucose,Whole Blood 127 mg/dL (75-99)
[2021-07-23] MEDS: INSULIN ASPART (NovoLOG) 100 UNIT/ML VIAL SQ SCH ×2 (06:51→12:19)
--- NOTE | 2021-07-23 07:00 | ECHOF ---
Referral Reason:post pace maker place MEASUREMENTS -------- HEIGHT: 0.0 cm WEIGHT: 0.0 kg BP: FINDINGS -------- The left ventricular size is normal. There is normal global left ventricular contractility. There is no pericardial effusion. CONCLUSIONS -------- 1. There is no pericardial effusion. [employer]PER[employer]: [employer]
[2021-07-23] MEDS: BUDESONIDE 0.5 MG/2 ML NEBU INHALATION SCH (07:04)
[2021-07-23] MEDS: MIDODRINE 5 MG TAB PO SCH (07:13)
[2021-07-23] MEDS ORDERED: MIDODRINE 5 MG TAB PO STA (08:05)
[2021-07-23] MEDS ORDERED: MIDODRINE 5 MG TAB PO SCH ×2 (08:30→12:30)
[2021-07-23] MEDS: ACETAMINOPHEN TAB 325 MG TAB PO PRN (09:00)
[2021-07-23] MEDS: PREGABALIN 75 MG CAP PO SCH (09:01)
[2021-07-23] MEDS: APIXABAN 5 MG TAB PO SCH (09:01)
[2021-07-23] MEDS: DOCUSATE 100 MG CAP PO SCH (09:02)
[2021-07-23] MEDS: ATORVASTATIN 10 MG TAB PO SCH (09:02)
[2021-07-23] MEDS: POTASSIUM CHLORIDE ER 20 MEQ TAB.ER PO SCH (09:02)
[2021-07-23] MEDS: FINASTERIDE 5 MG TAB PO SCH (09:03)
[2021-07-23] MEDS: COLCHICINE 0.6 MG EACH PO SCH (09:03)
[2021-07-23] MEDS: DULoxetine HCL 60 MG CAPSULE.DR PO SCH (09:04)
[2021-07-23] MEDS: TAMSULOSIN 0.4 MG CAP.ER.24H PO SCH (09:04)
[2021-07-23] MEDS: SIMETHICONE 80 MG CHEWABLE PO SCH ×2 (09:05→12:24)
[2021-07-23 11:21] VITALS: RESP 31
[2021-07-23 12:17] LABS: Glucose,Whole Blood 132 mg/dL (75-99)
[2021-07-23 13:26] VITALS: PULSE 68
--- NOTE | 2021-07-23 13:31 | P.DS ---
Providers Date of admission: 07/17/21 14:36 Expected date of discharge: 07/23/21 Attending physician: Marlene Krishnan MD Consults: 07/15/21 07:47 Consult Physician Routine Consulting Provider: Neftali Jones Consult Reason/Comments: avascular necrosis of right hip Do you want consulting provider notified?: Yes 07/16/21 08:19 Consult Physician Routine Consulting Provider: Chaz Ohara Consult Reason/Comments: DVT - AC recommendations. Do you want consulting provider notified?: Yes 07/17/21 04:22 Consult Physician Routine Consulting Provider: Jacob Smith Consult Reason/Comments: bradycardia Do you want consulting provider notified?: Yes 07/17/21 15:14 Consult Physician Urgent Consulting Provider: Hilaria Melendrez Consult Reason/Comments: HYPOTENSION Do you want consulting provider notified?: Yes Primary care physician: [facility] Course: Discharge Diagnosis: Syncope due to sinus arrest s/p PPM Mechanical fall Chronic lower extremity DVT Avascular necrosis of the right hip COPD without exacerbation Diabetes mellitus Chronic kidney disease History of seizure disorder Hypertension Dyslipidemia History of nonischemic cardiomyopathy HX [facility] Course: Patient is a 61-year-old male with COPD, CHF, diabetes, and dyslipidemia who presented to the ER after a fall with head injury. In the ER he underwent an extensive evaluation and CT of the head and neck demonstrated mild intracranial atrophy and spondylitic changes in the mid and lower cervical spine with multilevel hypertrophic facet arthropathy. Chest x-ray showed no acute process. X-ray right hip demonstrated avascular necrosis or septic arthritis. Femur x- ray demonstrated avascular necrosis or chronic septic arthritis of the right hip. Tib-fib x-ray showed no acute fracture. Venous Dopplers demonstrated bilateral mild chronic DVT and femoral veins. Initial laboratory analysis showed potassium of 3.2 was otherwise unremarkable. Patient was admitted for hypokalemia and head injury. Patient was seen by orthopedic surgery who recommended conservative treatment of his avascular necrosis of hip. He developed significant sinus pauses of syncopal episodes. He was subsequently transferred to the ICU, dopamine was started well awaiting permanent pacemaker implantation which was completed on 07/22. Patient was able to come off dopamine. He was hypotensive and midodrine was increased. BP improved and he was asymptomatic, with ambulation his BP was able and he did not develop dizziness.He was determined stable for discharge. Follow-up: Device clinic in 1 week, Dr. Cline in 4-6 weeks. Will need repeat lower extremity venous Dopplers in 6 months as well as follow-up with Dr. Ohara. Follow-up with Dr. Kulkarni in 1-2 weeks regarding his avascular necrosis of the hip. Patient's Midodrine was increased due to hypotension. He was also taken off of Lasix and Zaroxolyn. Patient seen and examined at bedside. No chest pain, no shortness of breath, no lightheadedness or dizziness. No pain at pacemaker insertion site. Vital signs reviewed and stable. General: non toxic, no distress, appears at stated age Derm: warm, dry Head: atraumatic, normocephalic, symmetric Eyes: EOMI, no lid lag, anicteric sclera Mouth: no lip lesion, mucus membranes moist Cardiovascular: S1S2 reg, no murmur, positive posterior tibial pulse bilateral, dressing in place over left chest wall with small amount of sanguinous soak through, no edema. Lungs: CTA bilateral, no rhonchi, no rales , no accessory muscle use Abdominal: soft, nontender to palpation, no guarding, no appreciable organomegaly Ext: no gross muscle atrophy, no edema, no contractures Neuro: CN II-XI grossly intact, no focal neuro deficits Psych: Alert, oriented, flat affect A total of 35 minutes of time were spent preparing this complex discharge summary . Patient Condition at Discharge: Stable Plan - Discharge Summary Discharge Rx Participant: No New Discharge Prescriptions: New Midodrine [ProAmatine] 7.5 mg PO AC-TID tab Apixaban [Eliquis] 5 mg PO BID tab Continue Omeprazole 40 mg PO DAILY Multivitamins, Thera [Multivitamin (formulary)] 1 tab PO DAILY rOPINIRole HCL [Requip] 1 mg PO HS Tamsulosin HCl [Flomax] 0.8 mg PO DAILY metFORMIN HCL [Glucophage] 1,000 mg PO BID lamoTRIgine [LaMICtal] 150 mg PO HS gemfibroziL [Lopid] 600 mg PO BID DULoxetine HCL [Cymbalta] 60 mg PO BID Morphine Pain Pump (Unknown Strength) 1 dose INTRATHECA CONTINUOUS Docusate [Colace] 100 mg PO DAILY Albuterol Sulfate [Ventolin HFA] 2 puff INHALATION RT-Q4H PRN PRN Reason: Shortness Of Breath Cholecalciferol [Vitamin D3 (25 Mcg = 1000 Iu)] 50 mcg PO DAILY Acetaminophen Tab [Tylenol] 500 mg PO Q6H PRN PRN Reason: Pain polyethylene glycoL 3350 [Miralax] 17 gm PO DAILY PRN PRN Reason: Constipation Furosemide [Lasix] 20 mg PO DAILY Potassium Chloride [Klor-Con 20] 20 meq PO DAILY Simethicone Chew [Mylicon Chew] 80 mg PO QID Naloxegol Oxalate [Movantik] 25 mg PO DAILY Ammonium Lactate Lotion [Lac-Hydrin 12% Lotion] 1 applic TOPICAL BID Finasteride [Proscar] 5 mg PO DAILY Ipratropium-Albuterol Nebulize [Duoneb 0.5 mg-3 mg/3 ml Soln] 3 ml INHALATION RT-Q4H PRN PRN Reason: Wheezing Mirtazapine [Remeron] 15 mg PO HS Pregabalin [Lyrica] 150 mg PO BID #60 cap Budesonide [Pulmicort] 0.5 mg INHALATION RT-BID Colchicine 0.6 mg PO BID Atorvastatin [Lipitor] 10 mg PO DAILY HYDROcodone/APAP 5-325MG [[place] 5-325] 1 tab PO BID PRN #6 tab PRN Reason: Pain Discontinued Digoxin [Lanoxin] 250 mcg PO DAILY tab metOLazone [Zaroxolyn] 5 mg PO DAILY Midodrine [ProAmatine] 5 mg PO TID Discharge Medication List Omeprazole 40 mg PO DAILY 10/19/13 [History] Acetaminophen Tab [Tylenol] 500 mg PO Q6H PRN 02/27/20 [History] Albuterol Sulfate [Ventolin HFA] 2 puff INHALATION RT-Q4H PRN 02/27/20 [History] Cholecalciferol [Vitamin D3 (25 Mcg = 1000 Iu)] 50 mcg PO DAILY 02/27/20 [History] DULoxetine HCL [Cymbalta] 60 mg PO BID 02/27/20 [History] Docusate [Colace] 100 mg PO DAILY 02/27/20 [History] Furosemide [Lasix] 20 mg PO DAILY 02/27/20 [History] Morphine Pain Pump (Unknown Strength) 1 dose INTRATHECA CONTINUOUS 02/27/20 [History] Multivitamins, Thera [Multivitamin (formulary)] 1 tab PO DAILY 02/27/20 [Histo ry] Potassium Chloride [Klor-Con 20] 20 meq PO DAILY 02/27/20 [History] Tamsulosin HCl [Flomax] 0.8 mg PO DAILY 02/27/20 [History] gemfibroziL [Lopid] 600 mg PO BID 02/27/20 [History] lamoTRIgine [LaMICtal] 150 mg PO HS 02/27/20 [History] metFORMIN HCL [Glucophage] 1,000 mg PO BID 02/27/20 [History] polyethylene glycoL 3350 [Miralax] 17 gm PO DAILY PRN 02/27/20 [History] rOPINIRole HCL [Requip] 1 mg PO HS 02/27/20 [History] Ammonium Lactate Lotion [Lac-Hydrin 12% Lotion] 1 applic TOPICAL BID 05/06/20 [History] Finasteride [Proscar] 5 mg PO DAILY 05/06/20 [History] Ipratropium-Albuterol Nebulize [Duoneb 0.5 mg-3 mg/3 ml Soln] 3 ml INHALATION RT-Q4H PRN 05/06/20 [History] Naloxegol Oxalate [Movantik] 25 mg PO DAILY 05/06/20 [History] Simethicone Chew [Mylicon Chew] 80 mg PO QID 05/06/20 [History] Atorvastatin [Lipitor] 10 mg PO DAILY 07/14/21 [History] Budesonide [Pulmicort] 0.5 mg INHALATION RT-BID 07/14/21 [History] Colchicine 0.6 mg PO BID 07/14/21 [History] Mirtazapine [Remeron] 15 mg PO HS 07/14/21 [History] Apixaban [Eliquis] 5 mg PO BID tab 07/23/21 [Rx] HYDROcodone/APAP 5-325MG [[place] 5-325] 1 tab PO BID PRN #6 tab 07/23/21 [Rx] Midodrine [ProAmatine] 7.5 mg PO AC-TID tab 07/23/21 [Rx] Pregabalin [Lyrica] 150 mg PO BID #60 cap 07/23/21 [Rx] Follow up Appointment(s)/Referral(s): Ayaz Cline DO [STAFF PHYSICIAN] - 1 Week (Device clinic follow-up in 1 week Follow-up with Dr. Cline in 4-6 weeks) [facility] Care [facility] - 1-2 days Amado Bardales MD [STAFF PHYSICIAN] - 10 Days Chaz Ohara MD [STAFF PHYSICIAN] - As Needed (in 4-6 months) Activity/Diet/Wound Care/Special Instructions: PATIENT EDUCATION MATERIAL Instructions following a heart rhythm device implant. 1. Keep dressing DRY for 5 DAYS. You may cover the area with Saran or Cling Wrap, prior to a shower. 2. The dressing will be removed in the Device Clinic at [facility]. Absorbable sutures were used to close the wound. 3. Avoid raising the left arm above the shoulder level. 4 week restriction 4. Avoid arm movements, like backscratching, rubbing the head, or pulling on a cord. 4 weeks restriction 5. Gentle range of motion movements of the shoulder, closest to the incision should be performed to avoid a frozen shoulder. (Pendulum exercises of the shoulder) 6. The opposite arm may be used freely. 7. Avoid driving for 7 days. 8. Avoid activities such as golfing, swimming, weed whacking, lifting more than 10 pounds weight, bowling, gymnastics and weight training/lifting. (6 weeks restriction) 9. Activities such as wood chopping with an axe, pull-ups in the gymnasium, power lifting, arc-welding, being close to home induction cooktops will always be a problem. 10. Arm sling is only a reminder not to raise the arm above the head. You do not need to keep the arm completely immobilized. Your free to move the arm and use it and for normal activities. In case of any problems, please call [facility], [place], @ [phone], Attention: Device Clinic Device clinic follow-up in 7 days Follow-up with primary flight engineer performance qualified in 4-6 weeks Diet: Heart Healthy Special Instructions: Device clinic in 1 week, Dr. Cline in 4-6 weeks. Will need repeat lower extremity venous Dopplers in 6 months as well as follow- up with Dr. Ohara. Follow-up with Dr. Kulkarni in 1-2 weeks regarding his avascular necrosis of the hip. Patient's Midodrine was increased due to hypotension. Anticipated systolic BP to maintain at 78-85 which is acceptable if patient remains asymptomiatc. He was also taken off of Lasix and Zaroxolyn. Suggest daily weight with close monitoring to see if diuretics will need to be restarted. Discharge Disposition: HOME SELF-CARE
[2021-07-23 14:44] VITALS: BMI 26.4
--- NOTE | 2021-07-23 15:07 | P.PN ---
Subjective Progress Note Date: 07/23/21 This patient is admitted with multiple falls and documented multiple episodes of sinus arrest in the hospital. Currently on dopamine. Waiting to have permanent pacemaker either today or tomorrow. Patient has history of DVT and also on anticoagulation therapy. Patient is otherwise stable seemed to be in sinus rhythm. No complaints of any chest pain or shortness of breath, no dizziness or syncope 07/23/2021: This patient was admitted with sick sinus syndrome with evidence of episodes of sinus arrest. Patient had pacemaker implantation by Dr. Fermin yesterday. Patient tolerated the procedure well. Chest x-ray showed proper lead position. Patient has been having episodes of hypotension. Echocardiogram done yesterday did not show any evidence of pericardial effusion. Patient was put on Midodrin. His blood pressure has been the range of 80-90 systolic. Patient is tolerating his blood pressure fairly well. Denies any chest pain, shortness of breath, dizziness. Lungs are clear. Heart is regular. Patient is being discharged home. Pacemaker site seemed to be dry without any evidence of hematoma . Patient will have follow-up with the office with Dr. Cline Objective - Vital Signs Vital signs: Vital Signs Temp 98.4 F 07/23/21 08:00 Pulse 68 07/23/21 13:00 Resp 31 H 07/23/21 11:00 BP 97/50 07/23/21 12:00 Pulse Ox 98 07/23/21 13:00 Intake & Output 07/22/21 07/23/21 07/23/21 18:59 06:59 18:59 Intake Total 1405.52 2070 890 Output Total 500 1200 400 Balance 905.52 870 490 Weight 79 kg 79 kg Intake: IV 910 1110 70 Lactated Ringers 1,000 ml 160 @ 20 mls/hr IV .Q24H MARY Rx#:[id number] Sodium Chloride 0.9% 1, 200 1110 70 000 ml @ 100 mls/hr IV . Q10H MARY Rx#:[id number] Sodium Chloride 0.9% 500 500 ml 500 ml @ 999 mls/hr IV .Q31M ONE Rx#:[id number] Intake, IV Titration 155.52 Amount DOPamine DRIP 800 mg In 155.52 Dextrose/Water 1 250ml. bag @ 5 MCG/KG/MIN 7.2 mls/hr IV .Q24H MARY Rx#: [id number] Oral 340 960 820 Output: Urine 500 1200 400 Other: Voiding Method Urinal Urinal Urinal # Voids 1 1 - Exam GENERAL EXAM: Patient is alert and oriented and doesn't appear to be in any acute distress HEENT: Normocephalic. Normal reaction of pupils, equal size, normal range of extraocular motion. No erythema or exudates in the throat. NECK: No masses, no nuchal rigidity. CHEST: No chest wall deformity. LUNGS: Equal air entry with no crackles or wheeze. HEART: S1 and S2 normal with no audible mumurs or gallops. Regular rhythm, femorals equal on both sides.. ABDOMEN: No hepatosplenomegaly, normal bowel sounds, no guarding or rigidity. SKIN: No rashes CENTRAL NERVOUS SYSTEM: No focal deficits. EXTREMITIES: No cyanosis, clubbing or edema. Pacemaker site: The dressing is dry without any evidence of hematoma or swelling - Labs CBC & Chem 7: 07/22/21 07:12 07/22/21 07:12 Labs: Abnormal Lab Results - Last 24 Hours (Table) 07/22/21 07/22/21 07/23/21 Range/Units 17:50 21:21 06:47 POC Glucose (mg/dL) 127 H 136 H 127 H (75-99) mg/dL 07/23/21 Range/Units 12:15 POC Glucose (mg/dL) 132 H (75-99) mg/dL Assessment and Plan (1) Sick sinus syndrome Current Visit: Yes Status: Acute Code(s): I49.5 - SICK SINUS SYNDROME SNOMED Code(s): 15317224 (2) Presence of permanent cardiac pacemaker Current Visit: Yes Status: Acute Code(s): Z95.0 - PRESENCE OF CARDIAC PACEMAKER SNOMED Code(s): 984762692 Plan: Patient is being discharged home. Patient will keep the dressing dry and to seen in the office in one week. Follow-up with Dr. Cline
--- NOTE | 2021-07-23 15:58 | CDI ---
Documentation Clarification Form Date: 07/23/2021 03:32:10 PM From: Otilia Swift RN, CCDS Admit Date: 07/17/2021 02:36:00 PM Patient Name: Jonatan Chun Visit Number: [id number] Discharge Date: ATTENTION: The Clinical Documentation Specialists (CDI) and [facility] Coding Staff appreciate your assistance in clarifying documentation. Please respond to the clarification below the line at the bottom and electronically sign. The CDI & [facility] Coding staff will review the response and follow-up if needed. Please note: Queries are made part of the Legal Health Record. If you have any questions, please contact the author of this message via ITS. Dr. Ayaz Cline Your patient has the documented diagnosis of unspecified CHF in the past medical history. Additional information regarding the type, acuity of CHF is requested. History/Risk Factors: Heart Failure, COPD, Diabetes mellitus, Hypertension, Chronic Kidney Disease stage III, Nonischemic Cardiomyopathy, Current every day smoker Clinical Indicators: 61-year-old male present to emergency department with syncope found evidence of sinus node dysfunction presents as sinus bradycardia as well as sinus arrest. Abnormal EKG with evidence of fascicular block consistent with-first degree V block and RBBB per cardiology assessment. VS/Pulse OX: 07/14 BNP: 123 07/17 Echocardiogram Results: LV size, wall thickness and systolic function are normal, with EF greater than 55 % 07/14 Chest X Ray: No acute cardiopulmonary disease Treatment: ICU/Telemetry monitoring Dopamine 800MG in 250 mls @ 7.2 MLS/HR 07/19-07/22 Avoid any AV camille valentín agents including beta valentín or non-dihydropyridine calcium channel blockers Dual-Chamber pacemaker In your professional opinion, can you please clarify the [acuity and type] of CHF if known? [ X ] Chronic Diastolic Heart Failure (preserved EF) [ ] Acute Systolic & Diastolic Heart Failure [ ] Chronic Systolic & Diastolic Heart Failure [ ] Other, please specify [ ] Unable to determine (Template Last Revised: July 2020) MTDD
[2021-07-23 17:06] VITALS: BP 108/61; TEMP 99
== END 2021-07-23 17:20 | DRG 243 ==
LOC: EC 18:32 → SUPCPDRO 18:32 → 6NMEDSUR 07-15 00:48 → OBSVTOIN 07-17 14:36 → 2SICU 07-17 15:47
PROVIDERS: ADMIT Internal Medicine; ATTEND Internal Medicine
PROC: 02H63JZ Insertion of Pacemaker Lead into Right Atrium, Percutaneous Approach (ICD-10-PCS; principal; 2021-07-22 09:00)
PROC: 0JH607Z Insertion of Cardiac Resynchronization Pacemaker Pulse Generator into Chest Subcutaneous Tissue and Fascia, Open Approach (ICD-10-PCS; principal; 2021-07-22 09:00)
PROC: B51N1ZA Fluoroscopy of Left Upper Extremity Veins using Low Osmolar Contrast, Guidance (ICD-10-PCS; principal; 2021-07-22 09:00)
PROC: 02HK3JZ Insertion of Pacemaker Lead into Right Ventricle, Percutaneous Approach (ICD-10-PCS; principal; 2021-07-22 09:00)
DX: I49.5 Sick sinus syndrome (principal); I50.32 Chronic diastolic (congestive) heart failure; I13.0 Hypertensive heart and chronic kidney disease with heart failure and stage 1 through stage 4 chronic kidney disease, or unspecified chronic kidney disease; I45.2 Bifascicular block; I82.413 Acute embolism and thrombosis of femoral vein, bilateral; K86.1 Other chronic pancreatitis; M00.9 Pyogenic arthritis, unspecified; M87.851 Other osteonecrosis, right femur; R00.1 Bradycardia, unspecified; Z20.822 Contact with and (suspected) exposure to COVID-19; W19.XXXA Unspecified fall, initial encounter; E11.22 Type 2 diabetes mellitus with diabetic chronic kidney disease; E78.5 Hyperlipidemia, unspecified; E87.6 Hypokalemia; F17.210 Nicotine dependence, cigarettes, uncomplicated; F32.A Depression, unspecified; G25.81 Restless legs syndrome; G40.909 Epilepsy, unspecified, not intractable, without status epilepticus; G89.29 Other chronic pain; I42.8 Other cardiomyopathies; S09.90XA Unspecified injury of head, initial encounter; S70.01XA Contusion of right hip, initial encounter; I44.0 Atrioventricular block, first degree; J44.9 Chronic obstructive pulmonary disease, unspecified; M47.819 Spondylosis without myelopathy or radiculopathy, site unspecified; M89.751 Major osseous defect, right pelvic region and thigh; N18.30 Chronic kidney disease, stage 3 unspecified; N40.0 Benign prostatic hyperplasia without lower urinary tract symptoms; R29.6 Repeated falls; W18.2XXA Fall in (into) shower or empty bathtub, initial encounter; Y92.002 Bathroom of unspecified non-institutional (private) residence as the place of occurrence of the external cause; Y93.E1 Activity, personal bathing and showering; Z79.01 Long term (current) use of anticoagulants; Z79.4 Long term (current) use of insulin; Z79.84 Long term (current) use of oral hypoglycemic drugs; Z79.899 Other long term (current) drug therapy; Z85.46 Personal history of malignant neoplasm of prostate; Z86.718 Personal history of other venous thrombosis and embolism; Z92.3 Personal history of irradiation; Z95.0 Presence of cardiac pacemaker; Z88.6 Allergy status to analgesic agent
CPT/HCPCS: 33208; 36415; 70450; 71045; 72125; 73502; 80048; 80053; 81003; 82550; 82607; 83735; 83880; 84132; 84443; 84484; 85025; 85027; 87635; 93005; 93306; 93308; 93970; 94640; 96372; 96374; 99285

== ENCOUNTER → 2021-12-12 | Outpatient (CLI) | payer OTHER ==
[2021-12-12 08:44] LABS: African American GFR (CKD) >90 (>60 ml/min/1.73 sqM); Blood Urea Nitrogen 42 mg/dL (9-20); Non-African American GFR(CKD) 84 (>60 ml/min/1.73 sqM)
--- NOTE | 2021-12-12 13:00 | CT ---
EXAMINATION TYPE: CT abdomen pelvis wo/w con DATE OF EXAM: 12/12/2021 COMPARISON: Radiograph 10/27/2021 HISTORY: 61-year-old male with right hip pain. C61, history of prostate CA TECHNIQUE: Contiguous axial scanning of the abdomen and pelvis before and after administration of 70 ml Omnipaque 300 IV contrast. Delayed images through the kidneys and coronal/sagittal reconstruction s performed. CT DLP: 3240.1 mGycm Automated exposure control for dose reduction was used. FINDINGS: Heart normal size without pericardial effusion. Right atrial and right ventricular pacer leads are no juan david. There is patchy opacity at the left base. More bandlike areas of opacity, scarring or atelectasis at the right base. No pleural effusion. There is a small hiatal hernia but with a eccentric mural thickening along the anterior wall for whic h direct visualization is recommended to exclude neoplasm. Liver borderline enlarged at 17.8 cm. No focal lesion is seen. Mild breathing motion artifact. Cholec ystectomy clips. Adrenal glands and spleen within normal limits. Calcifications of the pancreas compatible chronic pancreatitis. There is poor delineation between the anterior pancreatic neck/head and posterior wall of the gastric antrum, axial image 25. This could r eflect chronic inflammatory changes related to chronic pancreatitis. Correlate with tumor markers to exclude underlying neoplasm. There is mild dilatation of the main pancreatic duct at the level of the pancreatic body and tail up to 4 mm. Scattered nonenlarged retroperitoneal lymph nodes measuring up to 8 mm. No mesenteric lymphadenopathy . A few scattered mildly distended small bowel loops measuring up to 3.1 cm are nonspecific, for exampl e, lateral left mid abdomen axial image 54. No transition point is seen to suggest obstruction. There is a small umbilical hernia containing a short segment of nonobstructed small bowel loop. Moderate stool burden. Mildly redundant sigmoid colon. No pericolonic inflammatory change. Artifact from a generator device along the anterior left mid abdomen. Moderate atherosclerotic calcifications infrarenal abdominal aorta and iliac arteries. Kidneys show a number of cysts measuring up to 7.5 cm on the right and 1.6 cm on the left. No excrete d contrast on the delayed kidney images. Correlate with kidney function to exclude RUBI. Subcutaneous nodules which the right lower quadrant and left mid abdomen likely related to subcutaneo us injections. Bladder is urine distended. Prostate gland is small at 3.9 cm. Pelvic phleboliths. No abnormal fluid collection in the pelvis or pelvic lymphadenopathy. There is end-stage degenerative change of the right hip but without amna erosions of both the acetab ular and femoral head articular surfaces and secondary bony deformities. Associated joint capsular th ickening/effusion. If no established diagnosis, further workup would be warranted. Postsurgical changes of interbody lumbar fusion at L5-S1. Hypertrophic facet arthropathy throughout. Stimulator leads enter the lumbar spinal canal through the L4-L5 interlaminar space and extends up to the L1 vertebral body level. IMPRESSION: 1. END-STAGE DEGENERATIVE CHANGE AT THE RIGHT HIP BUT ALSO WITH AMNA FOCAL EROSIONS OF BOTH ACETABUL AR AND FEMORAL HEAD ARTICULAR SURFACES. CORRESPONDING CAPSULAR THICKENING OR LARGE EFFUSION. IF THERE IS NO ESTABLISHED DIAGNOSIS, RECOMMEND ORTHOPEDIC REFERRAL. Given the erosive change, correlate with inflammatory markers and WBC count to exclude septic arthritis. This is considered less likely given the presence of periarticular reactive sclerosis. Rapidly destructive OA is a consideration. 2. Small prostate gland, query posttreatment change. Numerous nonenlarged retroperitoneal nodes measu ring up to 8 mm that can be reassessed at follow-up if indicated. 3. Small hiatal hernia but with eccentric mural soft tissue thickening along the anterior wall. Direc t visualization to exclude neoplasm. 4. Changes of chronic pancreatitis. There is thickening at the level of the pancreatic head and neck and poor delineation between the anterior pancreas and posterior wall of the gastric antrum. This cou ld reflect chronic inflammatory change. Correlate with tumor markers to exclude neoplasm. Either CT, MRI, or EUS follow-up as clinically indicated. 5. No excretion of contrast from the kidneys on delayed scan. Correlate with kidney function to exclu de RUBI.
== END | disposition home or self-care (01) ==
LOC: RADCTMAIN 07:58
PROVIDERS: ATTEND Surgery Surgical Oncology
DX: M16.11 Unilateral primary osteoarthritis, right hip (principal); K44.9 Diaphragmatic hernia without obstruction or gangrene; K86.1 Other chronic pancreatitis
CPT/HCPCS: 82565; 84520; 74178; 36415; Q9967

== ENCOUNTER → 2022-01-07 | Outpatient (CLI) | payer OTHER ==
--- NOTE | 2022-01-07 16:15 | NM ---
EXAMINATION TYPE: NM bone scan whole body DATE OF EXAM: 01/07/2022 COMPARISON: CT 12/12/2021 HISTORY: Prostate carcinoma Delayed whole-body scanning was performed following the injection of 24.8 mCi Tc 99m MDP. Images acq uired 4 hours post injection. FINDINGS: Abnormal uptake is associated with the right hip, marked erosive change noted within the right hip, c orrelate to exclude infection. Soft tissue uptake is within normal limits. Uptake within the feet, an kles, knees, wrists and hands, elbows and shoulders, sternoclavicular joints is likely degenerative. Uptake within the lumbar spine is likely due to degenerative disc disease. No abnormal increased or decreased uptake to suggest metastatic disease. IMPRESSION: Correlate for possible infection right hip. Degenerative changes are also present. Metastatic disease is not evident.
== END | disposition home or self-care (01) ==
LOC: RADNMMAIN 10:10
PROVIDERS: ATTEND Surgery Surgical Oncology
DX: M25.559 Pain in unspecified hip (principal); Z85.46 Personal history of malignant neoplasm of prostate
CPT/HCPCS: 78306; A9503

== ENCOUNTER 2023-11-19 05:29 | Inpatient (IN) | payer MEDICARE, OTHER ==
[2023-11-19] MEDS: NALOXONE 0.4 MG/ML 1 ML VIAL IVP STA ×3 (05:54→08:02)
[2023-11-19 06:24] LABS: Basophils % (A) 1 %; Eosinophils # (A) 0.2 k/uL (0-0.7); Eosinophils % (A) 2 %; HCT 35.1 % (39.0-53.0); HGB 10.7 gm/dL (13.0-17.5); Hypochromasia Moderate; Lymphocytes # (A) 0.6 k/uL (1.0-4.8); Lymphocytes % (A) 8 %; MCH 27.7 pg (25.0-35.0); MCHC 30.4 g/dL (31.0-37.0); MCV 91.1 fL (80.0-100.0); Mean Platelet Volume 9.4; Monocytes # (A) 0.4 k/uL (0-1.0); Monocytes % (A) 5 %; Neutrophils # (A) 5.7 k/uL (1.3-7.7); Neutrophils % (A) 82 %; Platelet Count 301 k/uL (150-450); RBC 3.86 m/uL (4.30-5.90)
[2023-11-19 06:33] LABS: ALT 9 U/L (4-49); AST 17 U/L (17-59); African American GFR (CKD) 38 (>60 ml/min/1.73 sqM); Albumin 4.2 g/dL (3.5-5.0); Alkaline Phosphatase 82 U/L (38-126); Anion Gap 7 mmol/L; Blood Urea Nitrogen 60 mg/dL (9-20); Calcium 8.8 mg/dL (8.4-10.2); Carbon Dioxide 38 mmol/L (22-30); Chloride 94 mmol/L (98-107); Glucose 127 mg/dL (74-99); Non-African American GFR(CKD) 32 (>60 ml/min/1.73 sqM); Potassium 3.4 mmol/L (3.5-5.1); Sodium 139 mmol/L (137-145); Total Bilirubin 0.4 mg/dL (0.2-1.3); Total Protein 7.6 g/dL (6.3-8.2)
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
[2023-11-19] MEDS: SODIUM CHLORIDE 0.9% 1,000 ML IV STA ×2 (08:38→08:39)
--- NOTE | 2023-11-19 08:38 | XR ---
EXAMINATION TYPE: XR chest 1V DATE OF EXAM: 11/19/2023 COMPARISON: 07/22/2021 HISTORY: Altered mental status TECHNIQUE: Single frontal view of the chest is obtained. FINDINGS: Diffuse interstitial pattern with bilateral consolidation and small effusion. Cardiac radha ce noted. Generalized demineralization with arthropathy of the shoulder and degenerative changes spin e. Positioning limits the exam. IMPRESSION: Diffuse pleural parenchymal changes correlate for CHF. A left basilar pneumonia not excl uded.
[2023-11-19 08:58] LABS: VBG PH 7.35 (7.31-7.41)
[2023-11-19 09:31] LABS: Appearance,Urine Clear (Clear); Bilirubin,Urine Negative (Negative); Blood,Urine Negative (Negative); Color,Urine Colorless; Glucose,Urine (UA) Negative (Negative); Ketones,Urine Negative (Negative); Leukocyte Esterase,Urine Negative (Negative); Nitrite,Urine Negative (Negative); PH, Urine 6.5 (5.0-8.0); Protein,Urine Negative (Negative); Urobilinogen,Urine <2.0 mg/dL (<2.0)
[2023-11-19] MEDS: IPRATROPIUM-ALBUTEROL 3 ML NEB INHALATION STA (10:09)
--- NOTE | 2023-11-19 10:11 | CT ---
EXAMINATION TYPE: CT brain wo con DATE OF EXAM: 11/19/2023 COMPARISON: 07/14/2021 HISTORY: AMS CT DLP: 1154.[address] of the brain was performed. The ventricles, basal cisterns and sulci overlying the cerebral convexities demonstrate mild enlargem ent. There is no evidence for intracranial hemorrhage or sulcal effacement. There is decreased attenuation about the periventricular white matter and deep white matter of both c erebral hemispheres, compatible with chronic small vessel ischemia. Differential diagnosis does inclu de demyelination. No mass effects are seen.No midline shift. Osseous calvarium is intact. If symptoms persist consider MRI. IMPRESSION: 1. Age related atrophic and chronic small vessel ischemic change without acute intracranial process s een at this time.
[2023-11-19] MEDS ORDERED: PNEUMONIA PROTOCOL UTILIZED 1 EACH MISC PO PRN (10:16)
[2023-11-19] MEDS: AZITHROMYCIN 500 MG in SODIUM CHLORIDE 0.9% 250 ML IVPB STA (11:36)
[2023-11-19] MEDS ORDERED: LACTULOSE 20 GM/30 ML CUP PO PRN (14:16)
[2023-11-19] MEDS ORDERED: DEXTROSE 50% SYRINGE 50 ML IVP PRN ×2 (14:51)
[2023-11-19] MEDS: metOLazone 2.5 MG TAB PO SCH (16:12)
[2023-11-19] MEDS: FUROSEMIDE 20 MG TAB PO SCH (16:55)
[2023-11-19] MEDS: MIDODRINE 5 MG TAB PO SCH (16:55)
[2023-11-19] MEDS: POTASSIUM CHLORIDE 20 MEQ in WATER FOR INJECTION 1 100ML.BAG IVPB STA (16:55)
[2023-11-19] MEDS: INSULIN ASPART (NovoLOG) 100 UNIT/ML VIAL SQ SCH (17:04)
[2023-11-19 17:05] LABS: Glucose,Whole Blood 112 mg/dL (70-110)
[2023-11-19] MEDS: HEPARIN SODIUM,PORCINE 5,000 UNIT/ML 1 ML VIAL SQ SCH (17:05)
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
--- NOTE | 2023-11-19 20:08 | US ---
EXAMINATION TYPE: US kidneys/renal and bladder DATE OF EXAM: 11/19/2023 COMPARISON: NONE CLINICAL INDICATION: Male, 63 years old with history of retention; AMS, RUBI, patient cannot empty kaylynn dder completely EXAM MEASUREMENTS: Right Kidney: 12.9 x 4.9 x 5.6 cm Left Kidney: 10.3 x 4.9 x 6.5 cm Right Kidney: multiple cysts, largest = 7.5 x 6.4 x 5.8cm Left Kidney: Limited views due to bowel gas, no hydronephrosis or masses seen Bladder: wnl No hydronephrosis or nephrolithiasis. Renal cortical thickness is maintained. Mild increased echogeni city of the cortex can be associated with chronic medical renal disease. IMPRESSION: 1. Mild increased cortical echogenicity could be associated with chronic medical renal disease. No hy dronephrosis or nephrolithiasis. 2. Large 7.5 cm right renal cyst with single septation. Favor Bosniak classification 2 cyst.
[2023-11-19] MEDS: IPRATROPIUM-ALBUTEROL 3 ML NEB INHALATION PRN (20:21)
[2023-11-19] MEDS: BUDESONIDE 0.5 MG/2 ML NEBU INHALATION SCH (20:21)
[2023-11-19] MEDS: ATORVASTATIN 10 MG TAB PO SCH (21:45)
[2023-11-19] MEDS: lamoTRIgine 100 MG TAB PO SCH (21:45)
[2023-11-19] MEDS: FAMOTIDINE 20 MG TAB PO SCH (21:45)
[2023-11-19 22:07] LABS: Glucose,Whole Blood 170 mg/dL (70-110)
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
[2023-11-20 05:41] LABS: Glucose,Whole Blood 150 mg/dL (70-110)
[2023-11-20 07:38] LABS: Basophils % (A) 1 %; Eosinophils # (A) 0.2 k/uL (0-0.7); Eosinophils % (A) 4 %; HCT 34.5 % (39.0-53.0); HGB 10.6 gm/dL (13.0-17.5); Hypochromasia Slight; Lymphocytes % (A) 18 %; MCH 27.7 pg (25.0-35.0); MCHC 30.8 g/dL (31.0-37.0); MCV 90.2 fL (80.0-100.0); Mean Platelet Volume 9.6; Monocytes # (A) 0.4 k/uL (0-1.0); Monocytes % (A) 8 %; Neutrophils # (A) 3.8 k/uL (1.3-7.7); Neutrophils % (A) 67 %; Platelet Count 287 k/uL (150-450); RBC 3.82 m/uL (4.30-5.90); WBC 5.7 k/uL (3.8-10.6)
[2023-11-20 07:45] LABS: African American GFR (CKD) 54 (>60 ml/min/1.73 sqM); Anion Gap 7 mmol/L; Blood Urea Nitrogen 42 mg/dL (9-20); Calcium 8.8 mg/dL (8.4-10.2); Carbon Dioxide 36 mmol/L (22-30); Chloride 98 mmol/L (98-107); Glucose 134 mg/dL (74-99); Non-African American GFR(CKD) 47 (>60 ml/min/1.73 sqM); Potassium 3.2 mmol/L (3.5-5.1); Sodium 141 mmol/L (137-145)
[2023-11-20] MEDS: ARIPiprazole 2 MG TAB PO SCH (08:33)
[2023-11-20] MEDS: AZITHROMYCIN 500 MG TAB PO SCH (08:33)
[2023-11-20] MEDS: TAMSULOSIN 0.4 MG CAP.ER.24H PO SCH (08:33)
[2023-11-20] MEDS ORDERED: metFORMIN 500 MG TAB PO SCH (09:00)
[2023-11-20] MEDS: VANCOMYCIN 1,750 MG in SODIUM CHLORIDE 0.9% 500 ML 500 ML IVPB SCH (11:23)
[2023-11-20 12:12] LABS: Glucose,Whole Blood 233 mg/dL (70-110)
[2023-11-20] MEDS: NICOTINE 14MG/24HR PATCH TRANSDERM SCH (12:29)
--- NOTE | 2023-11-20 12:43 | P.PN ---
Subjective Progress Note Date: 11/20/23 The patient is a 63-year-old male who was seen in neurologic follow-up on November 20, 2023, in collaboration with Mary Jane Panchal, via teleneurology. The patient was seen in consultation by Dr. Tatum, yesterday, on November 19, 2023. Please refer to his note for further details on history. Patient is seated in the bedside chair. He does not recall why he is in the hospital. He says that he was not feeling well yesterday but is unable to give any further details. He does report a headache. Patient states that the day prior to yesterday, he was feeling fine. The patient denies numbness, tingling and weakness in his extremities. He denies difficulty with speech and swallowing. Objective - Vital Signs Vital signs: Vital Signs Temp 98.4 F 11/20/23 07:35 Pulse 78 11/20/23 10:27 Resp 19 11/20/23 08:30 BP 98/56 11/20/23 07:35 Pulse Ox 93 L 11/20/23 07:35 FiO2 Intake & Output 11/19/23 11/20/23 11/20/23 18:59 06:59 18:59 Output Total 2250 Balance -2250 Weight 108.862 kg Output: Urine 2250 Straight 1350 Other: Voiding Method Indwelling Catheter # Voids 3 - Exam General: The patient is seated in the bedside chair. He is in no acute distress. He is somewhat disheveled, with a long meng and long hair HEENT: Head is atraumatic, normocephalic. Fundus not visualized. There is no scleral icterus. Mucous membranes are moist. Neck: Supple without carotid bruits Heart: Regular rate and rhythm Extremities: Without edema Neurological examination Mental status: Patient is awake and alert. His speech is somewhat dysarthric. He is able to state his name, date of , age, current location, current year. He is unable to recall why he is in the hospital. Cranial nerves: Pupils are equal at 2 mm and reactive. Visual perez are full to confrontation. Extraocular movements are intact. There is no nystagmus. Facial sensation is intact. There is no facial asymmetry. Hearing is grossly intact. Uvula and palate are midline. Shoulder shrug is symmetric. Motor: Strength is 5/5 throughout with the exception of the hip flexors at 4/5 bilaterally. Coordination: [id number] and jjff-qy-piux testing are intact. Deep tendon reflexes: 2+/4+ in the bilateral upper extremities. Lower extremity reflexes are absent. Sensation: Grossly intact to light touch throughout Gait: Not assessed - Labs CBC & Chem 7: 11/20/23 07:05 11/20/23 07:05 Labs: Abnormal Lab Results - Last 24 Hours (Table) 11/19/23 11/19/23 11/20/23 Range/Units 17:02 22:03 05:40 RBC (4.30-5.90) m/uL Hgb (13.0-17.5) gm/dL Hct (39.0-53.0) % MCHC (31.0-37.0) g/dL Potassium (3.5-5.1) mmol/L Carbon Dioxide (22-30) mmol/L BUN (9-20) mg/dL Creatinine (0.66-1.25) mg/dL Glucose (74-99) mg/dL POC Glucose (mg/dL) 112 H 170 H 150 H (70-110) mg/dL 11/20/23 11/20/23 Range/Units 07:05 07:05 RBC 3.82 L (4.30-5.90) m/uL Hgb 10.6 L (13.0-17.5) gm/dL Hct 34.5 L (39.0-53.0) % MCHC 30.8 L (31.0-37.0) g/dL Potassium 3.2 L (3.5-5.1) mmol/L Carbon Dioxide 36 H (22-30) mmol/L BUN 42 H (9-20) mg/dL Creatinine 1.54 H (0.66-1.25) mg/dL Glucose 134 H (74-99) mg/dL POC Glucose (mg/dL) (70-110) mg/dL Microbiology - Last 24 Hours (Table) 11/19/23 10:42 Blood Culture Gram Stain - Preliminary Blood 11/19/23 10:42 Blood Culture Gram Stain - Preliminary Blood Assessment and Plan Assessment: Altered mental status, probable acute delirium with metabolic encephalopathy- resolved, the patient was receptive to neurological examination today. He was cooperative and asked questions Exact cause uncertain, probably multifactorial, perhaps due to medications, and other conditions mentioned below. Patient became altered after he received [place] at the facility. Rule out opiate overdose. Patient became irritable, aggressive and violent during examination. Likely due to delirium. CHF, possible left basilar pneumonia Hypercarbia with pCO2 of 67 Acute kidney injury Hypertension Diabetes Polypharmacy Presence of morphine pump COPD Plan: EEG evaluate for encephalopathy, rule out any other abnormalities. * Medical management as per IM * VBG with pH of 7.35, pCO2 67, HCO3 38. Consider pulmonary consultation. * Check B12, folate, TSH, A1c, RPR, ammonia <9. Time with Patient: Greater than 30 (40 minutes were spent caring for this patient today including, obtaining history, examining patient, reviewing imaging, chart documentation, labs and creating this note)
--- NOTE | 2023-11-20 13:07 | XR ---
EXAMINATION TYPE: XR chest 1V portable DATE OF EXAM: 11/20/2023 COMPARISON: 11/19/2023 HISTORY: Pneumonia TECHNIQUE: Single frontal view of the chest is obtained. FINDINGS: COPD with cardiomegaly and cardiac device noted. There is degenerative change of the spine and diffuse osteopenia. Improving left lower lobe consolidation. No pleural effusion or pneumothorax. There is interval improved appearance of the interstitium. IMPRESSION: 1. COPD with improving interstitial pattern may been the basis of improving interstitial pneumonitis or venous congestion. 2. Left lower lobe consolidation is improved correlate for improving pneumonia or atelectasis.
[2023-11-20 17:05] LABS: Glucose,Whole Blood 150 mg/dL (70-110)
[2023-11-20 20:43] LABS: Glucose,Whole Blood 150 mg/dL (70-110)
[2023-11-20] MEDS: POTASSIUM CHLORIDE ER 20 MEQ TAB.ER PO SCH (21:57)
[2023-11-21 06:11] LABS: Glucose,Whole Blood 129 mg/dL (70-110)
[2023-11-21 06:35] LABS: African American GFR (CKD) 49 (>60 ml/min/1.73 sqM); Anion Gap 12 mmol/L; Blood Urea Nitrogen 40 mg/dL (9-20); Carbon Dioxide 33 mmol/L (22-30); Chloride 98 mmol/L (98-107); Glucose 114 mg/dL (74-99); Non-African American GFR(CKD) 42 (>60 ml/min/1.73 sqM); Potassium 3.5 mmol/L (3.5-5.1); Sodium 143 mmol/L (137-145)
[2023-11-21 06:44] LABS: NT-Pro-B-Type Natriuretic Pept 198 pg/mL
[2023-11-21 10:57] LABS: Basophils # (A) 0.06 X 10*3/uL (0.00-0.10); Eosinophils # (A) 0.27 X 10*3/uL (0.04-0.35); Eosinophils % (A) 4.5 %; HCT 34.8 % (39.6-50.0); HGB 10.5 g/dL (13.0-17.0); Lymphocytes % (A) 21.8 %; MCH 27.3 pg (27.0-32.0); MCHC 30.2 g/dL (32.0-37.0); MCV 90.4 FL (80.0-97.0); Mean Platelet Volume 12.3 FL (9.5-12.2); Monocytes # (A) 0.66 X 10*3/uL (0.20-1.00); Monocytes % (A) 11.1 %; NRBC Per 100 WBC 0 X 10*3/uL (0.00-0.01); Neutrophils # (A) 3.65 X 10*3/uL (1.80-7.70); Neutrophils % (A) 61.3 %; Platelet Count 300 X 10*3/uL (140-440); RBC 3.85 X 10*6/uL (4.40-5.60); RDW 14.3 % (11.5-14.5); WBC 5.96 X 10*3/uL (4.50-10.00)
[2023-11-21 11:54] LABS: Glucose,Whole Blood 172 mg/dL (70-110)
[2023-11-21 16:34] LABS: Glucose,Whole Blood 155 mg/dL (70-110)
[2023-11-21 20:23] LABS: Glucose,Whole Blood 137 mg/dL (70-110)
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
[2023-11-22] MEDS: SODIUM CHLORIDE 0.9% 1,000 ML IV SCH (03:31)
[2023-11-22 05:58] LABS: Glucose,Whole Blood 126 mg/dL (70-110)
[2023-11-22 07:17] VITALS: RESP 17
[2023-11-22 08:57] LABS: African American GFR (CKD) 55 (>60 ml/min/1.73 sqM); Anion Gap 8 mmol/L; Blood Urea Nitrogen 40 mg/dL (9-20); Calcium 9.3 mg/dL (8.4-10.2); Carbon Dioxide 33 mmol/L (22-30); Chloride 99 mmol/L (98-107); Glucose 135 mg/dL (74-99); Non-African American GFR(CKD) 48 (>60 ml/min/1.73 sqM); Potassium 3.5 mmol/L (3.5-5.1); Sodium 140 mmol/L (137-145)
[2023-11-22 10:18] LABS: Basophils # (A) 0.05 X 10*3/uL (0.00-0.10); Basophils % (A) 1.1 %; Eosinophils # (A) 0.22 X 10*3/uL (0.04-0.35); Eosinophils % (A) 4.7 %; HCT 32.9 % (39.6-50.0); HGB 9.9 g/dL (13.0-17.0); Lymphocytes # (A) 1.25 X 10*3/uL (0.90-5.00); Lymphocytes % (A) 26.5 %; MCHC 30.1 g/dL (32.0-37.0); MCV 89.9 FL (80.0-97.0); Mean Platelet Volume 12.1 FL (9.5-12.2); Monocytes # (A) 0.57 X 10*3/uL (0.20-1.00); Monocytes % (A) 12.1 %; NRBC Per 100 WBC 0 X 10*3/uL (0.00-0.01); Neutrophils # (A) 2.61 X 10*3/uL (1.80-7.70); Neutrophils % (A) 55.4 %; Platelet Count 292 X 10*3/uL (140-440); RBC 3.66 X 10*6/uL (4.40-5.60); RDW 14.2 % (11.5-14.5); WBC 4.71 X 10*3/uL (4.50-10.00)
[2023-11-22 13:33] VITALS: BP 94/61; PULSE 81; TEMP 97.6
[2023-11-22 14:07] LABS: Glucose,Whole Blood 235 mg/dL (70-110)
--- NOTE | 2023-11-22 16:08 | P.DS ---
Providers Date of admission: 11/19/23 10:16 Expected date of discharge: 11/22/23 Attending physician: Danyel Garcia Consults: 11/19/23 10:16 Consult Physician Routine Consulting Provider: Radha Tatum Consult Reason/Comments: ams Do you want consulting provider notified?: Yes Primary care physician: Marilou Mcghee, DO Hospital Course: Final diagnosis Altered mental status with delirium which is multifactorial related to metabolic and toxic encephalopathy with suspected Bowen overdose. Improving slowly. Acute kidney injury likely vasomotor nephropathy with creatinine 2.08 on admission baseline creatinine 0.9 possible left lower lobe pneumonia, present on admission, ruled out, likely atelectasis, procalcitonin was low Hypokalemia, improved likely secondary to diuretic use Chronic pancreatitis History of pericardial effusion Hypertension Diabetes type 2 [id number] History of SVT Bilateral lower extremity chronic edema And chronic DVTs CKD stage III History of alcohol abuse Chronic low back pain on pain pump Chronic hypotension on midodrine at the facility Currently everyday smoker History of traumatic brain injury Seizure disorder DVT prophylaxis with heparin subq GI prophylaxis Full code Discharge disposition Patient is being discharged in a stable condition with guarded prognosis to [facility]. Patient will follow-up with Dr. Mcghee in the outpatient setting upon discharge. Patient is to continue with continued DuoNeb treatments and outpatient follow-up with pulmonary and neurology as scheduled. Continue holding Lasix for now and repeat labs in 2 to 3 days to monitor CBC, CMP, magnesium. Strongly recommend limiting some narcotics from his med reconciliation as well. Total time taken is greater than 35 minutes. Hospital course This is a 63-year-old male who was recently admitted with altered mental status with delirium and acute kidney injury likely secondary to metabolic encephalopathy with suspected Bowen overdose. Patient does take a number of narcotic medications along with pain medications for chronic pain which are currently on hold and mentation has improved. Patient with mild acute kidney injury and also takes diuretics which are currently on hold as well. Patient's kidney functions have improved slightly recommend follow-up labs of CBC, CMP, magnesium in the next 2 to 3 days to monitor and continuing to hold Lasix therapy at this time. Patient is a chronic every day smoker recommend to continue with DuoNeb treatments scheduled as well as as needed and discussed with the patient about complete tobacco cessation. Patient chronically has a pain pump as well and encouraged outpatient follow-up with pain management. Recommend limiting narcotics until follow-up in the outpatient setting. Patient is medically stable and [facility] Please refer to other consultation notes for further HPI. Patient was evaluated by neurology and EEG was done and patient's mentation is baseline. Patient to follow-up with neurologist, pain management, pulmonary in the outpatient setting. Currently no reports of chest pain, shortness of breath, or palpitations. Patient is afebrile. No reports of nausea or vomiting and patient is tolerating diet. Patient will be going to [facility] today. Guarded prognosis and high risk for readmissions given patient's significant comorbidities. Physical exam: Gen: This is a 63-year-old male who is awake, alert and oriented x 3, baseline, well-developed, elderly appearing, obese HEENT: Head is atraumatic, normocephalic. Pupils equal, round. Sclerae is anicteric. NECK: Supple. No JVD. No lymphadenopathy. No thyromegaly. LUNGS: Diminished breath sounds bilaterally with some scattered rhonchi. No intercostal retractions. HEART: S1, S2 are muffled ABDOMEN: Soft. Obese bowel sounds are present. No masses. No tenderness. EXTREMITIES: No pedal edema. No calf tenderness. NEUROLOGICAL: Patient is awake, alert and oriented x3. Cranial nerves 2 through 12 are grossly intact. Diffusely weak Please refer to medication reconciliation sheet for a list of medications. The impression and plan of care has been dictated by Lynn Chauhan, Nurse Practitioner as directed. Dr. Virginia MD I have performed a history and examination and MDM of this patient, discussed the same with the dictator, and agree with the dictator's assessment and plan as written ,documented as a scribe. Based on total visit time, I have performed more than 50% of the visit. Patient Condition at Discharge: Stable Plan - Discharge Summary Discharge Rx Participant: No New Discharge Prescriptions: New Ipratropium-Albuterol Nebulize [Duoneb 0.5 mg-3 mg/3 ml Soln] 3 ml INHALATION RT-Q4H PRN each PRN Reason: shortness of breath Nicotine 14Mg/24Hr Patch [Habitrol] 1 patch TRANSDERM DAILY patch Ipratropium-Albuterol Nebulize [Duoneb 0.5 mg-3 mg/3 ml Soln] 3 ml INHALATION QID #360 ml Heparin Sodium,Porcine (1 ml) [Heparin Sodium] 5,000 unit SQ Q8HR each Continue Tamsulosin HCl [Flomax] 0.8 mg PO DAILY DULoxetine HCL [Cymbalta] 60 mg PO DAILY Docusate [Colace] 100 mg PO HS Albuterol Sulfate [Ventolin HFA] 1 puff INHALATION RT-Q6H PRN PRN Reason: Shortness Of Breath Naloxegol Oxalate [Movantik] 25 mg PO DAILY rOPINIRole HCL [Requip] 2 mg PO HS Topiramate [Topamax] 75 mg PO Q12H Midodrine [ProAmatine] 5 mg PO Q12H metFORMIN HCL [metFORMIN HCL ER] 750 mg PO DAILY lamoTRIgine [LaMICtal] 200 mg PO BID Folic Acid 1 mg PO DAILY Diabetic Tussin Ex Syrup 10 ml PO Q4H PRN PRN Reason: Cough Menthol [Biofreeze] 1 applic TOPICAL TID Acetaminophen Tab [Tylenol] 650 mg PO Q4H PRN PRN Reason: Mild Pain (Scale 1 To 3) ARIPiprazole [Abilify] 2 mg PO DAILY Naloxone [Narcan] 0.4 mg IM DIRECTED PRN PRN Reason: Opioid Reversal Patient Own Pump 0 bag Budesonide [Pulmicort] 0.5 mg INHALATION RT-BID Atorvastatin [Lipitor] 10 mg PO HS Fenofibrate,Micronized [Fenofibrate] 200 mg PO HS Famotidine 20 mg PO HS Lactulose 20 gm PO DAILY PRN PRN Reason: no bm for 3 days Naloxone HCl [Narcan] 4 mg NASAL Q1H PRN PRN Reason: Opioid Reversal Discontinued Furosemide [Lasix] 20 mg PO BID Potassium Chloride [Klor-Con 20] 20 meq PO DAILY Mirtazapine [Remeron] 15 mg PO HS metOLazone 2.5 mg PO Q12H HYDROcodone/APAP 5-325MG [Bowen 5-325] 1 tab PO Q12H PRN PRN Reason: Pain Pregabalin [Lyrica] 150 mg PO TID Discharge Medication List Albuterol Sulfate [Ventolin HFA] 1 puff INHALATION RT-Q6H PRN 02/27/20 [History] DULoxetine HCL [Cymbalta] 60 mg PO DAILY 02/27/20 [History] Docusate [Colace] 100 mg PO HS 02/27/20 [History] Tamsulosin HCl [Flomax] 0.8 mg PO DAILY 02/27/20 [History] Naloxegol Oxalate [Movantik] 25 mg PO DAILY 05/06/20 [History] Atorvastatin [Lipitor] 10 mg PO HS 07/14/21 [History] Budesonide [Pulmicort] 0.5 mg INHALATION RT-BID 07/14/21 [History] ARIPiprazole [Abilify] 2 mg PO DAILY 11/19/23 [History] Acetaminophen Tab [Tylenol] 650 mg PO Q4H PRN 11/19/23 [History] Diabetic Tussin Ex Syrup 10 ml PO Q4H PRN 11/19/23 [History] Famotidine 20 mg PO HS 11/19/23 [History] Fenofibrate,Micronized [Fenofibrate] 200 mg PO HS 11/19/23 [History] Folic Acid 1 mg PO DAILY 11/19/23 [History] Lactulose 20 gm PO DAILY PRN 11/19/23 [History] Menthol [Biofreeze] 1 applic TOPICAL TID 11/19/23 [History] Midodrine [ProAmatine] 5 mg PO Q12H 11/19/23 [History] Naloxone HCl [Narcan] 4 mg NASAL Q1H PRN 11/19/23 [History] Naloxone [Narcan] 0.4 mg IM DIRECTED PRN 11/19/23 [History] Patient Own Pump 0 bag 11/19/23 [History] Topiramate [Topamax] 75 mg PO Q12H 11/19/23 [History] lamoTRIgine [LaMICtal] 200 mg PO BID 11/19/23 [History] metFORMIN HCL [metFORMIN HCL ER] 750 mg PO DAILY 11/19/23 [History] rOPINIRole HCL [Requip] 2 mg PO HS 11/19/23 [History] Heparin Sodium,Porcine (1 ml) [Heparin Sodium] 5,000 unit SQ Q8HR each 11/22/23 [Rx] Ipratropium-Albuterol Nebulize [Duoneb 0.5 mg-3 mg/3 ml Soln] 3 ml INHALATION QID #360 ml 11/22/23 [Rx] Ipratropium-Albuterol Nebulize [Duoneb 0.5 mg-3 mg/3 ml Soln] 3 ml INHALATION RT-Q4H PRN each 11/22/23 [Rx] Nicotine 14Mg/24Hr Patch [Habitrol] 1 patch TRANSDERM DAILY patch 11/22/23 [Rx] Follow up Appointment(s)/Referral(s): Marilou Mcghee DO [Primary Care Provider] - 1-2 days Sunny Cuevas MD [Medical Doctor] - 1 Week Rachel Sow MD [STAFF PHYSICIAN] - 1 Week Activity/Diet/Wound Care/Special Instructions: Patient is returning to [facility] [employer] Activity as tolerated Continue holding multiple narcotic medications and slowly resuming Continue holding diuretics and metolazone and follow-up on repeat CBC, BMP, magnesium Continue with DuoNeb treatments 4 times daily and as needed with supplemental oxygen Continue monitoring Accu-Cheks ACHS Follow-up with neurology outpatient Follow-up with pulmonary outpatient in 1 to 2 weeks Discharge Disposition: TRANSFER TO SNF/ECF
[2023-11-22 16:35] LABS: Glucose,Whole Blood 272 mg/dL (70-110)
--- NOTE | 2023-11-22 21:22 | EEG ---
ELECTROENCEPHALOGRAM REPORT CLINICAL HISTORY: This is a 63-year-old gentleman with altered mental status. The video EEG is obtained to evaluate for seizure epileptiform activity. RELEVANT MEDICATIONS: 1. Lamictal. 2. Abilify. EEG TYPE: This is a routine 21-channel EEG with video using the 10/20 electrode placement system. DESCRIPTION: Wakefulness and drowsiness are obtained. During awake state, the posterior-dominant rhythm consists of [id number] voltage of 6.5 to 7.5 hertz activity and at times, the background consists of delta activity. There was no physiological stage 2 sleep architecture. There is no focal slowing. Interictal and ictal is none. ACTIVATION PROCEDURE: Photic stimulation and hyperventilation are not performed. CLINICAL INTERPRETATION: This is an abnormal routine EEG. The background slowing is suggestive of mild to moderate encephalopathy. There is no focal slowing, epileptiform discharge, or seizure on the EEG. Clinical correlation is recommended. ERICH / SUSHIL: [id number] /
== END 2023-11-22 16:54 | DRG 917 ==
LOC: EC 05:29 → 4SSUR 10:16
PROVIDERS: ADMIT Internal Medicine; ATTEND Internal Medicine
PROC: 4A10X4Z Monitoring of Central Nervous Electrical Activity, External Approach (ICD-10-PCS; principal; 2023-11-22)
DX: T40.2X1A Poisoning by other opioids, accidental (unintentional), initial encounter (principal); G92.8 Other toxic encephalopathy; N17.0 Acute kidney failure with tubular necrosis; J98.11 Atelectasis; I13.0 Hypertensive heart and chronic kidney disease with heart failure and stage 1 through stage 4 chronic kidney disease, or unspecified chronic kidney disease; I82.503 Chronic embolism and thrombosis of unspecified deep veins of lower extremity, bilateral; I42.8 Other cardiomyopathies; K86.1 Other chronic pancreatitis; L03.115 Cellulitis of right lower limb; F05 Delirium due to known physiological condition; Z20.822 Contact with and (suspected) exposure to COVID-19; Z11.52 Encounter for screening for COVID-19; N18.30 Chronic kidney disease, stage 3 unspecified; E11.22 Type 2 diabetes mellitus with diabetic chronic kidney disease; G89.29 Other chronic pain; M54.50 Low back pain, unspecified; T50.2X5A Adverse effect of carbonic-anhydrase inhibitors, benzothiadiazides and other diuretics, initial encounter; N40.0 Benign prostatic hyperplasia without lower urinary tract symptoms; G40.909 Epilepsy, unspecified, not intractable, without status epilepticus; J44.9 Chronic obstructive pulmonary disease, unspecified; R47.1 Dysarthria and anarthria; E87.6 Hypokalemia; M10.9 Gout, unspecified; I95.9 Hypotension, unspecified; Z79.4 Long term (current) use of insulin; Z79.899 Other long term (current) drug therapy; X58.XXXA Exposure to other specified factors, initial encounter; G25.81 Restless legs syndrome; I95.89 Other hypotension; Z87.820 Personal history of traumatic brain injury; Z87.828 Personal history of other (healed) physical injury and trauma; Z99.81 Dependence on supplemental oxygen; Z79.84 Long term (current) use of oral hypoglycemic drugs; Z86.79 Personal history of other diseases of the circulatory system
CPT/HCPCS: 36415; 70450; 71045; 76770; 80048; 80053; 81003; 82140; 82803; 83036; 83605; 83880; 84145; 85025; 87040; 87077; 87186; 87449; 87636; 94640; 95816; 96361; 96365; 96366; 96367; 96375; 96376; 99285